=== PATIENT | female | born 2000 | race African-American/Black ===

== ENCOUNTER → 2020-05-31 | Outpatient (CLI) | payer BC, SELFPAY ==
[2020-05-31 14:05] VITALS: BMI 29.3
[2020-05-31 15:13] LABS: Estradiol 51.1 pg/mL; Follicle Stimulating Hormone 4.7 mIU/mL; Prolactin 13.4 ng/mL; T4 Free Direct 1.05 ng/dL (0.76-1.46); Thyroid Stim Hormone (TSH) 1.11 uIU/mL (0.358-3.74)
[2020-06-03 06:29] LABS: Testosterone Free 5.7 pg/mL (0.0-4.2)
[2020-06-08 09:14] LABS: 17-Hydroxyprogesterone 63 ng/dL (.)
== END | disposition home or self-care (01) ==
LOC: PAVLAB 14:33
PROVIDERS: PCP Pediatrics; Referring Provider Obstetrics & Gynecology; Visit Provider Obstetrics & Gynecology
DX: N91.5 Oligomenorrhea, unspecified (principal); Z13.29 Encounter for screening for other suspected endocrine disorder
CPT/HCPCS: 36415; 82627; 82670; 83001; 83498; 84146; 84402; 84439; 84443; 82626

== ENCOUNTER 2020-06-06 00:51 | Emergency (ER) | payer BC, SELFPAY ==
[2020-05-31 14:05] VITALS: BMI 29.3
[2020-06-06 00:52] VITALS: BP 132/78; PULSE 157; RESP 24; RESP 25; TEMP 36.1; O2SAT 100; BMI 28.7
--- NOTE | 2020-06-06 00:56 | EKG12_ITS ---
Test Reason : PALPITATIONS Blood Pressure : / mmHG Vent. Rate : 156 BPM Atrial Rate : 156 BPM P-R Int : 130 ms QRS Dur : 080 ms QT Int : 248 ms P-R-T Axes : 066 078 001 degrees QTc Int : 399 ms Sinus tachycardia Nonspecific ST abnormality Abnormal ECG Confirmed by ROBB IVY, RICHARD ([id number]), non linear editor LUH MOYER ([id number]) on 06/07/2020 11:33:18 AM Referred By: ESTELLE Confirmed By:RICHARD ZAMUDIO MD
--- NOTE | 2020-06-06 01:03 | ED.VIS.GEN ---
History of Present Illness Chief Complaint: Palpitations Informant: Patient Onset: Today Narrative: Patient states she woke up with palpitations. Happened 40 minutes ago. History of SVT in the past status post remote ablation. She has not had SVT since her ablation multiple years ago. Denies any chest pain or shortness of breath. Denies any other symptoms other than palpitations and heart racing. She was worried she might be in SVT again. Denies any other medical problems as for asthma. Current severity is moderate. Past Medical History - Allergies and Home Meds Allergies/Adverse Reactions: Allergies No Known Allergies Allergy (Verified 05/31/20 14:06) Primary Care Physician: Cally Hull MD [Primary Care Provider] - Prior records reviewed: Yes Past Medical History: - - SVT Surgical History: - - Cardiac ablation Smoking Status: Never smoker Alcohol: None Drugs: None Review of Systems General: Denies: Chills, Fever, Sweats Eyes: Denies: Visual changes - bilaterally, Diplopia ENT: Denies: Rhinorrhea, Sore throat Cardiovascular: Reports: Palpitations, Heart racing. Denies: Chest pain Respiratory: Denies: Dyspnea, Cough, Dyspnea on exertion Gastrointestinal: Denies: Abdominal pain, Nausea, Vomiting, Diarrhea, Melena, Hematochezia Genitourinary: Denies: Dysuria, Hematuria, Frequency Musculoskeletal: Denies: Back pain, Extremity Pain Skin: Denies: Rash, Wounds Neurological: Denies: Headache, Weakness, Numbness Physical Exam Vital Signs/Narrative: Vital Signs Temp Pulse Resp BP Pulse Ox 06/06/20 00:52 96.9 F L 157 H 25 H 132/78 H 100 General: Well nourished, Well developed, No Acute Distress Head: Normocephalic, Atraumatic Eyes: Perrl, EOMI ENT: Moist mucous membranes, No rhinorrhea Neck: Supple, Nontender Cardiovascular: Regular rhythm, No murmurs, Tachycardia Respiratory: No distress, CTA bilaterally, Chest nontender Abdomen: Soft, Nontender, Nondistended, Normal bowel sounds Back: Nontender, Normal Inspection Extremities: Nontender, No edema Skin: Normal color, No rash Neurological: Alert, Oriented x3, Cranial nerves II-XII grossly intact, Normal Strength, Normal Sensation Psychological: Normal affect, Normal Mood Diagnostic/Tx/Re-eval - Medical Decision Making Patient resting comfortably. Placed on the monitor. Regular rhythm noted although tachycardic. EKG shows tachycardia at 156. EKG shows sinus rhythm versus SVT. I believe it is SVT. Reading sinus rhythm but I suspect this SVT patient monitored. Lab work was obtained shows mild hypokalemia 2.9. Given potassium replacement for this. She has had this in the past. Otherwise lab work unremarkable. The patient Valsalva it and converted back to normal sinus rhythm. Heart rate in the 80s resting comfortably symptoms resolved will follow up with her public health advisor. ED Disposition - Plan for ED Patient: Diagnosis: Supraventricular tachycardia, Hypokalemia Instructions: ED Tachycardia PAT Referrals: Cally Hull MD [Primary Care Provider] - Additional Instructions: Follow with your public health advisor
[2020-06-06 01:15] LABS: Absolute Lymphocyte Count 3.12 X10^3/uL (0.83-4.51); Absolute Neutrophil Count 2.4 X10^3/uL (2.0-7.7); Basophil# 0.02 X10^3/uL; Basophil% 0.3 % (0-1); Eosinophil# 0.27 X10^3/uL; Eosinophils% 4.1 % (0-5); Hematocrit 39.8 % (37-47); Hemoglobin 12.8 g/dL (12.0-15.0); Lymphocyte # 3.12 X10^3/ul (4.0); Lymphocyte % 47.6 % (19-41); Mean Corp Hgb Conc 32.2 g/dL (32-36); Mean Corpuscular Hgb 25.9 pg (27.0-32.0); Mean Corpuscular Volume 80.6 fL (81-99); Monocyte# 0.76 X10^3/uL; Monocyte% 11.6 % (0-10); NRBC Flagged by Analyzer 0 % (0-5); Neutrophil # 2.38 X10^3/uL (2.7-7.7); Neutrophil % 36.2 % (47-70); Platelet Count 299 K/mm3 (150-450); RBC Distribution Width CV 13.4 % (11.6-14.6); RBC Distribution Width SD 38.9 fl (35.1-43.9); Red Blood Count 4.94 M/mm3 (4.2-5.4); White Blood Count 6.6 K/mm3 (4.4-11.0)
[2020-06-06 01:25] LABS: Anion Gap 7 (5-15); BUN 21 mg/dL (7-18); BUN/Creat Ratio 19.6 RATIO (10-20); Calcium,Total 9.1 mg/dL (8.5-10.1); Chloride 104 mmol/L (98-107); Creatinine, Serum 1.07 mg/dL (0.55-1.02); EST Glomerular Filtration Rate 69 mL/min (>60); Est Glom Filt Rate - Afr Amer 84 mL/min (>60); Estimated Creatinine Clearance 75.47 ml/min; Glucose 114 mg/dL (74-106); Potassium 2.9 mmol/L (3.5-5.1); Sodium Level 138 mmol/L (136-145)
[2020-06-06 02:03] VITALS: BP 111/97; PULSE 92; RESP 20; O2SAT 100
== END 2020-06-06 02:04 | disposition home or self-care (01) ==
PROVIDERS: Emergency Provider Emergency Medicine; PCP Pediatrics
DX: I47.1 Supraventricular tachycardia (principal); E87.6 Hypokalemia
CPT/HCPCS: 80048; 85025; 93005; 99284

== ENCOUNTER 2020-10-21 11:06 | Emergency (ER) | payer BC, SELFPAY ==
[2020-08-18 14:35] VITALS: BMI 28.3
[2020-10-21 11:06] VITALS: BP 116/75; PULSE 156; RESP 22; TEMP 36.1; O2SAT 97; BMI 29.2
[2020-10-21] MEDS: Adenosine 6 MG/2 ML Syringe IV (11:25)
[2020-10-21] MEDS: 0.9% Normal Saline 1,000 ML 999 ML IV (11:30)
[2020-10-21 11:39] VITALS: BP 116/75; PULSE 108; RESP 15; O2SAT 100
--- NOTE | 2020-10-21 11:39 | ED.RN ---
pt received 6 mg of adenosine with no change in HR (still 150-160s). after approx 10 min- pt got up to bathroom to void, attempts to bear down. back to bed, then in another 5-10 min- pt is now in a sinus tachycardia. MD at bedside to discuss POC with patient.
--- NOTE | 2020-10-21 11:42 | EKG12_ITS ---
Test Reason : REPEAT Blood Pressure : / mmHG Vent. Rate : 095 BPM Atrial Rate : 095 BPM P-R Int : 128 ms QRS Dur : 072 ms QT Int : 334 ms P-R-T Axes : 073 086 071 degrees QTc Int : 419 ms Normal sinus rhythm Normal ECG Confirmed by GEE IVY, DENIZ ([id number]), writer editor LUH MOYER ([id number]) on 10/24/2020 10:54:25 A M Referred By: Confirmed By:MO FLYNN MD
[2020-10-21 11:54] LABS: Absolute Lymphocyte Count 2.67 X10^3/uL (0.83-4.51); Absolute Neutrophil Count 4.7 X10^3/uL (2.0-7.7); Basophil# 0.02 X10^3/uL; Basophil% 0.2 % (0-1); Eosinophil# 0.32 X10^3/uL; Eosinophils% 3.8 % (0-5); Hematocrit 39.2 % (37-47); Hemoglobin 12.8 g/dL (12.0-15.0); Lymphocyte # 2.67 X10^3/ul (4.0); Lymphocyte % 31.5 % (19-41); Mean Corp Hgb Conc 32.7 g/dL (32-36); Mean Corpuscular Hgb 25.9 pg (27.0-32.0); Mean Corpuscular Volume 79.4 fL (81-99); Mean Platelet Vol. 10.3 fl (6.2-12.0); Monocyte# 0.79 X10^3/uL; Monocyte% 9.3 % (0-10); NRBC Flagged by Analyzer 0 % (0-5); Neutrophil # 4.65 X10^3/uL (2.7-7.7); Platelet Count 326 K/mm3 (150-450); RBC Distribution Width CV 14.1 % (11.6-14.6); RBC Distribution Width SD 40.5 fl (35.1-43.9); Red Blood Count 4.94 M/mm3 (4.2-5.4); White Blood Count 8.5 K/mm3 (4.4-11.0)
--- NOTE | 2020-10-21 12:00 | EKG12_ITS ---
Test Reason : IRREGULAR HEART RHTY Blood Pressure : / mmHG Vent. Rate : 157 BPM Atrial Rate : 314 BPM P-R Int : 000 ms QRS Dur : 068 ms QT Int : 236 ms P-R-T Axes : 251 080 000 degrees QTc Int : 381 ms Atrial flutter with 2:1 A-V conduction Nonspecific ST abnormality Abnormal ECG Confirmed by ROBB IVY, RICHARD ([id number]), index editor LUH MOYER ([id number]) on 10/25/2020 8:58:09 AM Referred By: AVEL Confirmed By:RICHARD ZAMUDIO MD
[2020-10-21 12:05] LABS: Anion Gap 6 (5-15); BUN 18 mg/dL (7-18); Calcium,Total 8.8 mg/dL (8.5-10.1); Chloride 107 mmol/L (98-107); Creatinine, Serum 1.06 mg/dL (0.55-1.02); EST Glomerular Filtration Rate 70 mL/min (>60); Est Glom Filt Rate - Afr Amer 84 mL/min (>60); Estimated Creatinine Clearance 73.11 ml/min; Glucose 127 mg/dL (74-106); Magnesium 1.9 mg/dL (1.6-2.6); Potassium 3.1 mmol/L (3.5-5.1); Sodium Level 142 mmol/L (136-145)
--- NOTE | 2020-10-21 12:07 | ED.VIS.GEN ---
History of Present Illness Chief Complaint: Palpitations Informant: Patient Narrative: 20-year-old female presents with palpitations. She states that she had a heart ablation at age 14 for SVT. Since that time she has had one episode of SVT possibly related to hypokalemia. She sees cardiology at [facility]. The patient states that she feels her heart fluttering. No syncope. - Past Medical History (1) Polycystic ovary syndrome Status: Acute Comment: counseling provided. sarah beth Past Medical History - Allergies and Home Meds Allergies/Adverse Reactions: Allergies No Known Allergies Allergy (Verified 10/21/20 11:09) Primary Care Physician: Cally Hull MD [Primary Care Provider] - Past Medical History: - - SVT Surgical History: - - Cardiac ablation Smoking Status: Never smoker Drugs: None Review of Systems General: Denies: Chills, Fever, Sweats Eyes: Denies: Visual changes - bilaterally, Diplopia ENT: Denies: Rhinorrhea, Sore throat Cardiovascular: Reports: Palpitations, Heart racing. Denies: Chest pain Respiratory: Denies: Dyspnea, Cough, Dyspnea on exertion Gastrointestinal: Denies: Abdominal pain, Nausea, Vomiting, Diarrhea, Melena, Hematochezia Genitourinary: Denies: Dysuria, Hematuria, Frequency Musculoskeletal: Denies: Back pain, Extremity Pain Skin: Denies: Rash, Wounds Neurological: Denies: Headache, Weakness, Numbness Physical Exam Vital Signs/Narrative: Vital Signs Temp Pulse Resp BP Pulse Ox 10/21/20 11:39 108 H 15 116/75 100 10/21/20 11:06 96.9 F L 156 H 22 H 116/75 97 Inital Vital Signs reviewed: Yes General: Well nourished, Well developed, No Acute Distress Head: Normocephalic, Atraumatic Eyes: Perrl, EOMI ENT: Moist mucous membranes, No rhinorrhea Neck: Supple, Nontender Cardiovascular: Regular rate, Regular rhythm, No murmurs, Tachycardia Respiratory: No distress, CTA bilaterally, Chest nontender Abdomen: Soft, Nontender, Nondistended, Normal bowel sounds Back: Nontender, Normal Inspection Extremities: Nontender, No edema Skin: Normal color, No rash Neurological: Alert, Oriented x3, Cranial nerves II-XII grossly intact, Normal Strength, Normal Sensation Psychological: Normal affect, Normal Mood Diagnostic/Tx/Re-eval Laboratory Last Values WBC 8.5 K/mm3 (4.4-11.0) 10/21/20 11:10 RBC 4.94 M/mm3 (4.2-5.4) 10/21/20 11:10 Hgb 12.8 g/dL (12.0-15.0) 10/21/20 11:10 Hct 39.2 % (37-47) 10/21/20 11:10 MCV 79.4 fL (81-99) L 10/21/20 11:10 MCH 25.9 pg (27.0-32.0) L 10/21/20 11:10 MCHC 32.7 g/dL (32-36) 10/21/20 11:10 RDW Std Deviation 40.5 fl (35.1-43.9) 10/21/20 11:10 RDW Coeff of Anabel 14.1 % (11.6-14.6) 10/21/20 11:10 Plt Count 326 K/mm3 (150-450) 10/21/20 11:10 MPV 10.3 fl (6.2-12.0) 10/21/20 11:10 Immature Gran % (Auto) 0.200 % (0.0-0.9) 10/21/20 11:10 Neut % (Auto) 55.0 % (47-70) 10/21/20 11:10 Lymph % (Auto) 31.5 % (19-41) 10/21/20 11:10 Aiken % (Auto) 9.3 % (0-10) 10/21/20 11:10 Eos % (Auto) 3.8 % (0-5) 10/21/20 11:10 Baso % (Auto) 0.2 % (0-1) 10/21/20 11:10 Absolute Neuts (auto) 4.7 X10^3/uL (2.0-7.7) 10/21/20 11:10 Absolute Lymphs (auto) 2.67 X10^3/uL (0.83-4.51) 10/21/20 11:10 Nucleated RBC % 0 % (0-5) 10/21/20 11:10 Sodium 142 mmol/L (136-145) 10/21/20 11:10 Potassium 3.1 mmol/L (3.5-5.1) L 10/21/20 11:10 Chloride 107 mmol/L (98-107) 10/21/20 11:10 Carbon Dioxide 29.0 mmol/L (21.0-32.0) 10/21/20 11:10 Anion Gap 6 (5-15) 10/21/20 11:10 BUN 18 mg/dL (7-18) 10/21/20 11:10 Creatinine 1.06 mg/dL (0.55-1.02) H 10/21/20 11:10 Estim Creat Clear Calc 73.11 ml/min 10/21/20 11:10 Est GFR (MDRD) Af Amer 84 mL/min (>60) 10/21/20 11:10 Est GFR (MDRD) Non-Af 70 mL/min (>60) 10/21/20 11:10 BUN/Creatinine Ratio 17.0 RATIO (10-20) 10/21/20 11:10 Glucose 127 mg/dL (74-106) H 10/21/20 11:10 Calcium 8.8 mg/dL (8.5-10.1) 10/21/20 11:10 Magnesium 1.9 mg/dL (1.6-2.6) 10/21/20 11:10 - EKG Initial EKG Interpretation: SVT - Initial EKG shows a supraventricular tachycardia at a rate of 157. - Medical Decision Making Patient's heart rate would increase at times up to 180. We tried several vagal maneuvers to no success. She received 6 mg of adenosine and there was a momentary pause but no resolution of her symptoms. The patient wanted to wait and not do the 12 mg dose. She went to use the bathroom and converted back to a sinus rhythm. Basic blood work showed a potassium of 3.1 which we will replace orally. She is to follow-up with her directional survey drafter. ED Disposition - Plan for ED Patient: Disposition: Home or Assisted Living Diagnosis: SVT (supraventricular tachycardia) Instructions: ED About Arrhythmias, Hypokalemia Prescriptions: Potassium Chloride Oral Tablet [K-Dur] 20 meq PO DAILY #7 tab Prescription Printed Referrals: Cally Hull MD [Primary Care Provider] - As Needed
[2020-10-21] MEDS: Potassium Chloride Oral Tablet 20 MEQ PO (12:24)
[2020-10-21 12:25] VITALS: BP 94/69; PULSE 98; RESP 20; O2SAT 99
== END 2020-10-21 12:43 | disposition home or self-care (01) ==
PROVIDERS: Emergency Provider Emergency Medicine; PCP Pediatrics
DX: I47.1 Supraventricular tachycardia (principal)
CPT/HCPCS: 80048; 83735; 85025; 93005; 96361; 96374; 99285; J7030; A4216; J0153

== ENCOUNTER 2020-10-30 23:43 | Emergency (ER) | payer BC, SELFPAY ==
[2020-10-30 23:44] VITALS: BP 114/87; PULSE 121; RESP 23; TEMP 36.6; O2SAT 98; BMI 29.0
--- NOTE | 2020-10-30 23:58 | EKG12_ITS ---
Test Reason : CP/PALPITATIONS Blood Pressure : / mmHG Vent. Rate : 112 BPM Atrial Rate : 112 BPM P-R Int : 152 ms QRS Dur : 068 ms QT Int : 304 ms P-R-T Axes : 058 064 043 degrees QTc Int : 414 ms Sinus tachycardia Otherwise normal ECG Confirmed by MED IVY, INGRID ([id number]), international editorial producer LUH MOYER ([id number]) on 11/03/2020 9:28:05 AM Referred By: SHANTA Confirmed By:INGRID JOVEL MD
--- NOTE | 2020-10-31 00:13 | ED.DCSUM_ITS ---
History of Present Illness Chief Complaint: Palpitations Informant: Patient Onset: Weeks - 1 Timing: Intermittent, Lasts - brief Quality: flutter. sometimes, feels like it beats hard. Location: chest Current Severity: Moderate - around 10+ times/day or so Maximum Severity: Moderate Worsened by: nothing Relieved by: nothing Associated Symptoms: heartburn for 3 years Narrative: Patient presents saying she had a cardioversion 1 week ago for a recurrent bout of SVT, and ever since she has been having anxiety attacks separate from palpitations. At times she has pressure in her head and then she has a brief palpitation which seems to make the pressure go away. She has had no dizziness or near syncope/syncope. She denies any chest pain with it but states she has been having heartburn for the last 3 years, she used to manage it with [id number] Nexium which she has not been taking reliably anymore, but it is burning in her chest and upper abdomen that occurs right after eating almost everything and sometimes even after drinking water. She has been managing it lately with recurrent doses of Mylanta which help it, however it has been helping less lately. She admits to feeling very anxious and panicky at times. She had an ablation at [facility] years ago for SVT, and she just recently had 2 bouts of it, second of which she was cardioverted for 1 week ago here. She has not yet called for an appointment. She has been compliant with her daily atenolol 25 mg. She denies any fevers or other illnesses lately. No shortness of breath, nausea, vomiting, melena, hematemesis. - Past Medical History (1) Polycystic ovary syndrome Status: Chronic Comment: counseling provided. everette Past Medical History - Allergies and Home Meds Allergies/Adverse Reactions: Allergies No Known Allergies Allergy (Verified 10/21/20 11:09) Primary Care Physician: Cally Hull MD [Primary Care Provider] - Surgical History: - - Cardiac ablation Smoking Status: Never smoker Drugs: None Review of Systems General: Denies: Chills, Fever, Sweats Eyes: Denies: Visual changes - bilaterally, Diplopia ENT: Denies: Bilateral ear pain, Rhinorrhea, Sore throat Cardiovascular: Reports: Chest pain, Palpitations Respiratory: Denies: Dyspnea, Cough, Dyspnea on exertion Gastrointestinal: Reports: Abdominal pain. Denies: Nausea, Vomiting, Diarrhea, Melena, Hematochezia Genitourinary: Denies: Dysuria, Hematuria, Frequency Musculoskeletal: Denies: Back pain, Swelling, Extremity Pain Skin: Denies: Rash, Wounds Neurological: Reports: Headache - Not currently present. Denies: Weakness, Numbness Psych: Reports: Anxiety. Denies: Suicidal thoughts Physical Exam Vital Signs/Narrative: Vital Signs Temp Pulse Resp BP Pulse Ox 10/30/20 23:44 98 F 121 H 23 H 114/87 H 98 Inital Vital Signs reviewed: Yes General: Well nourished, Well developed, No Acute Distress Head: Normocephalic, Atraumatic Eyes: Perrl, EOMI ENT: Moist mucous membranes, No rhinorrhea Neck: Supple, Nontender, No lymphadenopathy, No JVD Cardiovascular: Regular rate, Regular rhythm, No murmurs, Tachycardia - Mild, 100-110 Respiratory: No distress, CTA bilaterally, Chest nontender Abdomen: Soft, Nontender, Nondistended, Normal bowel sounds Back: Nontender, Normal Inspection Extremities: Nontender, No edema. Negative for: Calf Tenderness Skin: Normal color, No rash, No Trauma Neurological: Alert, Oriented x3, Cranial nerves II-XII grossly intact, Normal Strength, Normal Sensation Psychological: Normal Mood, - - Anxious. Diagnostic/Tx/Re-eval Laboratory Tests 10/31/20 10/31/20 Range/Units 00:30 00:30 WBC 6.3 (4.4-11.0) K/mm3 RBC 4.62 (4.2-5.4) M/mm3 Hgb 12.0 (12.0-15.0) g/dL Hct 36.9 L (37-47) % MCV 79.9 L (81-99) fL MCH 26.0 L (27.0-32.0) pg MCHC 32.5 (32-36) g/dL RDW Std Deviation 40.6 (35.1-43.9) fl RDW Coeff of Anabel 14.0 (11.6-14.6) % Plt Count 334 (150-450) K/mm3 MPV 10.1 (6.2-12.0) fl Immature Gran % (Auto) 0.200 (0.0-0.9) % Neut % (Auto) 63.3 (47-70) % Lymph % (Auto) 24.8 (19-41) % Sunflower % (Auto) 9.9 (0-10) % Eos % (Auto) 1.6 (0-5) % Baso % (Auto) 0.2 (0-1) % Absolute Neuts (auto) 4.0 (2.0-7.7) X10^3/uL Absolute Lymphs (auto) 1.55 (0.83-4.51) X10^3/uL Nucleated RBC % 0 (0-5) % Sodium 138 (136-145) mmol/L Potassium 3.6 (3.5-5.1) mmol/L Chloride 104 (98-107) mmol/L Carbon Dioxide 29.0 (21.0-32.0) mmol/L Anion Gap 5 (5-15) BUN 14 (7-18) mg/dL Creatinine 1.09 H (0.55-1.02) mg/dL Estim Creat Clear Calc 71.09 ml/min Est GFR (MDRD) Af Amer 82 (>60) mL/min Est GFR (MDRD) Non-Af 68 (>60) mL/min BUN/Creatinine Ratio 12.8 (10-20) RATIO Glucose 106 (74-106) mg/dL Calcium 8.9 (8.5-10.1) mg/dL Troponin I < 0.015 (<0.045) ng/mL TSH 1.65 (0.358-3.74) uIU/mL - Rhythm Strip Rhythm Strip: Sinus Tach Rate: 112 Ectopy: None - EKG Initial EKG Interpretation: No Acute Injury Pattern, Sinus Tachycardia - With upright P waves inferiorly - Medical Decision Making While interviewing the patient, she did have palpitations one time. There were no PVCs, however shortly thereafter without her having symptoms, she did seem to change the rate suddenly from 110 to around 95 and then back up a little later. It was difficult to tell if this was a sinus arrhythmia in a young healthy female or an ectopic atrial tachycardia. Arguing against the latter, she had no ongoing feeling of racing heartbeat with either 1 of these. Basic labs including a TSH were obtained, she had a negative/normal TSH in May of last year, it is all within normal limits as above today. She had no dysrhythmias or ectopy on the monitor that was definitive. I feel it is safe for her to follow- up as an outpatient, she was given a new prescription for PPI. ED Disposition - Plan for ED Patient: Disposition: Home or Assisted Living Diagnosis: Palpitations, Anxiety Instructions: ED Palpitations, ED Epigastric Pain (Uncertain Cause) Prescriptions: Esomeprazole Mag Trihydrate [Nexium] 40 mg PO DAILY #30 capsule Prescription Printed Referrals: Cally Hull MD [Primary Care Provider] - 5-7 Days (and call your veterinary anatomist for a follow up appt)
[2020-10-31 00:44] VITALS: BP 104/68; PULSE 78; RESP 18
[2020-10-31 00:44] LABS: Absolute Lymphocyte Count 1.55 X10^3/uL (0.83-4.51); Basophil# 0.01 X10^3/uL; Basophil% 0.2 % (0-1); Eosinophils% 1.6 % (0-5); Hematocrit 36.9 % (37-47); Lymphocyte # 1.55 X10^3/ul (4.0); Lymphocyte % 24.8 % (19-41); Mean Corp Hgb Conc 32.5 g/dL (32-36); Mean Corpuscular Volume 79.9 fL (81-99); Mean Platelet Vol. 10.1 fl (6.2-12.0); Monocyte# 0.62 X10^3/uL; Monocyte% 9.9 % (0-10); NRBC Flagged by Analyzer 0 % (0-5); Neutrophil # 3.96 X10^3/uL (2.7-7.7); Neutrophil % 63.3 % (47-70); Platelet Count 334 K/mm3 (150-450); RBC Distribution Width SD 40.6 fl (35.1-43.9); Red Blood Count 4.62 M/mm3 (4.2-5.4); White Blood Count 6.3 K/mm3 (4.4-11.0)
[2020-10-31 01:00] VITALS: BP 102/76; PULSE 72; O2SAT 97
[2020-10-31 01:03] LABS: Anion Gap 5 (5-15); BUN 14 mg/dL (7-18); BUN/Creat Ratio 12.8 RATIO (10-20); Calcium,Total 8.9 mg/dL (8.5-10.1); Chloride 104 mmol/L (98-107); Creatinine, Serum 1.09 mg/dL (0.55-1.02); EST Glomerular Filtration Rate 68 mL/min (>60); Est Glom Filt Rate - Afr Amer 82 mL/min (>60); Estimated Creatinine Clearance 71.09 ml/min; Glucose 106 mg/dL (74-106); Potassium 3.6 mmol/L (3.5-5.1); Sodium Level 138 mmol/L (136-145); Thyroid Stim Hormone (TSH) 1.65 uIU/mL (0.358-3.74)
[2020-10-31] MEDS: Pantoprazole Sodium 40 MG Tablet PO (01:52)
[2020-10-31 01:56] VITALS: BP 108/56; PULSE 72; RESP 18
== END 2020-10-31 01:57 | disposition home or self-care (01) ==
PROVIDERS: Emergency Provider Emergency Medicine; PCP Pediatrics
DX: F41.9 Anxiety disorder, unspecified (principal); R00.2 Palpitations
CPT/HCPCS: 80048; 84443; 84484; 85025; 93005; 99285; A4216

== ENCOUNTER 2020-12-18 18:51 | Emergency (ER) | payer BC, SELFPAY ==
[2020-12-18 18:52] VITALS: BP 107/73; PULSE 120; RESP 16; TEMP 36.1; O2SAT 97; BMI 27.4
--- NOTE | 2020-12-18 19:20 | EX.ED.DYSGE1 ---
HPI History of Present Illness Chief Complaint: Headache Detail of Chief Complaint: Heartburn and headache Informant: patient Onset/Context/Timing Onset: Today and Hours Context: Gradual Onset Timing: Continuous Location: Complaining of reflux type of indigestion that she thinks is triggering MCCORD. Current Severity: Mild Maximum Severity: Mild Narrative Narrative: 20-year-old female with recent history of SVT with a cardiac ablation done 10 days ago. States she had reflux type symptoms today at around 12:00.gradual onset of a left-sided headache. Denies any head trauma. No fever. No neck pain. No trouble moving her arms or legs. No family history of intracranial bleeds or aneurysms. She has gotten headaches before in the past this is not the worst headache she is ever had. Prior similar symptoms: No Recent Illness/Hospitalization: No [facility] Medical History (Updated 12/18/20 @ 20:[address] Marcos Lombardo MD) SVT (supraventricular tachycardia) Home Medications atenolol 12.5 mg PO DAILY 01/26/14 [History Last Taken Unknown] albuterol sulfate 90 mcg/actuation aerosol inhaler 1 inh INHALATION ONCE 05/31/20 [History Last Taken Unknown] levonorgestrel-ethinyl estradiol 0.1 mg-20 mcg tablet 1 tab PO QDAY #28 tab 08/18/20 [Rx Last Taken Unknown] potassium chloride 20 meq PO DAILY #7 tab 10/21/20 [Rx Last Taken Unknown] esomeprazole magnesium 40 mg PO DAILY #30 capsule 10/31/20 [Rx Last Taken Unknown] pantoprazole [Protonix] 40 mg PO DAILY #30 tab 12/18/20 [Rx Last Taken Unknown] Allergy/AdvReac Type Severity Reaction Status Date / Time No Known Allergies Allergy Verified 12/18/20 18:54 Family History Father , at 36 Enlarged heart Surgical History H/O cardiac radiofrequency ablation History of tonsillectomy Social History Smoking Status: Never smoker alcohol intake: never substance use type: does not use caffeine: No what type of physical activity do you participate in: none seatbelt use: always do you feel safe at home: Yes additional social history: [facility] ROS ROS ED ROS Narrative Headache with congestion symptoms. Review of Systems ROS Unobtainable: Denies due to encephalopathy Constitutional Constitutional ED: Denies chills or fever(s) Eyes Eyes: Denies change in vision ENT ENT ED: Denies ear pain or sore throat Cardiovascular Cardiovascular: Denies chest pain or palpitations Respiratory/Chest Respiratory/Chest: Denies cough or dyspnea Gastrointestinal Gastrointestinal: Denies abdominal pain Genitourinary Genitourinary ED: Denies dysuria or hematuria Musculoskeletal Musculoskeletal: Denies arthralgias, myalgias or neck pain Integumentary Denies rash Neurologic Neurologic: Reports headache(s) Psychiatric Psychiatric: Denies depression Endocrine Endocrinology: Denies polyuria Allergic/Immunologic Allergic/Immunologic ED: Denies urticaria EXAM Physical Exam Narrative Exam Narrative: Young female no acute distress. Vital signs stable afebrile. HEENT exam normal. Dry reactive light. Normal speech no droop. No head trauma. Neck nontender no lymphadenopathy. No meningismus. Lungs clear to auscultation bilaterally. Heart regular rhythm no murmur. Abdomen soft nontender normal bowel sounds no peritoneal signs. Patient moving all 4 extremities. Neurovascularly intact. 5/5 aerotriangulation specialist strength bilaterally. Dorsi plantar flexion intact. Neurologic exam normal NIH is 0. Fingertip to nose [id number] all within normal limits. Const Vital Signs: 12/18/20 18:52 Temperature 96.9 F L Temperature Source Temporal Pulse Rate 120 H Respiratory Rate 16 Blood Pressure 107/73 Blood Pressure Mean 84 Pulse Ox 97 Oxygen Delivery Method Room Air Positive well nourished and well developed General Appearance ED: well developed HEENT Negative for trauma or tenderness Eyes PERRL and EOMs intact bilaterally Neck no lymphadenopathy, supple and no JVD General: Negative for tenderness Chest Wall inspection of chest normal Resp normal respiratory effort and clear to auscultation bilaterally Cardio regular rate, regular rhythm and no murmurs GI normal to inspection, nondistended, normoactive bowel sounds, non-tender, non-distended and no masses Auscultation: normoactive bowel sounds Palpation: soft Back/Spine no CVA tenderness Extremity normal to inspection General Extremety ED: Negative for edema or tenderness General Extremity: Negative for edema Neuro oriented x3 and CN's II-XII intact bilaterally Sensorium / Orientation: alert, orientation impaired, lethargic and stuporous Motor Exam: strength 5/5 throughout Psych mental status grossly normal Skin no rashes or lesions noted and no wounds MDM MDM MDM Narrative Medical decision making narrative: Young female with a headache but her #1 complaints indigestion. She thinks is triggering her headache. I offered her medications for the headache she deferred at this time she just want some Protonix which she has had before for reflux and then will decide if she wants anything else. Repeat exam after the patient received p.o. Protonix said her headache all months instantaneously was substantially better. As was her reflux. On repeat exam at 825 her neurologic exam remains normal. She wants no further evaluation she does not want any imaging or any labs done. She will be discharged home with Protonix. She has appointment to follow-up with her primary care physician. Discharge Plan Triage Chief Complaint: Headache ED Provider: Marcos Lombardo Dx/Rx/DC Orders Clinical Impression: Acid reflux, Headache Instructions: ED GERD (Adult), ED Headache Unspecified Prescriptions: New pantoprazole [Protonix] 40 mg tablet,delayed release (DR/EC) 40 mg PO DAILY Qty: 30 RF: 0 No Action albuterol sulfate [ProAir HFA] 90 mcg/actuation HFA aerosol inhaler 1 inh INHALATION ONCE RF: 0 levonorgestrel-ethinyl estrad [Aviane] 0.1-20 mg-mcg tablet 1 tab PO QDAY Qty: 28 RF: 12 atenolol 25 MG tablet 12.5 mg PO DAILY RF: 0 potassium chloride 20 MEQ tablet 20 meq PO DAILY Qty: 7 RF: 0 esomeprazole magnesium 40 MG capsule 40 mg PO DAILY Qty: 30 RF: 0 Primary Care Provider: Cally Hull Referrals: Cally Hull MD [Primary Care Provider] - 1-2 Days if not improving Activity Restrictions/Additional Instructions: Protonix daily for your reflux. The prescription was sent to [facility] [place]. Tylenol for your headache. Follow-up with your primary care physician if not improving. Return to the emergency department if feeling worse. Disposition Disposition: Home, self care
[2020-12-18] MEDS: Pantoprazole Sodium 40 MG Tablet PO (20:03)
[2020-12-18 20:43] VITALS: BP 107/80; PULSE 108; RESP 16; O2SAT 98
== END 2020-12-18 20:45 | disposition home or self-care (01) ==
PROVIDERS: Emergency Provider Emergency Medicine; PCP Pediatrics
DX: K21.9 Gastro-esophageal reflux disease without esophagitis (principal); R51.9 Headache, unspecified; I47.1 Supraventricular tachycardia; Z79.899 Other long term (current) drug therapy
CPT/HCPCS: 99283

== ENCOUNTER 2020-12-28 05:16 | Emergency (ER) | payer BC, SELFPAY ==
[2020-12-28 05:17] VITALS: BP 126/66; PULSE 144; RESP 18; TEMP 35.9; O2SAT 99; BMI 28.6
--- NOTE | 2020-12-28 05:25 | ED.RN ---
CALLED FOR EKG PER RN REQUEST, PULLED OLD EKGS FOR
--- NOTE | 2020-12-28 05:43 | RAD_ITS ---
STUDY: X-RAY CHEST REASON FOR EXAM: Female, 20 years old. Shortness of breath. TECHNIQUE: AP portable chest. COMPARISON: January 26, 2014. FINDINGS: No focal infiltrates or effusions. No pneumothorax. Normal size heart. Normal mediastinum and ana laura. Normal visualized pulmonary arteries. Normal visualized aortic arch and descending thoracic aorta. Normal visualized thoracic spine. Normal visualized ribs, clavicles, and shoulders. There is no demonstrated abnormality of the visualized soft tissue structures of the upper abdomen. RAD/Chest 1 View (Portable) IMPRESSION: Normal x-ray examination of the chest. Electronically Signed: Mitch Devine MD at 6:13 EDT , Service support ,
--- NOTE | 2020-12-28 05:43 | EKG12_ITS ---
Test Reason : DYSRYTHMIA Blood Pressure : / mmHG Vent. Rate : 143 BPM Atrial Rate : 143 BPM P-R Int : 134 ms QRS Dur : 072 ms QT Int : 284 ms P-R-T Axes : 065 077 049 degrees QTc Int : 438 ms Sinus tachycardia with Premature atrial complexes Otherwise normal ECG Confirmed by ROBB IVY, RICHARD ([id number]), mapping editor LUH MOYER ([id number]) on 12/29/2020 11:15:54 AM Referred By: CATHERINE Confirmed By:RICHARD ZAMUDIO MD
[2020-12-28 05:51] LABS: Absolute Lymphocyte Count 3.08 X10^3/uL (0.83-4.51); Absolute Neutrophil Count 4.1 X10^3/uL (2.0-7.7); Basophil# 0.02 X10^3/uL; Basophil% 0.2 % (0-1); Eosinophil# 0.25 X10^3/uL; Eosinophils% 3.1 % (0-5); Hematocrit 40.9 % (37-47); Lymphocyte # 3.08 X10^3/ul (0.83-4.51); Lymphocyte % 37.7 % (19-41); Mean Corp Hgb Conc 31.8 g/dL (32-36); Mean Corpuscular Hgb 25.5 pg (27.0-32.0); Mean Corpuscular Volume 80.2 fL (81-99); Mean Platelet Vol. 10.4 fl (6.2-12.0); Monocyte# 0.73 X10^3/uL; Monocyte% 8.9 % (0-10); NRBC Flagged by Analyzer 0 % (0-5); Neutrophil # 4.07 X10^3/uL (2.7-7.7); Neutrophil % 49.7 % (47-70); Platelet Count 335 K/mm3 (150-450); RBC Distribution Width CV 13.6 % (11.6-14.6); RBC Distribution Width SD 39.6 fl (35.1-43.9); White Blood Count 8.2 K/mm3 (4.4-11.0)
[2020-12-28 05:54] LABS: Internal QC Validated? YES +Cl - CLEAR BKGD; Pregnancy, Serum, hCG Quali. NEGATIVE Negative
[2020-12-28 06:04] LABS: D-Dimer Quantitative (DVT/PE) 0.62 FEU/ug/m (0.27-0.49)
[2020-12-28] MEDS: 0.9% Normal Saline 1,000 ML 1000 ML IV (06:05)
[2020-12-28 06:06] LABS: Anion Gap 9 (5-15); BUN 22 mg/dL (7-18); BUN/Creat Ratio 20.6 RATIO (10-20); Calcium,Total 9.3 mg/dL (8.5-10.1); Chloride 103 mmol/L (98-107); Creatinine, Serum 1.07 mg/dL (0.55-1.02); EST Glomerular Filtration Rate 69 mL/min (>60); Est Glom Filt Rate - Afr Amer 83 mL/min (>60); Estimated Creatinine Clearance 72.42 ml/min; Glucose 116 mg/dL (74-106); Potassium 3.5 mmol/L (3.5-5.1); Sodium Level 138 mmol/L (136-145)
[2020-12-28] MEDS: Atenolol 25 MG Tablet 12.5 MG PO ×2 (06:06→07:03)
--- NOTE | 2020-12-28 06:16 | EX.ED.DYSGE1 ---
HPI History of Present Illness Chief Complaint: Palpitations Informant: patient Narrative Narrative: 20 year old female presenting with palpitations. Patient states that she felt she was having a panic attack. She noticed that her heart rate was fast and it felt like it was skipping beats. She denies chest pain. No shortness of breath. She does not take medication for anxiety. She has remote history of ablation for SVT and more recent ablation at [facility] last month. She did not take her morning dose of Atenolol. Prior similar symptoms: Yes [facility] Medical History Anxiety SVT (supraventricular tachycardia) Home Medications atenolol 12.5 mg PO DAILY 01/26/14 [History Last Taken Unknown] albuterol sulfate 90 mcg/actuation aerosol inhaler 1 inh INHALATION ONCE 05/31/20 [History Last Taken Unknown] levonorgestrel-ethinyl estradiol 0.1 mg-20 mcg tablet 1 tab PO QDAY #28 tab 08/18/20 [Rx Last Taken Unknown] pantoprazole [Protonix] 40 mg PO DAILY #30 tab 12/18/20 [Rx Last Taken Unknown] Allergy/AdvReac Type Severity Reaction Status Date / Time No Known Allergies Allergy Verified 12/28/20 05:21 Family History Father , at 36 Enlarged heart Surgical History H/O cardiac radiofrequency ablation History of cardiac radiofrequency ablation History of tonsillectomy Social History Smoking Status: Never smoker alcohol intake: never substance use type: does not use caffeine: No what type of physical activity do you participate in: none seatbelt use: always do you feel safe at home: Yes additional social history: [place] [facility] ROS ED Constitutional Constitutional ED: Denies fever(s) Eyes Eyes: Denies change in vision ENT ENT ED: Denies rhinorrhea or sore throat Cardiovascular Cardiovascular: Reports palpitations; Denies chest pain Respiratory/Chest Respiratory/Chest: Denies cough or dyspnea Gastrointestinal Gastrointestinal: Denies abdominal pain, diarrhea, nausea or vomiting Genitourinary Genitourinary ED: Denies dysuria Musculoskeletal Musculoskeletal: Denies myalgias Integumentary Denies rash Neurologic Neurologic: Denies headache(s) Psychiatric Psychiatric: Reports anxiety; Denies suicidal thoughts EXAM Physical Exam Const Vital Signs: 12/28/20 05:17 12/28/20 05:21 12/28/20 07:04 Temperature 96.7 F L Temperature Source Temporal Pulse Rate 144 H 118 H Respiratory Rate 18 16 Respiratory Effort Normal Respiratory Pattern Normal Blood Pressure 126/66 H 94/82 H Blood Pressure Mean 86 86 Pulse Ox 99 98 Oxygen Delivery Method Room Air Room Air Positive well nourished and well developed General Appearance ED: well developed HEENT Reports normocephalic and head/scalp atraumatic Eyes PERRL and EOMs intact bilaterally Neck supple General: Negative for tenderness Chest Wall inspection of chest normal Resp normal respiratory effort and clear to auscultation bilaterally Cardio regular rhythm Rate: tachycardic GI non-tender and non-distended Palpation: soft; Negative for guarding or rebound tenderness present no CVA tenderness Extremity normal to inspection Neuro oriented x3 Sensorium / Orientation: alert Psych Mood & Affect: anxious MDM MDM MDM Narrative Medical decision making narrative: Patient was given IV fluids and her morning dose of Atenolol. She was initially given 12.5 mg. She then stated that she used to be on 25 mg and was told that she can increase her dose back to 25 mg, so she was given additional 12.5 mg. CTA chest was obtained due to elevated D dimer and is unremarkable. HCG negative. 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 She was advised to watch for heart rates over 150. She states her heart rate usually ranges between 100-120 since the ablation. On re-evaluation her heart rate is 115 and she is feeling improved. Advised to follow up with cardiology and her primary care physician. Advised to return to the ED for worsening complaints. Lab Data Attestation: I reviewed the patient's lab results. Labs: Laboratory Results - last 24 hr 12/28/20 12/28/20 12/28/20 05:25 05:25 05:25 WBC 8.2 RBC 5.10 Hgb 13.0 Hct 40.9 MCV 80.2 L MCH 25.5 L MCHC 31.8 L RDW Std Deviation 39.6 RDW Coeff of Anabel 13.6 Plt Count 335 MPV 10.4 Immature Gran % (Auto) 0.400 Neut % (Auto) 49.7 Lymph % (Auto) 37.7 Eddy % (Auto) 8.9 Eos % (Auto) 3.1 Baso % (Auto) 0.2 Absolute Neuts (auto) 4.1 Absolute Lymphs (auto) 3.08 Nucleated RBC % 0 D-Dimer Quant (PE/DVT) 0.62 H* Sodium 138 Potassium 3.5 Chloride 103 Carbon Dioxide 26.0 Anion Gap 9 BUN 22 H Creatinine 1.07 H Estim Creat Clear Calc 72.42 Est GFR (MDRD) Af Amer 83 Est GFR (MDRD) Non-Af 69 BUN/Creatinine Ratio 20.6 H Glucose 116 H Calcium 9.3 Troponin I < 0.015 Serum , Qual 12/28/20 05:25 WBC RBC Hgb Hct MCV MCH MCHC RDW Std Deviation RDW Coeff of Anabel Plt Count MPV Immature Gran % (Auto) Neut % (Auto) Lymph % (Auto) Eddy % (Auto) Eos % (Auto) Baso % (Auto) Absolute Neuts (auto) Absolute Lymphs (auto) Nucleated RBC % D-Dimer Quant (PE/DVT) Sodium Potassium Chloride Carbon Dioxide Anion Gap BUN Creatinine Estim Creat Clear Calc Est GFR (MDRD) Af Amer Est GFR (MDRD) Non-Af BUN/Creatinine Ratio Glucose Calcium Troponin I Serum , Qual NEGATIVE Radiography Chest X-Ray - ED: 1 View, Read by ED Physician and Read by Radiologist Diagnostic Testing: Radiology Impression Chest X-Ray 12/28/20 05:43 IMPRESSION: Normal x-ray examination of the chest. Electronically Signed: Mitch Devine MD at 6:13 EDT , Service support , Chest CTA 12/28/20 06:28 IMPRESSION: No definitive visualized pulmonary embolism. No evidence of aortic dissection. No visualized focal infiltrate. Electronically Signed: Starr Patel MD at 7:18 EDT Tel , Service support , EKG Initial EKG: Attestation: I personally reviewed and interpreted this EKG as follows: Interpretation: Sinus Tachycardia Prior EKG tracings: available for review Prior: Unchanged Discharge Plan Triage Chief Complaint: Palpitations ED Provider: Mounika Bolton Dx/Rx/DC Orders Clinical Impression: Heart palpitations Instructions: ED Palpitations Prescriptions: No Action albuterol sulfate [ProAir HFA] 90 mcg/actuation HFA aerosol inhaler 1 inh INHALATION ONCE RF: 0 levonorgestrel-ethinyl estrad [Aviane] 0.1-20 mg-mcg tablet 1 tab PO QDAY Qty: 28 RF: 12 atenolol 25 MG tablet 12.5 mg PO DAILY RF: 0 pantoprazole [Protonix] 40 mg tablet,delayed release (DR/EC) 40 mg PO DAILY Qty: 30 RF: 0 Primary Care Provider: Cally Hull Referrals: Sonal Moura MD [STAFF PHYSICIAN] - Ilan Willoughby MD [STAFF PHYSICIAN] - Cally Hull MD [Primary Care Provider] - Rafat Apodaca MD [NON-STAFF] - Disposition Disposition: Home, self care Discharge Date/Time: 12/28/20 07:46
--- NOTE | 2020-12-28 06:28 | CT_ITS ---
STUDY: CTA CHEST REASON FOR EXAM: Female, 20 years old. Elevated d dimer RADIATION DOSAGE (If Supplied By Facility): CTDIvol = ( 9.34 ) mGy, DLP = ( 388.98 ) mGycm TECHNIQUE: The examination was performed with the intravenous administration of IV 100mL Isovue-370. Post-processing of the angiographic images was performed, with multiplanar reformation and 3D reconstruction. Individualized dose optimization techniques were used for this CT. COMPARISON: Chest x-ray December 28, 2020 FINDINGS: Normal enhancement of the main pulmonary artery and right and left pulmonary arteries. Normal enhancement of the bilateral peripheral pulmonary arteries. There is no demonstrated pulmonary embolism. Normal thoracic aorta and visualized great vessels. There is no demonstrated aortic dissection. Normal heart and pericardium. Normal mediastinum. Normal hilar regions. Normal visualized trachea and bronchi. The lungs are well expanded. Normal pulmonary parenchyma. Normal pleura. Normal chest wall structures. Normal osseous structures. Normal visualized upper abdomen. CT/CTA Chest W/WO Contrast IMPRESSION: No definitive visualized pulmonary embolism. No evidence of aortic dissection. No visualized focal infiltrate. Electronically Signed: Starr Patel MD at 7:18 EDT Tel , Service support ,
[2020-12-28 07:04] VITALS: BP 94/82; PULSE 118; RESP 16; O2SAT 98
[2020-12-28 07:40] VITALS: BP 120/89; PULSE 113; RESP 20; O2SAT 100
== END 2020-12-28 07:46 | disposition home or self-care (01) ==
PROVIDERS: Emergency Provider Emergency Medicine; PCP Pediatrics
DX: R00.2 Palpitations (principal)
CPT/HCPCS: 71045; 71275; 80048; 84484; 84703; 85025; 85379; 93005; 96360; 99285; J7030; Q9967; J2405

== ENCOUNTER 2021-01-13 18:25 | Emergency (ER) | payer BC, SELFPAY ==
[2021-01-13 18:26] VITALS: BP 131/73; PULSE 128; RESP 18; TEMP 36.3; O2SAT 99; BMI 27.4
--- NOTE | 2021-01-13 19:42 | EKG12_ITS ---
Test Reason : PALPS Blood Pressure : / mmHG Vent. Rate : 119 BPM Atrial Rate : 119 BPM P-R Int : 156 ms QRS Dur : 064 ms QT Int : 310 ms P-R-T Axes : 064 078 045 degrees QTc Int : 436 ms Sinus tachycardia with Premature supraventricular complexes Otherwise normal ECG Confirmed by ROBB IVY, RICHARD ([id number]), photographic editor LUH MOYER ([id number]) on 01/16/2021 1:36:25 PM Referred By: Confirmed By:RICHARD ZAMUDIO MD
--- NOTE | 2021-01-13 19:43 | EX.ED.DYSGE1 ---
HPI History of Present Illness Chief Complaint: Palpitations Informant: patient Narrative Narrative: 20-year-old female status post ablation for SVT at [facility] states that she was on her way to turn in her Holter monitor she began to feel her heart skipping beats. She states that she feels like her heart is racing at times. She is worried what this could be. She states that in triage her heart rate went from 100s to 90s to 60s. PFSH PFSH Medical History Anxiety Asthma Polycystic ovarian syndrome SVT (supraventricular tachycardia) Home Medications atenolol 25 mg PO DAILY 01/26/14 [History Last Taken Unknown] albuterol sulfate 90 mcg/actuation aerosol inhaler 1 inh INHALATION ONCE 05/31/20 [History Last Taken Unknown] pantoprazole [Protonix] 40 mg PO DAILY #30 tab 12/18/20 [Rx Last Taken Unknown] calcium phos,dibas-vitamin D3 [Vitamin D (with calcium)] 77 - 400 tab PO 01/13/21 [History Last Taken Unknown] Allergy/AdvReac Type Severity Reaction Status Date / Time No Known Allergies Allergy Verified 01/13/21 18:28 Family History Father , at 36 Enlarged heart Surgical History H/O cardiac radiofrequency ablation History of cardiac radiofrequency ablation History of tonsillectomy Social History Smoking Status: Never smoker alcohol intake: never substance use type: does not use caffeine: No what type of physical activity do you participate in: none seatbelt use: always do you feel safe at home: Yes additional social history: [place] [facility] living ROS ROS ED Constitutional Constitutional ED: Denies chills or weight loss Eyes Eyes: Denies change in vision or diplopia ENT ENT ED: Denies ear pain, rhinorrhea or sore throat Cardiovascular Cardiovascular: Reports palpitations and racing heartbeat; Denies chest pain or orthopnea Respiratory/Chest Respiratory/Chest: Denies cough, dyspnea or orthopnea Gastrointestinal Gastrointestinal: Denies abdominal pain, diarrhea, nausea or vomiting Genitourinary Genitourinary ED: Denies dysuria, hematuria or urinary frequency Musculoskeletal Musculoskeletal: Denies arthralgias or myalgias Integumentary Denies abscess or rash Neurologic Neurologic: Denies headache(s) or weakness Psychiatric Psychiatric: Denies anxiety, depression, suicidal ideation or suicidal thoughts Endocrine Endocrinology: Denies polydipsia, polyphagia or polyuria Allergic/Immunologic Allergic/Immunologic ED: Denies mouth swelling, tongue swelling or urticaria EXAM Physical Exam Const Vital Signs: 01/13/21 18:26 01/13/21 19:57 01/13/21 20:11 Temperature 97.4 F L 98.3 F Temperature Source Temporal Oral Pulse Rate 128 H 112 H 113 H Respiratory Rate 18 24 H 22 H Respiratory Effort Blood Pressure 131/73 H 101/49 L 101/49 L Blood Pressure Mean 92 66 66 Pulse Ox 99 98 98 Oxygen Delivery Method Room Air Room Air 01/13/21 20:17 Temperature Temperature Source Pulse Rate Respiratory Rate Respiratory Effort Normal Blood Pressure Blood Pressure Mean Pulse Ox Oxygen Delivery Method Positive well nourished and well developed General Appearance ED: well developed HEENT Reports normocephalic, head/scalp atraumatic and moist mucous membranes Eyes PERRL and EOMs intact bilaterally Neck no lymphadenopathy, supple and no JVD Resp normal respiratory effort and clear to auscultation bilaterally Cardio regular rate and no murmurs Rate: tachycardic GI normal to inspection, nondistended, normoactive bowel sounds and non-tender Palpation: soft Back/Spine no CVA tenderness and normal ROM Extremity normal to inspection General Extremety ED: Negative for edema General Extremity: Negative for edema Neuro oriented x3 and CN's II-XII intact bilaterally Sensorium / Orientation: alert Motor Exam: strength 5/5 throughout Psych mental status grossly normal Mood & Affect: anxious; Negative for depressed or tearful Skin no rashes or lesions noted and no wounds MDM MDM MDM Narrative Medical decision making narrative: Patient has no signs of anemia. No electrolyte disturbance. Her EKG is a sinus tachycardia. She received 12.5 mg dose of her atenolol. The patient has been in a sinus rhythm since arrival. I have not seen any significant ectopy. Think the patient can be discharged home to follow-up with her doctors. Lab Data Attestation: I reviewed the patient's lab results. Labs: Laboratory Results - last 24 hr 01/13/21 01/13/21 20:05 20:05 WBC 5.8 RBC 4.90 Hgb 12.6 Hct 39.7 MCV 81.0 MCH 25.7 L MCHC 31.7 L RDW Std Deviation 39.9 RDW Coeff of Anabel 13.7 Plt Count 288 MPV 9.4 Immature Gran % (Auto) 0.200 Neut % (Auto) 65.1 Lymph % (Auto) 21.1 Vil[place] % (Auto) 9.6 Eos % (Auto) 3.8 Baso % (Auto) 0.2 Absolute Neuts (auto) 3.8 Absolute Lymphs (auto) 1.23 Nucleated RBC % 0 Sodium 138 Potassium 4.0 Chloride 105 Carbon Dioxide 30.0 Anion Gap 3 L BUN 11 Creatinine 1.05 H Estim Creat Clear Calc 73.80 Est GFR (MDRD) Af Amer 85 Est GFR (MDRD) Non-Af 70 BUN/Creatinine Ratio 10.5 Glucose 114 H Calcium 9.5 Magnesium 2.2 EKG Initial EKG: Attestation: I personally reviewed and interpreted this EKG as follows: Comments: EKG demonstrates a sinus tachycardia at a rate of 119. Discharge Plan Triage Chief Complaint: Palpitations ED Provider: Lei Bell Dx/Rx/DC Orders Clinical Impression: Heart palpitations Instructions: ED Palpitations Prescriptions: No Action albuterol sulfate [ProAir HFA] 90 mcg/actuation HFA aerosol inhaler 1 inh INHALATION ONCE RF: 0 atenolol 25 MG tablet 25 mg PO DAILY RF: 0 pantoprazole [Protonix] 40 mg tablet,delayed release (DR/EC) 40 mg PO DAILY Qty: 30 RF: 0 Vitamin D (with calcium) 77-400 mg-unit Tablet 77 - 400 tab PO RF: 0 Primary Care Provider: Cally Hull Referrals: Cally Hull MD [Primary Care Provider] - As Needed Activity Restrictions/Additional Instructions: Follow-up with your field service technician poultry as scheduled Disposition Disposition: Home, self care
[2021-01-13 19:57] VITALS: BP 101/49; PULSE 112; RESP 24; TEMP 36.8; O2SAT 98
[2021-01-13 20:11] VITALS: BP 101/49; PULSE 113; RESP 22; O2SAT 98
[2021-01-13 20:18] LABS: Absolute Lymphocyte Count 1.23 X10^3/uL (0.83-4.51); Absolute Neutrophil Count 3.8 X10^3/uL (2.0-7.7); Basophil# 0.01 X10^3/uL; Basophil% 0.2 % (0-1); Eosinophil# 0.22 X10^3/uL; Eosinophils% 3.8 % (0-5); Hematocrit 39.7 % (37-47); Hemoglobin 12.6 g/dL (12.0-15.0); Lymphocyte # 1.23 X10^3/ul (0.83-4.51); Lymphocyte % 21.1 % (19-41); Mean Corp Hgb Conc 31.7 g/dL (32-36); Mean Corpuscular Hgb 25.7 pg (27.0-32.0); Mean Platelet Vol. 9.4 fl (6.2-12.0); Monocyte# 0.56 X10^3/uL; Monocyte% 9.6 % (0-10); NRBC Flagged by Analyzer 0 % (0-5); Neutrophil % 65.1 % (47-70); Platelet Count 288 K/mm3 (150-450); RBC Distribution Width CV 13.7 % (11.6-14.6); RBC Distribution Width SD 39.9 fl (35.1-43.9); White Blood Count 5.8 K/mm3 (4.4-11.0)
[2021-01-13 20:39] LABS: Anion Gap 3 (5-15); BUN 11 mg/dL (7-18); BUN/Creat Ratio 10.5 RATIO (10-20); Calcium,Total 9.5 mg/dL (8.5-10.1); Chloride 105 mmol/L (98-107); Creatinine, Serum 1.05 mg/dL (0.55-1.02); EST Glomerular Filtration Rate 70 mL/min (>60); Est Glom Filt Rate - Afr Amer 85 mL/min (>60); Glucose 114 mg/dL (74-106); Magnesium 2.2 mg/dL (1.6-2.6); Sodium Level 138 mmol/L (136-145)
[2021-01-13] MEDS: Atenolol 25 MG Tablet 12.5 MG PO (21:20)
[2021-01-13 21:21] VITALS: BP 101/70; PULSE 112; RESP 18; O2SAT 98
== END 2021-01-13 21:24 | disposition home or self-care (01) ==
PROVIDERS: Emergency Provider Emergency Medicine; PCP Pediatrics
DX: R00.2 Palpitations (principal); J45.909 Unspecified asthma, uncomplicated; Z79.51 Long term (current) use of inhaled steroids
CPT/HCPCS: 80048; 83735; 85025; 93005; 99285; J7030

== ENCOUNTER 2021-09-06 14:15 | Outpatient (CLI) | payer BC, SELFPAY ==
[2021-09-06 18:30] LABS: Anion Gap 5 (5-15); BUN 10 mg/dL (7-18); Calcium,Total 8.7 mg/dL (8.5-10.1); Chloride 104 mmol/L (98-107); Creatinine, Serum 0.91 mg/dL (0.55-1.02); EST Glomerular Filtration Rate 83 mL/min (>60); Est Glom Filt Rate - Afr Amer 100 mL/min (>60); Glucose 93 mg/dL (74-106); Sodium Level 138 mmol/L (136-145)
== END 2021-09-06 23:59 | disposition short-term general hospital (02) ==
LOC: MFPLAB 14:17
PROVIDERS: PCP Pediatrics; Referring Provider Pediatrics; Visit Provider Pediatrics
DX: E87.6 Hypokalemia (principal)
CPT/HCPCS: 36415; 80048

== ENCOUNTER 2022-04-23 10:35 | Emergency (ER) | payer BC, SELFPAY ==
[2022-04-23 10:35] VITALS: BP 116/82; PULSE 84; RESP 16; TEMP 36.4; O2SAT 98; BMI 24.0
--- NOTE | 2022-04-23 11:07 | US_ITS ---
STUDY: ULTRASOUND OF THE FEMALE PELVIS - COMPLETE REASON FOR EXAM: Female, 22 years old. PCOS LMP: 03/21/2022 TECHNIQUE: Transabdominal and Transvaginal TECHNICAL QUALITY: Adequate. COMPARISON: None. FINDINGS: The uterus is anteverted and is in a midline position. The uterus measures 6.7 x 3.8 x 3.2 cm. Normal uterine cervix. The endometrium measures 10 mm in thickness, and is hypoechoic. There is no demonstrated endometrial mass. There is no demonstrated myometrial mass. I.U.D. - The patient does not have an I.U.D. The right ovary is visualized. The right ovary measures 3.1 x 3.0 x 3.0 cm. There is no right ovarian cyst or ovarian mass. There is no visualized right adnexal mass or complex lesion. There is normal arterial and normal venous vascularity. The left ovary is visualized. The left ovary measures 3.0 x 2.5 x 1.5 cm. There is no left ovarian cyst or ovarian mass. There is no visualized left adnexal mass or complex lesion. There is normal arterial and normal venous vascularity. There is no fluid in the cul-de-sac. The pre void volume of the bladder was ml. The post void volume of the bladder was ml. Polycystic ovary disease: No. US/Transvaginal Non- IMPRESSION: Normal female pelvis. Electronically Signed: Lebron Wilkerson MD at 12:59 EDT ,
--- NOTE | 2022-04-23 11:09 | EX.ED.DYSGE1 ---
HPI History of Present Illness Chief Complaint: Abd Pain Informant: patient Narrative Narrative: 22-year-old female presenting to the emergency room with abdominal pain. She states that several months ago she was put on omeprazole for 14 days. She notes a burning-like epigastric central chest pain that is particularly worse at night and after meals. She states that she did not have any follow-up to get a continued prescription. She notes nightly bloating. She states that she has a history of PCOS but has never had an ultrasound. She states that the diagnosis of PCOS was made off of irregular menstrual cycles. She has not followed up on that. Her last gynecologic exam was 1 year ago. She is not a smoker. She states that she was looking online and said that PCOS and her ovaries can cause some of her symptoms. She notes normal bowel movements. No urinary symptoms. No fevers. PFSH PFSH Medical History Anxiety Asthma GERD (gastroesophageal reflux disease) Polycystic ovarian syndrome SVT (supraventricular tachycardia) Home Medications atenolol 25 mg tablet 25 mg PO DAILY 01/26/14 [History Last Taken Unknown] pantoprazole 40 mg tablet,delayed release (Protonix) 40 mg PO DAILY #30 tabs 04/23/22 [Rx Last Taken Unknown] sucralfate 1 gram tablet (Carafate) 1 g PO .QID #56 tabs 04/23/22 [Rx Last Taken Unknown] Allergy/AdvReac Type Severity Reaction Status Date / Time No Known Allergies Allergy Verified 04/23/22 10:39 Family History Father , at 36 Enlarged heart Surgical History H/O cardiac radiofrequency ablation History of cardiac radiofrequency ablation History of tonsillectomy Social History Smoking Status: Never smoker alcohol intake: never substance use type: does not use caffeine: No what type of physical activity do you participate in: none seatbelt use: always do you feel safe at home: Yes additional social history: [place] [facility] living ROS ROS ED Constitutional Constitutional ED: Denies chills, fever(s) or weight loss Eyes Eyes: Denies change in vision or diplopia ENT ENT ED: Denies ear pain, rhinorrhea or sore throat Cardiovascular Cardiovascular: Denies chest pain, orthopnea, palpitations or racing heartbeat Respiratory/Chest Respiratory/Chest: Denies cough, dyspnea or orthopnea Gastrointestinal Gastrointestinal: Reports abdominal pain; Denies constipation, diarrhea, nausea or vomiting Genitourinary Genitourinary ED: Reports other Details: Irregular menstrual cycles ; Denies dysuria, hematuria or urinary frequency Musculoskeletal Musculoskeletal: Denies arthralgias or myalgias Integumentary Denies abscess or rash Neurologic Neurologic: Denies headache(s) or weakness Psychiatric Psychiatric: Denies anxiety, depression, suicidal ideation or suicidal thoughts Endocrine Endocrinology: Denies polydipsia, polyphagia or polyuria Allergic/Immunologic Allergic/Immunologic ED: Denies mouth swelling, tongue swelling or urticaria EXAM Physical Exam Const Vital Signs: 04/23/22 10:35 Temperature 97.5 F L Temperature Source Temporal Pulse Rate 84 Respiratory Rate 16 Blood Pressure 116/82 H Blood Pressure Mean 93 Pulse Ox 98 Oxygen Delivery Method Room Air Positive well nourished and well developed General Appearance ED: well developed HEENT Reports normocephalic, head/scalp atraumatic and moist mucous membranes Eyes PERRL and EOMs intact bilaterally Neck no lymphadenopathy, supple and no JVD Resp normal respiratory effort and clear to auscultation bilaterally Cardio regular rate, regular rhythm and no murmurs GI normal to inspection, nondistended, normoactive bowel sounds and non-tender Palpation: soft Back/Spine no CVA tenderness and normal ROM Extremity normal to inspection General Extremety ED: Negative for edema General Extremity: Negative for edema Neuro oriented x3 and CN's II-XII intact bilaterally Sensorium / Orientation: alert Motor Exam: strength 5/5 throughout Psych mental status grossly normal Mood & Affect: Negative for depressed or tearful Skin no rashes or lesions noted and no wounds MDM MDM MDM Narrative Medical decision making narrative: Basic blood work was obtained and is normal. Lipase 74 normal liver enzymes. Hemoglobin of 13. Pelvic ultrasound was obtained and is negative. Patient is currently started on Protonix as well as Carafate. 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 Patient is understanding this plan is comfortable with it. She has no further questions or concerns at this time Lab Data Attestation: I reviewed the patient's lab results. Labs: Laboratory Results - last 24 hr 04/23/22 04/23/22 11:20 11:20 WBC 4.4 RBC 4.82 Hgb 13.0 Hct 40.1 MCV 83.2 MCH 27.0 MCHC 32.4 RDW Std Deviation 41.8 RDW Coeff of Anabel 13.8 Plt Count 278 MPV 9.8 Immature Gran % (Auto) 0.200 Neut % (Auto) 52.6 Lymph % (Auto) 32.9 Baxter % (Auto) 10.0 Eos % (Auto) 4.1 Baso % (Auto) 0.2 Absolute Neuts (auto) 2.3 Absolute Lymphs (auto) 1.45 Nucleated RBC % 0 Sodium 139 Potassium 4.1 Chloride 106 Carbon Dioxide 28.0 Anion Gap 5 BUN 14 Creatinine 0.98 Estim Creat Clear Calc 77.76 Est GFR (MDRD) Af Amer 91 Est GFR (MDRD) Non-Af 75 BUN/Creatinine Ratio 14.3 Glucose 96 Calcium 9.5 Total Bilirubin 0.60 Direct Bilirubin 0.18 AST 18 ALT 26 Alkaline Phosphatase 89 Total Protein 8.2 Albumin 3.7 Globulin 4.5 H Lipase 74 Radiography Diagnostic Testing: Clinical Impression(s) from Imaging Studies Transvaginal US 04/23/22 11:07 IMPRESSION: Normal female pelvis. Electronically Signed: Lebron Wilkerson MD at 12:59 EDT , Discharge Plan Triage Chief Complaint: Abd Pain ED Provider: Lei Bell Dx/Rx/DC Orders Clinical Impression: Chronic GERD, Abdominal pain Instructions: ED GERD (Adult) Prescriptions: New sucralfate [Carafate] 1 gram tablet 1 g PO .QID Qty: 56 0RF pantoprazole [Protonix] 40 mg tablet,delayed release (DR/EC) 40 mg PO DAILY Qty: 30 1RF No Action atenolol 25 MG tablet 25 mg PO DAILY Primary Care Provider: Cally Hull Referrals: Cally Hull MD [Primary Care Provider] - Jr Ravi DO [Med Staff - Active Staff] - As soon as possible Lizeth Qureshi MD [Med Staff - Active Staff] - As soon as possible Disposition Disposition: Home, Self Care
[2022-04-23 11:36] LABS: Absolute Lymphocyte Count 1.45 X10^3/uL (0.83-4.51); Absolute Neutrophil Count 2.3 X10^3/uL (2.0-7.7); Basophil# 0.01 X10^3/uL; Basophil% 0.2 % (0-1); Eosinophil# 0.18 X10^3/uL; Eosinophils% 4.1 % (0-5); Hematocrit 40.1 % (37-47); Lymphocyte # 1.45 X10^3/ul (0.83-4.51); Lymphocyte % 32.9 % (19-41); Mean Corp Hgb Conc 32.4 g/dL (32-36); Mean Corpuscular Volume 83.2 fL (81-99); Mean Platelet Vol. 9.8 fl (6.2-12.0); Monocyte# 0.44 X10^3/uL; NRBC Flagged by Analyzer 0 % (0-5); Neutrophil # 2.32 X10^3/uL (2.7-7.7); Neutrophil % 52.6 % (47-70); Platelet Count 278 K/mm3 (150-450); RBC Distribution Width CV 13.8 % (11.6-14.6); RBC Distribution Width SD 41.8 fl (35.1-43.9); Red Blood Count 4.82 M/mm3 (4.2-5.4); White Blood Count 4.4 K/mm3 (4.4-11.0)
[2022-04-23 11:50] LABS: AST(SGOT) 18 U/L (15-37); Alanine Aminotransfer ALT/SGPT 26 U/L (13-56); Albumin, Serum 3.7 g/dL (3.2-5.0); Alkaline Phosphatase 89 U/L (45-117); Anion Gap 5 (5-15); BUN 14 mg/dL (7-18); BUN/Creat Ratio 14.3 RATIO (10-20); Bilirubin, Direct 0.18 mg/dL (0.00-0.30); Calcium,Total 9.5 mg/dL (8.5-10.1); Chloride 106 mmol/L (98-107); Creatinine, Serum 0.98 mg/dL (0.55-1.02); EST Glomerular Filtration Rate 75 mL/min (>60); Est Glom Filt Rate - Afr Amer 91 mL/min (>60); Estimated Creatinine Clearance 77.76 ml/min; Globulin 4.5 g/dL (2.2-4.2); Glucose 96 mg/dL (74-106); Lipase 74 U/L (73-393); Potassium 4.1 mmol/L (3.5-5.1); Protein, Total 8.2 g/dL (6.4-8.2); Sodium Level 139 mmol/L (136-145)
[2022-04-23 12:35] VITALS: BP 124/78; PULSE 66; RESP 14; O2SAT 98
== END 2022-04-23 13:16 | disposition home or self-care (01) ==
PROVIDERS: Emergency Provider Emergency Medicine; PCP Pediatrics; Visit Provider Emergency Medicine
DX: K21.9 Gastro-esophageal reflux disease without esophagitis (principal); N92.6 Irregular menstruation, unspecified; Z79.899 Other long term (current) drug therapy
CPT/HCPCS: 76830; 80048; 80076; 83690; 85025; 99283

== ENCOUNTER 2022-05-08 22:06 | Emergency (ER) | payer BC, SELFPAY ==
[2022-05-08 22:07] VITALS: BP 117/84; PULSE 132; RESP 15; TEMP 36.2; O2SAT 96; BMI 24.0
--- NOTE | 2022-05-08 22:35 | EKG12_ITS ---
Test Reason : DYSRHYTHMIA Blood Pressure : / mmHG Vent. Rate : 123 BPM Atrial Rate : 123 BPM P-R Int : 154 ms QRS Dur : 062 ms QT Int : 302 ms P-R-T Axes : 076 067 033 degrees QTc Int : 432 ms Sinus tachycardia with Premature atrial complexes Otherwise normal ECG Confirmed by ROBB IVY, RICHARD ([id number]), deputy editor in chief LUH MOYER ([id number]) on 05/10/2022 8:04:48 AM Referred By: BB Confirmed By:RICHARD ZAMUDIO MD
--- NOTE | 2022-05-08 22:42 | EDS_ITS ---
HPI HPI - GI History of Present Illness Chief Complaint: Abd Pain Informant: patient Abdominal Pain/Flank Pain Onset: Month(s) Context: Gradual Onset Timing: Intermittent Quality: - (bloating; no real pain) Location: Diffuse Current Severity: Moderate Maximum Severity: Moderate Worsened by: Food (2 hrs after most meals) Relieved by: Nothing Nausea/Vomiting/Emesis GI Symptom: Negative for Nausea or Vomiting Diarrhea/Melena/Hematochezia GI Symptom: Negative for Diarrhea, Melena or Hematochezia Associated Symptoms Associated Symptoms: Negative for Dysuria, Frequency or Hematuria Narrative Narrative: Patient states for the last several months, she has been having abdominal bloating diffusely couple hours after most meals. She states she remembers eating oatmeal this morning and it did not give her issues, but she has this problem every day, usually several times per day. It causes a lot of belching and flatus, and when she does 1 of those, she usually gets temporary relief of her symptoms. She was seen here about 3 weeks ago and received prescriptions for Protonix and sucralfate, was referred to GI Dr. Friend, she has an appointment next month which is over 1 month away. She states those medications helped with her acid reflux symptoms but not the bloating so she stopped them. Now for the past several weeks, she has been getting occasional palpitations and states it feels like there is a skipped, it has always occurred when she is very bloated and when the bloating goes away, the palpitations resolve as well. She denies any near-syncope or syncope, chest discomfort, dyspnea, leg pain or swelling or history of DVT or PE. Denies any recent long travel or immobilization. [facility] Medical History Anxiety Asthma GERD (gastroesophageal reflux disease) Polycystic ovarian syndrome SVT (supraventricular tachycardia) Home Medications atenolol 25 mg tablet 25 mg PO DAILY 01/26/14 [History Last Taken Unknown] sucralfate 1 gram tablet (Carafate) 1 g PO .QID #56 tabs 04/23/22 [Rx Last Taken Unknown] albuterol 90 mcg/actuation aerosol inhaler 90 mcg inhalation PRN PRN Shortness Of Breath 05/08/22 [History Last Taken Unknown] apixaban 5 mg (74 tabs) tablets in a dose pack (Eliquis DVT-PE Treat 30D Start) 5 mg PO BID #74 tabs 05/09/22 [Rx Last Taken Unknown] dicyclomine 10 mg capsule 20 mg PO Q6H PRN PRN abdominal discomfort #30 CAPSULES 05/09/22 [Rx Last Taken Unknown] Allergy/AdvReac Type Severity Reaction Status Date / Time No Known Allergies Allergy Verified 05/08/22 22:14 Family History Father , at 36 Enlarged heart Surgical History H/O cardiac radiofrequency ablation History of cardiac radiofrequency ablation History of tonsillectomy Social History Smoking Status: Never smoker alcohol intake: never substance use type: does not use caffeine: No what type of physical activity do you participate in: none seatbelt use: always do you feel safe at home: Yes additional social history: [place] [facility] ROS ED Constitutional Constitutional ED: Denies chills or fever(s) Eyes Eyes: Denies change in vision or diplopia ENT ENT ED: Denies rhinorrhea or sore throat Cardiovascular Cardiovascular: Reports palpitations; Denies chest pain Respiratory/Chest Respiratory/Chest: Denies cough or dyspnea Gastrointestinal Gastrointestinal: Reports belching, bloating and excessive flatus; Denies abdominal pain, diarrhea, hematochezia, melena, nausea or vomiting Genitourinary Genitourinary ED: Denies dysuria or hematuria Musculoskeletal Musculoskeletal: Denies back pain or neck pain Integumentary Denies abscess or rash Neurologic Neurologic: Denies headache(s), paresthesias or weakness Psychiatric Psychiatric: Denies anxiety or suicidal thoughts EXAM Physical Exam Const Vital Signs: 05/08/22 22:07 05/08/22 23:09 05/09/22 01:36 Temperature 97.2 F L Temperature Source Temporal Pulse Rate 132 H 131 H 167 H Respiratory Rate 15 15 27 H Blood Pressure 117/84 H 111/80 115/78 Blood Pressure Mean 95 90 90 Pulse Ox 96 98 94 Oxygen Delivery Method Room Air Room Air Room Air Positive well nourished and well developed General Appearance ED: well developed and NAD HEENT Reports moist mucous membranes normocephalic and atraumatic Eyes PERRL and EOMs intact bilaterally Neck full ROM, no lymphadenopathy and supple Resp normal respiratory effort and clear to auscultation bilaterally Cardio regular rate, regular rhythm and no murmurs Rate: tachycardic GI non-tender and non-distended Auscultation: normoactive bowel sounds Palpation: soft Back/Spine no CVA tenderness General Back: other FROM Extremity normal to inspection General Extremety ED: Negative for edema, pulses abnormal or tenderness General Extremity: Negative for edema or pulses abnormal Neuro oriented x3, CN's II-XII intact bilaterally and no sensory deficits noted Sensorium / Orientation: awake and alert Motor Exam: strength 5/5 throughout Skin no rashes or lesions noted and no wounds MDM MDM MDM Narrative Medical decision making narrative: This patient has been having and relatively chronic abdominal symptoms without any abdominal tenderness, but she does have some distention. This sounds very GI-related since it is fairly consistently 1 or 2 hours after many meals, several times a day and she had normal blood work 2 or 3 weeks ago for the same thing. I obtained an EKG, given the palpitations. She does have some atrial ectopy, and a significant resting tachycardia. She was no less than 120 here in the emergency department and at times was resting in the 160s. She was asymptomatic with regards to her breathing and any chest discomfort but did feel her heart racing. She repeatedly stated that she was very anxious and has a longstanding history of anxiety. She also has had ablations for SVT, she has had a resting tachycardia in the low 100s for some time according to her, and had an ablation again this past December at [facility] where she follows with cardiology Dr. Mojica. She states she has been having palpitations off and on actually since then which is 4-5 months ago. Because of her resting tachycardia and the ablation and for no other reason, especially since she has 0 risk factors for DVT/PE nor a history of them, I obtained a D-dimer. It was elevated, this led to a CT angiography, which shows bilateral PEs see the imaging below. I added on a troponin to her blood work, it is normal. There are no signs of right heart strain on the CT, certainly this is not extremely sensitive, but I did walk her throughout the department briskly, and her oxygen levels did not go below 98% on room air, she felt no chest discomfort, near syncope, nor dyspnea. I ran a PSI score on her, it is 42 which is class I, very low mortality and stable/reasonable for outpatient treatment and close outpatient follow-up. I talked at length with mom and the patient regarding all of this, and they are comfortable with that plan. Since it is around 3 AM after all of this, for anticoagulation I am starting her on Eliquis and I am going to have our pharmacy fill a prescription for it and she will take the first dose now as the first dose for this day. She wants to exercise I advise no cardio or specific exercise that would increase her heart rate, but if she wants to do some light exercise I think that is reasonable at the most. I answered all other questions at the bedside and will have her follow-up with cardiology, she wants to switch to someone local and they named Dr. Willoughby by name so given their information in addition to referring her to an adult PCP since the last primary doctor she had seen was her doctor of podiatric medicine. Dr. Dobbs is the next doctor on the unassigned list. With regards to her GI symptoms which I suspect could be separate problem, she was given hyoscyamine and simethicone here that did relatively little. I will prescribe her dicyclomine to use as needed. When we performed a sole dyer film for her CT angiography, she had a very large distended stomach so I added on the abdomen/pelvis with IV contrast. It shows an ileus pattern, but clinically she does not have an ileus; she has been passing flatus, no nausea or vomiting, and has good bowel sounds. I still advise GI follow-up which she has scheduled. Lab Data Attestation: I reviewed the patient's lab results. Labs: Laboratory Results - last 24 hr 05/08/22 05/08/22 05/09/22 23:01 23:36 01:30 D-Dimer Quant (PE/DVT) 1.20 H* Troponin I High Sens 5 Serum , Qual NEGATIVE Radiography Diagnostic Testing: Clinical Impression(s) from Imaging Studies Chest CTA 05/08/22 23:23 IMPRESSION: 1. Bilateral pulmonary thromboembolism: First and second order branches to the right lower lobe, second order branch to the medial aspect of the right upper lobe, second order branch to the medial aspect of the left lower lobe, and second-order branches to the left lower lobe. 2. No thoracic aortic dissection or aneurysm. 3. No cardiomegaly and a normal cardiomediastinum. 4. No other active cardiopulmonary disease. 5. Normal osseous structures. Electronically Signed: Alfred Shook MD at 0:53 EDT , Abdomen/Pelvis CT 05/08/22 23:59 IMPRESSION: 1. Moderately distended air filled stomach, small and large intestine to the level of the rectum--most compatible with an ileus. 2. No appendicitis, diverticulitis, colitis, intestinal obstruction. 3. No cholelithiasis, cholecystitis, pancreatitis. 4. Normal kidneys without obstructive uropathy or pyelonephritis. Normal bladder. 5. No free air or fluid in the abdomen. 6. No abdominal organomegaly. 7. Anteverted uterus deviated towards the left. No evidence of ovarian cystic or solid mass lesions. Electronically Signed: Alfred Shook MD at 1:06 EDT , Rhythm Strip Rhythm Strip: Sinus Tach Rate: 120 Ectopy: PAC(s) EKG Initial EKG: Attestation: I personally reviewed and interpreted this EKG as follows: Interpretation: No Acute Injury Pattern and Sinus Tachycardia (Single PAC, otherwise normal) Discharge Plan Triage Chief Complaint: Abd Pain ED Provider: Marvin Galeas Dx/Rx/DC Orders Clinical Impression: Bilateral pulmonary embolism, Postprandial abdominal bloating, Abdominal distension, gaseous, Atrial ectopy, Tachycardia Instructions: Embolism Pulmonary Dc Prescriptions: New Eliquis DVT-PE Treat 30D Start 5 mg (74 tabs) tablets,dose pack 5 mg PO BID Qty: 74 0RF dicyclomine 10 MG capsule 20 mg PO Q6H PRN PRN (Reason: abdominal discomfort) Qty: 30 0RF No Action atenolol 25 MG tablet 25 mg PO DAILY sucralfate [Carafate] 1 gram tablet 1 g PO .QID Qty: 56 0RF albuterol 90 mcg/actuation Aerosol 90 mcg inhalation PRN PRN (Reason: Shortness Of Breath) Primary Care Provider: Cally Hull Referrals: Ilan Willoughby MD [Med Staff - Active Staff] - (call for follow up, or 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
[2022-05-08 23:09] VITALS: BP 111/80; PULSE 131; RESP 15; O2SAT 98
[2022-05-08] MEDS: Hyoscyamine Sulfate 0.125 MG Tablet 0.25 MG PO (23:13)
--- NOTE | 2022-05-08 23:23 | CT_ITS ---
STUDY: PULMONARY AND CHEST CT ANGIOGRAPHY OF 0006 HOURS ON 05/09/2022 REASON FOR EXAM: 22-year-old female with palpitations, tachycardia, and elevated d-dimer. RADIATION DOSAGE (If Supplied By Facility): CTDIvol = ( 7.73 ) mGy, DLP = ( 202.21 ) mGycm. TECHNIQUE: The examination was performed with the intravenous administration of 100 mL of Isovue 370. Post-processing of the angiographic images was performed, with multiplanar reformation and 3D reconstruction. Individualized dose optimization techniques were used for this CT. COMPARISON: None. FINDINGS: Normal ribs, clavicles, scapula, and sternum. Mild thoracic kyphosis without fractures, subluxations, or intervertebral space narrowing. No cardiomegaly. No mediastinal hemorrhage or hematomas. No pulmonary infiltrates, atelectasis, or pulmonary mass lesions. No hilar or mediastinal lymphadenopathy. There is pulmonary embolism in a first order branch artery, as well as a second order to the right lower lobe. There is a pulmonary embolus in the second order branch to the medial aspect of the right upper lobe. Pulmonary embolus in a second-order branch to the medial aspect of the left upper lobe. There is a pulmonary thromboembolus in the second order branch artery of the left lower lobe. There is no evidence of a thoracic aortic dissection or aneurysm. CT/CTA Chest W/WO Contrast IMPRESSION: 1. Bilateral pulmonary thromboembolism: First and second order branches to the right lower lobe, second order branch to the medial aspect of the right upper lobe, second order branch to the medial aspect of the left lower lobe, and second-order branches to the left lower lobe. 2. No thoracic aortic dissection or aneurysm. 3. No cardiomegaly and a normal cardiomediastinum. 4. No other active cardiopulmonary disease. 5. Normal osseous structures. Electronically Signed: Alfred Shook MD at 0:53 EDT ,
[2022-05-08 23:53] LABS: Internal QC Validated? YES +Cl - CLEAR BKGD; Pregnancy, Serum, hCG Quali. NEGATIVE Negative
--- NOTE | 2022-05-08 23:59 | CT_ITS ---
STUDY: CT ABDOMEN AND PELVIS WITH CONTRAST ENHANCEMENT 0006 HOURS ON 05/09/2022 REASON FOR EXAM: 22 year-old female with abdominal distention. RADIATION DOSAGE (If Supplied By Facility): CTDIvol = ( 9.96 ) mGy, DLP = ( 957.09 ) mGycm. TECHNIQUE: Transaxial images were obtained from the dome of the diaphragm to the symphysis pubis without oral contrast. 100 mL of Isovue 370 were administered intravenously for this study.. Sagittal and coronal images were reconstructed. Individualized dose optimization techniques were used for this CT. COMPARISON: None. FINDINGS: The visualized lung bases are unremarkable. The visualized portions of the heart are within normal limits. Normal liver. Normal gallbladder and extrahepatic biliary system. No cholelithiasis or cholecystitis. Normal spleen. Normal pancreas. No pancreatitis or pancreatic mass lesions. Normal bilateral adrenal glands. Normal kidneys without obstructive uropathy or pyelonephritis. Air-filled distended stomach and presence of a moderate small and large intestinal ileus to the level of the rectum. Normal small intestine. No diverticulitis, colitis, or intestinal obstruction. The appendix is visualized and appears normal. No appendicitis. Normal abdominal aorta. Normal inferior vena cava. Normal retroperitoneum. There is no free air or fluid in the abdomen. Normal urinary bladder. Anteverted uterus, deviated towards the left. No ovarian cystic or solid mass lesions are noted. Normal abdominal wall. Normal osseous structures. CT/Abdomen/Pelvis W IV Cont ONLY IMPRESSION: 1. Moderately distended air filled stomach, small and large intestine to the level of the rectum--most compatible with an ileus. 2. No appendicitis, diverticulitis, colitis, intestinal obstruction. 3. No cholelithiasis, cholecystitis, pancreatitis. 4. Normal kidneys without obstructive uropathy or pyelonephritis. Normal bladder. 5. No free air or fluid in the abdomen. 6. No abdominal organomegaly. 7. Anteverted uterus deviated towards the left. No evidence of ovarian cystic or solid mass lesions. Electronically Signed: Alfred Main, MD at 1:06 EDT ,
[2022-05-09] MEDS: 0.9% Normal Saline 1,000 ML 999 ML IV (00:17)
[2022-05-09 01:36] VITALS: BP 115/78; PULSE 167; RESP 27; O2SAT 94
[2022-05-09 02:07] LABS: Troponin-I HS 5 pg/mL (3.0-54.0)
[2022-05-09] MEDS: LORazepam 2 MG/ML Syringe 0.5 MG IV (03:31)
[2022-05-09 03:36] VITALS: BP 120/85; PULSE 133; RESP 16; O2SAT 98
== END 2022-05-09 04:00 | disposition home or self-care (01) ==
PROVIDERS: Emergency Provider Emergency Medicine; PCP Pediatrics; Visit Provider Emergency Medicine
DX: I26.99 Other pulmonary embolism without acute cor pulmonale (principal); I47.1 Supraventricular tachycardia; R14.2 Eructation; R10.9 Unspecified abdominal pain; R14.0 Abdominal distension (gaseous); R14.3 Flatulence
CPT/HCPCS: 71275; 74177; 84484; 84703; 85379; 93005; 96361; 96374; 99285; J7030; Q9967; A4216

== ENCOUNTER 2022-05-12 22:44 | Emergency (ER) | payer BC, SELFPAY ==
[2022-05-12 22:45] VITALS: BP 137/96; PULSE 119; RESP 16; TEMP 36.4; O2SAT 100; BMI 22.3
--- NOTE | 2022-05-12 23:06 | EKG12_ITS ---
Test Reason : DYSRHYTHMIA Blood Pressure : / mmHG Vent. Rate : 119 BPM Atrial Rate : 119 BPM P-R Int : 162 ms QRS Dur : 066 ms QT Int : 302 ms P-R-T Axes : 058 057 041 degrees QTc Int : 424 ms Sinus tachycardia Otherwise normal ECG Confirmed by ROBB IVY, RICHARD ([id number]), assignment desk editor LUH MOYER ([id number]) on 05/14/2022 9:33:23 AM Referred By: PL Confirmed By:RICHARD ZAMUDIO MD
--- NOTE | 2022-05-12 23:07 | EX.ED.DYSGE1 ---
HPI History of Present Illness Chief Complaint: General Illness Informant: patient Narrative Narrative: Patient presents with concern for low potassium or may be low magnesium. She states she just feels off. She cannot define this more. She has a history of having low potassium at times. It sounds like she may have a mother who has had low potassium issues also. Patient was also recently diagnosed with pulmonary embolus. She started Eliquis. She did have her menstrual cycle and said it was a little heavier than normal but not markedly so. No excessive bleeding. She does have a quick heart rate but she has a history of that. She takes atenolol. She has had SVT also. She also had high heart rates up even into the 160s with the PE recently. She does not feel this is uncomfortable though. She has been eating and drinking normally. [facility] Medical History Anxiety Asthma GERD (gastroesophageal reflux disease) Polycystic ovarian syndrome SVT (supraventricular tachycardia) Home Medications atenolol 25 mg tablet 25 mg PO DAILY 01/26/14 [History Last Taken Unknown] sucralfate 1 gram tablet (Carafate) 1 g PO .QID #56 tabs 04/23/22 [Rx Last Taken Unknown] albuterol 90 mcg/actuation aerosol inhaler 90 mcg inhalation PRN PRN Shortness Of Breath 05/08/22 [History Last Taken Unknown] apixaban 5 mg (74 tabs) tablets in a dose pack (Eliquis DVT-PE Treat 30D Start) 5 mg PO BID #74 tabs 05/09/22 [Rx Last Taken Unknown] dicyclomine 10 mg capsule 20 mg PO Q6H PRN PRN abdominal discomfort #30 CAPSULES 05/09/22 [Rx Last Taken Unknown] Allergy/AdvReac Type Severity Reaction Status Date / Time No Known Allergies Allergy Verified 05/12/22 22:47 Family History Father , at 36 Enlarged heart Surgical History H/O cardiac radiofrequency ablation History of cardiac radiofrequency ablation History of tonsillectomy Social History Smoking Status: Never smoker alcohol intake: never substance use type: does not use caffeine: No what type of physical activity do you participate in: none seatbelt use: always do you feel safe at home: Yes additional social history: [place] [facility] ROS ROS ED Constitutional Constitutional ED: Denies chills or fever(s) Eyes Eyes: Denies blurry vision or change in vision ENT ENT ED: Denies rhinorrhea or sore throat Cardiovascular Cardiovascular: Denies chest pain or palpitations Respiratory/Chest Respiratory/Chest: Denies cough or dyspnea Gastrointestinal Gastrointestinal: Denies abdominal pain, nausea or vomiting Genitourinary Genitourinary ED: Denies dysuria or hematuria Musculoskeletal Musculoskeletal: Reports other Details: Occasionally she feels small muscle twitches which is one of the symptoms that she thinks may prompt her to feel she has low potassium. She is not having them now. Integumentary Denies rash Neurologic Neurologic: Denies headache(s), paresthesias or weakness Psychiatric Psychiatric: Reports anxiety Endocrine Endocrinology: Denies polydipsia or polyuria Hematologic/Lymphatic Hematologic/Lymphatic: Reports easy bleeding and easy bruising Allergic/Immunologic Allergic/Immunologic ED: Denies urticaria EXAM Physical Exam Const Vital Signs: 05/12/22 22:45 05/12/22 22:53 Temperature 97.5 F L Temperature Source Temporal Pulse Rate 119 H Respiratory Rate 16 Respiratory Effort Normal Non-Labored Respiratory Pattern Normal Blood Pressure 137/96 H Blood Pressure Mean 109 Pulse Ox 100 Oxygen Delivery Method Room Air Positive well nourished and well developed General Appearance ED: well developed and NAD; Negative for cyanotic, diaphoretic or pallor HEENT Reports moist mucous membranes Eyes General Eye ED: Negative for pale conjunctiva Neck supple Resp normal respiratory effort and clear to auscultation bilaterally Cardio regular rhythm and no murmurs Rate: tachycardic GI normal to inspection, nondistended, normoactive bowel sounds and non-tender Back/Spine no CVA tenderness Extremity normal to inspection General Extremety ED: Negative for edema or tenderness General Extremity: Negative for edema Neuro oriented x3 Sensorium / Orientation: alert Psych mental status grossly normal Skin no rashes or lesions noted and no wounds General Skin Exam: Negative for jaundice or pallor MDM MDM MDM Narrative Medical decision making narrative: CBC shows no anemia. White count is normal. Electrolytes including potassium and magnesium are normal. Patient is comfortable going home. She states sometimes she just feels a little funny around the time of her period. She was not sure if it was due to her period, anxiety over the blood clot, or potassium magnesium issues. She is comfortable going home and following up Lab Data Attestation: I reviewed the patient's lab results. Labs: Laboratory Results - last 24 hr 05/12/22 05/12/22 23:16 23:16 WBC 4.8 RBC 4.42 Hgb 12.1 Hct 36.5 L MCV 82.6 MCH 27.4 MCHC 33.2 RDW Std Deviation 39.7 RDW Coeff of Anabel 13.2 Plt Count 267 MPV 10.0 Immature Gran % (Auto) 0.200 Neut % (Auto) 49.1 Lymph % (Auto) 36.9 [place] % (Auto) 10.5 H Eos % (Auto) 3.1 Baso % (Auto) 0.2 Absolute Neuts (auto) 2.3 Absolute Lymphs (auto) 1.76 Nucleated RBC % 0 Sodium 141 Potassium 3.7 Chloride 105 Carbon Dioxide 29.0 Anion Gap 7 BUN 8 Creatinine 1.00 Estim Creat Clear Calc 76.20 Est GFR (MDRD) Af Amer 89 Est GFR (MDRD) Non-Af 74 BUN/Creatinine Ratio 8.0 L Glucose 98 Calcium 9.7 Magnesium 2.0 EKG Initial EKG: Comments: EKG done for tachycardia read by me does show a sinus rhythm with tachycardic rate at 119. Patient has a history of always being tachycardic. She also admits to being anxious and nervous that is worsening it. When I look over her vitals she is almost always tachycardic. There is no ST change. There is no ventricular ectopy. LA interval, QRS duration and QTc are normal. There are occasional PAC but no PVCs Discharge Plan Triage Chief Complaint: General Illness ED Provider: Elmo Jenkins Dx/Rx/DC Orders Clinical Impression: Tachycardia, Feeling abnormal Instructions: ED Hypokalemia, ED Potassium-Rich Foods Prescriptions: No Action atenolol 25 MG tablet 25 mg PO DAILY sucralfate [Carafate] 1 gram tablet 1 g PO .QID Qty: 56 0RF albuterol 90 mcg/actuation Aerosol 90 mcg inhalation PRN PRN (Reason: Shortness Of Breath) Eliquis DVT-PE Treat 30D Start 5 mg (74 tabs) tablets,dose pack 5 mg PO BID Qty: 74 0RF dicyclomine 10 MG capsule 20 mg PO Q6H PRN PRN (Reason: abdominal discomfort) Qty: 30 0RF Primary Care Provider: Cally Hull Referrals: Cally Hull MD [Primary Care Provider] - 3-5 Days Disposition Disposition: Home, Self Care
[2022-05-12 23:30] LABS: Absolute Lymphocyte Count 1.76 X10^3/uL (0.83-4.51); Absolute Neutrophil Count 2.3 X10^3/uL (2.0-7.7); Basophil# 0.01 X10^3/uL; Basophil% 0.2 % (0-1); Eosinophil# 0.15 X10^3/uL; Eosinophils% 3.1 % (0-5); Hematocrit 36.5 % (37-47); Hemoglobin 12.1 g/dL (12.0-15.0); Lymphocyte # 1.76 X10^3/ul (0.83-4.51); Lymphocyte % 36.9 % (19-41); Mean Corp Hgb Conc 33.2 g/dL (32-36); Mean Corpuscular Hgb 27.4 pg (27.0-32.0); Mean Corpuscular Volume 82.6 fL (81-99); Monocyte% 10.5 % (0-10); NRBC Flagged by Analyzer 0 % (0-5); Neutrophil # 2.34 X10^3/uL (2.7-7.7); Neutrophil % 49.1 % (47-70); Platelet Count 267 K/mm3 (150-450); RBC Distribution Width CV 13.2 % (11.6-14.6); RBC Distribution Width SD 39.7 fl (35.1-43.9); Red Blood Count 4.42 M/mm3 (4.2-5.4); White Blood Count 4.8 K/mm3 (4.4-11.0)
[2022-05-12 23:45] LABS: Anion Gap 7 (5-15); BUN 8 mg/dL (7-18); Calcium,Total 9.7 mg/dL (8.5-10.1); Chloride 105 mmol/L (98-107); EST Glomerular Filtration Rate 74 mL/min (>60); Est Glom Filt Rate - Afr Amer 89 mL/min (>60); Glucose 98 mg/dL (74-106); Potassium 3.7 mmol/L (3.5-5.1); Sodium Level 141 mmol/L (136-145)
[2022-05-13 00:26] VITALS: BP 137/96; PULSE 111; RESP 16; O2SAT 100
== END 2022-05-13 00:44 | disposition home or self-care (01) ==
PROVIDERS: Emergency Provider Emergency Medicine; PCP Pediatrics; Visit Provider Emergency Medicine
DX: I47.1 Supraventricular tachycardia (principal); F41.9 Anxiety disorder, unspecified
CPT/HCPCS: 80048; 83735; 85025; 93005; 99283; A4216

== ENCOUNTER → 2022-05-31 | Outpatient (CLI) | payer BC, SELFPAY ==
--- NOTE | 2022-05-31 09:05 | ECHOD_ITS ---
Reason For Study: TACHYCARDIA Procedure This was a 2D Doppler, Color Flow transthoracic echocardiogram. Exam performed in department. Left Ventricle Normal LV size. Left ventricular systolic function is normal. The estimated ejection fraction is 60 %. Normal diastology for age. No regional wall motion abnormalities noted. Right Ventricle Normal RV size. Normal systolic function. Atria Normal left atrium. Normal right atrium. Mitral Valve Normal mitral valve. Tricuspid Valve Normal tricuspid valve. Aortic Valve Normal aortic valve. Trisinus/trileaflet aortic valve. Pulmonic Valve Normal pulmonic valve. Great Vessels Normal aortic root. The pulmonary artery is normal size. Normal inferior vena cava. Pericardium/Pleural No pericardial effusion. MMode/2D Measurements & Calculations LVIDd: 3.3 cm IVSd: 0.77 cm Ao root diam: 2.2 cm LVIDs: 2.4 cm LVPWd: 0.93 cm RVDd: 2.5 cm FS: 25.4 % LAV(MOD-bp): 22.4 ml LVAd ap4: 21.8 cm2 LVAd ap2: 22.7 cm2 LAV(MOD-bp) Indexed: 13.7 ml/m2 LVLd ap4: 7.6 cm LVLd ap2: 8.7 cm LAV(MOD-sp2): 28.0 ml EDV(MOD-sp4): 52.2 ml EDV(MOD-sp2): 51.0 ml LAV(MOD-sp4): 14.7 ml EDV(sp4-el): 53.5 ml EDV(sp2-el): 50.1 ml LVAs ap4: 12.1 cm2 LVAs ap2: 13.8 cm2 LVLs ap4: 6.6 cm LVLs ap2: 7.6 cm ESV(MOD-sp4): 20.0 ml ESV(MOD-sp2): 22.7 ml ESV(sp4-el): 19.1 ml ESV(sp2-el): 21.4 ml EF(MOD-sp4): 61.6 % EF(MOD-sp2): 55.5 % EF(sp4-el): 64.4 % SV(MOD-sp4): 32.2 ml SV(MOD-sp2): 28.3 ml SV(sp4-el): 34.4 ml LA dimension(2D): 2.4 cm LA A4 area: 9.3 cm2 RA A4 area: 10.1 cm2 Doppler Measurements & Calculations MV E max nakul: 66.3 cm/sec MV V2 max: 88.6 cm/sec MV P1/2t max nakul: 68.1 cm/sec MV A max nakul: 56.2 cm/sec MV max P.1 mmHg MV P1/2t: 43.1 msec MV E/A: 1.2 MV V2 mean: 60.3 cm/sec MV dec slope: 462.9 cm/sec2 MV mean P.6 mmHg MV V2 VTI: 22.0 cm MVA(P1/2t): 5.1 cm2 Ao V2 max: 110.7 cm/sec LV V1 max: 98.6 cm/sec PA V2 max: 80.9 cm/sec Ao max P.9 mmHg LV V1 max P.9 mmHg PA V2 mean: 59.8 cm/sec Ao V2 mean: 78.3 cm/sec LV V1 mean P.2 mmHg Ao mean P.8 mmHg LV V1 mean: 68.8 cm/sec Ao V2 VTI: 21.0 cm LV V1 VTI: 19.2 cm ECHO/Echo Complete Interpretation Summary Normal LV size. Left ventricular systolic function is normal. The estimated ejection fraction is 60 %. Normal diastology for age. Structurally normal valves. Ordering Physician: Ilan Willoughby Referring Physician: Ilan Willoughby Performed By: Cecy Wynn RCS
== END | disposition home or self-care (01) ==
LOC: PSN 09:04
PROVIDERS: PCP Internal Medicine; Referring Provider Internal Medicine Cardiovascular Disease; Visit Provider Internal Medicine Cardiovascular Disease
DX: I26.99 Other pulmonary embolism without acute cor pulmonale (principal); I47.1 Supraventricular tachycardia; R06.02 Shortness of breath
CPT/HCPCS: 93225; 93226; 93306

== ENCOUNTER → 2022-06-06 | Outpatient (CLI) | payer BC, SELFPAY ==
[2022-06-06 13:20] LABS: Rheumatoid Factor < 10.0 IU/mL (<15); T4 Free Direct 1.42 ng/dL (0.76-1.46); Thyroid Stim Hormone (TSH) 0.71 uIU/mL (0.358-3.74)
[2022-06-06 13:26] LABS: Erythrocyte Sedimentation Rate 36 mm/hr (0-30)
[2022-06-07 16:15] LABS: ANTINUCLEAR ANTIBODIES DIRECT Negative (Negative)
[2022-06-07 16:18] LABS: Anti-Cardiolipin Ab, IgG, Qn < 9 GPL U/mL (0-14); Anti-Cardiolipin Ab, IgM, Qn < 9 MPL U/mL (0-12)
== END | disposition home or self-care (01) ==
LOC: BIMLAB 10:55
PROVIDERS: PCP Internal Medicine; Referring Provider Internal Medicine; Visit Provider Internal Medicine
DX: I26.99 Other pulmonary embolism without acute cor pulmonale (principal); I47.1 Supraventricular tachycardia
CPT/HCPCS: 36415; 84439; 84443; 85652; 86038; 86147; 86225; 86235; 86431

== ENCOUNTER → 2022-06-25 | Outpatient (CLI) | payer BC, SELFPAY ==
[2022-06-25 16:10] LABS: Vitamin B12 774 pg/mL (211-911)
[2022-06-25 16:16] LABS: ALB/GLOB Ratio 0.9 RATIO (0.9-2.4); AST(SGOT) 15 U/L (15-37); Alanine Aminotransfer ALT/SGPT 18 U/L (13-56); Albumin, Serum 3.7 g/dL (3.2-5.0); Alkaline Phosphatase 89 U/L (45-117); Anion Gap 4 (5-15); BUN 24 mg/dL (7-18); BUN/Creat Ratio 22.4 RATIO (10-20); CRP 5.11 mg/L (0.0-3.0); Calcium,Total 9.2 mg/dL (8.5-10.1); Chloride 104 mmol/L (98-107); Creatinine, Serum 1.07 mg/dL (0.55-1.02); EST Glomerular Filtration Rate 68 mL/min (>60); Est Glom Filt Rate - Afr Amer 82 mL/min (>60); Ferritin 38 ng/mL (8-252); Free T3 2.4 pg/mL (2.18-3.98); Globulin 4.3 g/dL (2.2-4.2); Glucose 99 mg/dL (74-106); LDH 152 U/L (84-246); Potassium 4.4 mmol/L (3.5-5.1); Sodium Level 137 mmol/L (136-145); T4 Free Direct 1.19 ng/dL (0.76-1.46); Thyroid Stim Hormone (TSH) 0.73 uIU/mL (0.358-3.74)
[2022-06-25 16:19] LABS: Erythrocyte Sedimentation Rate 30 mm/hr (0-30)
[2022-06-27 12:08] LABS: Anti-Centromere B Ab <0.2 AI (0.0-0.9); Anti-Chromatin <0.2 AI (0.0-0.9); Anti-Jo <0.2 AI (0.0-0.9); Anti-Scleroderma-70 AB <0.2 AI (0.0-0.9); RNP Ab <0.2 AI (0.0-0.9); SJOGREN'S Anti-SS-A test < 0.2 AI (0.0-0.9); SJOGREN'S Anti-SS-B test < 0.2 AI (0.0-0.9); Smith Ab <0.2 AI (0.0-0.9)
[2022-06-27 14:09] LABS: Endomysial Antibody IgA Negative (Negative)
[2022-06-27 14:34] LABS: Immunoglobulin A 357 mg/dL (87-352); t-Transglutaminase IgA <2 U/mL (0-3)
[2022-06-27 14:47] LABS: Anti-dsDNA Ab 1 IU/mL (0-9)
[2022-07-01 00:06] LABS: Albumin 4.2 g/dL (2.9-4.4); Alpha-1-Globulins 0.2 g/dL (0.0-0.4); Alpha-2-Globulins 0.6 g/dL (0.4-1.0); Angiotensin Convert Enzyme 47 U/L (14-82); Cytoplasmic Ab (C-ANCA) 1:20 titer (Neg:<1:20); Dilute Prothrombin Time (dPT) 48.5 sec (0.0-47.6); Dilute Russell Viper Venom 48.8 sec (0.0-47.0); Gamma Globulin 1.6 g/dL (0.4-1.8); Immunoglobulin A 349 mg/dL (87-352); Immunoglobulin E 1597 IU/mL (6-495); Immunoglobulin G 1844 mg/dL (586-1602); Immunoglobulin M 67 mg/dL (26-217); PROEL- TOTAL PROTEIN 7.6 g/dL (6.0-8.5); PTT-LA 40.6 sec (0.0-51.9); Protein S, Free 101 % (61-136); Thrombin Time 21.2 sec (0.0-23.0); dPT Confirm Ratio 1.02 Ratio (0.00-1.34)
[2022-07-01 09:58] LABS: Activated Protein C Resistance 2.8 ratio (2.2-3.5); Protein S, Total 120 % (60-150)
[2022-07-01 09:59] LABS: Antithrombin 3 Function 122 % (75-135); Interpretation Comment: (.); Perinuclear Ab (P-ANCA) <1:20 titer (Neg:<1:20); Protein C Antigen 81 % (60-150)
[2022-07-03 14:52] LABS: Pancreatic Elastase, Fecal 363 (>200)
[2022-07-04 13:07] LABS: Calprotectin, Stool 66 ug/g (0-120)
== END | disposition home or self-care (01) ==
LOC: LAB 14:58
PROVIDERS: PCP Internal Medicine; Referring Provider Internal Medicine Gastroenterology; Visit Provider Internal Medicine Gastroenterology
DX: K21.9 Gastro-esophageal reflux disease without esophagitis (principal); R10.9 Unspecified abdominal pain; K58.9 Irritable bowel syndrome, unspecified
CPT/HCPCS: 80053; 82164; 82274; 82607; 82653; 82705; 82728; 82784; 82785; 83516; 83615; 83993; 84165; 84439; 84443; 84481; 85300; 85302; 85305; 85306; 85307; 85652; 86140; 86225; 86235; 86255; 86256; 86334; 87506

== ENCOUNTER 2022-07-07 00:33 | Observation (INO) | payer BC, SELFPAY ==
[2022-07-07] VITALS (7 sets, daily range): BP systolic 95–118; BP diastolic 58–72; PULSE 80–128; RESP 16–22; TEMP 35.8–37; O2SAT 98–100; BMI 23.3; BMI 22.9
--- NOTE | 2022-07-07 01:02 | ED.RN ---
pt informed this nurse the pain is better after burping
--- NOTE | 2022-07-07 01:17 | EDS_ITS ---
HPI History of Present Illness Chief Complaint: Back Informant: patient and parent Narrative Narrative: Patient is of 22-year-old female with history of acid reflux, anxiety, AVNRT, polycystic ovarian syndrome, PE (on Eliquis) and postprandial abdominal bloating presenting with abdominal discomfort, diarrhea and now nausea/vomiting. States she has also been having chills. She has been having symptoms for the past few days. Reports continued decreased appetite. Patient was diagnosed with a pulmonary emboli 2 months ago ago she was having palpitations in addition to this recurrent GI symptoms. She was started on Eliquis. States has been compliant with this. She currently denies any chest pain or shortness of breath. Is having epigastric abdominal discomfort with pain rating to her back. She denies any black or blood in her stool. Patient is with her mother. Her mother is concerned because it is going to be 2 more months until she can have an EGD and she is concerned about the delay in how long this work-up is taking. Patient states her pain in her abdomen is epigastric in nature and burning. She has discomfort in her back. She notes that her back discomfort seems to improve when she has a bowel movement. She states that she has a bowel movement every 3 hours or so and it is between soft and watery. Patient denies any alcohol, marijuana, drug use or tobacco use. Patient is currently being evaluated by Dr. Ravi. She had a stool study couple weeks ago which was negative. She had a battery of autoimmune test ordered as well per Dr. Ravi. There is concern for possible bacterial overgrowth syndrome. [facility] Medical History (Updated 07/07/22 @ 07:[address] Sarai Sinclair, DO) Abdominal discomfort Acid reflux Anxiety Asthma AVNRT (AV ty re-entry tachycardia) GERD (gastroesophageal reflux disease) Paroxysmal supraventricular tachycardia Polycystic ovarian syndrome Postprandial abdominal bloating Home Medications atenolol 25 mg tablet 25 mg PO DAILY 01/26/14 [History Last Taken Unknown] albuterol 90 mcg/actuation aerosol inhaler 90 mcg inhalation PRN PRN Shortness Of Breath 05/08/22 [History Last Taken Unknown] apixaban 5 mg tablet (Eliquis) 5 mg PO BID #60 tabs 05/22/22 [Rx Last Taken Unknown] famotidine 40 mg tablet 40 mg PO DAILY #60 tabs 06/06/22 [Rx Last Taken Unknown] Allergy/AdvReac Type Severity Reaction Status Date / Time No Known Allergies Allergy Verified 06/06/22 10:13 Family History Father , at 36 Enlarged heart Mother Asthma Brother Asthma Sister Asthma Surgical History History of cardiac radiofrequency ablation (12/08/20) History of tonsillectomy Social History household members: family housing: house current occupational status: employed current occupation: [employer] sexually active: No Smoking Status: Never smoker alcohol intake: never substance use type: does not use caffeine: No what type of physical activity do you participate in: walking frequency: 1-2 times per week seatbelt use: always do you feel safe at home: Yes ROS ROS ED Constitutional Constitutional ED: Reports chills; Denies fever(s) Eyes Eyes: Denies change in vision ENT ENT ED: Denies rhinorrhea or sore throat Cardiovascular Cardiovascular: Reports racing heartbeat; Denies chest pain or palpitations Respiratory/Chest Respiratory/Chest: Denies cough or dyspnea Gastrointestinal Gastrointestinal: Reports abdominal pain, diarrhea, nausea and vomiting; Denies melena Genitourinary Genitourinary ED: Denies dysuria, hematuria or urinary frequency Musculoskeletal Musculoskeletal: Reports back pain; Denies arthralgias or myalgias Integumentary Denies rash Neurologic Neurologic: Denies headache(s) or weakness Psychiatric Psychiatric: Reports anxiety Hematologic/Lymphatic Hematologic/Lymphatic: Denies easy bleeding or easy bruising EXAM Physical Exam Const Vital Signs: 07/07/22 00:34 07/07/22 00:34 07/07/22 06:04 Temperature 96.5 F L 96.5 F L 98.3 F Temperature Source Temporal Temporal Oral Pulse Rate 128 H 128 H 120 H Respiratory Rate 22 H 22 H 18 Blood Pressure 95/72 95/72 95/70 Blood Pressure Mean 79 79 78 Pulse Ox 98 98 100 Oxygen Delivery Method Room Air Room Air Room Air Positive well nourished and well developed General Appearance ED: well developed and NAD HEENT Reports moist mucous membranes Eyes PERRL and EOMs intact bilaterally Neck supple Chest Wall inspection of chest normal and palpation of chest normal Resp normal respiratory effort and clear to auscultation bilaterally Cardio regular rhythm and no murmurs Rate: tachycardic GI Inspection: Negative for abdominal distention Palpation: soft and tender epigastric; Negative for guarding or mass Back/Spine no CVA tenderness Extremity normal to inspection Neuro oriented x3 Sensorium / Orientation: alert Motor Exam: Negative for general weakness Psych mental status grossly normal Skin no rashes or lesions noted and no wounds General Skin Exam: Negative for jaundice MDM MDM MDM Narrative Medical decision making narrative: Patient is evaluated for recurrent burning epigastric abdominal pain with associated back pain and diarrhea. Patient has had ongoing abdominal pain for couple of months. patient is given IV fluids and Zofran. At 1 point she states she belches and she is starting to feel better. She notes her back pain is improving. Lab work does show a mild bump in her creatinine at 1.16 and a mild elevation of her AST and ALT compared to her baseline. Because of these changes a CT is ordered to further evaluate her abdomen. CT of the abdomen pelvis shows mild periportal edema likely secondary to hepatitis and/or overhydration. Clinically patient does not appear over hydrated. Will page out GI for further recommendations. Patient is given a GI cocktail but does not have any improvement of her symptoms with this. With Dr. Ravi who has low suspicion for an acute ischemic process given that she is anticoagulated. He is amenable to admission and start the patient on IV Protonix to evaluate for endoscopy. Patient is agreeable this plan of care. Case discussed with Dr. Dai, hospitalist Lab Data Attestation: I reviewed the patient's lab results. Labs: Laboratory Results - last 24 hr 07/07/22 07/07/22 07/07/22 01:35 01:35 01:35 WBC 8.2 RBC 4.23 Hgb 11.1 L Hct 34.6 L MCV 81.8 MCH 26.2 L MCHC 32.1 RDW Std Deviation 40.2 RDW Coeff of Anabel 13.6 Plt Count 227 MPV 9.7 Immature Gran % (Auto) 0.200 Neut % (Auto) 77.7 H Lymph % (Auto) 14.3 L [place] % (Auto) 6.0 Eos % (Auto) 1.7 Baso % (Auto) 0.1 Absolute Neuts (auto) 6.4 Absolute Lymphs (auto) 1.17 Nucleated RBC % 0 Sodium 139 Potassium 3.4 L Chloride 105 Carbon Dioxide 29.0 Anion Gap 5 BUN 15 Creatinine 1.16 H Estim Creat Clear Calc 65.69 Est GFR (MDRD) Af Amer 75 Est GFR (MDRD) Non-Af 62 BUN/Creatinine Ratio 12.9 Glucose 106 Lactic Acid 1.6 Calcium 9.0 Total Bilirubin 0.80 Direct Bilirubin 0.27 AST 68 H ALT 42 Alkaline Phosphatase 77 Total Protein 7.5 Albumin 3.5 Globulin 4.0 Lipase 67 L Urine Color Urine Clarity Urine pH Ur Specific [place] Urine Protein Urine Glucose (UA) Urine Ketones Urine Occult Blood Urine Nitrite Urine Bilirubin Urine Urobilinogen Ur Leukocyte Esterase Urine RBC Urine WBC Ur Squamous Epith Cells Urine Bacteria Urine Mucus Urine Test 07/07/22 03:00 WBC RBC Hgb Hct MCV MCH MCHC RDW Std Deviation RDW Coeff of Anabel Plt Count MPV Immature Gran % (Auto) Neut % (Auto) Lymph % (Auto) [place] % (Auto) Eos % (Auto) Baso % (Auto) Absolute Neuts (auto) Absolute Lymphs (auto) Nucleated RBC % Sodium Potassium Chloride Carbon Dioxide Anion Gap BUN Creatinine Estim Creat Clear Calc Est GFR (MDRD) Af Amer Est GFR (MDRD) Non-Af BUN/Creatinine Ratio Glucose Lactic Acid Calcium Total Bilirubin Direct Bilirubin AST ALT Alkaline Phosphatase Total Protein Albumin Globulin Lipase Urine Color Yellow Urine Clarity Clear Urine pH 8.0 Ur Specific [place] 1.015 Urine Protein Negative Urine Glucose (UA) Normal Urine Ketones Negative Urine Occult Blood Negative Urine Nitrite Negative Urine Bilirubin Negative Urine Urobilinogen Normal Ur Leukocyte Esterase 100 H Urine RBC 0 SEEN Urine WBC 0-5 SEEN Ur Squamous Epith Cells 0-5 SEEN Urine Bacteria 1+ Urine Mucus 0 SEEN Urine Test Negative Radiography Diagnostic Testing: Clinical Impression(s) from Imaging Studies Abdomen/Pelvis CT 07/07/22 03:21 IMPRESSION: 1. Mild periportal edema likely secondary to hepatitis and/or overhydration. 2. Technically limited study due to respiratory motion. Electronically Signed: Jo Hull MD at 5:28 EST Reading Location ID and State: [facility] / [place] , Service support , Discharge Plan Triage Chief Complaint: Back ED Provider: Godman,Sarai Dx/Rx/DC Orders Clinical Impression: GERD (gastroesophageal reflux disease), Hepatitis, Epigastric abdominal pain Prescriptions: No Action famotidine 40 mg tablet 40 mg PO DAILY Qty: 60 1RF atenolol 25 MG tablet 25 mg PO DAILY albuterol 90 mcg/actuation Aerosol 90 mcg inhalation PRN PRN (Reason: Shortness Of Breath) Eliquis 5 mg tablet 5 mg PO BID Qty: 60 6RF Primary Care Provider: Tai Mccarty Referrals: Tai Mccarty MD [Primary Care Provider] - Disposition Disposition: Acute Care Hospital [facility]
--- NOTE | 2022-07-07 01:19 | EKG12_ITS ---
Test Reason : DYSRHYTHMIA Blood Pressure : / mmHG Vent. Rate : 126 BPM Atrial Rate : 126 BPM P-R Int : 160 ms QRS Dur : 066 ms QT Int : 296 ms P-R-T Axes : 068 072 055 degrees QTc Int : 428 ms Sinus tachycardia with Premature supraventricular complexes Otherwise normal ECG Confirmed by ROBB IVY, RICHARD ([id number]), electronic news gathering editor LUH MOYER ([id number]) on 07/10/2022 12:16:07 PM Referred By: LANE Confirmed By:RICHARD ZAMUDIO MD
[2022-07-07] MEDS: 0.9% Normal Saline 1,000 ML 1000 ML IV (01:38)
[2022-07-07 01:44] LABS: Absolute Lymphocyte Count 1.17 X10^3/uL (0.83-4.51); Absolute Neutrophil Count 6.4 X10^3/uL (2.0-7.7); Basophil# 0.01 X10^3/uL; Basophil% 0.1 % (0-1); Eosinophil# 0.14 X10^3/uL; Eosinophils% 1.7 % (0-5); Hematocrit 34.6 % (37-47); Hemoglobin 11.1 g/dL (12.0-15.0); Lymphocyte # 1.17 X10^3/ul (0.83-4.51); Lymphocyte % 14.3 % (19-41); Mean Corp Hgb Conc 32.1 g/dL (32-36); Mean Corpuscular Hgb 26.2 pg (27.0-32.0); Mean Corpuscular Volume 81.8 fL (81-99); Mean Platelet Vol. 9.7 fl (6.2-12.0); Monocyte# 0.49 X10^3/uL; NRBC Flagged by Analyzer 0 % (0-5); Neutrophil # 6.36 X10^3/uL (2.7-7.7); Neutrophil % 77.7 % (47-70); Platelet Count 227 K/mm3 (150-450); RBC Distribution Width CV 13.6 % (11.6-14.6); RBC Distribution Width SD 40.2 fl (35.1-43.9); Red Blood Count 4.23 M/mm3 (4.2-5.4); White Blood Count 8.2 K/mm3 (4.4-11.0)
[2022-07-07 02:09] LABS: AST(SGOT) 68 U/L (15-37); Alanine Aminotransfer ALT/SGPT 42 U/L (13-56); Albumin, Serum 3.5 g/dL (3.2-5.0); Alkaline Phosphatase 77 U/L (45-117); Anion Gap 5 (5-15); BUN 15 mg/dL (7-18); BUN/Creat Ratio 12.9 RATIO (10-20); Bilirubin, Direct 0.27 mg/dL (0.00-0.30); Chloride 105 mmol/L (98-107); Creatinine, Serum 1.16 mg/dL (0.55-1.02); EST Glomerular Filtration Rate 62 mL/min (>60); Est Glom Filt Rate - Afr Amer 75 mL/min (>60); Estimated Creatinine Clearance 65.69 ml/min; Glucose 106 mg/dL (74-106); Lipase 67 U/L (73-393); Potassium 3.4 mmol/L (3.5-5.1); Protein, Total 7.5 g/dL (6.4-8.2); Sodium Level 139 mmol/L (136-145)
[2022-07-07 02:16] LABS: Lactic Acid 1.6 mmol/L (0.4-1.9)
[2022-07-07 03:15] LABS: Mucous, Urine 0 SEEN /hpf (<or=2+); Red Blood Cells-Urine 0 SEEN /hpf (0-5)
[2022-07-07 03:16] LABS: Color, Urine Yellow (Yellow); Glucose, Dipstick Normal (Normal); Ketone-Dipstick Negative (Negative); Leukocyte Esterase-Dipstick 100 /ul (Negative); Nitrite-Dipstick Negative (Negative); Occult Blood-Urine Negative /ul (Negative); Protein-Dipstick Negative (Negative); Specific Gravity, Urine 1.015 (1.002-1.030); Urine Bilirubin Dipstick Negative (Negative); Urine Clarity Clear (Clear); Urine Urobilinogen Normal (Normal)
[2022-07-07 03:20] LABS: Internal QC Validated? YES +Cl - CLEAR BKGD; Pregnancy, Urine Negative Negative
--- NOTE | 2022-07-07 03:21 | CT_ITS ---
STUDY: CT ABDOMEN AND PELVIS WITH CONTRAST REASON FOR EXAM: Female, 22 years old patient with upper abdominal pain and mild transaminitis. RADIATION DOSAGE (If Supplied By Facility): CTDIvol = ( 11.28 ) mGy, DLP = ( 480.30 ) mGycm TECHNIQUE: Transaxial images were obtained from the dome of the diaphragm to the symphysis pubis without oral contrast. 100 mL of IV Isovue-370 was administered. Sagittal and coronal images were reconstructed. Individualized dose optimization techniques were used for this CT. COMPARISON: None. FINDINGS: The visualized lung bases are unremarkable. The visualized portions of the heart are within normal limits. There appears to be mild periportal edema. There is no obvious liver mass. Normal gallbladder and extrahepatic biliary system. Normal spleen. Normal pancreas. Normal bilateral adrenal glands. Normal right kidney. Normal left kidney. Normal visualized stomach. There is no obvious dilated bowel, ascites or pneumoperitoneum. Small bowel has a grossly normal appearance. There is stool visible throughout the colon. There is non-visualization of the appendix. Normal abdominal aorta. There is venous distention of the inferior vena cava (IVC). Normal retroperitoneum. Normal urinary bladder. Normal visualized uterus. There is a left ovarian cyst measuring approximately 3.8 x 3.2 x 3.8 cm. Normal abdominal wall. Normal osseous structures. CT/Abdomen/Pelvis W IV Cont ONLY IMPRESSION: 1. Mild periportal edema likely secondary to hepatitis and/or overhydration. 2. Technically limited study due to respiratory motion. Electronically Signed: Jo Hull MD at 5:28 EST ,
[2022-07-07 03:37] LABS: Bacteria 1+ /hpf (None Seen); Squamous Epithelial Cells - UA 0-5 SEEN /hpf (5-10); White Blood Cells 0-5 SEEN /hpf (0-5)
[2022-07-07] MEDS: Mag Hydrox/Al Hydrox/Simeth 30 ML UDC PO (03:54)
--- NOTE | 2022-07-07 07:22 | HP.PCM.HOS_ITS ---
HPI - General General Date of Admission: 07/07/22 Date of Service: 07/07/22 Chief Complaint: abdominal pain HPI Narrative MADELYN WOOD, is a 22 F with a PMH as outlined who was admitted via the ED on 07/07/2022 with a complaint of abdominal pain, with associated diarrhea and back pain. Pain had mainly been in her epigastric region and had been going on for a few days. She had associated chills and decreased appetite. She denied any dark stools or any hematemesis. SHe is seeing GI for this recurrent abdominal pain and apparently recently had a stool study a few weeks ago which was negative. She says there has been a battery of tests ordered for autoimmune workup. She also had a PE a few months ago; she says it was thought to be due to her being on OCPs. She had been referred to hematology for workup for hypercoagulable condition. Vitals were BP of 95/70, RR of 18, temp of 98.3F and oxygen sats of 100% on room air. CBC was unremarkable and chemistry was significant for potassium of 3.4. Lipase is 67. CT of the abdomen and pelvis showed mild perioportal edema likely secondary to hepatitis and/or overhydration. She is being admitted to be managed for recurrent abdominal pain. [facility] Medical History (Updated 07/07/22 @ 07:[address] Sarai Sinclair, ) Abdominal discomfort Acid reflux Anxiety Asthma AVNRT (AV ty re-entry tachycardia) GERD (gastroesophageal reflux disease) Paroxysmal supraventricular tachycardia Polycystic ovarian syndrome Postprandial abdominal bloating Home Medications atenolol 25 mg tablet 25 mg PO DAILY 01/26/14 [History Last Taken 07/07/22] albuterol 90 mcg/actuation aerosol inhaler 90 mcg inhalation PRN PRN Shortness Of Breath 05/08/22 [History Last Taken Unknown] apixaban 5 mg tablet (Eliquis) 5 mg PO BID #60 tabs 05/22/22 [Rx Last Taken 07/07/22] famotidine 40 mg tablet 40 mg PO DAILY #60 tabs 06/06/22 [Rx Last Taken 07/06/22] pantoprazole 40 mg tablet,delayed release 40 mg PO DAILY #60 tabs 07/07/22 [Rx Last Taken Unknown] Allergy/AdvReac Type Severity Reaction Status Date / Time No Known Allergies Allergy Verified 06/06/22 10:13 Family History Father , at 36 Enlarged heart Mother Asthma Brother Asthma Sister Asthma Surgical History History of cardiac radiofrequency ablation (12/08/20) History of tonsillectomy Social History household members: family housing: house current occupational status: employed current occupation: [employer] sexually active: No Smoking Status: Never smoker alcohol intake: never substance use type: does not use caffeine: No what type of physical activity do you participate in: walking frequency: 1-2 times per week seatbelt use: always do you feel safe at home: Yes ROS Review of Systems ROS Unobtainable: Denies due to encephalopathy Constitutional Constitutional: Reports anorexia, fatigue and malaise; Denies change in weight, chills, fever(s) or weakness Eyes Eyes: Denies change in vision ENT HEENT: Denies dysphagia, headache(s) or hearing loss Cardiovascular Cardiovascular: Denies chest pain, dyspnea on exertion, edema, lightheadedness, orthopnea, palpitations, rapid heart rate or syncope Respiratory/Chest Respiratory/Chest: Denies cough, dyspnea, shortness of breath at rest or shortness of breath with exertion Gastrointestinal Gastrointestinal: Reports abdominal pain, diarrhea, nausea and vomiting; Denies constipation Genitourinary Genitourinary: Denies burning urination or dysuria Musculoskeletal Musculoskeletal: Denies joint pain or joint stiffness Neurologic Neurologic: Denies abnormal speech, confusion, dizziness, focal weakness, headache(s), seizures or syncope Psychiatric Psychiatric: Denies anxiety Hematologic/Lymphatic Hematologic/Lymphatic: Denies anemia Vital Signs Vital Signs Vital Signs: 07/07/22 00:34 07/07/22 00:34 07/07/22 06:04 Temperature 96.5 F L 96.5 F L 98.3 F Temperature Source Temporal Temporal Oral Pulse Rate 128 H 128 H 120 H Respiratory Rate 22 H 22 H 18 Blood Pressure 95/72 95/72 95/70 Blood Pressure Mean 79 79 78 Pulse Ox 98 98 100 Oxygen Delivery Method Room Air Room Air Room Air Weight Weight: 135 lb 12.876 oz Body Mass Index (BMI) 23.3 Physical Exam Const alert, oriented x3 and no apparent distress General Appearance: cooperative HEENT normocephalic, head/scalp atraumatic, hearing grossly normal bilaterally and moist oral mucous membranes Mouth: oral and palatal mucosa normal Eyes PERRL, EOMs intact bilaterally and conjunctivae normal Neck no lymphadenopathy and supple Resp normal respiratory effort, no retractions, no use of accessory muscles and clear to auscultation bilaterally Cardio regular rate, regular rhythm, S1 normal heart sound, S2 normal heart sound and no murmurs GI normal to inspection, nondistended, normoactive bowel sounds, soft to palpation, non-tender and non-distended Extremity normal to inspection, full ROM and no clubbing, cyanosis or edema Neuro oriented x3, CN's II-XII intact bilaterally and moves all extremities Sensorium / Orientation: awake and alert Motor Exam: strength 5/5 throughout Psych affect normal Results Lab / Micro Data Result Diagrams: 07/07/22 01:35 07/07/22 01:35 Labs: Laboratory Results - last 24 hr 07/07/22 01:35: WBC 8.2, RBC 4.23, Hgb 11.1 L, Hct 34.6 L, MCV 81.8, MCH 26.2 L, MCHC 32.1, RDW Std Deviation 40.2, RDW Coeff of Anabel 13.6, Plt Count 227, MPV 9.7, Immature Gran % (Auto) 0.200, Neut % (Auto) 77.7 H, Lymph % (Auto) 14.3 L, [place] % (Auto) 6.0, Eos % (Auto) 1.7, Baso % (Auto) 0.1, Absolute Neuts (auto) 6.4, Absolute Lymphs (auto) 1.17, Nucleated RBC % 0 07/07/22 01:35: Sodium 139, Potassium 3.4 L, Chloride 105, Carbon Dioxide 29.0, Anion Gap 5, BUN 15, Creatinine 1.16 H, Estim Creat Clear Calc 65.69, Est GFR (MDRD) Af Amer 75, Est GFR (MDRD) Non-Af 62, BUN/Creatinine Ratio 12.9, Glucose 106, Calcium 9.0, Total Bilirubin 0.80, Direct Bilirubin 0.27, AST 68 H, ALT 42, Alkaline Phosphatase 77, Total Protein 7.5, Albumin 3.5, Globulin 4.0, Lipase 67 L 07/07/22 01:35: Lactic Acid 1.6 07/07/22 03:00: Urine Color Yellow, Urine Clarity Clear, Urine pH 8.0, Ur Specific [place] 1.015, Urine Protein Negative, Urine Glucose (UA) Normal, Urine Ketones Negative, Urine Occult Blood Negative, Urine Nitrite Negative, Urine Bilirubin Negative, Urine Urobilinogen Normal, Ur Leukocyte Esterase 100 H, Urine RBC 0 SEEN, Urine WBC 0-5 SEEN, Ur Squamous Epith Cells 0-5 SEEN, Urine Bacteria 1+, Urine Mucus 0 SEEN, Urine Test Negative Radiology Impression Abdomen/Pelvis CT 07/07/22 03:21 IMPRESSION: 1. Mild periportal edema likely secondary to hepatitis and/or overhydration. 2. Technically limited study due to respiratory motion. Electronically Signed: Jo Hull MD at 5:28 EST Reading Location ID and State: [address] [place] [address] , Service support , Assessment & Plan Assessment/Plan (1) Epigastric abdominal pain: (2) Hepatitis: PLAN: Plan # Intractable abdominal pain * has had a history of abdominal pain and had been seeing gastroenterology * says she has had abdominal pain, with associated diarrhea, which is now better * admit to med surg * keep NPO for now * hydrate with IVF NS * IV pantoprazole 40mg bid * consult GI * ESR and CRP was elevated, and so autoimmune panel was ordered to rule out a vasculitic condition * IgG and IgA was marginally elevated. IgE was also elevated and c-ANCA was 1:20 * #History of PE * diagnosed with PE 2 months ago * oral contraceptive pills discontinued * referred to hematology to evaluate for hypercoagulable state. * Hypercoagulable panel showed mildly elevated dilated Mirza viper venom * to follow up with oncology on outpatient basis. * on eliquis * #Paroxysmal supraventricular tachycardia * s/p ablation * on atenolol * DVT prophylaxis: not indicated as she is on eliquis for PE Charges/Coding Visit Charges OBSV E&M: 48369 Initial observation care L3
--- NOTE | 2022-07-07 07:35 | NURSING ---
MED SURG KORAM EPIGASTRIC PAIN, HEPATITIS
[2022-07-07 10:06] LABS: CRP 5.99 mg/L (0.0-3.0)
[2022-07-07] MEDS: 0.9% Normal Saline 1,000 ML 125 ML IV (10:08)
[2022-07-07 10:38] LABS: Lactic Acid 0.7 mmol/L (0.4-1.9)
[2022-07-07 11:16] LABS: Erythrocyte Sedimentation Rate 23 mm/hr (0-30)
--- NOTE | 2022-07-07 15:10 | PCM.CONS.GEN ---
Assessment & Plan Assessment/Plan (1) Hepatitis: PLAN: Differential diagnosis for the periportal edema would be ischemic hepatitis secondary to nausea vomiting causing a low flow state. This is typically recoverable. I suggested her that she takes low-dose dicyclomine as needed if she feels the cramping to subsequently stop from having a mild intestinal angina episode. Also recommended a recheck, LFTs in approximately 3 days after discharge. (2) Epigastric abdominal pain: PLAN: Epigastric pain possibly secondary to peptic ulcer disease in the setting of Eliquis therapy. Also she should be checked for H. pylori. She is scheduled to have an upper endoscopy in the near future. (3) GERD (gastroesophageal reflux disease): PLAN: Recommend to stop famotidine and to transition her to pantoprazole 40 mg p.o. twice daily. Medicine was already sent to the pharmacy. HPI Consult Data Date of Consult: 07/07/22 HPI Narrative Reason for Consultation: Abdominal pain HPI Narrative: MADELYN WOOD, is a 22 F who presented to the clinic for initial evaluation of abdominal discomfort on 06.25.22. She has been having issues with abdominal discomfort, bloating, belching, reflux and increased flatulence with intermittent nausea and tightness in her stomach with a rapid HR for several months. She has been taking famotidine 40mg has been helpful with heartburn; Dexilant and protonix historically ineffective. Weight loss of approximately 10lbs r/t decreased appetite. She had saw a route jumper as an outpatient and he recommended PPI therapy and she was diagnosed with gastritis. Recently she was diagnosed with PE and was placed on Eliquis therapy. As an outpatient she did have blood work that had shown a prolonged PTT prior to her being on anticoagulation along with a positive Mirza venom viper test possibly secondary to underlying antiphospholipid syndrome. Biochemical work-up also had shown elevated IgG levels with a positive P ANCA possibly consistent with an autoimmune vasculitis. I put consultations into hematology and rheumatology and those are pending. She says that she developed worsening abdominal pain after eating. She denied any sick contacts. She did have episode of nausea and vomiting. In the ED she got a CT scan abdomen pelvis that showed some mild periportal edema. She did have mild elevation in her ALT at 68 and previously was 20. Her lipase was 67, bilirubin is 0.8, alkaline phosphatase of 90, AST of 30. Hemoglobin was mildly anemic at 11.1 w with normal indices. White blood cell count was normal at 7.8 and platelet count was normal at 250. PMH paroxysmal supraventricular tachycardia s/p radiofrequency ablation ; polycystic ovary syndrome; history PE. [facility] Medical History (Updated 07/07/22 @ 07:[address] Sarai Sinclair, DO) Abdominal discomfort Acid reflux Anxiety Asthma AVNRT (AV ty re-entry tachycardia) GERD (gastroesophageal reflux disease) Paroxysmal supraventricular tachycardia Polycystic ovarian syndrome Postprandial abdominal bloating Home Medications atenolol 25 mg tablet 25 mg PO DAILY 01/26/14 [History Last Taken 07/07/22] albuterol 90 mcg/actuation aerosol inhaler 90 mcg inhalation PRN PRN Shortness Of Breath 05/08/22 [History Last Taken Unknown] apixaban 5 mg tablet (Eliquis) 5 mg PO BID #60 tabs 05/22/22 [Rx Last Taken 07/07/22] famotidine 40 mg tablet 40 mg PO DAILY #60 tabs 06/06/22 [Rx Last Taken 07/06/22] pantoprazole 40 mg tablet,delayed release 40 mg PO DAILY #60 tabs 07/07/22 [Rx Last Taken Unknown] Allergy/AdvReac Type Severity Reaction Status Date / Time No Known Allergies Allergy Verified 06/06/22 10:13 Family History Father , at 36 Enlarged heart Mother Asthma Brother Asthma Sister Asthma Surgical History History of cardiac radiofrequency ablation (12/08/20) History of tonsillectomy Social History household members: family housing: house current occupational status: employed current occupation: [employer] sexually active: No Smoking Status: Never smoker alcohol intake: never substance use type: does not use caffeine: No what type of physical activity do you participate in: walking frequency: 1-2 times per week seatbelt use: always do you feel safe at home: Yes ROS Review of Systems ROS Unobtainable: Denies due to encephalopathy Constitutional Constitutional: Reports anorexia, fatigue and malaise; Denies change in weight, chills, fever(s) or weakness Eyes Eyes: Denies change in vision ENT HEENT: Denies dysphagia, headache(s) or hearing loss Cardiovascular Cardiovascular: Denies chest pain, dyspnea on exertion, edema, lightheadedness, orthopnea, palpitations, rapid heart rate or syncope Respiratory/Chest Respiratory/Chest: Denies cough, dyspnea, shortness of breath at rest or shortness of breath with exertion Gastrointestinal Gastrointestinal: Reports abdominal pain, diarrhea, nausea and vomiting; Denies constipation Genitourinary Genitourinary: Denies burning urination or dysuria Musculoskeletal Musculoskeletal: Denies joint pain or joint stiffness Neurologic Neurologic: Denies abnormal speech, confusion, dizziness, focal weakness, headache(s), seizures or syncope Psychiatric Psychiatric: Denies anxiety Hematologic/Lymphatic Hematologic/Lymphatic: Denies anemia Physical Exam Const alert, oriented x3 and no apparent distress General Appearance: cooperative HEENT normocephalic, head/scalp atraumatic, hearing grossly normal bilaterally and moist oral mucous membranes Mouth: oral and palatal mucosa normal Eyes PERRL, EOMs intact bilaterally and conjunctivae normal Neck no lymphadenopathy and supple Resp normal respiratory effort, no retractions, no use of accessory muscles and clear to auscultation bilaterally Cardio regular rate, regular rhythm, S1 normal heart sound, S2 normal heart sound and no murmurs GI normal to inspection, nondistended, normoactive bowel sounds, soft to palpation, non-tender and non-distended Extremity normal to inspection, full ROM and no clubbing, cyanosis or edema Neuro oriented x3, CN's II-XII intact bilaterally and moves all extremities Sensorium / Orientation: awake and alert Motor Exam: strength 5/5 throughout Psych affect normal Lab / Micro Data Result Diagrams: 07/07/22 01:35 07/07/22 01:35 Labs: Laboratory Results - last 24 hr 07/07/22 01:35: WBC 8.2, RBC 4.23, Hgb 11.1 L, Hct 34.6 L, MCV 81.8, MCH 26.2 L, MCHC 32.1, RDW Std Deviation 40.2, RDW Coeff of Anabel 13.6, Plt Count 227, MPV 9.7, Immature Gran % (Auto) 0.200, Neut % (Auto) 77.7 H, Lymph % (Auto) 14.3 L, [place] % (Auto) 6.0, Eos % (Auto) 1.7, Baso % (Auto) 0.1, Absolute Neuts (auto) 6.4, Absolute Lymphs (auto) 1.17, Nucleated RBC % 0 07/07/22 01:35: Sodium 139, Potassium 3.4 L, Chloride 105, Carbon Dioxide 29.0, Anion Gap 5, BUN 15, Creatinine 1.16 H, Estim Creat Clear Calc 65.69, Est GFR (MDRD) Af Amer 75, Est GFR (MDRD) Non-Af 62, BUN/Creatinine Ratio 12.9, Glucose 106, Calcium 9.0, Total Bilirubin 0.80, Direct Bilirubin 0.27, AST 68 H, ALT 42, Alkaline Phosphatase 77, Total Protein 7.5, Albumin 3.5, Globulin 4.0, Lipase 67 L 07/07/22 01:35: Lactic Acid 1.6 07/07/22 01:35: ESR 23 07/07/22 01:35: C-React Prot Ext Range 5.99 H 07/07/22 03:00: Urine Color Yellow, Urine Clarity Clear, Urine pH 8.0, Ur Specific [place] 1.015, Urine Protein Negative, Urine Glucose (UA) Normal, Urine Ketones Negative, Urine Occult Blood Negative, Urine Nitrite Negative, Urine Bilirubin Negative, Urine Urobilinogen Normal, Ur Leukocyte Esterase 100 H, Urine RBC 0 SEEN, Urine WBC 0-5 SEEN, Ur Squamous Epith Cells 0-5 SEEN, Urine Bacteria 1+, Urine Mucus 0 SEEN, Urine Test Negative 07/07/22 10:02: Lactic Acid 0.7 Radiology Impression Abdomen/Pelvis CT 07/07/22 03:21 IMPRESSION: 1. Mild periportal edema likely secondary to hepatitis and/or overhydration. 2. Technically limited study due to respiratory motion. Electronically Signed: Jo Hull MD at 5:28 EST Reading Location ID and State: [facility] / [place] , Service support , Charges/Coding Visit Charges OBSV E&M: 45542 Initial observation care L3
[2022-07-07] MEDS: APIXABAN 5 MG TABLET PO (16:32)
--- NOTE | 2022-07-07 17:37 | NURSING ---
Pt. request to leave AMA, States that she has future appointments set up with gastro at this time.
--- NOTE | 2022-07-08 07:20 | DS.PCM_ITS ---
Providers Date of Admission: 07/07/22 Date of Discharge: 07/07/22 Primary Care Physician: Dr. Tai Mccarty MD Consultations 07/07/22 08:43 Consult: Gastroenterology Routine Consulting Provider: [facility] Reason for Consult: recurrent epigastric pain EMERGENT Consult: No MD Notified: Yes Date Notified: 07/07/22 Time Notified: 07:31 Method of Notification: Text Reason For Visit: RECURRENT ABDOMINAL PAIN Diagnosis Discharge Diagnosis (1) Hepatitis: Status: Acute Code(s): K75.9 - Inflammatory liver disease, unspecified (2) Epigastric abdominal pain: Status: Acute Code(s): R10.13 - Epigastric pain (3) GERD (gastroesophageal reflux disease): Status: Chronic Code(s): K21.9 - Gastro-esophageal reflux disease without esophagitis Plan # Intractable abdominal pain * has had a history of abdominal pain and had been seeing gastroenterology * says she has had abdominal pain, with associated diarrhea, which is now better * admit to med surg * keep NPO for now * hydrate with IVF NS * IV pantoprazole 40mg bid * consult GI * ESR and CRP was elevated, and so autoimmune panel was ordered to rule out a vasculitic condition * IgG and IgA was marginally elevated. IgE was also elevated and c-ANCA was 1:20 * #History of PE * diagnosed with PE 2 months ago * oral contraceptive pills discontinued * referred to hematology to evaluate for hypercoagulable state. * Hypercoagulable panel showed mildly elevated dilated Mirza viper venom * to follow up with oncology on outpatient basis. * on eliquis * #Paroxysmal supraventricular tachycardia * s/p ablation * on atenolol * DVT prophylaxis: not indicated as she is on eliquis for PE Medications at Discharge Home Medications atenolol 25 mg tablet 25 mg PO DAILY 01/26/14 albuterol 90 mcg/actuation aerosol inhaler 90 mcg inhalation PRN PRN Shortness Of Breath 05/08/22 apixaban 5 mg tablet (Eliquis) 5 mg PO BID #60 tabs 05/22/22 famotidine 40 mg tablet 40 mg PO DAILY #60 tabs 06/06/22 pantoprazole 40 mg tablet,delayed release 40 mg PO DAILY #60 tabs 07/07/22 Hospital Course Operations None Procedures None Summary of Care Provided Minutes Spent on Discharge: 42 Hospital Course: MADELYN DICKENS, is a 22 F with a PMH as outlined who was admitted via the ED on 07/07/2022 with a complaint of abdominal pain, with associated diarrhea and back pain. Pain had mainly been in her epigastric region and had been going on for a few days. She had associated chills and decreased appetite. She denied any dark stools or any hematemesis. SHe is seeing GI for this recurrent abdominal pain and apparently recently had a stool study a few weeks ago which was negative. She says there has been a battery of tests ordered for autoimmune workup. She also had a PE a few months ago; she says it was thought to be due to her being on OCPs. She had been referred to hematology for workup for hypercoagulable condition. Vitals were BP of 95/70, RR of 18, temp of 98.3F and oxygen sats of 100% on room air. CBC was unremarkable and chemistry was significant for potassium of 3.4. Lipase is 67. CT of the abdomen and pelvis showed mild perioportal edema likely secondary to hepatitis and/or overhydration. She was admitted to be managed for recurrent abdominal pain. She was kept n.p.o. and gastroenterology was co nsulted. GI reviewed her and thought her abdominal pain and hepatitis was likely due to periportal edema which could be ischemic hepatitis secondary to nausea and vomiting causing a low flow state and this was typically recoverable. GI placed on low-dose dicyclomine as needed. He also recommend to stop famotidine and transition to pantoprazole 40mg twice daily. She was placed on a diet. Patient insisted on being discharged on 07/08/2022 and said she had been told by GI that she could go. 1 pointed out that nothing of that sort was documented in the GI notes and was in her best interest to stay at least overnight to make sure that her abdominal pain didnt recur, patient insisted on signing out AGAINST MEDICAL ADVICE. She signed out AGAINST MEDICAL ADVICE on the evening of 07/07/2022. Physical Exam Const alert, oriented x3 and no apparent distress General Appearance: cooperative Exam Limitations: no limitations HEENT normocephalic, head/scalp atraumatic, hearing grossly normal bilaterally and moist oral mucous membranes Mouth: oral and palatal mucosa normal Eyes PERRL, EOMs intact bilaterally and conjunctivae normal Neck no lymphadenopathy and supple Resp normal respiratory effort, no retractions, no use of accessory muscles and clear to auscultation bilaterally Cardio regular rate, regular rhythm, S1 normal heart sound, S2 normal heart sound and no murmurs GI normal to inspection, nondistended, normoactive bowel sounds, soft to palpation, non-tender and non-distended Extremity normal to inspection, full ROM and no clubbing, cyanosis or edema Skin no rashes or lesions noted Neuro oriented x3, CN's II-XII intact bilaterally and moves all extremities Sensorium / Orientation: awake and alert Motor Exam: strength 5/5 throughout Psych affect normal Weight / BMI Weight Weight: 133 lb 13.129 oz Body Mass Index (BMI) 22.9 ABG / Lab / Microbiology Data Result Diagrams: 07/07/22 01:35 07/07/22 01:35 Laboratory: Laboratory Results - last 24 hr 07/07/22 01:35: ESR 23 07/07/22 01:35: C-React Prot Ext Range 5.99 H 07/07/22 10:02: Lactic Acid 0.7 Meaningful Use Info Meaningful Use Diagnoses (Choose all that apply): None applicable Discharge Plan Admission Admit Date/Time: 07/07/22 07:27 Attending Provider: Bina Dai Primary Care Provider: Tai Mccarty Discharge Orders/Prescriptions Prescriptions: No Action famotidine 40 mg tablet 40 mg PO DAILY Qty: 60 1RF atenolol 25 MG tablet 25 mg PO DAILY albuterol 90 mcg/actuation Aerosol 90 mcg inhalation PRN PRN (Reason: Shortness Of Breath) Eliquis 5 mg tablet 5 mg PO BID Qty: 60 6RF pantoprazole 40 mg tablet,delayed release (DR/EC) 40 mg PO DAILY Qty: 60 2RF Referrals / Follow Up: Tai Mccarty MD [Primary Care Provider] - Disposition Disposition (needs filled in before D/C Order can be placed): Against Medical Advice Charges/Coding Visit Charges OBSV E&M: 47589 Observ/hosp same date L3
== END 2022-07-07 17:45 | disposition left against medical advice (07) ==
LOC: ED 07:35 → MS3 07:47
PROVIDERS: Internal Medicine Gastroenterology; Admitting Provider Student in an Organized Health Care Education/Training Program; Emergency Provider Emergency Medicine; PCP Internal Medicine; Visit Provider Student in an Organized Health Care Education/Training Program
DX: B17.9 Acute viral hepatitis, unspecified (principal); I47.1 Supraventricular tachycardia; K21.9 Gastro-esophageal reflux disease without esophagitis; Z79.01 Long term (current) use of anticoagulants; D64.9 Anemia, unspecified; Z79.899 Other long term (current) drug therapy; Z86.711 Personal history of pulmonary embolism; J45.909 Unspecified asthma, uncomplicated; E28.2 Polycystic ovarian syndrome
CPT/HCPCS: 74177; 80048; 80076; 81001; 81025; 83605; 83690; 85025; 85652; 86140; 93005; 96361; 96365; 99218; 99284; J7030; Q9967; A4216; G0378; J2405

== ENCOUNTER → 2022-07-13 | Outpatient (CLI) | payer BC, SELFPAY ==
--- NOTE | 2022-07-13 12:05 | NM_ITS ---
CLINICAL: 22-year-old female with history of abdominal pain. SEMI-SOLID PHASE 99m Tc SULFUR COLLOID GASTRIC EMPTYING STUDY COMPARISON: CT of the abdomen-pelvis report 07/07/2022 FINDINGS: The patient was administered 1.0 mCi of 99m Tc sulfur colloid mixed with oatmeal and consumed per os. Image acquisitions in the anterior-posterior projections were obtained for 60 minutes. There is prompt visualization of the stomach. There is no gastroesophageal reflux identified. The T ? emptying was not calculated secondary to no discernible emptying was identified. (Normal: 12-56 minutes). NM/Gastric Emptying Study IMPRESSION: 1. ABNORMAL 99m Tc sulfur colloid semi-solid phase (oatmeal) gastric emptying imaging examination. A. There is markedly delayed semi-solid phase gastric emptying compared to normal controls. (Denise et al, J Nucl Med Tech 38: 186, 2010). Electronically Signed: Lebron Benavides, at 11:20 EST ,
== END | disposition home or self-care (01) ==
LOC: NM 12:04
PROVIDERS: PCP Internal Medicine; Visit Provider Internal Medicine Gastroenterology
DX: K21.9 Gastro-esophageal reflux disease without esophagitis (principal); R10.9 Unspecified abdominal pain
CPT/HCPCS: 78264; A9541

== ENCOUNTER 2022-08-23 07:56 | Day surgery (SDC) | payer BC, SELFPAY ==
[2022-08-23] VITALS (8 sets, daily range): BP systolic 95–111; BP diastolic 59–74; PULSE 90–104; RESP 14–16; TEMP 36.4–36.8; O2SAT 97–100; BMI 22.4
--- NOTE | 2022-08-23 08:10 | PCM.HP.BLA ---
History and Physical Date of Admission: 08/23/22 Assessment/Plan (1) Hepatitis: PLAN: Differential diagnosis for the periportal edema would be ischemic hepatitis secondary to nausea vomiting causing a low flow state.? This is typically recoverable.? I suggested her that she takes low-dose dicyclomine as needed if she feels the cramping to subsequently stop from having a mild intestinal angina episode.? Also recommended a recheck, LFTs in approximately 3 days after discharge. (2) Epigastric abdominal pain: PLAN: Epigastric pain possibly secondary to peptic ulcer disease in the setting of Eliquis therapy.? Also she should be checked for H. pylori.? She is scheduled to have an upper endoscopy in the near future. (3) GERD (gastroesophageal reflux disease): PLAN: Recommend to stop famotidine and to transition her to pantoprazole 40 mg p.o. twice daily.? Medicine was already sent to the pharmacy. HPI Consult Data Date of Consult: 07/07/22 HPI Narrative Reason for Consultation: Abdominal pain HPI Narrative: MADELYN WOOD, is a 22 F who presented to the clinic for initial evaluation of abdominal discomfort on 06.25.22. She has been having issues with abdominal discomfort, bloating, belching, reflux and increased flatulence with intermittent nausea and tightness in her stomach with a rapid HR for several months.? She has been taking famotidine 40mg has been helpful with heartburn; Dexilant and protonix historically ineffective. Weight loss of approximately 10lbs r/t decreased appetite.? She had saw a professor of social work as an outpatient and he recommended PPI therapy and she was diagnosed with gastritis.? Recently she was diagnosed with PE and was placed on Eliquis therapy.? As an outpatient she did have blood work that had shown a prolonged PTT prior to her being on anticoagulation along with a positive Mirza venom viper test possibly secondary to underlying antiphospholipid syndrome.? 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 I put consultations into hematology and rheumatology and those are pending.? She says that she developed worsening abdominal pain after eating.? She denied any sick contacts.? She did have episode of nausea and vomiting.? In the ED she got a CT scan abdomen pelvis that showed some mild periportal edema.? She did have mild elevation in her ALT at 68 and previously was 20.? Her lipase was 67, bilirubin is 0.8, alkaline phosphatase of 90, AST of 30.? Hemoglobin was mildly anemic at 11.1 w with normal indices.? White blood cell count was normal at 7.8 and platelet count was normal at 250. PMH paroxysmal supraventricular tachycardia s/p radiofrequency ablation ; polycystic ovary syndrome; history PE. [facility] Medical History?(Updated 07/07/22 @ 07:[address] Sarai Sinclair, DO) Abdominal discomfort Acid reflux Anxiety Asthma AVNRT (AV ty re-entry tachycardia) GERD (gastroesophageal reflux disease) Paroxysmal supraventricular tachycardia Polycystic ovarian syndrome Postprandial abdominal bloating Home Medications atenolol 25 mg tablet 25 mg PO DAILY 01/26/14 [History Last Taken 07/07/22] albuterol 90 mcg/actuation aerosol inhaler 90 mcg inhalation PRN PRN Shortness Of Breath 05/08/22 [History Last Taken Unknown] apixaban 5 mg tablet (Eliquis) 5 mg PO BID #60 tabs 05/22/22 [Rx Last Taken 07/07/22] famotidine 40 mg tablet 40 mg PO DAILY #60 tabs 06/06/22 [Rx Last Taken 07/06/22] pantoprazole 40 mg tablet,delayed release 40 mg PO DAILY #60 tabs 07/07/22 [Rx Last Taken Unknown] Allergy/AdvReac Type Severity Reaction Status Date / Time No Known Allergies Allergy ? ? Verified 06/06/22 10:13 Family History? Father?? ,? at 36 Enlarged heartMother AsthmaBrother AsthmaSister Asthma Surgical History? History of cardiac radiofrequency ablation (12/08/20) History of tonsillectomy Social History? household members:? family housing:? house current occupational status:? employed current occupation:? [employer] sexually active:? No Smoking Status:? Never smoker alcohol intake:? never substance use type:? does not use caffeine:? No what type of physical activity do you participate in:? walking frequency:? 1-2 times per week seatbelt use:? always do you feel safe at home:? Yes ROS Review of Systems ROS Unobtainable: Denies due to encephalopathy Constitutional Constitutional: Reports anorexia, fatigue and malaise; Denies change in weight, chills, fever(s) or weakness Eyes Eyes: Denies change in vision ENT HEENT: Denies dysphagia, headache(s) or hearing loss Cardiovascular Cardiovascular: Denies chest pain, dyspnea on exertion, edema, lightheadedness, orthopnea, palpitations, rapid heart rate or syncope Respiratory/Chest Respiratory/Chest: Denies cough, dyspnea, shortness of breath at rest or shortness of breath with exertion Gastrointestinal Gastrointestinal: Reports abdominal pain, diarrhea, nausea and vomiting; Denies constipation Genitourinary Genitourinary: Denies burning urination or dysuria Musculoskeletal Musculoskeletal: Denies joint pain or joint stiffness Neurologic Neurologic: Denies abnormal speech, confusion, dizziness, focal weakness, headache(s), seizures or syncope Psychiatric Psychiatric: Denies anxiety Hematologic/Lymphatic Hematologic/Lymphatic: Denies anemia Physical Exam Const alert, oriented x3 and no apparent distress General Appearance: cooperative HEENT normocephalic, head/scalp atraumatic, hearing grossly normal bilaterally and moist oral mucous membranes Mouth: oral and palatal mucosa normal Eyes PERRL, EOMs intact bilaterally and conjunctivae normal Neck no lymphadenopathy and supple Resp normal respiratory effort, no retractions, no use of accessory muscles and clear to auscultation bilaterally Cardio regular rate, regular rhythm, S1 normal heart sound, S2 normal heart sound and no murmurs GI normal to inspection, nondistended, normoactive bowel sounds, soft to palpation, non-tender and non-distended Extremity normal to inspection, full ROM and no clubbing, cyanosis or edema Neuro oriented x3, CN's II-XII intact bilaterally and moves all extremities Sensorium / Orientation: awake and alert Motor Exam: strength 5/5 throughout Psych affect normal Lab / Micro Data Result Diagrams: 07/07/22 01:35? 07/07/22 01:35? Labs: Laboratory Results - last 24 hr 07/07/22 01:35:?WBC 8.2, RBC 4.23,?Hgb 11.1 L,?Hct 34.6 L, MCV 81.8,?MCH 26.2 L, MCHC 32.1, RDW Std Deviation 40.2, RDW Coeff of Anabel 13.6, Plt Count 227, MPV 9.7, Immature Gran % (Auto) 0.200,?Neut % (Auto) 77.7 H,?Lymph % (Auto) 14.3 L, [place] % (Auto) 6.0, Eos % (Auto) 1.7, Baso % (Auto) 0.1, Absolute Neuts (auto) 6.4, Absolute Lymphs (auto) 1.17, Nucleated RBC % 0 07/07/22 01:35:?Sodium 139,?Potassium 3.4 L, Chloride 105, Carbon Dioxide 29.0, Anion Gap 5, BUN 15,?Creatinine 1.16 H, Estim Creat Clear Calc 65.69, Est GFR (MDRD) Af Amer 75, Est GFR (MDRD) Non-Af 62, BUN/Creatinine Ratio 12.9, Glucose 106, Calcium 9.0, Total Bilirubin 0.80, Direct Bilirubin 0.27,?AST 68 H, ALT 42, Alkaline Phosphatase 77, Total Protein 7.5, Albumin 3.5, Globulin 4.0,?Lipase 67 L 07/07/22 01:35:?Lactic Acid 1.6 07/07/22 01:35:?ESR 23 07/07/22 01:35: C-React Prot Ext Range 5.99 H 07/07/22 03:00:?Urine Color Yellow, Urine Clarity Clear, Urine pH 8.0, Ur Specific [place] 1.015, Urine Protein Negative, Urine Glucose (UA) Normal, Urine Ketones Negative, Urine Occult Blood Negative, Urine Nitrite Negative, Urine Bilirubin Negative, Urine Urobilinogen Normal,?Ur Leukocyte Esterase 100 H, Urine RBC 0 SEEN, Urine WBC 0-5 SEEN, Ur Squamous Epith Cells 0-5 SEEN, Urine Bacteria 1+, Urine Mucus 0 SEEN, Urine Test Negative 07/07/22 10:02:?Lactic Acid 0.7 Radiology Impression Abdomen/Pelvis CT? 07/07/22 03:21 IMPRESSION: 1.? Mild periportal edema likely secondary to hepatitis and/or overhydration. 2.? Technically limited study due to respiratory motion. ? Electronically Signed: Jo Hull MD at 5:28 EST Reading Location ID and State: [facility] / [place] , Service support? , ? I have examined the patient and the H&P has been reviewed. There are no clinical changes since date of exam.
[2022-08-23 08:23] LABS: Internal QC Validated? YES +Cl - CLEAR BKGD; Pregnancy, Urine Negative Negative
[2022-08-23] MEDS: Lactated Ringers 1,000 ML 15 ML IV (08:35)
--- NOTE | 2022-08-23 09:00 | EGD_PTH ---
PATIENT: MAEDLYN WOOD LOC: EN U#:[id number] AGE/SX: 22/F ROOM: RE08/23/[address]: Dr. Jr Ravi DO : 2000 BED: DIS: 08/23/2022 SPEC #: [id number] RECD: 08/23/22 09:39 STATUS: CIRILO REDudley #: [id number] JESSICA: 08/23/22 09:[address]: Jr Ravi DEPT: SURGICAL PATHOLOGY RECD BY: Melody Alonzo ENTERED: 08/23/22 12:00 SP TYPE: EGD BIOPSY PALLAVI DR: Dr. Tai Mccarty MD Tissues: A - Duodenum, NOS B - Esophagus, NOS Procedures: Surgery Specimen Level IV HEADER OPERATION: [place] [place] with biopsies PRE-OP DIAGNOSIS: Hepatitis, epigastric abdominal pain, GERD TISSUE SUBMITTED: A ? Duodenum biopsy, B ? Distal esophagus biopsy MICROSCOPIC DIAGNOSIS A. Duodenum, biopsy: A fragment of duodenal mucosa, no pathologic diagnosis. B. Distal esophagus, biopsy: A fragment of squamous epithelium with changes consistent with eosinophilic esophagitis. See comment. ADRIENNE:kenia 08/24/2022 COMMENT B. Increased number of eosinophils (more than 20 per high power field) are noted, consistent with eosinophilic esophagitis. Correlation with clinical, endoscopic findings and appropriate follow up are necessary. MICROSCOPIC DESCRIPTION Slides are reviewed. GROSS DESCRIPTION A - Received in fixative is one container labeled with the patient's name and designated duodenum biopsy. The specimen consists of one irregular fragment of light perez soft tissue that measures 0.4 x 0.4 x 0.1 cm. The specimen is totally submitted in one cassette. B - Received in fixative is one container labeled with the patient's name and designated distal esophagus biopsy. The specimen consists of one irregular fragment of light perez soft tissue that measures 0.6 x 0.4 x 0.1 cm. The specimen is totally submitted in one cassette. / ADRIENNE:kenia 08/23/2022 TC:5 CPT: 95516 x2
--- NOTE | 2022-08-23 09:11 | OP.EGD_ITS ---
Patient Name: Brooke Campbell Procedure Date: 08/23/2022 8:47 AM Date of : 2000 Age: 22 Procedure: Upper GI endoscopy Indications: Epigastric abdominal pain, Dyspepsia Providers: Jr Ravi DO Medicines: Monitored Anesthesia Care Patient Profile: This is a 22 year old female. Refer to note in patient chart for documentation of history and physical. Patient has symptoms of chronic epigastric abdominal pain. Complications: No immediate complications. Procedure: Pre-Anesthesia Assessment: - Prior to the procedure, a History and Physical was performed, and patient medications and allergies were reviewed. The risks and benefits of the procedure and the sedation options and risks were discussed with the patient. All questions were answered and informed consent was obtained. Patient identification and proposed procedure were verified by the physician in the pre-procedure area. Mental Status Examination: alert and oriented. Prophylactic Antibiotics: The patient does not require prophylactic antibiotics. Prior Anticoagulants: The patient has taken no previous anticoagulant or antiplatelet agents. ASA Grade Assessment: II - A patient with mild systemic disease. After reviewing the risks and benefits, the patient was deemed in satisfactory condition to undergo the procedure. The anesthesia plan was to use monitored anesthesia care (MAC). Immediately prior to administration of medications, the patient was re-assessed for adequacy to receive sedatives. The heart rate, respiratory rate, oxygen saturations, blood pressure, adequacy of pulmonary ventilation, and response to care were monitored throughout the procedure. The physical status of the patient was re-assessed after the procedure. After obtaining informed consent, the endoscope was passed under direct vision. Throughout the procedure, the patient's blood pressure, pulse, and oxygen saturations were monitored continuously. The gastroscope was introduced through the mouth, and advanced to the second part of duodenum. The upper GI endoscopy was accomplished without difficulty. The patient tolerated the procedure well. Scope In: 8:59:54 AM Scope Out: 9:02:27 AM Total Procedure Duration Time 0 hours 2 minutes 33 seconds Findings: LA Grade A (one or more mucosal breaks less than 5 mm, not extending between tops of 2 mucosal folds) esophagitis with no bleeding was found 35 to 36 cm from the incisors. Biopsies were taken with a cold forceps for histology. Verification of patient identification for the specimen was done. Estimated blood loss was minimal. A large amount of food (residue) was found in the entire examined stomach. No gross lesions were noted in the second portion of the duodenum. Biopsies were taken with a cold forceps for histology. Verification of patient identification for the specimen was done. Estimated blood loss was minimal. Impression: - LA Grade A reflux esophagitis. Biopsied. - A large amount of food (residue) in the stomach. - No gross lesions in the second portion of the duodenum. Biopsied. Recommendation: - Discharge patient to home. - Resume previous diet. - Continue present medications. - Await pathology results. Procedure Code(s): --- Professional --- 03691, Esophagogastroduodenoscopy, flexible, transoral; with biopsy, single or multiple CPT copyright 2017 [employer]. All rights reserved. The codes documented in this report are preliminary and upon grubber review may be revised to meet current compliance requirements. Jr Ravi DO 08/23/2022 9:11:01 AM This report has been signed electronically. Number of Addenda: 0 Note Initiated On: 08/23/2022 8:47 AM
--- NOTE | 2022-08-23 09:12 | OP.CCLET_ITS ---
08/23/2022 Tai Mccarty MD [address] [address] [place] [address] Re : Upper GI endoscopy procedure for Brooke Campbell Dear Dr. Mccarty This procedure was performed on August. My impressions and recommendations are as follows: Impressions : - LA Grade A reflux esophagitis. Biopsied. - A large amount of food (residue) in the stomach. - No gross lesions in the second portion of the duodenum. Biopsied. Recommendations : - Discharge patient to home. - Resume previous diet. - Continue present medications. - Await pathology results. My findings are described in the full procedure note, which is enclosed. If I can be of further assistance, please feel free to contact me at . Sincerely, Jr Ravi, 08/23/2022 9:11:01 AM This report has been signed electronically.
== END 2022-08-23 10:23 | disposition home or self-care (01) ==
LOC: EN 08:00 → AC 08:00
PROVIDERS: Anesthesiology; PCP Internal Medicine; Referring Provider Internal Medicine; Visit Provider Internal Medicine Gastroenterology
PROC: 0DJ08ZZ Inspection of Upper Intestinal Tract, Via Natural or Artificial Opening Endoscopic (ICD-10-PCS; CPT 43235; principal; 2022-08-23 08:55)
DX: K21.00 Gastro-esophageal reflux disease with esophagitis, without bleeding (principal); D64.9 Anemia, unspecified; K75.9 Inflammatory liver disease, unspecified; R79.1 Abnormal coagulation profile; K29.70 Gastritis, unspecified, without bleeding; R14.0 Abdominal distension (gaseous); J45.909 Unspecified asthma, uncomplicated; F41.9 Anxiety disorder, unspecified; Z79.01 Long term (current) use of anticoagulants; Z79.899 Other long term (current) drug therapy
CPT/HCPCS: 43239; 81025; 88305; J7120; J2405

== ENCOUNTER → 2022-08-31 | Outpatient (CLI) | payer BC, SELFPAY ==
[2022-08-31 11:24] LABS: EXAGEN MAILED SPECIMEN
[2022-08-31 12:22] LABS: Absolute Neutrophil Count 2.3 X10^3/uL (2.0-7.7); Basophil# 0.03 X10^3/uL; Basophil% 0.8 % (0-1); Eosinophil# 0.16 X10^3/uL; Eosinophils% 4.1 % (0-5); Hematocrit 38.9 % (37-47); Hemoglobin 12.3 g/dL (12.0-15.0); Lymphocyte % 27.9 % (19-41); Mean Corp Hgb Conc 31.6 g/dL (32-36); Mean Corpuscular Hgb 26.3 pg (27.0-32.0); Mean Corpuscular Volume 83.1 fL (81-99); Mean Platelet Vol. 10.7 fl (6.2-12.0); Monocyte# 0.34 X10^3/uL; Monocyte% 8.6 % (0-10); NRBC Flagged by Analyzer 0 % (0-5); Neutrophil # 2.31 X10^3/uL (2.7-7.7); Neutrophil % 58.6 % (47-70); Platelet Count 300 K/mm3 (150-450); RBC Distribution Width CV 13.4 % (11.6-14.6); RBC Distribution Width SD 40.8 fl (35.1-43.9); Red Blood Count 4.68 M/mm3 (4.2-5.4); White Blood Count 3.9 K/mm3 (4.4-11.0)
[2022-08-31 12:26] LABS: International Normalized Ratio 1.3; Prothrombin Time (Protime)PT. 15.5 SECONDS (11.7-14.9)
[2022-08-31 12:27] LABS: Partial Thromboplast Time 34.5 Seconds (24.1-36.2)
[2022-08-31 12:36] LABS: ALB/GLOB Ratio 0.9 RATIO (0.9-2.4); AST(SGOT) 19 U/L (15-37); Alanine Aminotransfer ALT/SGPT 19 U/L (13-56); Albumin, Serum 3.9 g/dL (3.2-5.0); Alkaline Phosphatase 63 U/L (45-117); Anion Gap 7 (5-15); BUN 16 mg/dL (7-18); BUN/Creat Ratio 15.2 RATIO (10-20); Calcium,Total 9.5 mg/dL (8.5-10.1); Chloride 101 mmol/L (98-107); Creatinine, Serum 1.05 mg/dL (0.55-1.02); EST Glomerular Filtration Rate 69 mL/min (>60); Est Glom Filt Rate - Afr Amer 84 mL/min (>60); Globulin 4.3 g/dL (2.2-4.2); Glucose 81 mg/dL (74-106); Protein, Total 8.2 g/dL (6.4-8.2); Sodium Level 136 mmol/L (136-145)
[2022-08-31 12:58] LABS: Color, Urine Yellow (Yellow); Glucose, Dipstick Normal (Normal); Ketone-Dipstick Negative (Negative); Leukocyte Esterase-Dipstick 25 /ul (Negative); Nitrite-Dipstick Negative (Negative); Occult Blood-Urine Negative /ul (Negative); Protein-Dipstick 15 mg/dl (Negative); Specific Gravity, Urine 1.015 (1.002-1.030); Urine Bilirubin Dipstick Negative (Negative); Urine Clarity Clear (Clear); Urine Urobilinogen 1 mg/dl (Normal); Urine pH 6.5 (5.0 - 8.0)
[2022-08-31 13:12] LABS: Protein, Urine (Random) 16.3 mg/dL (<11.9); Protein:Creat Ratio 60 mg/g CRE (0-200)
[2022-09-01 16:08] LABS: Dilute Prothrombin Time (dPT) 39.8 sec (0.0-47.6); Dilute Russell Viper Venom 43.7 sec (0.0-47.0); Hexagonal Phase Phospholipid 4 sec (0-11); Thrombin Time 16.8 sec (0.0-23.0)
[2022-09-02 22:28] LABS: Interpretation Comment: (.); PTT-LA 39.1 sec (0.0-51.9)
== END | disposition home or self-care (01) ==
LOC: MTLAB 10:21
PROVIDERS: PCP Internal Medicine; Referring Provider Internal Medicine Rheumatology; Visit Provider Internal Medicine Rheumatology
DX: I26.99 Other pulmonary embolism without acute cor pulmonale (principal); I47.1 Supraventricular tachycardia; K21.9 Gastro-esophageal reflux disease without esophagitis; J45.909 Unspecified asthma, uncomplicated; F41.9 Anxiety disorder, unspecified; E28.2 Polycystic ovarian syndrome; R76.8 Other specified abnormal immunological findings in serum
CPT/HCPCS: 36415; 80053; 81002; 82570; 84156; 85025; 85598; 85610; 85670; 85730

== ENCOUNTER → 2023-01-02 | Outpatient (CLI) | payer BC, SELFPAY ==
[2023-01-02 12:51] LABS: Internal QC Validated? YES +Cl - CLEAR BKGD; Pregnancy, Urine Negative Negative
[2023-01-02 13:52] LABS: HIV - WCH Non-Reactive (Nonreactive); Syphilis Antibodies Non-reactive
[2023-01-02 16:00] LABS: Chlamydia Trachomatis by PCR Negative (Negative); Neisserai gonorrhoeae by PCR Negative (Negative); Probe Check PASS; Sample Adequacy Control PASS; Specimen Processing Control PASS
== END | disposition home or self-care (01) ==
LOC: BIMLAB 11:21
PROVIDERS: PCP Internal Medicine; Visit Provider Internal Medicine
DX: N91.2 Amenorrhea, unspecified (principal); Z11.3 Encounter for screening for infections with a predominantly sexual mode of transmission
CPT/HCPCS: 36415; 81025; 86703; 86780; 87491; 87591

== ENCOUNTER 2023-07-15 09:24 | Day surgery (SDC) | payer OTHER, SELFPAY ==
[2023-07-15] VITALS (9 sets, daily range): BP systolic 88–109; BP diastolic 43–77; PULSE 93–100; RESP 16–18; TEMP 36.3–36.4; O2SAT 100; BMI 20.2
--- NOTE | 2023-07-15 09:39 | HP.PCM_ITS ---
History and Physical Date of Admission: 07/15/23 23 F who presents to the office today for PMH paroxysmal supraventricular tachycardia s/p radiofrequency ablation ; polycystic ovary syndrome; history PE. *BGI established 06.25.22. She has been having issues with abdominal discomfort, bloating, belching, reflux and increased flatulence with intermittent nausea and tightness in her stomach with a rapid HR for several months. Famotidine 40mg has been helpful with heartburn; Dexilant and protonix historically ineffective. Weight loss of approximately 10lbs r/t decreased appetite. Biochemical workup CMP, OLAYINKA comp, ESR, ferritin, ANIL, celiac, IgME, Vit B12, T3, T4, TSH, LDH, Protein S, activated protein C resistance, antithrombin 3, KISHA, protein C antigen without pertinent abnormality. CRP H5.11, IgA H357, IgG H1844, c-ANCA H1:20.? Dilute lupus + but lupus -. Stool testing calprotectin, EP, occult, elastase WNL. Referred to F hematology who feels she would be better served with rheumatology. Gastric emptying study 07.14.22 with no calculation as there was no discernable emptying noted. EGD 08.23.22 LA Grade A reflux esophagitis; EOE, eosin >20; large amount of food residue. Dr. Harrington established 08.31.22 with no clinical features of Lupus. ? Biochemical workup Avise APS, Avise SLE, Avise CTD, Avise vasculitis, APTT, Hex phas phos, PTT, thrombin, UA, CMP (T.Bili H2.10, LFT WNL), CBC (WBC L3.9) ? PT H15.5, Urine protein, urobilinogen, leukocyte esterase H OV 09.13.22 Feels she is doing approximately the same as last time and notes food trigger of fast foods and highly acid foods; otherwise symptoms are minimally present with PO intake and feels that high fiber foods are not being digested. She has not received results from Dr. Harrington?s bloodwork. Hematology OV 3.10.25 and 3.9.23 for 22 year old with elevated DDimer and bilateral PE history on Eliquis. Recommend continuing Eliquis until end of November then stopping. See allergy/immunology for elevated IgE. ? Biochemical 3.. CBC (WBC 3.5, hgb 11.2) CMP, LFT without per tinent abnormality. ? PT H15.6, DDimer L<0.27 Biochemical 5. CBC (WBC 3.6, hgb 11.9), coag, fibrinogen, CMP, LFT, iron, TIBC, iron sat, OLAYINKA comp without pertinent abnormality. ? DDimer H0.68, IgG total H1684, IgG11 H1105, IgE H941, KISHA M-Sam +, pANCA H1:20 Hematology OV 6.08.27 noting no familiar disease to explain clotting; perform bloodwork with thrombotic risk profile. Proceed with allergy/immunology referral (Dr. Parr) OV 6.. BM occur approximately Q3D with increased frequency, on days of no BM she has bloating. When she has reflux she then experiences nausea; reflux triggered by diet to include greasy/acidic foods and is working on changing her diet to avoid these. [facility] Allergy/Immunology 05.22.23 recommending use of nasal spray; EOE recommend elimination diet over swallowed corticosteroids. Ongoing workup regarding immunoglobulins levels. OV 12.4.23 continues to have postprandial bloating, belching and flatulence that is not severe; she has been eating less foods and feels she has lost some weight but is unsure of how much. ROS Const Constitutional: No body ache, chills, excessive sweating, fatigue, fever(s), frequent falls, headache(s), snoring, weakness, sleep problems or change in appetite Eyes Eyes: No blurry vision, change in vision, discharge, vision loss, floaters, eye pain or Light sensitivity ENT ENT: No abnormal hearing, ear or mastoid pain, tinnitus, nasal congestion, headache(s), neck pain or sore throat Resp Respiratory: No cough, excessive phlegm production, pain on inspiration, shortness of breath, snoring or wheezing Cardio Cardiology: No chest pain at rest, chest pain with exertion, excessive sweating, shortness of breath, dyspnea on exertion, lightheadedness, orthopnea or palpitations Gastro GI: Positive for nausea/dyspepsia; No abdominal pain, change in bowel habits, constipation, cramping, diarrhea, Vomiting blood/hematemesis or vomiting Genitourinary-Female: No burning urination, painful urination, urinary incontinence, blood in urine, suprapubic fullness or side pain Musc Musculoskeletal: No abnormal gait, joint pain, back pain, limited range of motio n, neck pain, numbness or tingling Skin Skin: No dry skin, redness, excessive hair growth, yellowing of the eye, lesions, itchy eyes, rash or wounds Breast Breast: No change in breast shape, breast lump, breast pain, breast skin changes, breast swelling or nipple discharge Neuro Neurology: No abnormal gait, abnormal hearing, weakness, frequent falls, headache(s), numbness or tingling Psych Psychiatric: No anxiety, No change in appetite, No depression and No Thoughts of harming yourself/Others Endo Endocrine: No excessive sweating, fatigue, flushing, heat intolerance, increased thirst/drinking or increased hunger Aller/Imm Allergy/Immunologic: No itchy eyes, seasonal allergy symptoms, hives or wheezing Shilo/Lymp Hematologic/Lymphatic: No easy bleeding, easy bruising or enlarged lymph nodes Exam Const General: cooperative, comfortable and well groomed Orientation: alert, awake and oriented x3 [facility] Head: normal to inspection, normocephalic and atraumatic Ears: hearing grossly normal bilaterally Eyes General: appearance normal, both eyes and all related structures Neck Neck: normal visual inspection, full ROM, no lymphadenopathy and supple Neck mass: No Thyroid: thyroid normal Resp Effort & Inspection: normal respiratory effort and able to speak in complete sentences Auscultation: Bilateral: Clear to Auscultation Cardio Rate: regular rate Rhythm: regular rhythm Heart Sounds: S1 normal and S2 normal GI Palpation: soft (No palpable organomegaly) Neuro General: patient alert, patient awake, patient oriented x3, moves all extremities and CN's II-XI intact bilaterally Extrem General: no clubbing, cyanosis or edema Psych Appearance: grossly normal Mental Status: mental status grossly normal Mood: congruent mood Affect: normal affect Quality Reporting Tobacco Screening ([facility] 138) Smoking Status: Never smoker Assessment and Plan Assessment and Plan (1) Gastroparesis: Status: Chronic Plan: She will need an official 4-hour gastric emptying study for severe idiopathic gastroparesis from unknown cause at this time. I would like her to be seen by hematology and rheumatology prior to me offering her medical therapy, endoscopic therapy or surgical therapy. She is not lost any weight. She is able to eat certain foods. I did food allergy testing, OLAYINKA comprehensive, IgG subclasses and she had a consultation with Immunology. I feel like the risk outweighed the benefits for her and regarding medical therapy for gastroparesis at this time. (2) Eosinophilic esophagitis: Status: Chronic Plan: She has a very high IgE level with findings consistent with eosinophilic esophagitis on upper endoscopy. This in the setting of a patient that has a history of atopic conditions such as possible eosinophilic asthma, possible eosinophilic eczema and a strong family history of eosinophilic diseases in her mother and brother. We will perform a repeat egd with dilation because she is getting esophageal dysphagia at this time. (3) High total IgG: Status: Acute Plan: She needs to see rheumatology regarding her high IgG. Possibly secondary to underlying rheumatologic disorder. (4) Elevated IgE level: Status: Chronic Comment: Has history of Asthma Plan: With her history of asthma, atopy and elevated IgE levels. She could have eosinophilic gastroenteritis. She will see an cyber security instructor and weapons engineer and follow-up after that initial consult. Orders: Orders EGD 07/15/23 K20.0 - Eosinophilic esophagitis Gastric Emptying Study Today K31.84 - Gastroparesis I have examined the patient and the H&P has been reviewed. There are no clinical changes since date of exam.
[2023-07-15] MEDS: Lactated Ringers 1,000 ML 15 ML IV (09:56)
[2023-07-15 09:58] LABS: Internal QC Validated? YES +Cl - CLEAR BKGD; Pregnancy, Urine Negative Negative
--- NOTE | 2023-07-15 10:19 | OP.CCLET_ITS ---
07/15/2023 Tai Mccarty MD [address] [place] [address] [place] [address] Re : Upper GI endoscopy procedure for Brooke Campbell Dear Dr. Mccarty This procedure was performed on Saturday, July 15, 2023. My impressions and recommendations are as follows: Impressions : - Z-line irregular, 38 cm from the incisors. Biopsied. - Retained gastric fluid. Fluid aspiration performed. - Normal stomach. - Erythematous duodenopathy. Biopsied. Recommendations : - Discharge patient to home. - Resume previous diet. - Continue present medications. - Await pathology results. My findings are described in the full procedure note, which is enclosed. If I can be of further assistance, please feel free to contact me at . Sincerely, Jr Ravi, 07/15/2023 10:18:37 AM This report has been signed electronically.
--- NOTE | 2023-07-15 10:19 | OP.EGD_ITS ---
Patient Name: Brooke Campbell Procedure Date: 07/15/2023 9:55 AM Date of : 2000 Age: 23 Procedure: Upper GI endoscopy Indications: Epigastric abdominal pain, Functional Dyspepsia, Dysphagia, Esophageal reflux Providers: Jr Ravi DO Medicines: Monitored Anesthesia Care Patient Profile: This is a 23 year old female. Refer to note in patient chart for documentation of history and physical. Patient has symptoms of chronic abdominal distention, chronic epigastric abdominal pain and chronic dyspepsia. Complications: No immediate complications. Procedure: Pre-Anesthesia Assessment: - Prior to the procedure, a History and Physical was performed, and patient medications and allergies were reviewed. The patient is competent. The risks and benefits of the procedure and the sedation options and risks were discussed with the patient. All questions were answered and informed consent was obtained. Patient identification and proposed procedure were verified by the physician in the pre-procedure area. Mental Status Examination: alert and oriented. Airway Examination: normal oropharyngeal airway and neck mobility. Respiratory Examination: clear to auscultation. CV Examination: normal. Prophylactic Antibiotics: The patient does not require prophylactic antibiotics. Prior Anticoagulants: The patient has taken no anticoagulant or antiplatelet agents. ASA Grade Assessment: II - A patient with mild systemic disease. After reviewing the risks and benefits, the patient was deemed in satisfactory condition to undergo the procedure. The anesthesia plan was to use monitored anesthesia care (MAC). Immediately prior to administration of medications, the patient was re-assessed for adequacy to receive sedatives. The heart rate, respiratory rate, oxygen saturations, blood pressure, adequacy of pulmonary ventilation, and response to care were monitored throughout the procedure. The physical status of the patient was re-assessed after the procedure. After obtaining informed consent, the endoscope was passed under direct vision. Throughout the procedure, the patient's blood pressure, pulse, and oxygen saturations were monitored continuously. The Endoscope was introduced through the mouth, and advanced to the second part of duodenum. The upper GI endoscopy was accomplished without difficulty. The patient tolerated the procedure well. Scope In: 10:08:14 AM Scope Out: 10:11:55 AM Total Procedure Duration Time 0 hours 3 minutes 41 seconds Findings: The Z-line was irregular and was found 38 cm from the incisors. Biopsies were taken with a cold forceps for histology. Verification of patient identification for the specimen was done. Estimated blood loss was minimal. Retained fluid was found in the stomach. Fluid aspiration was performed. The entire examined stomach was normal. Mildly erythematous mucosa without active bleeding and with no stigmata of bleeding was found in the first portion of the duodenum. Biopsies were taken with a cold forceps for histology. Verification of patient identification for the specimen was done. Estimated blood loss was minimal. Impression: - Z-line irregular, 38 cm from the incisors. Biopsied. - Retained gastric fluid. Fluid aspiration performed. - Normal stomach. - Erythematous duodenopathy. Biopsied. Recommendation: - Discharge patient to home. - Resume previous diet. - Continue present medications. - Await pathology results. Procedure Code(s): --- Professional --- 60759, Esophagogastroduodenoscopy, flexible, transoral; with biopsy, single or multiple CPT copyright 2021 [employer]. All rights reserved. The codes documented in this report are preliminary and upon chemical laboratory scientist review may be revised to meet current compliance requirements. Jr Ravi DO 07/15/2023 10:18:37 AM This report has been signed electronically. Number of Addenda: 0 Note Initiated On: 07/15/2023 9:55 AM
--- NOTE | 2023-07-15 10:30 | EGD_PTH ---
PATIENT: MADELYN WOOD LOC: EN U#:[id number] AGE/SX: 23/ ROOM: RE07/15/[address]: Dr. Jr Ravi DO : 2000 BED: DIS: 07/15/2023 SPEC #: [id number] RECD: 07/15/23 13:27 STATUS: CIRILO REQ #: [id number] JESSICA: 07/15/23 10:[address]: Jr Ravi DEPT: SURGICAL PATHOLOGY RECD BY: Melody Alonzo ENTERED: 07/15/23 13:42 SP TYPE: EGD BIOPSY OT DR: Dr. Tai Mccarty MD Tissues: A - Duodenum, NOS B - Esophagus, NOS Procedures: Special Stain Group II Surgery Specimen Level IV Alcian Blue/PAS (control) HEADER OPERATION: EGD with biopsies PRE-OP DIAGNOSIS: Gastroparesis, Eosinophilic esophagitis TISSUE SUBMITTED: A - Duodenum biopsy, B - Distal esophagus biopsy MICROSCOPIC DIAGNOSIS A. Duodenum, biopsy: Fragments of duodenal mucosa, no pathologic diagnosis. B. Distal esophagus, biopsy: Fragments of gastroesophageal mucosa with chronic inflammation. Intestinal metaplasia (goblet cell metaplasia) not identified. See comment. ADRIENNE:kenia 07/16/2023 COMMENT B. Alcian blue/PAS stain with matched control is used in the evaluation of the specimen. MICROSCOPIC DESCRIPTION Slides are reviewed. GROSS DESCRIPTION A - Received in fixative is one container labeled with the patient's name and designated duodenum biopsy. The specimen consists of two irregular fragments of light perez soft tissue that in aggregate measure 0.8 x 0.4 x 0.1 cm. The specimen is totally submitted in one cassette. B - Received in fixative is one container labeled with the patient's name and designated distal esophagus biopsy. The specimen consists of two irregular fragments of light perez soft tissue that in aggregate measure 0.6 x 0.8 x 0.1 cm. The specimen is totally submitted in one cassette. / ADRIENNE:kenia 07/15/2023 TC:3 CPT: 17020 x2, 71586
== END 2023-07-15 10:57 | disposition home or self-care (01) ==
LOC: EN 09:26 → AC 09:27
PROVIDERS: Anesthesiology; PCP Internal Medicine; Referring Provider Internal Medicine; Visit Provider Internal Medicine Gastroenterology
PROC: 0DJ08ZZ Inspection of Upper Intestinal Tract, Via Natural or Artificial Opening Endoscopic (ICD-10-PCS; CPT 43235; principal; 2023-07-15 10:25)
DX: K20.0 Eosinophilic esophagitis (principal); K31.84 Gastroparesis; Z79.01 Long term (current) use of anticoagulants; Z79.899 Other long term (current) drug therapy; J45.909 Unspecified asthma, uncomplicated
CPT/HCPCS: 43239; 81025; 88305; 88313; J7120; J2405

== ENCOUNTER → 2025-01-29 | Outpatient (CLI) | payer BC, SELFPAY ==
[2025-01-29 12:42] LABS: Erythrocyte Sedimentation Rate 18 mm/hr (0-30)
[2025-01-29 12:44] LABS: ALB/GLOB Ratio 1.2 RATIO (0.9-2.4); AST(SGOT) 21 U/L (<=31); Alanine Aminotransfer ALT/SGPT 11 U/L (<=34); Albumin, Serum 4.1 g/dL (3.5-5.0); Alkaline Phosphatase 74 U/L (35-104); Anion Gap 10 (5-15); BUN 10 mg/dL (4-19); BUN/Creat Ratio 10.6 RATIO (10-20); Calcium,Total 9.3 mg/dL (7.6-11.0); Carbon Dioxide 24.6 mmol/L (21.0-32.0); Chloride 101 mmol/L (98-108); Creatinine, Serum 0.91 mg/dL (0.70-1.20); EST Glomerular Filtration Rate 90 (>60); Ferritin 98 ng/mL (22-378); Globulin 3.3 g/dL (2.2-4.2); Glucose 115 mg/dL (70-99); Iron 131 ug/dL (50-170); Iron Binding Capacity,Total 260 ug/dL (250-450); Iron Binding Capacity,Unsat 129 ug/dL (228-428); LDH 162 U/L (84-246); Protein, Total 7.4 g/dL (5.9-8.4); Sodium Level 135 mmol/L (133-145); Total Bilirubin 0.62 mg/dL (0.00-1.30)
[2025-01-29 12:47] LABS: Absolute Lymphocyte Count 1.18 X10^3/uL (0.83-4.51); Basophil# 0.02 X10^3/uL; Basophil% 0.5 % (0-1); Eosinophil# 0.23 X10^3/uL; Hematocrit 36.1 % (37-47); Hemoglobin 11.9 g/dL (12.0-15.0); Lymphocyte # 1.18 X10^3/ul (0.83-4.51); Mean Corpuscular Volume 81.9 fL (81-99); Mean Platelet Vol. 10.1 fl (6.2-12.0); Monocyte# 0.38 X10^3/uL; NRBC Flagged by Analyzer 0 % (0-5); Neutrophil # 1.99 X10^3/uL (2.7-7.7); Neutrophil % 52.2 % (47-70); Platelet Count 259 K/mm3 (150-450); RBC Distribution Width SD 38.9 fl (35.1-43.9); RET-HE 29.7 pg (30-35); Red Blood Count 4.41 M/mm3 (4.2-5.4); Reticulocyte Count 1.04 % (0.5-1.5); White Blood Count 3.8 K/mm3 (4.4-11.0)
[2025-01-29 13:12] LABS: hCG Titer Quant., Serum 619 mIU/mL (<9 non-preg)
--- OUTSIDE RECORDS SUMMARY | 2025-01-29 18:32 | XMS RPT_ITS | CCD ---
Author Organization [facility] Care Team Providers Care Dual Rate Dealer Name Role Phone Dr. Cally Ayoub Primary Care Provider Dr. Cally Ayoub Referring Provider Dr. Ilan Willoughby Attending Provider Dr. Tai Mccarty Primary Care Provider [phone] Dr. Tai Mccarty Attending Provider [phone] Dr. Cally Ayoub Primary Care Provider Dr. Cally Ayoub Referring Provider Dr. Ilan Willoughby Attending Provider Dr. Tai Mccarty Primary Care Provider [phone] Dr. Ilan Willoughby Referring Provider Dr. Tai Mccarty Attending Provider FriendDr. Norris Attending Provider [phone] Sarai Sinclair Emergency Provider Suhas, Dr. Bina Meraz Admit Provider Suhas, Dr. Bina Meraz Other Provider Suhas, Dr. Bina Meraz Attending Provider Cally Ayoub [facility] Primary Care Provider Dr. Bina Dai Referring Provider Dr. Tai Mccarty Referring Provider [phone] Friend, Dr. Norris Other Provider Dr. Ilan Willoughby Attending Provider Dr. Cally Ayoub Referring Provider CALLY YAOUB Primary Care Unavailable KEN DU Referring Unavailable KEN DU Attending Unavailable CALLY AYOUB Primary Care Unavailable Dr. Tai Mccarty Primary Care Provider Dr. Tai Mccarty Referring Provider Dr. Kris Knowles Attending Provider Roof RATTAN WORKER, RATTAN WORKER-Davian Gomez Attending Provider Dr. Jr Ravi Attending Provider [phone] Dr. Jr Ravi Other Provider [phone] Oleghe, Efewongbe Primary Care Unavailable Oleghe, Efewongbe Referring Unavailable Kris Knowles Attending Unavailable Jr Ravi Attending Unavailable Oleghe, Efewongbe Primary Care Unavailable Oleghe, Efewongbe Referring Unavailable Oleghe, Efewongbe Primary Care Unavailable Kris Knowles Referring Unavailable Kris Knowles Attending Unavailable Oleghe, Efewongbe Referring Unavailable FriendJr Attending Unavailable Oleghe, Efewongbe Primary Care Unavailable FriendJr Attending Unavailable Oleghe, Efewongbe Primary Care Unavailable Oleghe, Efewongbe Referring Unavailable FriendJr Attending Unavailable Oleghe, Efewongbe Primary Care Unavailable Oleghe, Efewongbe Referring Unavailable Oleghe, Efewongbe Primary Care Unavailable Oleghe, Efewongbe Referring Unavailable Kris Knowles Attending Unavailable Allergies Allergy Classification Reported Allergen(s) Allergy Type Date of Onset Reaction(s) Facility (1 source) Seasonal allergy Allergy to substance 3 Other: See Comments [facility] Medications Current Medications Medication Drug Class(es) Dates Sig (Normalized) Sig (Original) atenolol 25 mg oral tablet (15 sources) beta-Adrenergic Juan A Start: 01-26-2014 End: 06-24-2023 take 25 mg by mouth once daily Atenolol Active 25 MG PO DAILY June 24, 2023 3:28pm Comment on above: Take 25 mg by mouth once daily. cholecalciferol 0.25 mg oral capsule (1 source) Vitamin D Start: 04-23-2023 take 250 ug by mouth once daily Cholecalciferol (Vitamin D3) Active 250 MCG PO DAILY April 22, 2023 11:00pm famotidine 40 mg oral tablet (5 sources) Histamine-2 Receptor Antagonist Start: 06-06-2022 take 40 mg by mouth once daily Famotidine Active 40 MG PO DAILY 60 June 05, 2022 11:00pm magnesium citrate 100 mg oral tablet (1 source) Start: 04-23-2023 take 100 mg by mouth once daily Magnesium Citrate Active 100 MG PO DAILY April 22, 2023 11:00pm pantoprazole 40 mg delayed release oral tablet (8 sources) Proton Pump Inhibitor Start: 07-07-2022 End: 05-21-2023 take 40 mg by mouth once daily Pantoprazole Active 40 MG PO DAILY 90 90 May 21, 2023 1:32pm Start: 04-23-2022 take 1 tablet by jailyn th once daily Pantoprazole (Protonix) 40 mg tablet,delayed release (DR/EC) Active 40 MG PO DAILY April 23, 2022 12:00am Comment on above: Take 1 tablet by jailyn th once daily. potassium gluconate 2.5 meq oral tablet (1 source) Start: 04-23-2023 take 595 mg by mouth once daily Potassium Gluconate Active 595 MG PO DAILY April 22, 2023 11:00pm Completed/Discontinued Medications Medication Drug Class(es) Dates Sig (Normalized) Sig (Original) [id number] 200 actuat albuterol 0.09 mg/actuat metered dose inhaler (11 sources) beta2-Adrenergic Agonist Start: 05-22-2023 take 2 puff(s) by inhalation every four hours as needed for cough albuterol HFA (PROVENTIL HFA, VENTOLIN HFA) 90 mcg/actuation inhaler Inhale 2 Puffs as instructed every 4 hours as needed (for cough, wheezing, chest tightness or shortness of breath. Use with a spacer.). 1 Each 1 05/22/2023 Active Start: 05-08-2022 Albuterol Acti ve 90 MCG INHALATION NEEDED May 07, 2022 11:00pm Start: 05-08-2022 Albuterol Acti ve 90 MCG INHALATION NEEDED May 08, 2022 12:00am Start: 06-24-2017 albuterol HFA (VENTOLIN HFA) 90 mcg/actuation inhaler Inhale 2 Puffs as instructed. 0 06/24/2017 Active Comment on above: Inhale 2 Puffs as in structed. Inhale 2 Puffs as in structed every 4 hours as needed (for cough, wheezing, chest tightness or shortness of breath. Use with a spacer.). apixaban 5 mg oral tablet (19 sources) Factor Xa Inhibitor Start: 05-15-2023 take 1 tablet by mouth every twelve hours ELIQUIS 5 mg tab(s) Take 1 tablet by mouth every 12 hours. 0 05/15/2023 Active Start: 05-09-2022 End: 01-14-2023 take 1 tablet by mouth twice daily Apixaban (Eliquis) 5 mg tablet Active 5 MG PO TWICE A DAY 60 January 14, 2023 11:10am Comment on above: Take 1 tablet by jailyn every 12 hours. dicyclomine hydrochloride 10 mg oral capsule (9 sources) Anticholinergic Start: 05-09-20 End: 06-06-20 take 20 mg by mouth every six hours as needed Dicyclomine Discontinued 20 MG PO EVERY 6 HOURS NEEDED May 09, 2022 2:01am June 06, 2022 9:14am sucralfate 1000 mg oral tablet (10 sources) Aluminum Complex Start: 04-23-20 End: 06-06-20 take 1 tablet by mouth four times daily Sucralfate (Carafate) 1 gram tablet Discontinued 1 GM PO .QID 56 April 22, 2022 11:00pm June 06, 2022 9:14am Problems Active Problems Problem Classification Problem Date Documented Da te Episodic/Chronic Abdominal pain (20 sources) Abdominal pain; Translations: [Unspecified abdominal pain] Episodic Anxiety disorders (10 sources) Anxiety; Translations: [Anxiety disorder, unspecified] 11-01-2020 Chronic Asthma (1 source) Mild intermittent asthma, uncomplicated; Translations: [Mild intermittent asthma without complication] Onset: Chronic Cardiac dysrhythmias (20 sources) Supraventricular tachycardia; Translations: [Supraventricular tachycardia] Chronic Cardiac dysrhythmias (20 sources) Palpitations; Translations: [Palpitations] 11-01-2020 Episodic Deficiency and other anemia (2 sources) Iron deficiency anemia, unspecified; Translations: [Iron deficiency anemia, unspecified] Onset: 4 Episodic Esophageal disorders (20 sources) Gastroesophageal reflux disease; Translations: [Gastro-esophageal reflux disease without esophagitis] Onset: 4 Chronic Fluid and electrolyte disorders (10 sources) Hypokalemia; Translations: [Hypokalemia] 06-07-2020 Episodic Genitourinary symptoms and ill-defined conditions (1 source) Proteinuria; Translations: [Proteinuria, unspecified] 09-17-2022 Episodic Headache; including migraine (10 sources) Headache; Translations: [Headache] 05-14-2022 Episodic Immunizations and screening for infectious disease (10 sources) Other specified abnormal immunological findings in serum; Translations: [Increased immunoglobulin] Onset: 3 10-11-2022 Episodic Menstrual disorders (11 sources) Oligomenorrhea; Translations: [Oligomenorrhea, unspecified] 08-18-2020 Chronic Other disorders of stomach and duodenum (1 source) Gastroparesis syndrome; Translations: [Gastroparesis] 09-13-2022 Episodic Other endocrine disorders (10 sources) Polycystic ovary syndrome; Translations: [Polycystic ovarian syndrome] 10-31-2020 Chronic Other gastrointestinal disorders (9 sources) Abdominal bloating; Translations: [Abdominal distension (gaseous)] 05-17-2022 Episodic Other gastrointestinal disorders (9 sources) Abdominal distension, gaseous; Translations: [Abdominal distension (gaseous)] 05-17-2022 Episodic Other liver diseases (6 sources) Inflammatory disease of liver; Translations: [Inflammatory liver disease, unspecified] 07-15-2022 Chronic Other liver diseases (2 sources) Inflammatory liver disease, unspecified; Translations: [Hepatitis, unspecified] Chronic Other screening for suspected conditions (not mental disorders or infectious disease) (6 sources) Blood chemistry abnormal; Translations: [Abnormal finding of blood chemistry, unspecified] 07-04-2022 Episodic Pulmonary heart disease (2 sources) Chronic pulmonary embolism; Translations: [Chronic pulmonary embolism] Onset: 4 Chronic Pulmonary heart disease (20 sources) Pulmonary embolism; Translations: [Other pulmonary embolism without acute cor pulmonale] Onset: 2 Episodic Residual codes; unclassified (8 sources) Feeling abnormal; Translations: [Unspecified symptoms and signs involving general sensations and perceptions] 05-21-2022 Episodic Past or Other Problems Problem Classification Problem Date Documented Da te Episodic/Chronic Other disorders of stomach and duodenum (2 sources) Gastroparesis; Translations: [Gastroparesis] Onset: 06-29-2024 07-08-2023 Episodic Results Test Name Value Interpretation Reference Range Facility Gastroenterology Visit Repor ton 05-27-2024 Gastroenterology Visit Report [facility] [address] [place] [address] OFFICE VISIT Date of Service: 05/27/24 MR#: [id number] Acct: [id number] Name: BROOKE WOOD Rep #: [id number] : 2000 Provider: Jr Ravi DO Age/Sex: 24/F Location: [facility] [place] Status: Signed Intake Vital Signs 07/22/23 11:01 04/15/24 11:11 Height 5 ft 4 in 5 ft 4 in Intake Visit Reasons: 6 M FU Allergies No Known Allergies Allergy (Verified 04/15/24 11:11) Medications ???Medication ???Instructions ???Recorded ???Confirmed ???Type albuterol 90 mcg/actuation aerosol 90 mcg inhalation PRN PRN 05/08/22 05/27/24 History inhaler Shortness Of Breath cholecalciferol (vitamin D3) 250 250 mcg PO DAILY 04/23/23 05/27/24 History mcg (10,000 unit) capsule magnesium citrate 100 mg tablet 100 mg PO DAILY 04/23/23 05/27/24 History potassium gluconate 595 mg (99 mg) 595 mg PO DAILY 04/23/23 05/27/24 History tablet apixaban 2.5 mg tablet (Eliquis) 2.5 mg PO BID #60 tabs 01/22/24 05/27/24 Rx pantoprazole 40 mg tablet,delayed 40 mg PO BID 90 days #180 tabs 02/24/24 05/27/24 Rx release atenolol 25 mg tablet 25 mg PO DAILY #90 tabs 04/14/24 05/27/24 Rx PFSH Medical History Difficulty swallowing Screening for STD (sexually transmitted disease) Amenorrhea Wears contact lenses Pulmonary embolism Gastric reflux Non-smoker History of Holter monitoring History of echocardiogram Cardiology follow-up encounter Epigastric abdominal pain Hepatitis Abdominal discomfort AVNRT (AV ty re-entry tachycardia) Paroxysmal supraventricular tachycardia Postprandial abdominal bloating GERD (gastroesophageal reflux disease) Polycystic ovarian syndrome Asthma Acid reflux Surgical History History of cardiac radiofrequency ablation (12/08/20) History of tonsillectomy Family History Father , at 36 Enlarged heart Mother Asthma Brother Asthma Sister Asthma Social History household members: family housing: house current occupational status: employed current occupation: [employer] sexually active: No Smoking Status: Never smoker alcohol intake: never substance use type: does not use caffeine: No what type of physical activity do you participate in: walking frequency: 1-2 times per week seatbelt use: always do you feel safe at home: Yes HPI HPI Details: BROOKE WOOD, is a 24 F who presents to the office today for follow up. MH paroxysmal supraventricular tachycardia s/p radiofrequency ablation ; polycystic ovary syndrome; history PE. *BGI established 06.25.22. She has been having issues with abdominal discomfort, bloating, belching, reflux and increased flatulence with intermittent nausea and tightness in her stomach with a rapid HR for several months. Famotidine 40mg has been helpful with heartburn; Dexilant and protonix historically ineffective. Weight loss of approximately 10lbs r/t decreased appetite. Biochemical workup CMP, OLAYINKA comp, ESR, ferritin, ANIL, celiac, IgME, Vit B12, T3, T4, TSH, LDH, Protein S, activated protein C resistance, antithrombin 3, KISHA, protein C antigen without pertinent abnormality. CRP H5.11, IgA H357, IgG H1844, c-ANCA H1:20.??? Dilute lupus + but lupus -. Stool testing calprotectin, EP, occult, elastase WNL. Referred to F hematology who feels she would be better served with rheumatology. Gastric emptying study 12..22 with no calculation as there was no discernable emptying noted. EGD 08.23.22 LA Grade A reflux esophagitis; EOE, eosin >20; large amount of food residue. Dr. Harrington established 08.31.22 with no clinical features of Lupus. ? Biochemical workup Avise APS, Avise SLE, Avise CTD, Avise vasculitis, APTT, Hex phas phos, PTT, thrombin, UA, CMP (T.Bili H2.10, LFT WNL), CBC (WBC L3.9) ? PT H15.5, Urine protein, urobilinogen, leukocyte esterase H OV 2.04.27 Feels she is doing approximately the same as last time and notes food trigger of fast foods and highly acid foods; otherwise symptoms are minimally present with PO intake and feels that high fiber foods are not being digested. She has not received results from Dr. Harrington???s bloodwork. Hematology OV 3.3. and 3.. for 22 year old with elevated DDimer and bilateral PE history on Eliquis. Recommend continuing Eliquis until end of November then stopping. See allergy/immunology for elevated IgE. ? Biochemical 3..23 (more content not included)... Normal [facility] Miscellaneous Lab Procedureo n 04-20-2024 [facility] [place] LAB TEST Normal [facility] Comment on above: Order Comment: TOMMY Angel ADD TO BLOOD IN LAB. THANK YOU!!#[id number] IGG SUBCLASSES SERUM RFLC#[id number] IGG SUBCLASSES SERUM RF Result Comment: TEST RESULTS LIMITS IgG, Subclasses(1-4) Immunoglobulin G, Qn, Serum 1463 mg/dL 586-1602 IgG, Subclass 1 897 High mg/dL 248-810 IgG, Subclass 2 433 mg/dL 130-555 IgG, Subclass 3 96 mg/dL 15-102 IgG, Subclass 4 12 mg/dL 2-96 [facility] ORIGINAL REPORT ON FILE IN LAB CONTAINS ADDITIONAL TEST SITE INFORMATION. Performed By: #### L 801.1541 ####[facility] [address] [place], [place], [address] Immunoglobulin Pepito 4 IMMUNOGLOB E QN 1042 IU/mL High 6-495 [facility] Comment on above: Result Comment: Perf ormed at: [address] [id number] Spool Maker: Rosey Pierce MD, Phone: [phone] Performed By: #### L 4082.1600 ####[facility] [address] [place], [place], [address] Immunoglobulins G/A/Mon 04-05 IMMUNOGLOB A QN 264 mg/dL Normal 87-352 [facility] Comment on above: Order Comment: N Performed By: #### L 504.2610, L100.0100, L501.5200, L501.2300, L3200.1200, L503.6550, L503.6030, L500.4050, L300.8000 ####[facility] [address] [place], [address] IMMUNOGLOB G QN 1568 mg/dL Normal 586-1602 [facility] Comment on above: Order Comment: N Performed By: #### L 504.2610, L100.0100, L501.5200, L501.2300, L3200.1200, L503.6550, L503.6030, L500.4050, L300.8000 ####[facility] [address] [place], [place], [id number] IMMUNOGLOB M QN 48 mg/dL Normal 26-217 [facility] Comment on above: Order Comment: N Result Comment: Perf ormed at: [facility] [address] [id number] Spool Maker: Rafat Molina PhD, Phone: [phone] Performed By: #### L 504.2610, L100.0100, L501.5200, L501.2300, L3200.1200, L503.6550, L503.6030, L500.4050, L300.8000 ####[facility] [address] [place], [place], [address] CBC W/Diff, Automatedon 04-05 Absolute Lymph 1.31 X10 3/uL Normal 0.83-4.51 [facility] Comment on above: Performed By: #### L 504.2610, L100.0100, L501.5200, L501.2300, L3200.1200, L503.6550, L503.6030, L500.4050, L300.8000 #### [facility] [address] [place], [place], [id number] Absolute Neut 1.5 X10 3/uL Low 2.0-7.7 [facility] Comment on above: Performed By: #### L 504.2610, L100.0100, L501.5200, L501.2300, L3200.1200, L503.6550, L503.6030, L500.4050, L300.8000 #### [facility] [address] [place], [address] Basophils/100 WBC (Bld) 0.6 % Normal 0-1 [facility] Comment on above: Performed By: #### L 504.2610, L100.0100, L501.5200, L501.2300, L3200.1200, L503.6550, L503.6030, L500.4050, L300.8000 #### [facility] [address] [place], [address] Eosinophils/100 WBC (Bld) 8.8 % High 0-5 [facility] Comment on above: Performed By: #### L 504.2610, L100.0100, L501.5200, L501.2300, L3200.1200, L503.6550, L503.6030, L500.4050, L300.8000 #### [facility] [address] [facility] [place], [address] Erythrocyte distribution width (RBC) [Ratio] 13.2 % Normal 11.6-14.6 [facility] Comment on above: Performed By: #### L 504.2610, L100.0100, L501.5200, L501.2300, L3200.1200, L503.6550, L503.6030, L500.4050, L300.8000 #### [facility] [address] [facility] [place], [address] Hematocrit (Bld) [Volume fraction] 35.0 % Low 37-47 [facility] Comment on above: Performed By: #### L 504.2610, L100.0100, L501.5200, L501.2300, L3200.1200, L503.6550, L503.6030, L500.4050, L300.8000 #### [facility] [address] [place], [address] Hemoglobin (Bld) [Mass/Vol] 11.1 g/dL Low 12.0-15.0 [facility] Comment on above: Performed By: #### L 504.2610, L100.0100, L501.5200, L501.2300, L3200.1200, L503.6550, L503.6030, L500.4050, L300.8000 #### [facility] [address] [place], [address] IG% 0.000 Normal 0.0-0.9 [facility] Comment on above: Result Comment: IG% - Immature Granulocytes (promyelocytes, myelocytes and metamyelocytes) > 1% indicates that a LEFT SHIFT is Present. Performed By: #### L 504.2610, L100.0100, L501.5200, L501.2300, L3200.1200, L503.6550, L503.6030, L500.4050, L300.8000 #### [facility] [address] [place], [address] Lymphocytes/100 WBC (Bld) 37.3 % Normal 19-41 [facility] Comment on above: Performed By: #### L 504.2610, L100.0100, L501.5200, L501.2300, L3200.1200, L503.6550, L503.6030, L500.4050, L300.8000 #### [facility] [address] [place], [address] MCH (RBC) [Entitic mass] 26.4 pg Low 27.0-32.0 [facility] Comment on above: Performed By: #### L 504.2610, L100.0100, L501.5200, L501.2300, L3200.1200, L503.6550, L503.6030, L500.4050, L300.8000 #### [facility] [address] [place], [address] MCHC (RBC) [Mass/Vol] 31.7 g/dL Low 32-36 [facility] Comment on above: Performed By: #### L 504.2610, L100.0100, L501.5200, L501.2300, L3200.1200, L503.6550, L503.6030, L500.4050, L300.8000 #### [facility] [address] [place], [address] MCV (RBC) [Entitic vol] 83.3 fL Normal 81-99 [facility] Comment on above: Performed By: #### L 504.2610, L100.0100, L501.5200, L501.2300, L3200.1200, L503.6550, L503.6030, L500.4050, L300.8000 #### [facility] [address] [facility] [place], [address] Monocytes/100 WBC (Bld) 11.1 % High 0-10 [facility] Comment on above: Performed By: #### L 504.2610, L100.0100, L501.5200, L501.2300, L3200.1200, L503.6550, L503.6030, L500.4050, L300.8000 #### [facility] [address] [facility] [place], [address] Neutrophils/100 WBC (Bld) 42.2 % Low 47-70 [facility] Comment on above: Performed By: #### L 504.2610, L100.0100, L501.5200, L501.2300, L3200.1200, L503.6550, L503.6030, L500.4050, L300.8000 #### [facility] [address] [place], [address] Nucleated RBC (Bld) [#/Vol] 0 10*3/uL Normal 0-5 [facility] Comment on above: Performed By: #### L 504.2610, L100.0100, L501.5200, L501.2300, L3200.1200, L503.6550, L503.6030, L500.4050, L300.8000 #### [facility] [address] [place], [address] Platelet mean volume (Bld) [Entitic vol] 10.3 fL Normal 6.2-12.0 [facility] Comment on above: Performed By: #### L 504.2610, L100.0100, L501.5200, L501.2300, L3200.1200, L503.6550, L503.6030, L500.4050, L300.8000 #### [facility] [address] [place], [address] Platelets (Bld) [#/Vol] 221 10*3/uL Normal 150-450 [facility] Comment on above: Performed By: #### L 504.2610, L100.0100, L501.5200, L501.2300, L3200.1200, L503.6550, L503.6030, L500.4050, L300.8000 #### [facility] [address] [place], [address] RBC (Bld) [#/Vol] 4.20 10*6/uL Normal 4.2-5.4 [facility] Comment on above: Performed By: #### L 504.2610, L100.0100, L501.5200, L501.2300, L3200.1200, L503.6550, L503.6030, L500.4050, L300.8000 #### [facility] [address] [place], [address] RDW SD 39.8 fl Normal 35.1-43.9 [facility] Comment on above: Performed By: #### L 504.2610, L100.0100, L501.5200, L501.2300, L3200.1200, L503.6550, L503.6030, L500.4050, L300.8000 #### [facility] [address] [place], [address] WBC (Bld) [#/Vol] 3.5 10*3/uL Low 4.4-11.0 [facility] Comment on above: Performed By: #### L 504.2610, L100.0100, L501.5200, L501.2300, L3200.1200, L503.6550, L503.6030, L500.4050, L300.8000 #### [facility] [address] [place], [address] Comprehensive Metabolic Prof ilon 04-15-2024 Albumin [Mass/Vol] 3.2 g/dL Normal 3.2-5.0 [facility] Comment on above: Order Comment: 1 Performed By: #### L 504.2610, L100.0100, L501.5200, L501.2300, L3200.1200, L503.6550, L503.6030, L500.4050, L300.8000 #### [facility] [address] [place], [address] Albumin/Globulin [Mass ratio] 0.8 {ratio} Low 0.9-2.4 [facility] Comment on above: Order Comment: 1 Performed By: #### L 504.2610, L100.0100, L501.5200, L501.2300, L3200.1200, L503.6550, L503.6030, L500.4050, L300.8000 #### [facility] [address] [place], [address] ALK P 120 U/L High 45-117 [facility] Comment on above: Order Comment: 1 Performed By: #### L 504.2610, L100.0100, L501.5200, L501.2300, L3200.1200, L503.6550, L503.6030, L500.4050, L300.8000 #### [facility] [address] [place], [address] ALT [Catalytic activity/Vol] 18 U/L Normal 13-56 [facility] Comment on above: Order Comment: 1 Performed By: #### L 504.2610, L100.0100, L501.5200, L501.2300, L3200.1200, L503.6550, L503.6030, L500.4050, L300.8000 #### [facility] [address] [place], [address] AST [Catalytic activity/Vol] 18 U/L Normal 15-37 [facility] Comment on above: Order Comment: 1 Performed By: #### L 504.2610, L100.0100, L501.5200, L501.2300, L3200.1200, L503.6550, L503.6030, L500.4050, L300.8000 #### [facility] [address] [place], [address] Bilirubin [Mass/Vol] 0.50 mg/dL Normal 0.20-1.00 [facility] Comment on above: Order Comment: 1 Result Comment: For patients on eltrombopag therapy, use of Dimension [place] TBIL is not recommended. Performed By: #### L 504.2610, L100.0100, L501.5200, L501.2300, L3200.1200, L503.6550, L503.6030, L500.4050, L300.8000 #### [facility] Laboratory [address] [place], [address] BUN/CRE 13.7 RATIO Normal 10-20 [facility] Comment on above: Order Comment: 1 Performed By: #### L 504.2610, L100.0100, L501.5200, L501.2300, L3200.1200, L503.6550, L503.6030, L500.4050, L300.8000 #### [facility] [address] [place], [address] CA,Total 8.8 mg/dL Normal 8.5-10.1 [facility] Comment on above: Order Comment: 1 Performed By: #### L 504.2610, L100.0100, L501.5200, L501.2300, L3200.1200, L503.6550, L503.6030, L500.4050, L300.8000 #### [facility] [address] [place], [address] [place] [Moles/Vol] 107 mmol/L Normal 98-107 [facility] Comment on above: Order Comment: 1 Performed By: #### L 504.2610, L100.0100, L501.5200, L501.2300, L3200.1200, L503.6550, L503.6030, L500.4050, L300.8000 #### [facility] [address] [place], [place], [phone] (792) CO2 [Moles/Vol] 30.0 mmol/L Normal 21.0-32.0 [facility] Comment on above: Order Comment: 1 Performed By: #### L 504.2610, L100.0100, L501.5200, L501.2300, L3200.1200, L503.6550, L503.6030, L500.4050, L300.8000 #### [facility] [address] [place], [address] Creatinine [Mass/Vol] 0.87 mg/dL Normal 0.55-1.02 [facility] Comment on above: Order Comment: 1 Result Comment: The validity of the calculated GFR GFRAA in patients over 70 years has not been determined. Clinical correlation is essential. Performed By: #### L 504.2610, L100.0100, L501.5200, L501.2300, L3200.1200, L503.6550, L503.6030, L500.4050, L300.8000 #### [facility] [address] [place], [address] ECRCL 84.52 ml/min Normal [facility] Comment on above: Order Comment: 1 Performed By: #### L 504.2610, L100.0100, L501.5200, L501.2300, L3200.1200, L503.6550, L503.6030, L500.4050, L300.8000 #### [facility] [address] [place], [address] EST GFR - AA 102 mL/min Normal >60 [facility] Comment on above: Order Comment: 1 Result Comment: Afri can Norwegian GFR Calc Performed By: #### L 504.2610, L100.0100, L501.5200, L501.2300, L3200.1200, L503.6550, L503.6030, L500.4050, L300.8000 #### [facility] [address] [place], [place], [phone] (260) GAP 2 Low 5-15 [facility] Comment on above: Order Comment: 1 Performed By: #### L 504.2610, L100.0100, L501.5200, L501.2300, L3200.1200, L503.6550, L503.6030, L500.4050, L300.8000 #### [facility] [address] [place], [place], [id number] GFR/1.73 sq M.predicted among non-blacks MDRD (S/P/Bld) [Vol rate/Area] 84 mL/min/{1.73_m2} Normal >60 [facility] Comment on above: Order Comment: 1 Result Comment: Non- GFR Calc Performed By: #### L 504.2610, L100.0100, L501.5200, L501.2300, L3200.1200, L503.6550, L503.6030, L500.4050, L300.8000 #### [facility] [address] [place], [address] Globulin (S) [Mass/Vol] 3.9 g/dL Normal 2.2-4.2 [facility] Comment on above: Order Comment: 1 Performed By: #### L 504.2610, L100.0100, L501.5200, L501.2300, L3200.1200, L503.6550, L503.6030, L500.4050, L300.8000 #### [facility] [address] [place], [address] Glucose [Mass/Vol] 93 mg/dL Normal 74-106 [facility] Comment on above: Order Comment: 1 Performed By: #### L 504.2610, L100.0100, L501.5200, L501.2300, L3200.1200, L503.6550, L503.6030, L500.4050, L300.8000 #### [facility] [address] [place], [address] Potassium [Moles/Vol] 3.9 mmol/L Normal 3.5-5.1 [facility] Comment on above: Order Comment: 1 Performed By: #### L 504.2610, L100.0100, L501.5200, L501.2300, L3200.1200, L503.6550, L503.6030, L500.4050, L300.8000 #### [facility] [address] [place], [address] Sodium [Moles/Vol] 139 mmol/L Normal 136-145 [facility] Comment on above: Order Comment: 1 Performed By: #### L 504.2610, L100.0100, L501.5200, L501.2300, L3200.1200, L503.6550, L503.6030, L500.4050, L300.8000 #### [facility] [address] [place], [address] T PROT 7.1 g/dL Normal 6.4-8.2 [facility] Comment on above: Order Comment: 1 Performed By: #### L 504.2610, L100.0100, L501.5200, L501.2300, L3200.1200, L503.6550, L503.6030, L500.4050, L300.8000 #### [facility] [address] [place], [address] Urea nitrogen [Mass/Vol] 12 mg/dL Normal 7-18 [facility] Comment on above: Order Comment: 1 Performed By: #### L 504.2610, L100.0100, L501.5200, L501.2300, L3200.1200, L503.6550, L503.6030, L500.4050, L300.8000 #### [facility] [address] [place], [address] D-Dimer Quantitative (DVT/PE )on 04-15-2024 D-DIMER QUANT 0.40 FEU/ug/m Normal 0.27-0.49 [facility] Comment on above: Result Comment: NORM AL D-Dimer level (<0.50) indicates no DVT or PE. Performed By: #### L 504.2610, L100.0100, L501.5200, L501.2300, L3200.1200, L503.6550, L503.6030, L500.4050, L300.8000 #### [facility] [address] [place], [place], [id number] Ferritinon 04-15-2024 Ferritin [Mass/Vol] 25 ng/mL Normal 8-252 [facility] Comment on above: Order Comment: 1 Performed By: #### L 504.2610, L100.0100, L501.5200, L501.2300, L3200.1200, L503.6550, L503.6030, L500.4050, L300.8000 #### [facility] [address] [place], [address] Iron+Iron Binding Capacityon 04-15-2024 Iron [Mass/Vol] 40 ug/dL Low 50-170 [facility] Comment on above: Order Comment: 1 Performed By: #### L 504.2610, L100.0100, L501.5200, L501.2300, L3200.1200, L503.6550, L503.6030, L500.4050, L300.8000 #### [facility] [address] [place], [address] IRON SATURATION 14.1 Low 15.0-55.0 [facility] Comment on above: Order Comment: 1 Performed By: #### L 504.2610, L100.0100, L501.5200, L501.2300, L3200.1200, L503.6550, L503.6030, L500.4050, L300.8000 #### [facility] [address] [place], [address] TIBC 284 ug/dL Normal 250-450 [facility] Comment on above: Order Comment: 1 Performed By: #### L 504.2610, L100.0100, L501.5200, L501.2300, L3200.1200, L503.6550, L503.6030, L500.4050, L300.8000 #### [facility] [address] [place], [address] LDHon 04-15-2024 LDH 162 U/L Normal 84-246 [facility] Comment on above: Order Comment: 1 Performed By: #### L 504.2610, L100.0100, L501.5200, L501.2300, L3200.1200, L503.6550, L503.6030, L500.4050, L300.8000 ####[facility] [address] [place], [address] Magnesiumon 04-15-2024 Magnesium [Mass/Vol] 1.8 mg/dL Normal 1.6-2.6 [facility] Comment on above: Order Comment: 1 Performed By: #### L 504.2610, L100.0100, L501.5200, L501.2300, L3200.1200, L503.6550, L503.6030, L500.4050, L300.8000 #### [facility] [address] [place], [address] Oncology Visit Reporton 04-05 Oncology Visit Report [facility] [address] [place] [address] OFFICE VISIT Date of Service: 04/15/24 1107 MR#: [id number] Acct: [id number] Name: BROOKE WOOD Rep #: [id number] : 2000 From: Kris Knowles MD Age/Sex: 24/F Location[place] [facility] [place] Status: Signed HPI Subjective Date of Service 04/15/24 Chief Complaint F/u for Thromboembolism/KAHLIL History of Present Illness 24-year-old woman presented to the ER with palpitations abdominal pain, was found to have elevated D-dimer. Had CTA on 05/18/2022, found to have bilateral pulmonary embolism and started on Eliquis. Lupus anticoagulant was negative on 08/31/2022. APC was normal on 06/25/2022. She was referred for further evaluation. She is not comfortable stopping Eliquis so remains on it. She changed her diet to Gluten free and feeling much better. Remains on Eliquis. comes for follow up. [facility] Medical History Difficulty swallowing Screening for STD (sexually transmitted disease) Amenorrhea Wears contact lenses Pulmonary embolism Gastric reflux Non-smoker History of Holter monitoring History of echocardiogram Cardiology follow-up encounter Epigastric abdominal pain Hepatitis Abdominal discomfort AVNRT (AV ty re-entry tachycardia) Paroxysmal supraventricular tachycardia Postprandial abdominal bloating GERD (gastroesophageal reflux disease) Polycystic ovarian syndrome Asthma Acid reflux Surgical History History of cardiac radiofrequency ablation (12/08/20) History of tonsillectomy Family History Father , at 36 Enlarged heart Mother Asthma Brother Asthma Sister Asthma Social History household members: family housing: house current occupational status: employed current occupation: [employer] sexually active: No Smoking Status: Never smoker alcohol intake: never substance use type: does not use caffeine: No what type of physical activity do you participate in: walking frequency: 1-2 times per week seatbelt use: always do you feel safe at home: Yes Intake Vital Signs 01/22/24 14:05 04/15/24 11:08 04/15/24 11:11 Height 5 ft 4 in 5 ft 4 in 5 ft 4 in Weight: 61.49 kg BMI 23.2 BP 105/69 Blood Pressure Location Rt brachial Position Sitting Respiration 18 Pulse 97 Pulse Source Monitor Temp 98.7 F Temperature Source Temporal Artery Pulse Oximetry (%) 100 Oxygen Delivery Method room air Intake Is patient in pain?: No Allergies No Known Allergies Allergy (Verified 04/15/24 11:11) Medications ???Medication ???Instructions ???Recorded ???Confirmed ???Type albuterol 90 mcg/actuation aerosol 90 mcg inhalation PRN PRN 05/08/22 04/15/24 History inhaler Shortness Of Breath cholecalciferol (vitamin D3) 250 250 mcg PO DAILY 04/23/23 04/15/24 History mcg (10,000 unit) capsule magnesium citrate 100 mg tablet 100 mg PO DAILY 04/23/23 04/15/24 History potassium gluconate 595 mg (99 mg) 595 mg PO DAILY 04/23/23 04/15/24 History tablet apixaban 5 mg tablet (Eliquis) 2.5 mg (1/2 x 5 mg) PO BID #60 tabs 12/06/23 04/15/24 Rx apixaban 2.5 mg tablet (Eliquis) 2.5 mg PO BID #60 tabs 01/22/24 04/15/24 Rx pantoprazole 40 mg tablet,delayed 40 mg PO BID 90 days #180 tabs 02/24/24 04/15/24 Rx release atenolol 25 mg tablet 25 mg PO DAILY #90 tabs 04/14/24 04/15/24 Rx Central Venous Access Central Venous Access: No Exam Physical Exam Const alert, oriented x3 and no apparent distress Coding Level of Care Code Off vis,est,level 3 Exam Problem Focused Diagnoses Chronic pulmonary embolism, unspecified pulmonary embolism type, unspecified whether acute cor pulmonale present I27.82 Acute cor pulmonale presence: unspecified Chronicity: chronic Pulmonary embolism type: unspecified 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 Has not been taking it regularly. D-dimers 0.4 today. Plan: To continue Eliquis 2.5mg bid. Monitor D-dimers. (2) High total IgG: Status: Chronic Plan: To continue observation. If persistent, will obtain US liver and elastography (3) Elevated IgE level: Status: Chronic Comment: Has h (more content not included)... Normal [facility] Phosphoruson 04-15-2024 Phosphate [Mass/Vol] 3.0 mg/dL Normal 2.5-4.9 [facility] Comment on above: Order Comment: 1 Performed By: #### L 504.2610, L100.0100, L501.5200, L501.2300, L3200.1200, L503.6550, L503.6030, L500.4050, L300.8000 #### [facility] [address] [place], [address] Oncology Visit Reporton 01-03 Oncology Visit Report [facility] [address] [place] [address] OFFICE VISIT Date of Service: 01/22/24 1401 MR#: [id number] Acct: [id number] Name: BROOKE WOOD Rep #: [id number] : 2000 From: Kris Knowles MD Age/Sex: 24/F Location[place] [facility] [place] [facility] [place] Status: Signed with Addenda ADDENDUM by Dr. Kris Knowles MD on 01/22/24 at 1446 Subjective Date of Service 01/22/24 Chief Complaint F/u for Thromboembolism History of Present Illness 24-year-old woman presented to the ER with palpitations abdominal pain, was found to have elevated D-dimer. Had CTA on 05/18/2022, found to have bilateral pulmonary embolism and started on Eliquis. Lupus anticoagulant was negative on 08/31/2022. APC was normal on 06/25/2022. She was referred for further evaluation. She is on Eliquis prophylactic dose. Had blood work done and comes for follow up. Has not been taking Eliquis regularly. Assessment and Plan Assessment and Plan (1) Pulmonary embolism: Status: Chronic Qualifiers: Pulmonary embolism type: unspecified Chronicity: chronic Acute cor pulmonale presence: unspecified Qualified Code(s): I27.82 - Chronic pulmonary embolism Comment: On Eliquis Prophylactic dose 2.5mg bid. Has not been taking it regularly. (2) High total IgG: Status: Chronic (3) Elevated IgE level: Status: Chronic Comment: Has history of Asthma. Has seen Cashier Courtesy Booth. (4) Iron deficiency anemia: Status: Acute Qualifiers: Iron deficiency anemia type: unspecified iron deficiency Qualified Code(s): D50.9 - Iron deficiency anemia, unspecified Orders: Orders CBC W/Diff, Automated 04/15/24 D50.9 - Iron deficiency anemia, unspecified, I27.82 - Chronic pulmonary embolism, R76.8 - Other specified abnormal immunological findings in serum Comprehensive Metabolic Profil 04/15/24 D50.9 - Iron deficiency anemia, unspecified, I27.82 - Chronic pulmonary embolism, R76.8 - Other specified abnormal immunological findings in serum LDH 04/15/24 D50.9 - Iron deficiency anemia, unspecified, I27.82 - Chronic pulmonary embolism, R76.8 - Other specified abnormal immunological findings in serum Iron+Iron Binding Capacity 04/15/24 D50.9 - Iron deficiency anemia, unspecified, I27.82 - Chronic pulmonary embolism, R76.8 - Other specified abnormal immunological findings in serum Ferritin 04/15/24 D50.9 - Iron deficiency anemia, unspecified, I27.82 - Chronic pulmonary embolism, R76.8 - Other specified abnormal immunological findings in serum Magnesium 04/15/24 D50.9 - Iron deficiency anemia, unspecified, I27.82 - Chronic pulmonary embolism, R76.8 - Other specified abnormal immunological findings in serum Phosphorus 04/15/24 D50.9 - Iron deficiency anemia, unspecified, I27.82 - Chronic pulmonary embolism, R76.8 - Other specified abnormal immunological findings in serum Immunoglobulins G/A/M 04/15/24 D50.9 - Iron deficiency anemia, unspecified, I27.82 - Chronic pulmonary embolism, R76.8 - Other specified abnormal immunological findings in serum Immunoglobulin E 04/15/24 D50.9 - Iron deficiency anemia, unspecified, I27.82 - Chronic pulmonary embolism, R76.8 - Other specified abnormal immunological findings in serum D-Dimer Quantitative (DVT/PE) 04/15/24 D50.9 - Iron deficiency anemia, unspecified, I27.82 - Chronic pulmonary embolism, R76.8 - Other specified abnormal immunological findings in serum Medications: Refilled apixaban (Eliquis) 2.5 mg PO BID 60 tabs 3RF I27.82 - Chronic pulmonary embolism Plan Details Follow Up: 3 Months 01/22/24 1446 Date Kris Knowles MD cc: Dr. Tai Mccarty MD * Signed HPI Subjective Date of Service 01/22/24 Chief Complaint F/u for Thromboembolism PFSH Medical History Difficulty swallowing Screening for STD (sexually transmitted disease) Amenorrhea Wears contact lenses Pulmonary embolism Gastric reflux Non-smoker History of Holter monitoring History of echocardiogram Cardiology follow-up encounter Epigastric abdominal pain Hepatitis Abdominal discomfort AVNRT (AV ty re-entry tachycardia) Paroxysmal supraventricular tachycardia Postprandial abdominal bloating GERD (gastroesophageal reflux disease) Polycystic ovarian syndrome Asthma Acid reflux Surgical History History of cardiac radiofrequency ablation (05/06/21) History of tonsillectomy Family History Father , at 36 Enlarged heart Mother Asthma Brother Asthma Sister Asthma Social History household members: family housing: house current occupational status: employed current occupation: (more content not included)... Normal [facility] IgG Subclasseson 01-20-2024 IgG, SUBCLASS 1 928 mg/dL High 248-810 [facility] Comment on above: Performed By: #### L 100.0100, L503.6030, L3200.0500, L3200.1600, L500.4050, L501.6710, L101.9900 ####[facility] [address] [place], [address] IgG, SUBCLASS 2 462 mg/dL Normal 130-555 [facility] Comment on above: Performed By: #### L 100.0100, L503.6030, L3200.0500, L3200.1600, L500.4050, L501.6710, L101.9900 ####[facility] [address] [place], [address] IgG, SUBCLASS 3 96 mg/dL Normal 15-102 [facility] Comment on above: Performed By: #### L 100.0100, L503.6030, L3200.0500, L3200.1600, L500.4050, L501.6710, L101.9900 ####[facility] [address] [place], [address] IgG, SUBCLASS 4 13 mg/dL Normal 2-96 [facility] Comment on above: Performed By: #### L 100.0100, L503.6030, L3200.0500, L3200.1600, L500.4050, L501.6710, L101.9900 ####[facility] [address] [place], [address] IGG,QUANT 1720 mg/dL High 586-1602 [facility] Comment on above: Performed By: #### L 100.0100, L503.6030, L3200.0500, L3200.1600, L500.4050, L501.6710, L101.9900 ####[facility] [address] [place], [address] Immunoglobulin Pepito 4 IMMUNOGLOB E QN 1146 IU/mL High 6-495 [facility] Comment on above: Result Comment: Perf ormed at: [facility] [address] [id number] Spool Maker: Rafat Molina PhD, Phone: [phone] Performed at: [facility] [address] [id number] Spool Maker: Rosey Pierce MD, Phone: [phone] Performed By: #### L 100.0100, L503.6030, L3200.0500, L3200.1600, L500.4050, L501.6710, L101.9900 ####[facility] [address] [place], [place], [id number] CBC W/Diff, Automatedon 01-03 Absolute Lymph 1.11 X10 3/uL Normal 0.83-4.51 [facility] Comment on above: Performed By: #### L 100.0100, L503.6030, L3200.0500, L3200.1600, L500.4050, L501.6710, L101.9900 ####[facility] [address] [place], [place], [address] Absolute Neut 1.6 X10 3/uL Low 2.0-7.7 [facility] Comment on above: Performed By: #### L 100.0100, L503.6030, L3200.0500, L3200.1600, L500.4050, L501.6710, L101.9900 ####[facility] [address] [place], [address] Basophils/100 WBC (Bld) 0.6 % Normal 0-1 [facility] Comment on above: Performed By: #### L 100.0100, L503.6030, L3200.0500, L3200.1600, L500.4050, L501.6710, L101.9900 ####[facility] [address] [place], [address] Eosinophils/100 WBC (Bld) 8.3 % High 0-5 [facility] Comment on above: Performed By: #### L 100.0100, L503.6030, L3200.0500, L3200.1600, L500.4050, L501.6710, L101.9900 ####[facility] [address] [place], [address] Erythrocyte distribution width (RBC) [Ratio] 13.4 % Normal 11.6-14.6 [facility] Comment on above: Performed By: #### L 100.0100, L503.6030, L3200.0500, L3200.1600, L500.4050, L501.6710, L101.9900 ####[facility] [address] [place], [address] Hematocrit (Bld) [Volume fraction] 34.0 % Low 37-47 [facility] Comment on above: Performed By: #### L 100.0100, L503.6030, L3200.0500, L3200.1600, L500.4050, L501.6710, L101.9900 ####[facility] [address] [place], [address] Hemoglobin (Bld) [Mass/Vol] 10.9 g/dL Low 12.0-15.0 [facility] Comment on above: Performed By: #### L 100.0100, L503.6030, L3200.0500, L3200.1600, L500.4050, L501.6710, L101.9900 ####[facility] [address] [place], [address] IG% 0.300 Normal 0.0-0.9 [facility] Comment on above: Result Comment: IG% - Immature Granulocytes (promyelocytes, myelocytes and metamyelocytes) > 1% indicates that a LEFT SHIFT is Present. Performed By: #### L 100.0100, L503.6030, L3200.0500, L3200.1600, L500.4050, L501.6710, L101.9900 ####[facility] [address] [place], [address] Lymphocytes/100 WBC (Bld) 34.0 % Normal 19-41 [facility] Comment on above: Performed By: #### L 100.0100, L503.6030, L3200.0500, L3200.1600, L500.4050, L501.6710, L101.9900 ####[facility] [address] [place], [address] MCH (RBC) [Entitic mass] 26.5 pg Low 27.0-32.0 [facility] Comment on above: Performed By: #### L 100.0100, L503.6030, L3200.0500, L3200.1600, L500.4050, L501.6710, L101.9900 ####[facility] [address] [place], [address] MCHC (RBC) [Mass/Vol] 32.1 g/dL Normal 32-36 [facility] Comment on above: Performed By: #### L 100.0100, L503.6030, L3200.0500, L3200.1600, L500.4050, L501.6710, L101.9900 ####[facility] [address] [place], [address] MCV (RBC) [Entitic vol] 82.5 fL Normal 81-99 [facility] Comment on above: Performed By: #### L 100.0100, L503.6030, L3200.0500, L3200.1600, L500.4050, L501.6710, L101.9900 ####[facility] [address] [place], [address] Monocytes/100 WBC (Bld) 7.7 % Normal 0-10 [facility] Comment on above: Performed By: #### L 100.0100, L503.6030, L3200.0500, L3200.1600, L500.4050, L501.6710, L101.9900 ####[facility] [address] [place], [address] Neutrophils/100 WBC (Bld) 49.1 % Normal 47-70 [facility] Comment on above: Performed By: #### L 100.0100, L503.6030, L3200.0500, L3200.1600, L500.4050, L501.6710, L101.9900 ####[facility] [address] [place], [address] Nucleated RBC (Bld) [#/Vol] 0 10*3/uL Normal 0-5 [facility] Comment on above: Performed By: #### L 100.0100, L503.6030, L3200.0500, L3200.1600, L500.4050, L501.6710, L101.9900 ####[facility] [address] [place], [address] Platelet mean volume (Bld) [Entitic vol] 9.9 fL Normal 6.2-12.0 [facility] Comment on above: Performed By: #### L 100.0100, L503.6030, L3200.0500, L3200.1600, L500.4050, L501.6710, L101.9900 ####[facility] [address] [place], [address] Platelets (Bld) [#/Vol] 263 10*3/uL Normal 150-450 [facility] Comment on above: Performed By: #### L 100.0100, L503.6030, L3200.0500, L3200.1600, L500.4050, L501.6710, L101.9900 ####[facility] [address] [place], [address] RBC (Bld) [#/Vol] 4.12 10*6/uL Low 4.2-5.4 [facility] Comment on above: Performed By: #### L 100.0100, L503.6030, L3200.0500, L3200.1600, L500.4050, L501.6710, L101.9900 ####[facility] [address] [place], [address] RDW SD 40.4 fl Normal 35.1-43.9 [facility] Comment on above: Performed By: #### L 100.0100, L503.6030, L3200.0500, L3200.1600, L500.4050, L501.6710, L101.9900 ####[facility] [address] [place], [address] WBC (Bld) [#/Vol] 3.3 10*3/uL Low 4.4-11.0 [facility] Comment on above: Performed By: #### L 100.0100, L503.6030, L3200.0500, L3200.1600, L500.4050, L501.6710, L101.9900 ####[facility] [address] [place], [address] CRPon 01-15-2024 C-REACTIVE PROT < 2.90 Normal 0.0-3.0 [facility] Comment on above: Order Comment: UNKNO WN Result Comment: C-Re active Protein (CRP) provides useful information for the diagnosis, therapy and monitoring of inflammatory processes and associated diseases. For the evaluation of Relative Risk for Cardiovascular Disease, a High Sensitivity CRP (HSCRP) should be ordered. Performed By: #### L 100.0100, L503.6030, L3200.0500, L3200.1600, L500.4050, L501.6710, L101.9900 ####[facility] [address] [place], [address] Comprehensive Metabolic Prof ilon 01-15-2024 Albumin [Mass/Vol] 3.6 g/dL Normal 3.2-5.0 [facility] Comment on above: Order Comment: UNKNO WN Performed By: #### L 100.0100, L503.6030, L3200.0500, L3200.1600, L500.4050, L501.6710, L101.9900 ####[facility] [address] [place], [address] Albumin/Globulin [Mass ratio] 0.9 {ratio} Normal 0.9-2.4 [facility] Comment on above: Order Comment: UNKNO WN Performed By: #### L 100.0100, L503.6030, L3200.0500, L3200.1600, L500.4050, L501.6710, L101.9900 ####[facility] [address] [place], [address] ALK P 99 U/L Normal 45-117 [facility] Comment on above: Order Comment: UNKNO WN Performed By: #### L 100.0100, L503.6030, L3200.0500, L3200.1600, L500.4050, L501.6710, L101.9900 ####[facility] [address] [place], [address] ALT [Catalytic activity/Vol] 16 U/L Normal 13-56 [facility] Comment on above: Order Comment: UNKNO WN Performed By: #### L 100.0100, L503.6030, L3200.0500, L3200.1600, L500.4050, L501.6710, L101.9900 ####[facility] [address] [place], [address] AST [Catalytic activity/Vol] 16 U/L Normal 15-37 [facility] Comment on above: Order Comment: UNKNO WN Performed By: #### L 100.0100, L503.6030, L3200.0500, L3200.1600, L500.4050, L501.6710, L101.9900 ####[facility] [address] [place], [address] Bilirubin [Mass/Vol] 0.40 mg/dL Normal 0.20-1.00 [facility] Comment on above: Order Comment: UNKNO WN Result Comment: For patients on eltrombopag therapy, use of Dimension [place] TBIL is not recommended. Performed By: #### L 100.0100, L503.6030, L3200.0500, L3200.1600, L500.4050, L501.6710, L101.9900 ####[facility] [address] [place], [address] BUN/CRE 14.8 RATIO Normal 10-20 [facility] Comment on above: Order Comment: UNKNO WN Performed By: #### L 100.0100, L503.6030, L3200.0500, L3200.1600, L500.4050, L501.6710, L101.9900 ####[facility] [address] [place], [address] CA,Total 9.2 mg/dL Normal 8.5-10.1 [facility] Comment on above: Order Comment: UNKNO WN Performed By: #### L 100.0100, L503.6030, L3200.0500, L3200.1600, L500.4050, L501.6710, L101.9900 ####[facility] [address] [place], [address] [place] [Moles/Vol] 107 mmol/L Normal 98-107 [facility] Comment on above: Order Comment: UNKNO WN Performed By: #### L 100.0100, L503.6030, L3200.0500, L3200.1600, L500.4050, L501.6710, L101.9900 ####[facility] [address] [place], [address] CO2 [Moles/Vol] 27.0 mmol/L Normal 21.0-32.0 [facility] Comment on above: Order Comment: UNKNO WN Performed By: #### L 100.0100, L503.6030, L3200.0500, L3200.1600, L500.4050, L501.6710, L101.9900 ####[facility] [address] [place], [address] Creatinine [Mass/Vol] 0.88 mg/dL Normal 0.55-1.02 [facility] Comment on above: Order Comment: UNKNO WN Result Comment: The validity of the calculated GFR GFRAA in patients over 70 years has not been determined. Clinical correlation is essential. Performed By: #### L 100.0100, L503.6030, L3200.0500, L3200.1600, L500.4050, L501.6710, L101.9900 ####[facility] [address] [place], [address] ECRCL 85.86 ml/min Normal [facility] Comment on above: Order Comment: UNKNO WN Performed By: #### L 100.0100, L503.6030, L3200.0500, L3200.1600, L500.4050, L501.6710, L101.9900 ####[facility] [address] [place], [address] EST GFR - AA 101 mL/min Normal >60 [facility] Comment on above: Order Comment: UNKNO WN Result Comment: Afri can Norwegian GFR Calc Performed By: #### L 100.0100, L503.6030, L3200.0500, L3200.1600, L500.4050, L501.6710, L101.9900 ####[facility] [address] [place], [address] GAP 3 Low 5-15 [facility] Comment on above: Order Comment: UNKNO WN Performed By: #### L 100.0100, L503.6030, L3200.0500, L3200.1600, L500.4050, L501.6710, L101.9900 ####[facility] [address] [place], [address] GFR/1.73 sq M.predicted among non-blacks MDRD (S/P/Bld) [Vol rate/Area] 84 mL/min/{1.73_m2} Normal >60 [facility] Comment on above: Order Comment: UNKNO WN Result Comment: Non- GFR Calc Performed By: #### L 100.0100, L503.6030, L3200.0500, L3200.1600, L500.4050, L501.6710, L101.9900 ####[facility] [address] [place], [address] Globulin (S) [Mass/Vol] 4.0 g/dL Normal 2.2-4.2 [facility] Comment on above: Order Comment: UNKNO WN Performed By: #### L 100.0100, L503.6030, L3200.0500, L3200.1600, L500.4050, L501.6710, L101.9900 ####[facility] [address] [place], [address] Glucose [Mass/Vol] 87 mg/dL Normal 74-106 [facility] Comment on above: Order Comment: UNKNO WN Performed By: #### L 100.0100, L503.6030, L3200.0500, L3200.1600, L500.4050, L501.6710, L101.9900 ####[facility] [address] [place], [address] Potassium [Moles/Vol] 4.2 mmol/L Normal 3.5-5.1 [facility] Comment on above: Order Comment: UNKNO WN Performed By: #### L 100.0100, L503.6030, L3200.0500, L3200.1600, L500.4050, L501.6710, L101.9900 ####[facility] [address] [place], [address] Sodium [Moles/Vol] 137 mmol/L Normal 136-145 [facility] Comment on above: Order Comment: UNKNO WN Performed By: #### L 100.0100, L503.6030, L3200.0500, L3200.1600, L500.4050, L501.6710, L101.9900 ####[facility] [address] [place], [address] T PROT 7.6 g/dL Normal 6.4-8.2 [facility] Comment on above: Order Comment: UNKNO WN Performed By: #### L 100.0100, L503.6030, L3200.0500, L3200.1600, L500.4050, L501.6710, L101.9900 ####[facility] [address] [place], [address] Urea nitrogen [Mass/Vol] 13 mg/dL Normal 7-18 [facility] Comment on above: Order Comment: UNKNO WN Performed By: #### L 100.0100, L503.6030, L3200.0500, L3200.1600, L500.4050, L501.6710, L101.9900 ####[facility] [address] [place], [address] D-Dimer Quantitative (DVT/PE )on 01-15-2024 D-DIMER QUANT 0.94 FEU/ug/m Invalid Interpretation Code 0.27-0.49 [facility] Comment on above: Result Comment: D-Di mima ELEVATED (>0.49): Additional studies and clinical assessments are indicated to conclude diagnosis of: Deep Vein Thrombosis (DVT) or Pulmonary Embolism (PE) CRITICAL VALUE VERIFIED. CALLED TO LILLIANA BEARDEN RN (ONC) 01/15/24 Rachael5 Lebron Eric. RESULTS READ BACK BY SAME. Performed By: #### L 504.2610, L503.6550, L503.0105, L300.8000, L506.0250 ####[facility] [address] [place], [address] Erythrocyte Sed Rateon 01-14 SED RATE 18 mm/hr Normal 0-30 [facility] Comment on above: Performed By: #### L 100.0100, L503.6030, L3200.0500, L3200.1600, L500.4050, L501.6710, L101.9900 ####[facility] [address] [place], [address] Ferritinon 01-15-2024 Ferritin [Mass/Vol] 17 ng/mL Normal 8-252 [facility] Comment on above: Order Comment: UNKNO WN1N Performed By: #### L 504.2610, L503.6550, L503.0105, L300.8000, L506.0250 ####[facility] [address] [place], [address] Folates, (Folic Acid)on 01-03 FOLATES 9.20 ng/mL Normal 3.1-55.4 [facility] Comment on above: Order Comment: UNKNO WN1N Performed By: #### L 504.2610, L503.6550, L503.0105, L300.8000, L506.0250 ####[facility] [address] [place], [address] Iron+Iron Binding Capacityon 01-15-2024 Iron [Mass/Vol] 33 ug/dL Low 50-170 [facility] Comment on above: Order Comment: UNKNO WN Performed By: #### L 100.0100, L503.6030, L3200.0500, L3200.1600, L500.4050, L501.6710, L101.9900 ####[facility] [address] [place], [address] IRON SATURATION 9.3 Low 15.0-55.0 [facility] Comment on above: Order Comment: UNKNO WN Performed By: #### L 100.0100, L503.6030, L3200.0500, L3200.1600, L500.4050, L501.6710, L101.9900 ####[facility] [address] [place], [address] TIBC 355 ug/dL Normal 250-450 [facility] Comment on above: Order Comment: UNKNO WN Performed By: #### L 100.0100, L503.6030, L3200.0500, L3200.1600, L500.4050, L501.6710, L101.9900 ####[facility] [address] [place], [address] LDHon 01-15-2024 LDH 170 U/L Normal 84-246 [facility] Comment on above: Order Comment: UNKNO WN1N Performed By: #### L 504.2610, L503.6550, L503.0105, L300.8000, L506.0250 ####[facility] [address] [place], [address] Vitamin B12on 01-15-2024 Cobalamin (Vitamin B12) [Mass/Vol] 311 pg/mL Normal 211-911 [facility] Comment on above: Performed By: #### L 504.2610, L503.6550, L503.0105, L300.8000, L506.0250 ####[facility] [address] [place], [address] Gastroenterology Visit Repor ton 12-02-2023 Gastroenterology Visit Report [facility] [address] [place] [address] OFFICE VISIT Date of Service: 12/02/23 MR#: [id number] Acct: [id number] Name: BROOKE WOOD Rep #: [id number] : 2000 Provider: Jr Ravi DO Age/Sex: 23/F Location: [facility] Status: Signed Intake Vital Signs 07/22/23 11:01 12/02/23 09:00 Height 5 ft 4 in Weight: 121 lb 5 oz 119 lb 8 oz BMI 20.8 BP 104/73 Blood Pressure Location Lt brachial Position Sitting Respiration 16 Pulse 94 Pulse Source Monitor Temp 98.4 F Pulse Oximetry (%) 100 Oxygen Delivery Method room air Intake Visit Reasons: 6 M FU Chief Complaint: F/u for Thromboembolism Allergies No Known Allergies Allergy (Verified 07/22/23 11:02) PFSH Medical History Abdominal discomfort Acid reflux Amenorrhea Asthma AVNRT (AV ty re-entry tachycardia) Cardiology follow-up encounter Difficulty swallowing Epigastric abdominal pain Gastric reflux GERD (gastroesophageal reflux disease) Hepatitis History of echocardiogram History of Holter monitoring Non-smoker Paroxysmal supraventricular tachycardia Polycystic ovarian syndrome Postprandial abdominal bloating Pulmonary embolism Screening for STD (sexually transmitted disease) Wears contact lenses Surgical History History of cardiac radiofrequency ablation (12/08/20) History of tonsillectomy Family History Father , at 36 Enlarged heart Mother Asthma Brother Asthma Sister Asthma Social History household members: family housing: house current occupational status: employed current occupation: [employer] sexually active: No Smoking Status: Never smoker alcohol intake: never substance use type: does not use caffeine: No what type of physical activity do you participate in: walking frequency: 1-2 times per week seatbelt use: always do you feel safe at home: Yes HPI HPI Chief Complaint: F/u for Thromboembolism Details: BROOKE WOOD, is a 23 F who presents to the office today for follow up PMH paroxysmal supraventricular tachycardia s/p radiofrequency ablation ; polycystic ovary syndrome; history PE. *BGI established 06.25.22. She has been having issues with abdominal discomfort, bloating, belching, reflux and increased flatulence with intermittent nausea and tightness in her stomach with a rapid HR for several months. Famotidine 40mg has been helpful with heartburn; Dexilant and protonix historically ineffective. Weight loss of approximately 10lbs r/t decreased appetite. Biochemical workup CMP, OLAYINKA comp, ESR, ferritin, ANIL, celiac, IgME, Vit B12, T3, T4, TSH, LDH, Protein S, activated protein C resistance, antithrombin 3, KISHA, protein C antigen without pertinent abnormality. CRP H5.11, IgA H357, IgG H1844, c-ANCA H1:20.??? Dilute lupus + but lupus -. Stool testing calprotectin, EP, occult, elastase WNL. Referred to [facility] hematology who feels she would be better served with rheumatology. Gastric emptying study 07.14.22 with no calculation as there was no discernable emptying noted. EGD 08.23.22 LA Grade A reflux esophagitis; EOE, eosin >20; large amount of food residue. Dr. Harrington established 08.31.22 with no clinical features of Lupus. ? Biochemical workup Avise APS, Avise SLE, Avise CTD, Avise vasculitis, APTT, Hex phas phos, PTT, thrombin, UA, CMP (T.Bili H2.10, LFT WNL), CBC (WBC L3.9) ? PT H15.5, Urine protein, urobilinogen, leukocyte esterase H OV 2.04.27 Feels she is doing approximately the same as last time and notes food trigger of fast foods and highly acid foods; otherwise symptoms are minimally present with PO intake and feels that high fiber foods are not being digested. She has not received results from Dr. Harrington???s bloodwork. Hematology OV 3.10.25 and 3 for 22 year old with elevated DDimer and bilateral PE history on Eliquis. Recommend continuing Eliquis until end of November then stopping. See allergy/immunology for elevated IgE. ? Biochemical 3.08.27 CBC (WBC 3.5, hgb 11.2) CMP, LFT without pertinent abnormality. ? PT H15.6, DDimer L<0.27 Biochemical 12.27.22 CBC (WBC 3.6, hgb 11.9), coag, fibrinogen, CMP, LFT, iron, TIBC, iron sat, OLAYINKA comp without pertinent abnormality. ? DDimer H0.68, IgG total H1684, IgG11 H1105, IgE H941, KISHA M-Sam +, pANCA H1:20 Hematology OV 6.1 (more content not included)... Normal [facility] Laboratory - Chemistry and C hemistry - challengeOrdered By: Yasir Galvan on 07-15-2023 HCG ( test) Ql (U) Negative [facility] Comment on above: Very dilute urine sp ecimens, as indicated by a low specificgravity, may not contain delivery representative levels of hCG. If is still suspected, a first morning urinespecimen should be collected 48 hours later and tested. CNPNon 06-05-2023 ALBA Telephone (ALLMED) ----- ADRIANBROOKE Zeina ([id number]) 1 F Date Time Provider Department 06/05/23 KEN DU PetrabytesEMILIANA During your visit today, we recorded the following information about you: Ken Du MD 06/05/2023 8:50 AM Signed Please request all reports for imaging of the chest (CT chest and CXR) completed [facility]. (She was hospitalized in 05/26 for a PE) MD Wojciech Gutierrez Candice RN 06/05/2023 9:02 AM Signed Release form faxed to [facility] Nicolasa Montalvo RN 06/05/2023 1:55 PM Signed Received records. Allergies As of Date: 06/05/2023 Noted Allergy Reaction SEASONAL ALLERGIES 05/23/2023 14 - Other: See Comments Comments: Cats, dust mites, molds, trees, grasses, weeds, ragweed Date Reviewed: 05/22/2023 Reviewed by: Ken Du MD - Fully Assessed Prescriptions as of 06/20/2023 - ELIQUIS 5 mg tab(s) Take 1 tablet by mouth every 12 hours. - pantoprazole DR (PROTONIX) 40 mg tablet Take 1 tablet by mouth once daily. - albuterol HFA (PROVENTIL HFA, VENTOLIN HFA) 90 mcg/actuation inhaler Inhale 2 Puffs as instructed every 4 hours as needed (for cough, wheezing, chest tightness or shortness of breath. Use with a spacer.). - atenolol (TENORMIN) 25 mg tablet Take 25 mg by mouth once daily. Problem List As Of Date 06/05/2023 Noted Resolved Pulmonary embolism (HCC) [I26.99] 05/08/2022 Encounter Status:Closed by NICOLASA MONTALVO RN on 06/05/[address] [facility] CNCOon 05-28-[address]CO [address] [facility] CNPNon 05-23-2023 CNPN Telephone (ALLMED) ----- BROOKE WOOD ([id number]) 1 F Date Time Provider Department 05/23/23 KEN DU ALLMED During your visit today, we recorded the following information about you: Ken Du MD 05/23/2023 1:06 PM Signed ABPA panel results are still pending. Will ask nursing staff contact the patient when all results are available for review Urinalysis was negative for hematuria and proteinuria. Hemoglobin is below normal at 11.3 g/dl. On April 05, 2023, hemoglobin was 10.9 g/dL. Recommend that she follow-up with hematology/oncology regarding the anemia. Ken Du MD 06/06/2023 5:44 PM Signed Left message to call back. I will talk to patient when call is returned. Will forward to [place] allergy nurses as a FYI See message below regarding results of urinalysis and CBC. Does patient have a history of pulmonary infiltrates especially in the mid to upper lobes on prior chest x-ray or other imaging of the chest? Does patient have a known history of absolute eosinophil count over 500? Regarding criteria area for ABPA, patient has asthma but it is mild intermittent. She has documented allergy to Aspergillus fumigatus. IgE is slightly greater than 1000 at 1053 and Aspergillus fumigatus IgG level is elevated at 69.7. To meet the diagnostic criteria for ABPA, she would also need to have a history of radiographic abnormalities suggestive of ABPA OR an absolute eosinophil count greater than 500. No atelectasis or infiltrates were noted on CTA of the hest with and without contrast onMay 08, 2022. No mention of bronchiectasis. In the chart review including records from Dr. Shawn vaughn and results from [facility], absolute eosinophil count has been mildly elevated from 148-250. Reviewed prior absolute eosinophil counts counts varied from 148-250. I do not see any documentation of an absolute eosinophil count greater than 500. MD Sandra Gutierrez Alisia RN 06/20/2023 10:20 AM Signed Patient returning call. Please call patient at [phone]. Ken Du MD 06/20/2023 12:55 PM Signed Discussed results with patient. Recommend that she follow-up with her primary care physician or her product marketing specialist regarding the mild anemia. She does not have a history of pulmonary infiltrates or a history absolute eosinophil count greater than 500. Also her asthma is mild and intermittent. She does not meet criteria for a diagnosis of ABPA. Follow-up as scheduled in August 2023. Ken Du MD Allergies As of Date: 05/23/2023 Noted Allergy Reaction SEASONAL ALLERGIES 05/23/2023 14 - Other: See Comments Comments: Cats, dust mites, molds, trees, grasses, weeds, ragweed Date Reviewed: 05/22/2023 Reviewed by: Ken Du MD - Fully Assessed Prescriptions as of 06/20/2023 - ELIQUIS 5 mg tab(s) Take 1 tablet by mouth every 12 hours. - pantoprazole DR (PROTONIX) 40 mg tablet Take 1 tablet by mouth once daily. - albuterol HFA (PROVENTIL HFA, VENTOLIN HFA) 90 mcg/actuation inhaler Inhale 2 Puffs as instructed every 4 hours as needed (for cough, wheezing, chest tightness or shortness of breath. Use with a spacer.). - atenolol (TENORMIN) 25 mg tablet Take 25 mg by mouth once daily. Problem List As Of Date 05/23/2023 Noted Resolved Pulmonary embolism (HCC) [I26.99] 05/08/2022 Encounter Status:Closed by JENIFER GUSTAFSON RN on 06/20/[address] [facility] BRONCHOPUL ASPERGILLon 05-22 A. FUMIGATUS IGE CLASS 3 Normal [facility] Comment on above: Order Comment: Speci men Type: BLOOD SPECIMEN Ordering Facility: [facility] Address: [address] [place] [address] Result Comment: The test method is the [employer] ImmunoCAP allergen-specific IgE system. CLASS INTERPRETATION <0.10 kU/L= 0, Negative; 0.10 - 0.34 kU/L= 0/1, Equivocal/Borderline; 0.35 - 0.69 kU/L=1, Low Positive; 0.70 - 3.49 kU/L=2, Moderate Positive; 3.50 - 17.49 kU/L=3, High Positive; 17.50 - 49.99 kU/L= 4, Very High Positive; 50.00 - 99.99 kU/L= 5, Very High Positive; >99.99 kU/L=6, Very High Positive Performed By: #### A BPA #### [facility] [employer] CLIA [id number] [address] [address] A. FUMIGATUS IGE CONC 8.74 kU/L High <0.35 [facility] Comment on above: Order Comment: Aracelis page Type: BLOOD SPECIMEN Ordering Facility: [facility] Address: [address] [address] Performed By: #### A BPA #### [facility] [employer] CLIA [id number] [address] [place] [address] A. FUMIGATUS MIX GEL DIFF Negative Normal Negative [facility] Comment on above: Order Comment: Aracelis page Type: BLOOD SPECIMEN Ordering Facility: [facility] Address: [address] [address] Result Comment: The gel diffusion method was used to test this patient's serum for the presence of precipitating antibodies(IgG) to the antigens indicated. These antibodies are serological markers for exposure and immunological sensitization. The clinical significance varies, depending on the history and symptoms. Patients with allergic bronchopulmonary aspergillosis (ABPA) are expected to have the following features: 1) A high total IgE of >500 IU/mL, unless patient is receiving corticosteroids. 2) An elevated Aspergillus-specific IgE of class 4 or higher. 3) Positive for Aspergillus-specific IgG. *This test was developed and its performance characteristics determined by [employer]. It has not been cleared or approved by the U.S. Food and Drug Administration. Testing Performed At: [employer] [address], [facility] [address] [place] [address] Spool Maker: Evaristo Canada, PhD GISELE (ABB) CLIA # [id number] FLAG Interpretation: A = Abnormal, H = High, L = Low Performed By: #### A BPA #### [facility] [employer] CLIA [id number] [address] [address] A. FUMIGATUS, IGG 69.7 mcg/mL High <46.0 [facility] Comment on above: Order Comment: Aracelis page Type: BLOOD SPECIMEN Ordering Facility: [facility] Address: [address] [address] Result Comment: Anti body levels greater than the reference range indicate that the patient has been immunologically sensitized to the antigen. The significance of elevated IgG depends on the nature of the antigen and the patient's clinical history. The test method was the [employer] ImmunoCAP. Performed By: #### A BPA #### [employer] CLIA [id number] [address] [address] TOTAL IGE 1053 IU/mL High 4-59 [facility] Comment on above: Order Comment: Aracelis page Type: BLOOD SPECIMEN Ordering Facility: [facility] Address: [address] [place] [address] Performed By: #### A BPA #### [facility] [employer] CLIA [id number] [address] [address] CBC W Auto Differential pane l (Bld)on 05-22-2023 Basophils (Bld) [#/Vol] 10*3/uL Normal <0.11 [facility] Comment on above: Order Comment: Aracelis page Type: BLOOD SPECIMEN Ordering Facility: [facility] Address: [address] [place] [address] Performed By: #### 5 7021-8 #### [facility] CLIA [id number] [address] [place] [address] [place] Basophils/100 WBC (Bld) 0.5 % Normal [facility] Comment on above: Order Comment: Speci men Type: BLOOD SPECIMEN Ordering Facility: [facility] Address: [address] [place] [address] Performed By: #### 5 7021-8 #### [facility] CLIA [id number] [address] [place] Differential cell count method Nom (Bld) Auto Normal [facility] Comment on above: Order Comment: Speci men Type: BLOOD SPECIMEN Ordering Facility: [facility] Address: [address] [place] [address] Performed By: #### 5 7021-8 #### [facility] CLIA [id number] [address] [place] Eosinophils (Bld) [#/Vol] 0.25 10*3/uL Normal <0.46 [facility] Comment on above: Order Comment: Speci men Type: BLOOD SPECIMEN Ordering Facility: [facility] Address: [address] [place] [address] Performed By: #### 5 7021-8 #### [facility] CLIA [id number] [address] [place] Eosinophils/100 WBC (Bld) 6.7 % [facility] Comment on above: Order Comment: Speci men Type: BLOOD SPECIMEN Ordering Facility: [facility] Address: [address] [place] [address] Performed By: #### 5 7021-8 #### [facility] CLIA [id number] [address] [place] Erythrocyte distribution width (RBC) [Ratio] 13.2 % Normal 11.5-15.0 [facility] Comment on above: Order Comment: Speci men Type: BLOOD SPECIMEN Ordering Facility: [facility] Address: [address] [place] [address] Performed By: #### 5 7021-8 #### [facility] CLIA [id number] [address] [place] Hematocrit (Bld) [Volume fraction] 35.0 % Low 36.0-46.0 [facility] Comment on above: Order Comment: Speci men Type: BLOOD SPECIMEN Ordering Facility: [facility] Address: [address] [place] [address] Performed By: #### 5 7021-8 #### [facility] CLIA [id number] [address] [place] [address] [place] Hemoglobin (Bld) [Mass/Vol] 11.3 g/dL Low 11.5-15.5 [facility] Comment on above: Order Comment: Speci men Type: BLOOD SPECIMEN Ordering Facility: [facility] Address: [address] [place] [address] Performed By: #### 5 7021-8 #### [facility] CLIA [id number] [address] [place] [address] [place] Immature granulocytes (Bld) [#/Vol] 10*3/uL Normal <0.10 [facility] Comment on above: Order Comment: Speci men Type: BLOOD SPECIMEN Ordering Facility: [facility] Address: [address] [place] [address] Performed By: #### 5 7021-8 #### [facility] CLIA [id number] [address] [place] Immature granulocytes/100 WBC (Bld) 0.3 % Normal [facility] Comment on above: Order Comment: Speci men Type: BLOOD SPECIMEN Ordering Facility: [facility] Address: [address] [place] [address] Performed By: #### 5 7021-8 #### [facility] CLIA [id number] [address] [place] [address] [place] Lymphocytes (Bld) [#/Vol] 1.41 10*3/uL Normal 1.00-4.0 0 [facility] Comment on above: Order Comment: Speci men Type: BLOOD SPECIMEN Ordering Facility: [facility] Address: [address] [place] [address] Performed By: #### 5 7021-8 #### [facility] CLIA [id number] [address] [place] Lymphocytes/100 WBC (Bld) 37.9 % Normal [facility] Comment on above: Order Comment: Speci men Type: BLOOD SPECIMEN Ordering Facility: [facility] Address: [address] [place] [address] Performed By: #### 5 7021-8 #### [facility] CLIA [id number] [address] [place] [address] [place] MCH (RBC) [Entitic mass] 26.4 pg Normal 26.0-34.0 [facility] Comment on above: Order Comment: Speci men Type: BLOOD SPECIMEN Ordering Facility: [facility] Address: [address] [place] [address] Performed By: #### 5 7021-8 #### [facility] CLIA [id number] [address] MCHC (RBC) [Mass/Vol] 32.3 g/dL Normal 30.5-36.0 [facility] Comment on above: Order Comment: Speci men Type: BLOOD SPECIMEN Ordering Facility: [facility] Address: [address] [place] [address] Performed By: #### 5 7021-8 #### [facility] CLIA [id number] [address] MCV (RBC) [Entitic vol] 81.8 fL Normal 80.0-100.0 [facility] Comment on above: Order Comment: Speci men Type: BLOOD SPECIMEN Ordering Facility: [facility] Address: [address] [place] [address] Performed By: #### 5 7021-8 #### [facility] CLIA [id number] [address] [place] Monocytes (Bld) [#/Vol] 0.38 10*3/uL Normal <0.87 [facility] Comment on above: Order Comment: Speci men Type: BLOOD SPECIMEN Ordering Facility: [facility] Address: [address] [place] [address] Performed By: #### 5 7021-8 #### [facility] CLIA [id number] [address] [place] Monocytes/100 WBC (Bld) 10.2 % Normal [facility] Comment on above: Order Comment: Speci men Type: BLOOD SPECIMEN Ordering Facility: [facility] Address: [address] [place] [address] Performed By: #### 5 7021-8 #### [facility] CLIA [id number] [address] [place] [address] [place] Neutrophils (Bld) [#/Vol] 1.65 10*3/uL Normal 1.45-7.5 0 [facility] Comment on above: Order Comment: Speci men Type: BLOOD SPECIMEN Ordering Facility: [facility] Address: [address] [place] [address] Performed By: #### 5 7021-8 #### [facility] CLIA [id number] [address] [place] Neutrophils/100 WBC (Bld) 44.4 % Normal [facility] Comment on above: Order Comment: Speci men Type: BLOOD SPECIMEN Ordering Facility: [facility] Address: [address] [place] [address] Performed By: #### 5 7021-8 #### [facility] CLIA [id number] [address] [place] [address] [place] Nucleated RBC (Bld) [#/Vol] 10*3/uL Normal <0.01 [facility] Comment on above: Order Comment: Speci men Type: BLOOD SPECIMEN Ordering Facility: [facility] Address: [address] [place] [address] Performed By: #### 5 7021-8 #### [facility] CLIA [id number] [address] [place] [address] [place] Nucleated RBC/100 WBC (Bld) [Ratio] 0.0 /100 WBC Normal [facility] Comment on above: Order Comment: Speci men Type: BLOOD SPECIMEN Ordering Facility: [facility] Address: [address] [place] [address] Performed By: #### 5 7021-8 #### [facility] CLIA [id number] [address] [place] [address] [place] Platelet mean volume (Bld) [Entitic vol] 10.5 fL Normal 9.0-12.7 [facility] Comment on above: Order Comment: Speci men Type: BLOOD SPECIMEN Ordering Facility: [facility] Address: [address] [place] [address] Performed By: #### 5 7021-8 #### [facility] CLIA [id number] [address] Platelets (Bld) [#/Vol] 241 10*3/uL Normal 150-400 [facility] Comment on above: Order Comment: Speci men Type: BLOOD SPECIMEN Ordering Facility: [facility] Address: [address] [place] [address] Performed By: #### 5 7021-8 #### [facility] CLIA [id number] [address] RBC (Bld) [#/Vol] 4.28 10*6/uL Normal 3.90-5.20 [facility] Comment on above: Order Comment: Speci men Type: BLOOD SPECIMEN Ordering Facility: [facility] Address: [address] [place] [address] Performed By: #### 5 7021-8 #### [facility] CLIA [id number] [address] WBC (Bld) [#/Vol] 3.72 10*3/uL Normal 3.70-11.00 [facility] Comment on above: Order Comment: Speci men Type: BLOOD SPECIMEN Ordering Facility: [facility] Address: [address] [place] [address] Performed By: #### 5 7021-8 #### [facility] CLIA [id number] [address] CNOVon 05-22-2023 CNOV Office Visit (ALLMED ) ----- BROOKE WOOD ([id number]) 1 F Date Time Provider Department 05/22/23 1:15 PM KEN DUMED During your visit today, we recorded the following information about you: Pulse Blood pressure Weight 98/minute 106/72 55.8 kg Ken Du MD 05/24/2023 3:46 PM Signed This is a consultation requested by Kris Knowles MD and Mario Ravi DO, MS for an allergy and immunology evaluation. My final recommendations will be communicated back to the requesting healthcare provider(s) by way of shared medical record or via [place] mail. Brooke Wood is a 23 year old female with a history of rhinitis, pulmonary embolus, intermittent asthma and eosinophilic esophagitis who presents for further evaluation of elevated IgE level. IgE was 1,597 IU/ml June 25, 2022 and, then, 941 IU/ml on December 27, 2022 on evaluation completed at [facility]. P-ANCA was mildly positive at 1-20. IgG has also been mildly elevated. Per patient, hematology/oncology and rheumatology evaluations were unremarkable. She complains of nasal congestion, sneezing, rhinorrhea and itchy and watery eyes. Symptoms are perennial with exacerbation in the spring and summer. Exposure to cats, dogs, dust and pollens are triggers of her symptoms. She has previously taken Denise with relief. No prior allergy testing or allergy immunotherapy. She has a history of intermittent asthma. Symptoms include wheezing and chest tightness. Occasional shortness of breath. Uses albuterol a few times per year for acute symptoms. Denies recent nocturnal awakenings due to respiratory symptoms. Denies treatment with systemic steroids for respiratory symptoms. Last emergency room visit for asthma was in childhood. Asthma triggers include upper respiratory infection, and smoke exposure. Per patient, she has been diagnosed with eosinophilic esophagitis and is under the care of Dr. Ravi in gastroenterology. She complains of difficulty swallowing and a burning sensation in the epigastric region. Also complains of frequent belching, gagging and loose stools. Denies melena and hematochezia. Denies a history of foreign travel. She has lost 17 pounds. Symptoms have persisted despite taking Protonix 40 mg once daily. Denies prior treatment with swallowed corticosteroids or elimination diets. She complains of itching mouth and throat associated with ingestion of cantaloupe/melons. Complains of abdominal pain associated with ingestion of fresh banana. This resolves in 1 hour. She has never experienced a severe immediate reaction to food such as urticaria, angioedema, respiratory distress, lightheadedness or loss of consciousness. Denies a history of recurrent or chronic infections. Denies a history of recurrent or chronic rhinosinusitis. Denies a history of pneumonia. No history of significant eczema. Denies a history of endocrinopathy such as diabetes mellitus and hypothyroidism. No known history of eosinophilia. Denies a history of proteinuria and hematuria. Per patient, prior HIV test was negative. REVIEW OF SYSTEMS: SINUSITIS: The patient does not suffer from frequent sinopulmonary infections. ASTHMA: See [place] ECZEMA: The patient has no history of eczema. URTICARIA:The patient does not have a history of urticaria and/or angioedema. GERD: See [place] INSECT STING: The patient does not have a history of systemic reaction to insect sting. FOOD ALLERGY:See [place]. LATEX: The patient does not have a history of adverse reaction to latex. All other review of systems negative except for those listed above. No past medical history on file. MEDICATIONS: ELIQUIS 5 mg tab(s) Take 1 tablet by mouth every [address] (PROTONIX) 40 mg tablet Take 1 tablet by mouth once daily. atenolol (TENORMIN) 25 mg tablet Take 25 mg by mouth once daily. albuterol HFA (VENTOLIN HFA) 90 mcg/actuation inhaler Inhale 2 Puffs as instructed. ALLERGIES: Allergies As of Date: 05/22/2023 (No Known Allergies) Fully Assessed 05/22/2023 No past surgical history on file. FAMILY HISTORY: Allergic rhinitis:yes: mom and brother. Asthma: yes: mom, dad, and brother. Eczema: yes: mom, dad, and brother. Cystic fibrosis: no. Immunodeficiency: no. 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 Normal [facility] Urinalysis complete panel (U )on 05-22-2023 Bacteria LM.HPF (Urine sed) [#/Area] Moderate Abnormal None Seen [facility] Comment on above: Order Comment: Speci men Type: URINE SPECIMEN [facility] Facility: [facility] Address: [address] [place] [address] Performed By: #### 2 4356-8 #### [facility] CLIA [id number] [address] Bilirubin Ql (U) 1+ Abnormal Negative [facility] Comment on above: Order Comment: Speci men Type: URINE SPECIMEN Ordering Facility: [facility] Address: [address] [place] [address] Result Comment: Sugg est correlation with clinical findings and serum bilirubin if clinically indicated. Performed By: #### 2 4356-8 #### [facility] CLIA [id number] [address] Clarity (Unsp spec) Slightly Cloudy Abnormal Clear [facility] Comment on above: Order Comment: Speci men Type: URINE SPECIMEN Ordering Facility: [facility] Address: [address] [place] [address] Performed By: #### 2 4356-8 #### [facility] CLIA [id number] [address] Color (U) Yellow Normal Yellow [facility] Comment on above: Order Comment: Speci men Type: URINE SPECIMEN Ordering Facility: [facility] Address: [address] [place] [address] Performed By: #### 2 4356-8 #### [facility] CLIA [id number] [address] Epithelial cells LM.HPF (Urine sed) [#/Area] Few Normal [facility] Comment on above: Order Comment: Speci men Type: URINE SPECIMEN Ordering Facility: [facility] Address: [address] [place] [address] Performed By: #### 2 4356-8 #### [facility] CLIA [id number] [address] [place] Glucose Test strip (U) [Mass/Vol] Negative Normal Negative [facility] Comment on above: Order Comment: Speci men Type: URINE SPECIMEN Ordering Facility: [facility] Address: [address] [place] [address] Performed By: #### 2 4356-8 #### [facility] CLIA [id number] [address] [place] [address] [place] Hemoglobin Ql (U) Negative Normal Negative [facility] Comment on above: Order Comment: Speci men Type: URINE SPECIMEN Ordering Facility: [facility] Address: [address] [place] [address] Performed By: #### 2 4356-8 #### [facility] CLIA [id number] [address] Ketones Ql (U) 1+ Abnormal Negative [facility] Comment on above: Order Comment: Speci men Type: URINE SPECIMEN Ordering Facility: [facility] Address: [address] [place] [address] Performed By: #### 2 4356-8 #### [facility] CLIA [id number] [address] Leukocyte esterase Test strip Ql (U) Negative Normal Negative [facility] Comment on above: Order Comment: Speci men Type: URINE SPECIMEN Ordering Facility: [facility] Address: [address] [place] [address] Performed By: #### 2 4356-8 #### [facility] CLIA [id number] [address] [place] Nitrite Ql (U) Negative Normal Negative [facility] Comment on above: Order Comment: Speci men Type: URINE SPECIMEN Ordering Facility: [facility] Address: [address] [place] [address] Performed By: #### 2 4356-8 #### [facility] CLIA [id number] [address] [place] pH (U) 7.0 [pH] Normal 5.0-8.0 [facility] Comment on above: Order Comment: Speci men Type: URINE SPECIMEN Ordering Facility: [facility] Address: [address] [place] [address] Performed By: #### 2 4356-8 #### [facility] CLIA [id number] [address] Protein (U) [Mass/Vol] Negative Normal Negative [facility] Comment on above: Order Comment: Speci men Type: URINE SPECIMEN Ordering Facility: [facility] Address: [address] [place] [address] Performed By: #### 2 4356-8 #### [facility] CLIA [id number] [address] RBC LM.HPF (Urine sed) [#/Area] 0-3 /HPF Normal 0-3 /HPF [facility] Comment on above: Order Comment: Speci men Type: URINE SPECIMEN Ordering Facility: [facility] Address: [address] [place] [address] Performed By: #### 2 4356-8 #### [facility] CLIA [id number] [address] Specific gravity (U) [Rel density] 1.020 Normal 1.005-1.03 0 [facility] Comment on above: Order Comment: Speci men Type: URINE SPECIMEN Ordering Facility: [facility] Address: [address] [place] [address] Performed By: #### 2 4356-8 #### [facility] CLIA [id number] [address] Urobilinogen Ql (U) 0.2 EU/dL Normal 0.2-1.0 EU/dL [facility] Comment on above: Order Comment: Speci men Type: URINE SPECIMEN Ordering Facility: [facility] Address: [address] [place] [address] Performed By: #### 2 4356-8 #### [facility] CLIA [id number] [address] WBC LM.HPF (Urine sed) [#/Area] 0-5 /HPF Normal 0-5 /HPF [facility] Comment on above: Order Comment: Speci men Type: URINE SPECIMEN Ordering Facility: [facility] Address: [place] [id number] Performed By: #### 2 4356-8 #### [facility] CLIA [id number] [address] [place] [address] [place] No Panel InformationOrdered By: Kris Knowles on 04-23-2023 D-Dimer Quantitative (PE/DVT) < 0.27 FEU/ug/m 0.27-0.49 [facility] Comment on above: NORMAL D-Dimer level (<0.50) indicates no DVT or PE. Absolute lymphocyte countOrd ered By: Kris Knowles on 04-05-2023 Lymphocytes Auto (Unsp spec) [#/Vol] 1.18 10*3/uL 0.83-4.51 [facility] Basophil percentageOrdered B y: Kris Knowles on 04-05-2023 Basophils/100 WBC (Bld) 0.7 % 0-1 [facility] Bilirubin [Mass/Vol] 1.10 mg/dL 0.20-1.00 [facility] Comment on above: For patients on eltr ombopag therapy, use of Dimension [place] TBIL is not recommended. Chloride [Moles/Vol] 103 mmol/L 98-107 [facility] Eosinophils/100 WBC (Bld) 5.9 % 0-5 [facility] Glucose [Mass/Vol] 89 mg/dL 74-106 [facility] LDH [Catalytic activity/Vol] 178 U/L 84-246 [facility] Neutrophils (Bld) [#/Vol] 1.2 10*3/uL 2.0-7.7 [facility] Neutrophils/100 WBC (Bld) 40.5 % 47-70 [facility] Potassium [Moles/Vol] 3.8 mmol/L 3.5-5.1 [facility] Protein [Mass/Vol] 7.3 g/dL 6.4-8.2 [facility] Sodium [Moles/Vol] 137 mmol/L 136-145 [facility] WBC (Bld) [#/Vol] 2.9 10*3/uL 4.4-11.0 [facility] Blood erythrocytes count (nu mber/volume)Ordered By: Kris Knowles on 04-05-2023 RBC (Bld) [#/Vol] 4.06 10*6/uL 4.2-5.4 [facility] Blood hemoglobin measurement (mass/volume)Ordered By: Kris Knowles on 04-05-2023 Hemoglobin (Bld) [Mass/Vol] 10.9 g/dL 12.0-15.0 [facility] Blood lymphocytes/100 leukoc ytesOrdered By: Kris Knowles on 04-05-2023 Lymphocytes/100 WBC (Bld) 40.8 % 19-41 [facility] Blood monocytes/100 leukocyt esOrdered By: Kris Knowles on 04-05-2023 Monocytes/100 WBC (Bld) 12.1 % 0-10 [facility] Blood platelet mean volumeOr dered By: Kris Knowles on 04-05-2023 Platelet mean volume (Bld) [Entitic vol] 10.1 fL 6.2-12.0 [facility] Determination of erythrocyte mean corpuscular volume (MCV)Ordered By: Kris Knowles on 04-05-2023 MCV (RBC) [Entitic vol] 82.8 fL 81-99 [facility] Hematocrit Auto (Bld) [Volum e fraction]Ordered By: Kris Knowles on 04-05-2023 Hematocrit (Bld) [Volume fraction] 33.6 % 37-47 [facility] INR in Blood by Coagulation assayOrdered By: Kris Knowles on 04-05-2023 INR Coag (Bld) [Relative time] 1.5 {INR} [facility] Laboratory - Chemistry and C hemistry - challengeOrdered By: Kris Knowles on 04-05-2023 ALP [Catalytic activity/Vol] 61 U/L 45-117 [facility] ALT [Catalytic activity/Vol] 18 U/L 13-56 [facility] CO2 [Moles/Vol] 28.0 mmol/L 21.0-32.0 [facility] Globulin (S) [Mass/Vol] 3.8 g/dL 2.2-4.2 [facility] Urea nitrogen/Creatinine [Mass ratio] 13.9 mg/mg 10-20 [facility] - CoagulationOrde red By: Kris Knowles on 04-05-2023 aPTT Coag (Bld) [Time] 37.0 s 24.1-36.2 [facility] PT Coag (PPP) [Time] 18.1 s 11.7-14.9 [facility] - Hematology and Cell countsOrdered By: Kris Knowles on 04-05-2023 Erythrocyte distribution width (RBC) [Entitic vol] 40.6 fL 35.1-43.9 [facility] Erythrocyte distribution width (RBC) [Ratio] 13.3 % 11.6-14.6 [facility] Immature granulocytes/100 WBC (Bld) 0.000 % 0.0-0.9 [facility] Comment on above: IG% - Immature Granu locytes (promyelocytes, myelocytes and metamyelocytes) > 1% indicates that a LEFT SHIFT is Present. MCH (RBC) [Entitic mass] 26.8 pg 27.0-32.0 [facility] Nucleated RBC/100 WBC (Bld) [Ratio] 0 % 0-5 [facility] MCHC Auto (RBC) [Mass/Vol]Or dered By: Kris Knowles on 04-05-2023 MCHC (RBC) [Mass/Vol] 32.4 g/dL 32-36 [facility] No Panel InformationOrdered By: Kris Knowles on 04-05-2023 Estimated GFR (MDRD) Amer 87 mL/min >60 [facility] Comment on above: GFR Calc Estimated GFR (MDRD) Non-Af Amer 72 mL/min >60 [facility] Comment on above: Non- GFR Calc Fibrinogen 317 mg/dl 203-444 [facility] Miscellaneous Test See comment [facility] Comment on above: TEST RESULTS LIMITST hrombotic Risk Profile IIHomocyst(e)ine 13.5 umol/L 0.0-14.5Plasminogen 89 % 70-150Antithrombin Activity 144 High % 75-135An elevated antithrombin activity is of no known clinicalsignificance. Direct Xa inhibitor anticoagulants such as rivaroxaban, apixaban and edoxaban will lead to spuriously elevated antithrombin activity levels possibly masking a deficiency.Protein C-Functional 85 % 73-180Protein S, Free 98 % 61-136Act.Prt.C Resist. 2.9 ratio 2.2-3.5The APCR result may be falsely increased (masking an abnormal, low APCR result) in patients on direct Xa inhibitor (e.g., rivaroxaban, apixaban, edoxaban) or a direct thrombin inhibitor (e.g., dabigatran) anticoagulant therapy due to assay interference by these drugs.Lupus Anticoagulant Reflex PTT-LA 44.2 High sec 0.0-43.5PTT-LA Mix 41.8 High sec 0.0-40.5Hexagonal Phase Phospholipid 5 sec 0-11dRVVT 58.0 High sec 0.0-47.0dRVVT Mix 46.6 High sec 0.0-40.4dRVVT Confirm 0.8 ratio 0.8-1.2Lupus Reflex Interpretation Comment:No lupus anticoagulant was detected. Mixing studies suggest the presence of an inhibitor. It should be noted that mixing studies performed on samples with minimally extended aPTT results can be equivocal. Normal plasma canovercome weak inhibitors, also resulting in a correction of the mixing study. The pattern observed could be caused by a specific factor inhibitor, dabigatran (a direct thrombin inhibitor anticoagulant), or a direct Xa inhibitor anticoagulant therapy such as rivaroxaban, apixaban oredoxaban. The dPT was extended but the dPT confirmatory ratio was normal. This is consistent with a deficiency or specific inhibition of one or more extrinsic pathway factors (VII, X, V, II or fibrinogen). As antibodytiters may fluctuate with time, repeat testing may be indicated and ideally should be performed in the absence of anticoagulant therapy.Dilute ProthrombinTime(dPT) 48.5 High sec 0.0-47.6dPT Confirm Ratio 1.00 Ratio 0.00-1.34Anticardiolipin Ab,IgG,Qn <9 GPL U/mL 0-14 Negative: <15 Indeterminate: 15 - 20 Low-Med Positive: >20 - 80 Anticardiolipin Ab,IgM,Qn <9 MPL U/mL 0-12 Negative: <13 Indeterminate: 13 - 20 Low-Med Positive: >20 - 80 High Positive: >80Anticardiolipin Ab,IgA,Qn <9 APL U/mL 0-11 Negative: <12 Indeterminate: 12 - 20 Low-Med Positive: >20 - 80 High Positive: >80Beta-2 Glycoprotein I Ab, IgG <9 GPI IgG units 0-20Please Note: The reference interval reflects a 3SD or 99th percentile interval, which is thought to represent a potentially clinically significant result in accordance with the International Consensus Statement on the classification criteria for definitive antiphospholipid syndrome(APS). J Thromb Haem 2006;4:295-306.Beta-2 Glycoprotein I Ab, IgA <9 GPI IgA units 0-25Please Note: The reference interval reflects a 3SD or 99th percentile interval, which is thought to represent a potentially clinically significant result in accordance with the International Consensus Statement on the classification criteria for definitive antiphospholipid syndrome(APS). J Thromb Haem 2006;4:295-306.Beta-2 Glycoprotein I Ab, IgM <9 GPI IgM units 0-32Please Note: The reference interval reflects a 3SD or 99th percentile interval, which is thought to represent a potentially clinically significant result in accordance with the International Consensus Statement on the classification criteria for definitive antiphospholipid syndrome(APS). J Thromb Haem 2006;4:295-306.Antiphosphatidylserine IgM 20 Units 0-30Antiphosphatidylserine IgA <1 APS Units 0-19Antiphosphatidylserine IgG 16 Units 0-30 _ TESTING PERFORMED AT [facility]. ORIGINAL REPORT ON FILE IN LAB CONTAINS ADDITIONAL TEST SITE INFORMATION. Platelets bldOrdered By: Chuy Knowles on 04-05-2023 Platelets (Bld) [#/Vol] 247 10*3/uL 150-450 [facility] Serum or plasma albumin elgin urement (mass/volume)Ordered By: Kris Knowles on 04-05-2023 Albumin [Mass/Vol] 3.5 g/dL 3.2-5.0 [facility] Serum or plasma albumin/glob ulin mass ratioOrdered By: Kris Knowles on 04-05-2023 Albumin/Globulin [Mass ratio] 0.9 {ratio} 0.9-2.4 [facility] Serum or plasma calcium elgin urement (mass/volume)Ordered By: Kris Knowles on 04-05-2023 Calcium [Mass/Vol] 8.9 mg/dL 8.5-10.1 [facility] Serum or plasma creatinine m easurement (mass/volume)Ordered By: Kris Knowles on 04-05-2023 Creatinine [Mass/Vol] 1.01 mg/dL 0.55-1.02 [facility] Comment on above: The validity of the calculated GFR & GFRAA in patients over 70 years has not been determined. Clinical correlation is essential. Serum or plasma urea nitroge n measurement (mass/volume)Ordered By: Kris Knowles on 04-05-2023 Urea nitrogen [Mass/Vol] 14 mg/dL 7-18 [facility] Thin prep Papanicolaou smear with manual screeningOrdered By: Kris Knowles on 04-05-2023 Thin prep Papanicolaou smear with manual screening 19 U/L 15-37 [facility] Thin prep Papanicolaou smear with manual screening 6 5-15 [facility] Albumin Elph [Mass/Vol]Order ed By: Kris Knowles on 12-27-2022 Albumin [Mass/Vol] 3.8 g/dL 2.9-4.4 [facility] Atypical perinuclear antineu trophil cytoplasmic antibodies measurementOrdered By: Kris Knowles on 12-27-2022 Neutrophil cytoplasmic Ab.perinuclear.atypical IF (S) [Titer] <1:20 titer Neg:<1:20 [facility] Comment on above: The atypical pANCA p attern has been observed in asignificant percentage of patients with ulcerative colitis,primary sclerosing cholangitis and autoimmune hepatitis. Basophil percentageOrdered B y: Jr Friend on 12-27-2022 Basophil percentage < 0.2 AI 0.0-0.9 [facility] Interpretation of serum or p lasma protein pattern by immunofixation (narrative resultOrdered By: Kris Knowles on 12-27-2022 Protein Fractions Immunofixation Erick [Interp] See comment [facility] Comment on above: RESULT:OBSERVED Iron measurement (mass/mass) Ordered By: Kris Knowles on 12-27-2022 Iron (Unsp spec) [Mass/Mass] 109 ug/dL 50-170 [facility] No Panel InformationOrdered By: Kris Knowles on 12-27-2022 Addendum Document Comment . [facility] Comment on above: Protein electrophore sis scan will follow via computer,mail, or patient advocate delivery.Performed at: [place] [email or web address] [address] [id number] Director: Rafat Molina PhD, Phone: [phone] Immunoglobulin E 941 IU/mL 6-495 [facility] Comment on above: Performed at: [facility] [address] [id number] Director: Rafat Molina PhD, Phone: [phone] at: [email or web address] [id number] Director: Rosey Pierce MD, Phone: [phone] Total Iron Binding Capacity 331 ug/dL 250-450 [facility] No Panel InformationOrdered By: Jr Ravi on 12-27-2022 Centromere B Antibody <0.2 AI 0.0-0.9 [facility] Immunoglobulin G4 14 mg/dL 2-96 [facility] Comment on above: Performed at: [facility] [address] [id number] Director: Rafat Molina PhD, Phone: [phone] POLYSOM TECH Antibody <0.2 AI 0.0-0.9 [facility] Serum DNA double strand anti body assay (units/volume)Ordered By: Jr Ravi on 12-27-2022 DNA double strand Ab Qn (S) [IU]/mL 0-9 [facility] Comment on above: Negative <5 Equivoca l 5 - 9 Positive >9 Serum IgG subclass 1 measure ment (mass/volume)Ordered By: Jr Ravi on 12-27-2022 IgG subclass 1 (S) [Mass/Vol] 1105 mg/dL 248-810 [facility] Serum IgG subclass 2 measure ment (mass/volume)Ordered By: Jr Ravi on 12-27-2022 IgG subclass 2 (S) [Mass/Vol] 484 mg/dL 130-555 [facility] Serum IgG subclass 3 measure ment (mass/volume)Ordered By: Jr Ravi on 12-27-2022 IgG subclass 3 (S) [Mass/Vol] 100 mg/dL 15-102 [facility] Serum Sara-1 antibody assay (u nits/volume)Ordered By: Jr Ravi on 12-27-2022 Sara-1 extractable nuclear Ab Qn (S) <0.2 AI 0.0-0.9 [facility] Serum Scl-70 extractable nuc lear antibody assay (units/volume)Ordered By: Jr Ravi on 12-27-2022 SCL-70 extractable nuclear Ab Qn (S) <0.2 AI 0.0-0.9 [facility] Serum Snell extractable nucl ear antibody detectionOrdered By: Jr Ravi on 12-27-2022 Snell extractable nuclear Ab Ql (S) <0.2 AI 0.0-0.9 [facility] Serum [id number] measu rement by electrophoresisOrdered By: Kris Knowles on 12-27-2022 Alpha 1 globulin Elph [Mass/Vol] 0.2 g/dL 0.0-0.4 [facility] Alpha 1 globulin Elph [Mass/Vol] 0.6 g/dL 0.4-1.0 [facility] Serum classic neutrophil cyt oplasmic antibody assay (units/volume)Ordered By: Kris Knowles on 12-27-2022 Neutrophil cytoplasmic Ab.classic Qn (S) <1:20 titer Neg:<1:20 [facility] Serum or plasma IgA measurem ent (mass/volume)Ordered By: Kris Knowles on 12-27-2022 IgA [Mass/Vol] 288 mg/dL 87-352 [facility] Serum or plasma IgG measurem ent (mass/volume)Ordered By: Jr Ravi on 12-27-2022 IgG [Mass/Vol] 1684 mg/dL 586-1602 [facility] Serum or plasma IgG measurem ent (mass/volume)Ordered By: Kris Knowles on 12-27-2022 IgG [Mass/Vol] 1530 mg/dL 586-1602 [facility] Serum or plasma IgM measurem ent (mass/volume)Ordered By: Kris Chau on 12-27-2022 IgM [Mass/Vol] 59 mg/dL 26-217 [facility] Serum or plasma beta globuli n measurement by electrophoresis (mass/volume)Ordered By: [facility] on 12-27-2022 Beta globulin Elph [Mass/Vol] 0.9 g/dL 0.7-1.3 [facility] Serum or plasma gamma globul in measurement by electrophoresis (mass/volume)Ordered By: Kris Chau on 12-27-2022 Gamma globulin Elph [Mass/Vol] 1.4 g/dL 0.4-1.8 [facility] Serum or plasma immunoelectr ophoresis interpretation (nominal result)Ordered By: Kris Chau on 12-27-2022 Interpretation IEP [Interp] Comment . [facility] Comment on above: No monoclonality det ected. Serum or plasma iron saturat ion measurement (mass fraction)Ordered By: rKis Knowles on 12-27-2022 Iron saturation [Mass fraction] 32.9 % 15.0-55.0 [facility] Serum perinuclear neutrophil cytoplasmic antibody titer by immunofluorescenceOrdered By: Kris [facility] on 12-27-2022 Neutrophil cytoplasmic Ab.perinuclear IF (S) [Titer] 1:20 titer Neg:<1:20 [facility] Comment on above: The presence of posi tive fluorescence exhibiting P-ANCA orC-ANCA patterns alone is not specific for the diagnosis ofWegener's Granulomatosis (WG) or microscopic polyangiitis.Decisions about treatment should not be based solely onANCA IFA results. The International ANCA Group Consensusrecommends follow up testing of positive sera with both SD-3 and MPO-ANCA enzyme immunoassays. As many as 5% serumsamples are positive only by EIA. Ref. AM J Clin Tqbbge7918;111:507-513. Thin prep Papanicolaou smear with manual screeningOrdered By: Kris Knowles on 12-27-2022 Thin prep Papanicolaou smear with manual screening 1.3 0.7-1.7 [facility] Total protein bloodOrdered B y: Kris Knowles on 12-27-2022 Protein [Mass/Vol] 6.9 g/dL 6.0-8.5 [facility] Absolute lymphocyte countOrd ered By: Dr. Harrington on 08-31-2022 Lymphocytes Auto (Unsp spec) [#/Vol] 1.10 10*3/uL 0.83-4.51 [facility] Basophil percentageOrdered B y: Dr. Harrington on 08-31-2022 Basophils/100 WBC (Bld) 0.8 % 0-1 [facility] Bilirubin [Mass/Vol] 2.10 mg/dL 0.20-1.00 [facility] Comment on above: For patients on eltr ombopag therapy, use of Dimension [place] TBIL is not recommended. Chloride [Moles/Vol] 101 mmol/L 98-107 [facility] Eosinophils/100 WBC (Bld) 4.1 % 0-5 [facility] Glucose [Mass/Vol] 81 mg/dL 74-106 [facility] Neutrophils (Bld) [#/Vol] 2.3 10*3/uL 2.0-7.7 [facility] Neutrophils/100 WBC (Bld) 58.6 % 47-70 [facility] Potassium [Moles/Vol] 4.0 mmol/L 3.5-5.1 [facility] Protein [Mass/Vol] 8.2 g/dL 6.4-8.2 [facility] Sodium [Moles/Vol] 136 mmol/L 136-145 [facility] WBC (Bld) [#/Vol] 3.9 10*3/uL 4.4-11.0 [facility] Bilirubin Test strip Ql (U)O rdered By: Dr. Harrington on 08-31-2022 Bilirubin Ql (U) Negative Negative [facility] Blood erythrocytes count (nu mber/volume)Ordered By: Dr. Harrington on 08-31-2022 RBC (Bld) [#/Vol] 4.68 10*6/uL 4.2-5.4 [facility] Blood hemoglobin measurement (mass/volume)Ordered By: Dr. Harrington on 08-31-2022 Hemoglobin (Bld) [Mass/Vol] 12.3 g/dL 12.0-15.0 [facility] Blood lymphocytes/100 leukoc ytesOrdered By: Dr. Harrington on 08-31-2022 Lymphocytes/100 WBC (Bld) 27.9 % 19-41 [facility] Blood monocytes/100 leukocyt esOrdered By: Dr. Harrington on 08-31-2022 Monocytes/100 WBC (Bld) 8.6 % 0-10 [facility] Blood platelet mean volumeOr dered By: Dr. Harrington on 08-31-2022 Platelet mean volume (Bld) [Entitic vol] 10.7 fL 6.2-12.0 [facility] Determination of erythrocyte mean corpuscular volume (MCV)Ordered By: Dr. Harrington on 08-31-2022 MCV (RBC) [Entitic vol] 83.1 fL 81-99 [facility] Dilute Mirza's viper venom timeOrdered By: Dr. Harrington on 08-31-2022 dRVVT Coag (PPP) [Time] 43.7 s 0.0-47.0 [facility] Hematocrit Auto (Bld) [Volum e fraction]Ordered By: Dr. Harrington on 08-31-2022 Hematocrit (Bld) [Volume fraction] 38.9 % 37-47 [facility] INR in Blood by Coagulation assayOrdered By: Dr. Harrington on 08-31-2022 INR Coag (Bld) [Relative time] 1.3 {INR} [facility] Ketones Test strip Ql (U)Ord ered By: Dr. Harrington on 08-31-2022 Ketones Ql (U) Negative Negative [facility] Laboratory - Chemistry and C hemistry - challengeOrdered By: Dr. Harrington on 08-31-2022 ALP [Catalytic activity/Vol] 63 U/L 45-117 [facility] ALT [Catalytic activity/Vol] 19 U/L 13-56 [facility] CO2 [Moles/Vol] 28.0 mmol/L 21.0-32.0 [facility] Globulin (S) [Mass/Vol] 4.3 g/dL 2.2-4.2 [facility] Urea nitrogen/Creatinine [Mass ratio] 15.2 mg/mg 10-20 [facility] Laboratory - CoagulationOrde red By: Dr. Harrington on 08-31-2022 aPTT Coag (Bld) [Time] 34.5 s 24.1-36.2 [facility] PT Coag (PPP) [Time] 15.5 s 11.7-14.9 [facility] - Hematology and Cell countsOrdered By: Dr. Harrington on 08-31-2022 Erythrocyte distribution width (RBC) [Entitic vol] 40.8 fL 35.1-43.9 [facility] Erythrocyte distribution width (RBC) [Ratio] 13.4 % 11.6-14.6 [facility] Immature granulocytes/100 WBC (Bld) 0.000 % 0.0-0.9 [facility] Comment on above: IG% - Immature Granu locytes (promyelocytes, myelocytes and metamyelocytes) > 1% indicates that a LEFT SHIFT is Present. MCH (RBC) [Entitic mass] 26.3 pg 27.0-32.0 [facility] Nucleated RBC/100 WBC (Bld) [Ratio] 0 % 0-5 [facility] Laboratory - Miscellaneous t estsOrdered By: Dr. Harrington on 08-31-2022 Service comment (Unsp spec) [Interp] Comment . [facility] Comment on above: Results do not indic ate the presence of a LupusAnticoagulant: abnormal high screening results (PTT-LA,dRVVT, mixing studies), may be due to medication (heparin,warfarin, aspirin), Factor inhibitors, anticardiolipinantibodies, or poor specimen integrity.Performed at: [address] [id number] Director: Rosey Pierce MD, Phone: [phone] MCHC Auto (RBC) [Mass/Vol]Or dered By: Dr. Harrington on 08-31-2022 MCHC (RBC) [Mass/Vol] 31.6 g/dL 32-36 [facility] Nitrite Test strip Ql (U)Ord ered By: Dr. Harrington on 08-31-2022 Nitrite Ql (U) Negative Negative [facility] No Panel InformationOrdered By: Dr. Harrington on 08-31-2022 Estimated GFR (MDRD) Amer 84 mL/min >60 [facility] Comment on above: GFR Calc Estimated GFR (MDRD) Non-Af Amer 69 mL/min >60 [facility] Comment on above: Non- GFR Calc Miscellaneous Test Comment MAILED SPECIMEN [facility] Platelets bldOrdered By: Dr. Harrington on 08-31-2022 Platelets (Bld) [#/Vol] 300 10*3/uL 150-450 [facility] Protein Test strip Ql (U)Ord ered By: Dr. Harrington on 08-31-2022 Protein Ql (U) 15 mg/dl Negative [facility] Serum or plasma albumin elgin urement (mass/volume)Ordered By: Dr. Harrington on 08-31-2022 Albumin [Mass/Vol] 3.9 g/dL 3.2-5.0 [facility] Serum or plasma albumin/glob ulin mass ratioOrdered By: Dr. Harrington on 08-31-2022 Albumin/Globulin [Mass ratio] 0.9 {ratio} 0.9-2.4 [facility] Serum or plasma calcium elgin urement (mass/volume)Ordered By: Dr. Harrington on 08-31-2022 Calcium [Mass/Vol] 9.5 mg/dL 8.5-10.1 [facility] Serum or plasma creatinine m easurement (mass/volume)Ordered By: Dr. Harrington on 08-31-2022 Creatinine [Mass/Vol] 1.05 mg/dL 0.55-1.02 [facility] Comment on above: The validity of the calculated GFR & GFRAA in patients over 70 years has not been determined. Clinical correlation is essential. Serum or plasma urea nitroge n measurement (mass/volume)Ordered By: Dr. Harrington on 08-31-2022 Urea nitrogen [Mass/Vol] 16 mg/dL 7-18 [facility] Thin prep Papanicolaou smear with manual screeningOrdered By: Dr. Harrington on 08-31-2022 Thin prep Papanicolaou smear with manual screening 19 U/L 15-37 [facility] Thin prep Papanicolaou smear with manual screening 7 5-15 [facility] Thin prep Papanicolaou smear with manual screening 39.8 sec 0.0-47.6 [facility] Thin prep Papanicolaou smear with manual screening 0.90 Ratio 0.00-1.34 [facility] Thin prep Papanicolaou smear with manual screening 39.1 sec 0.0-51.9 [facility] Comment on above: Effective September 10, 2022 PTT-LA reference interval will be changing to: 0.0 - 43.5 sec Thin prep Papanicolaou smear with manual screening Comment: . [facility] Comment on above: No lupus anticoagula nt was detected. Thrombin time in platelet po or plasmaOrdered By: Dr. Harrington on 08-31-2022 Thrombin time Coag (PPP) [Time] 16.8 sec 0.0-23.0 [facility] Urine blood detectionOrdered By: Dr. Harrington on 08-31-2022 RBC Ql (U) Negative Negative [facility] Urine clarityOrdered By: Dr. Harrington on 08-31-2022 Clarity (U) Clear Clear [facility] Urine color determinationOrd ered By: Dr. Harrington on 08-31-2022 Color (U) Yellow Yellow [facility] Urine creatinine measurement (mass/volume)Ordered By: Dr. Harrington on 08-31-2022 Creatinine (U) [Mass/Vol] 272.00 mg/dL NO RANGE EST. [facility] Urine glucose detectionOrder ed By: Dr. Harrington on 08-31-2022 Glucose Ql (U) Normal mg/dl Normal [facility] Urine leukocyte esterase det ection by dipstickOrdered By: Dr. Harrington on 08-31-2022 Leukocyte esterase Test strip Ql (U) 25 /ul Negative [facility] Urine pHOrdered By: Dr. Jay driver on 08-31-2022 pH (U) 6.5 [pH] 5.0 - 8.0 [facility] Urine protein measurement (m ass/volume)Ordered By: Dr. Harrington on 08-31-2022 Protein (U) [Mass/Vol] 16.3 mg/dL 0.0-11.8 [facility] Urine protein/creatinine mas s ratioOrdered By: Dr. Harrington on 08-31-2022 Protein/Creatinine (U) [Mass ratio] 60 mg/g CRE 0-200 [facility] Urine specific gravity measu rementOrdered By: Dr. Harrington on 08-31-2022 Specific gravity (U) [Rel density] 1.015 1.002-1.03 0 [facility] Urobilinogen Auto test strip Ql (U)Ordered By: Dr. Harrington on 08-31-2022 Urobilinogen Ql (U) 1 mg/dl Normal [facility] Laboratory - Chemistry and C hemistry - challengeOrdered By: Dr. Galvan on 08-23-2022 HCG ( test) Ql (U) Negative [facility] Comment on above: Very dilute urine sp ecimens, as indicated by a low specificgravity, may not contain delivery representative levels of hCG. If is still suspected, a first morning urinespecimen should be collected 48 hours later and tested. Absolute lymphocyte countOrd ered By: Dr. Sinclair on 07-07-2022 Lymphocytes Auto (Unsp spec) [#/Vol] 1.17 10*3/uL 0.83-4.51 [facility] Basophil percentageOrdered B y: Jr Ravi on 07-07-2022 Lactate [Moles/Vol] 0.7 mmol/L 0.4-2.0 [facility] Basophil percentageOrdered B y: Dr. Sinclair on 07-07-2022 Basophil percentage 0-5 SEEN /hpf 0-5 [facility] Basophils/100 WBC (Bld) 0.1 % 0-1 [facility] Bilirubin [Mass/Vol] 0.80 mg/dL 0.20-1.00 [facility] Comment on above: For patients on eltr ombopag therapy, use of Dimension [place] TBIL is not recommended. Chloride [Moles/Vol] 105 mmol/L 98-107 [facility] Eosinophils/100 WBC (Bld) 1.7 % 0-5 [facility] Glucose [Mass/Vol] 106 mg/dL 74-106 [facility] Comment on above: Fasting Glucose resu lt from 100 to 125 mg/dL suggests IMPAIRED HOMEOSTASIS per A.D.A. criteria. Neutrophils (Bld) [#/Vol] 6.4 10*3/uL 2.0-7.7 [facility] Neutrophils/100 WBC (Bld) 77.7 % 47-70 [facility] Potassium [Moles/Vol] 3.4 mmol/L 3.5-5.1 [facility] Protein [Mass/Vol] 7.5 g/dL 6.4-8.2 [facility] Sodium [Moles/Vol] 139 mmol/L 136-145 [facility] WBC (Bld) [#/Vol] 8.2 10*3/uL 4.4-11.0 [facility] Basophil percentageon 2021 Lactate [Moles/Vol] 1.6 mmol/L 0.4-2.0 [facility] Work Phone: Bilirubin Test strip Ql (U)O rdered By: Dr. Sinclair on 07-07-2022 Bilirubin Ql (U) Negative Negative [facility] Blood erythrocytes count (nu mber/volume)Ordered By: Dr. Sinclair on 07-07-2022 RBC (Bld) [#/Vol] 4.23 10*6/uL 4.2-5.4 [facility] Blood hemoglobin measurement (mass/volume)Ordered By: Dr. Sinclair on 07-07-2022 Hemoglobin (Bld) [Mass/Vol] 11.1 g/dL 12.0-15.0 [facility] Blood lymphocytes/100 leukoc ytesOrdered By: Dr. Sinclair on 07-07-2022 Lymphocytes/100 WBC (Bld) 14.3 % 19-41 [facility] Blood monocytes/100 leukocyt esOrdered By: Dr. Sinclair on 07-07-2022 Monocytes/100 WBC (Bld) 6.0 % 0-10 [facility] Blood platelet mean volumeOr dered By: Dr. Sinclair on 07-07-2022 Platelet mean volume (Bld) [Entitic vol] 9.7 fL 6.2-12.0 [facility] Determination of erythrocyte mean corpuscular volume (MCV)Ordered By: Dr. Sinclair on 07-07-2022 MCV (RBC) [Entitic vol] 81.8 fL 81-99 [facility] Direct bilirubinOrdered By: Dr. Sinclair on 07-07-2022 Bilirubin.direct [Mass/Vol] 0.27 mg/dL 0.00-0.30 [facility] Erythrocyte sedimentation ra teOrdered By: Jr Ravi on 07-07-2022 ESR (Bld) [Velocity] 23 mm/h 0-30 [facility] Hematocrit Auto (Bld) [Volum e fraction]Ordered By: Dr. Sinclair on 07-07-2022 Hematocrit (Bld) [Volume fraction] 34.6 % 37-47 [facility] Ketones Test strip Ql (U)Ord ered By: Dr. Sinclair on 07-07-2022 Ketones Ql (U) Negative Negative [facility] Laboratory - Chemistry and C hemistry - challengeOrdered By: Dr. Sinclair on 07-07-2022 HCG ( test) Ql (U) Negative [facility] Comment on above: Very dilute urine sp ecimens, as indicated by a low specificgravity, may not contain delivery representative levels of hCG. If is still suspected, a first morning urinespecimen should be collected 48 hours later and tested. ALP [Catalytic activity/Vol] 77 U/L 45-117 [facility] ALT [Catalytic activity/Vol] 42 U/L 13-56 [facility] CO2 [Moles/Vol] 29.0 mmol/L 21.0-32.0 [facility] [facility] (S) [Mass/Vol] 4.0 g/dL 2.2-4.2 [facility] Lipase [Catalytic activity/Vol] 67 U/L 73-393 [facility] Urea nitrogen/Creatinine [Mass ratio] 12.9 mg/mg 10-20 [facility] Laboratory - Hematology and Cell countsOrdered By: Dr. Sinclair on 07-07-2022 Erythrocyte distribution width (RBC) [Entitic vol] 40.2 fL 35.1-43.9 [facility] Erythrocyte distribution width (RBC) [Ratio] 13.6 % 11.6-14.6 [facility] Immature granulocytes/100 WBC (Bld) 0.200 % 0.0-0.9 [facility] Comment on above: IG% - Immature Granu locytes (promyelocytes, myelocytes and metamyelocytes) > 1% indicates that a LEFT SHIFT is Present. MCH (RBC) [Entitic mass] 26.2 pg 27.0-32.0 [facility] Nucleated RBC/100 WBC (Bld) [Ratio] 0 % 0-5 [facility] MCHC Auto (RBC) [Mass/Vol]Or dered By: Dr. Sinclair on 07-07-2022 MCHC (RBC) [Mass/Vol] 32.1 g/dL 32-36 [facility] Mucus LM Ql (Urine sed)Order ed By: Dr. Sinclair on 07-07-2022 Mucus Ql (Urine sed) 0 SEEN /hpf [facility] Nitrite Test strip Ql (U)Ord ered By: Dr. Sinclair on 07-07-2022 Nitrite Ql (U) Negative Negative [facility] No Panel InformationOrdered By: Dr. Sinclair on 07-07-2022 Estimated Creatinine Clearance Calc 65.69 ml/min [facility] Estimated GFR (MDRD) Amer 75 mL/min >60 [facility] Comment on above: GFR Calc Estimated GFR (MDRD) Non-Af Amer 62 mL/min >60 [facility] Comment on above: Non- GFR Calc Platelets bldOrdered By: Dr. Sinclair on 07-07-2022 Platelets (Bld) [#/Vol] 227 10*3/uL 150-450 [facility] Protein Test strip Ql (U)Ord ered By: Dr. Sinclair on 07-07-2022 Protein Ql (U) Negative Negative [facility] Serum or plasma C reactive p rotein measurement (mass/volume)Ordered By: Jr Ravi on 07-07-2022 CRP [Mass/Vol] 5.99 mg/L 0.0-3.0 [facility] Comment on above: C-Reactive Protein ( CRP) provides useful information for thediagnosis, therapy and monitoring of inflammatory processesand associated diseases. For the evaluation of Relative Riskfor Cardiovascular Disease, a High Sensitivity CRP (HSCRP)should be ordered. Serum or plasma albumin elgin urement (mass/volume)Ordered By: Dr. Sinclair on 07-07-2022 Albumin [Mass/Vol] 3.5 g/dL 3.2-5.0 [facility] Serum or plasma calcium elgin urement (mass/volume)Ordered By: Dr. Sinclair on 07-07-2022 Calcium [Mass/Vol] 9.0 mg/dL 8.5-10.1 [facility] Serum or plasma creatinine m easurement (mass/volume)Ordered By: Dr. Sinclair on 07-07-2022 Creatinine [Mass/Vol] 1.16 mg/dL 0.55-1.02 [facility] Comment on above: The validity of the calculated GFR & GFRAA in patients over 70 years has not been determined. Clinical correlation is essential. Serum or plasma urea nitroge n measurement (mass/volume)Ordered By: Dr. Sinclair on 07-07-2022 Urea nitrogen [Mass/Vol] 15 mg/dL 7-18 [facility] Squamous epithelial cells de tection in urine sediment by light microscopyOrdered By: Dr. Sinclair on 07-07-2022 Epithelial cells.squamous LM Ql (Urine sed) 0-5 SEEN /hpf 5-10 [facility] Thin prep Papanicolaou smear with manual screeningOrdered By: Dr. Sinclair on 07-07-2022 Thin prep Papanicolaou smear with manual screening 68 U/L 15-37 [facility] Thin prep Papanicolaou smear with manual screening 5 5-15 [facility] Urine blood detectionOrdered By: Dr. Sinclair on 07-07-2022 RBC Ql (U) Negative Negative [facility] RBC Ql (U) 0 SEEN /hpf 0-5 [facility] Urine clarityOrdered By: Dr. Sinclair on 07-07-2022 Clarity (U) Clear Clear [facility] Urine color determinationOrd ered By: Dr. Sinclair on 07-07-2022 Color (U) Yellow Yellow [facility] Urine glucose detectionOrder ed By: Dr. Sinclair on 07-07-2022 Glucose Ql (U) Normal mg/dl Normal [facility] Urine leukocyte esterase det ection by dipstickOrdered By: Dr. Sinclair on 07-07-2022 Leukocyte esterase Test strip Ql (U) 100 /ul Negative [facility] Urine pHOrdered By: Dr. Jose Manuel shabazz on 07-07-2022 pH (U) 8.0 [pH] 5.0 - 8.0 [facility] Urine sediment bacteria coun t by microscopy (number/high power field)Ordered By: Dr. Sinclair on 07-07-2022 Bacteria LM.HPF (Urine sed) [#/Area] 1 /[HPF] None Seen [facility] Urine specific gravity measu rementOrdered By: Dr. Sinclair on 07-07-2022 Specific gravity (U) [Rel density] 1.015 1.002-1.03 0 [facility] Urobilinogen Auto test strip Ql (U)Ordered By: Dr. Sinclair on 07-07-2022 Urobilinogen Ql (U) Normal mg/dl Normal [facility] CNPNon 07-05-2022 CNPN Telephone (HEMAWS) ----- BROOKE WOOD ([id number]) 1 F Date Time Provider Department 07/05/22 TIM BARAKAT During your visit today, we recorded the following information about you: Martha Taye 07/05/2022 9:14 AM Signed Patient is being referred to Dr. Barakat by Dr. Ravi for pulmonary embolism. Please contact patient to schedule if accepted into the practice. Joan Goldsmith 07/05/2022 11:01 AM Signed 1st attempt: No answer and unable to leave VM. When pt returns call please inform her to contact her referring Physicians office and have them fax the referral to our office: [phone] Joan Goldsmith 07/09/2022 11:01 AM Signed 2ND ATTEMPT: When pt returns call please assist as detailed below. Thank you! Radha Weller 07/10/2022 9:21 AM Signed Pt returned call. Given message below. She will contact Dr. Ravi's office. Radha Weller 07/10/2022 9:51 AM Signed Pt is having trouble reaching Dr. Ravi's office. She states that no on ever picks up and she tried to reach them. She wondered if our office could try contacting them. Bella Melgoza Pss 07/10/2022 9:55 AM Signed Are we able to get records on this patient? Please advise. Megan Shane TOBACCO SPRAYER 07/10/2022 10:15 AM Signed Spoke with Dr. Ravi office, silas informed they had referred pt. To [facility]. She will contact pt. To see whom pt. Wants to see. If she would like to see us they will send a proper referral with records. Megan Shane, [place] Bella Benchoff Pss 07/10/2022 10:43 AM Signed Received information. Given to nursing for Dr. Barakat to review. DX: Abnormal IGG Allergies As of Date: 07/05/2022 (No Known Allergies) Date Reviewed: 02/05/2019 Reviewed by: Patricia Sanches ([facility]) Michaela - Fully Assessed Reason for Visit: New Patient [172] Cmt: Hematology Referral-Dr. Ravi Prescriptions as of 07/27/2022 - atenolol (TENORMIN) 25 mg tablet - albuterol HFA (VENTOLIN HFA) 90 mcg/actuation inhaler Inhale 2 Puffs as instructed. Problem List As Of Date: 07/05/2022 (None) Encounter Status:Closed by MARTHA KOTHARI on 07/27/[address] [facility] EP PanelOrdered By: Jr Ravi on 06-27-2022 Gastrointestinal pathogens panel DEZ+probe (Stl) [facility] No Panel InformationOrdered By: Jr Ravi on 06-26-2022 Stool Calprotectin 66 ug/g 0-120 [facility] Comment on above: Concentration Interp retation Follow-Up<16 - 50 ug/g Normal None>50 -120 ug/g Borderline Re-evaluate in 4-6 weeks >120 ug/g Abnormal Repeat as clinically indicatedPerformed at: [facility] [address] [id number] Director: Rosey Pierce MD, Phone: [phone] Stool Pancreatic Elastase 363 >200 [facility] Comment on above: Result Units: ug Yari st./g Severe Pancreatic Insufficiency: <100 Moderate Pancreatic Insufficiency: 100 - 200 Normal: >200Performed at: [place] [facility] [address] [id number] Director: Rosey Pierce MD, Phone: [phone] Stool gastrointestinal hemog lobin detection by immunologic methodOrdered By: Jr Ravi on 06-26-2022 Lower GI hemoglobin IA Ql (Stl) [facility] Albumin Elph [Mass/Vol]Order ed By: Jr Ravi on 06-25-2022 Albumin [Mass/Vol] 4.2 g/dL 2.9-4.4 [facility] Atypical perinuclear antineu trophil cytoplasmic antibodies measurementOrdered By: Jr Ravi on 06-25-2022 Neutrophil cytoplasmic Ab.perinuclear.atypical IF (S) [Titer] <1:20 titer Neg:<1:20 [facility] Comment on above: The atypical pANCA p attern has been observed in asignificant percentage of patients with ulcerative colitis,primary sclerosing cholangitis and autoimmune hepatitis. Basophil percentageOrdered B y: Jr Ravi on 06-25-2022 Basophil percentage < 0.2 AI 0.0-0.9 [facility] Bilirubin [Mass/Vol] 0.40 mg/dL 0.20-1.00 [facility] Comment on above: For patients on eltr ombopag therapy, use of Dimension [place] TBIL is not recommended. Chloride [Moles/Vol] 104 mmol/L 98-107 [facility] Glucose [Mass/Vol] 99 mg/dL 74-106 [facility] Potassium [Moles/Vol] 4.4 mmol/L 3.5-5.1 [facility] Protein [Mass/Vol] 8.0 g/dL 6.4-8.2 [facility] Sodium [Moles/Vol] 137 mmol/L 136-145 [facility] Dilute Mirza's viper venom timeOrdered By: Jr Ravi on 06-25-2022 dRVVT Coag (PPP) [Time] 48.8 s 0.0-47.0 [facility] Erythrocyte sedimentation ra teOrdered By: Jr Ravi on 06-25-2022 ESR (Bld) [Velocity] 30 mm/h 0-30 [facility] Interpretation of serum or p lasma protein pattern by immunofixation (narrative resultOrdered By: Jr Ravi on 06-25-2022 Protein Fractions Immunofixation Erick [Interp] See comment [facility] Comment on above: Result: Not Observed Laboratory - Chemistry and C hemistry - challengeOrdered By: Jr Ravi on 06-25-2022 ALP [Catalytic activity/Vol] 89 U/L 45-117 [facility] ALT [Catalytic activity/Vol] 18 U/L 13-56 [facility] CO2 [Moles/Vol] 29.0 mmol/L 21.0-32.0 [facility] Cobalamin (Vitamin B12) [Mass/Vol] 774 pg/mL 211-911 [facility] Free T4 [Mass/Vol] 1.19 ng/dL 0.76-1.46 [facility] Urea nitrogen/Creatinine [Mass ratio] 22.4 mg/mg 10-20 [facility] No Panel InformationOrdered By: Jr Ravi on 06-25-2022 Activated Protein C Resistance 2.8 ratio 2.2-3.5 [facility] Comment on above: The APCR result may be falsely increased (masking anabnormal, low APCR result) in patients on direct Xainhibitor (e.g., rivaroxaban, apixaban, edoxaban) or adirect thrombin inhibitor (e.g., dabigatran) anticoagulanttherapy due to assay interference by these drugs. Addendum Document Comment . [facility] Comment on above: Protein electrophore sis scan will follow via computer,mail, or patient advocate delivery. Centromere B Antibody <0.2 AI 0.0-0.9 [facility] Endomysial IgA Antibody Negative Negative [facility] Estimated GFR (MDRD) Amer 82 mL/min >60 [facility] Comment on above: GFR Calc Estimated GFR (MDRD) Non-Af Amer 68 mL/min >60 [facility] Comment on above: Non- GFR Calc Free Triiodothyronine (T3) pg/dL 2.4 pg/mL 2.18-3.98 [facility] Immunoglobulin E 1597 IU/mL 6-495 [facility] POLYSOM TECH Antibody <0.2 AI 0.0-0.9 [facility] Thyroid Stimulating Hormone (TSH) 0.73 uIU/mL 0.358-3.74 [facility] Platelet poor plasma antithr ombin actual/normal ratio by chromogenic method (relativeOrdered By: Jr Ravi on 06-25-2022 Antithrombin actual/normal Chromogenic method (PPP) [Rel catalytic activity/Vol] 122 % 75-135 [facility] Comment on above: Direct Xa inhibitor anticoagulants such as rivaroxaban,apixaban and edoxaban will lead to spuriously elevatedantithrombin activity levels possibly masking a deficiency. Protein C antigen assayOrder ed By: Jr Ravi on 06-25-2022 Protein C Ag actual/normal IA (PPP) [Relative mass conc] 81 % 60-150 [facility] Comment on above: Performed at: [address] [id number] Director: Rosey Pierce MD, Phone: [phone] at: [facility] [id number] Director: Rafat Molina PhD, Phone: [phone] Protein S measurement in francois telet poor plasma by coagulation assay (units/volume)Ordered By: Jr Ravi on 06-25-2022 Protein S Coag Qn (PPP) 120 % 60-150 [facility] Comment on above: This test was develo ped and its performance characteristicsdetermined by [employer] It has not been cleared orapproved by the Food and Drug Administration. Protein S, freeOrdered By: [place] Ravi on 06-25-2022 Protein S Free Ag IA Qn (PPP) 101 % 61-136 [facility] Serum DNA double strand anti body assay (units/volume)Ordered By: Jr Ravi on 06-25-2022 DNA double strand Ab Qn (S) 1 [IU]/mL 0-9 [facility] Comment on above: Negative <5 Equivoca l 5 - 9 Positive >9 Serum Sara-1 antibody assay (u nits/volume)Ordered By: Jr Ravi on 06-25-2022 Sara-1 extractable nuclear Ab Qn (S) <0.2 AI 0.0-0.9 [facility] Serum Scl-70 extractable nuc lear antibody assay (units/volume)Ordered By: Jr Ravi on 06-25-2022 SCL-70 extractable nuclear Ab Qn (S) <0.2 AI 0.0-0.9 [facility] Serum Snell extractable nucl ear antibody detectionOrdered By: Jrluciano Ravi on 06-25-2022 Snell extractable nuclear Ab Ql (S) <0.2 AI 0.0-0.9 [facility] Serum [id number] measu rement by electrophoresisOrdered By: Jr Ravi on 06-25-2022 Alpha 1 globulin Elph [Mass/Vol] 0.2 g/dL 0.0-0.4 [facility] Alpha 1 globulin Elph [Mass/Vol] 0.6 g/dL 0.4-1.0 [facility] Serum classic neutrophil cyt oplasmic antibody assay (units/volume)Ordered By: Jr Ravi on 06-25-2022 Neutrophil cytoplasmic Ab.classic Qn (S) 1:20 titer Neg:<1:20 [facility] Serum globulin measurement ( mass/volume)Ordered By: Jr Ravi on 06-25-2022 Globulin (S) [Mass/Vol] 3.4 g/dL 2.2-3.9 [facility] Serum or plasma C reactive p rotein measurement (mass/volume)Ordered By: Jr Ravi on 06-25-2022 CRP [Mass/Vol] 5.11 mg/L 0.0-3.0 [facility] Comment on above: C-Reactive Protein ( CRP) provides useful information for thediagnosis, therapy and monitoring of inflammatory processesand associated diseases. For the evaluation of Relative Riskfor Cardiovascular Disease, a High Sensitivity CRP (HSCRP)should be ordered. Serum or plasma IgA measurem ent (mass/volume)Ordered By: Jr Ravi on 06-25-2022 IgA [Mass/Vol] 349 mg/dL 87-352 [facility] Serum or plasma IgG measurem ent (mass/volume)Ordered By: Jr Ravi on 06-25-2022 IgG [Mass/Vol] 1844 mg/dL 586-1602 [facility] Serum or plasma IgM measurem ent (mass/volume)Ordered By: Jr Ravi on 06-25-2022 IgM [Mass/Vol] 67 mg/dL 26-217 [facility] Serum or plasma albumin elgin urement (mass/volume)Ordered By: Jr Ravi on 06-25-2022 Albumin [Mass/Vol] 3.7 g/dL 3.2-5.0 [facility] Serum or plasma albumin/glob ulin mass ratioOrdered By: Jr Ravi on 06-25-2022 Albumin/Globulin [Mass ratio] 0.9 {ratio} 0.9-2.4 [facility] Serum or plasma angiotensin converting enzyme measurement (enzymatic activity/volume)Ordered By: Jr Ravi on 06-25-2022 Angiotensin converting enzyme [Catalytic activity/Vol] 47 U/L [facility] Serum or plasma beta globuli n measurement by electrophoresis (mass/volume)Ordered By: Jr Ravi on 06-25-2022 Beta globulin Elph [Mass/Vol] 1.0 g/dL 0.7-1.3 [facility] Serum or plasma calcium elgin urement (mass/volume)Ordered By: Jr Ravi on 06-25-2022 Calcium [Mass/Vol] 9.2 mg/dL 8.5-10.1 [facility] Serum or plasma creatinine m easurement (mass/volume)Ordered By: Jr Ravi on 06-25-2022 Creatinine [Mass/Vol] 1.07 mg/dL 0.55-1.02 [facility] Comment on above: The validity of the calculated GFR & GFRAA in patients over 70 years has not been determined. Clinical correlation is essential. Serum or plasma ferritin sanjeev surement (mass/volume)Ordered By: Jr Ravi on 06-25-2022 Ferritin [Mass/Vol] 38 ng/mL [facility] Serum or plasma gamma globul in measurement by electrophoresis (mass/volume)Ordered By: Jr Ravi on 06-25-2022 Gamma globulin Elph [Mass/Vol] 1.6 g/dL 0.4-1.8 [facility] Serum or plasma immunoelectr ophoresis interpretation (nominal result)Ordered By: Jr Ravi on 06-25-2022 Interpretation IEP [Interp] Comment . [facility] Comment on above: No monoclonality det ected. Serum or plasma urea nitroge n measurement (mass/volume)Ordered By: Jr Ravi on 06-25-2022 Urea nitrogen [Mass/Vol] 24 mg/dL 7-18 [facility] Serum perinuclear neutrophil cytoplasmic antibody titer by immunofluorescenceOrdered By: Jr Ravi on 06-25-2022 Neutrophil cytoplasmic Ab.perinuclear IF (S) [Titer] <1:20 titer Neg:<1:20 [facility] Comment on above: The presence of posi tive fluorescence exhibiting P-ANCA orC-ANCA patterns alone is not specific for the diagnosis ofWegener's Granulomatosis (WG) or microscopic polyangiitis.Decisions about treatment should not be based solely onANCA IFA results. The [employer] ANCA [employer] Consensusrecommends follow up testing of positive sera with both SD-3 and MPO-ANCA enzyme immunoassays. As many as 5% serumsamples are positive only by EIA. Ref. AM J Clin Bqubcf2319;111:507-513. Serum tissue transglutaminas e IgA antibody assay (units/volume)Ordered By: Jr Ravi on 06-25-2022 tTG IgA Qn (S) <2 U/mL 0-3 [facility] Comment on above: Negative 0 - 3 Weak Positive 4 - 10 Positive >10 Tissue Transglutaminase (tTG) has been identified as the endomysial antigen. Studies have demonstr- ated that endomysial IgA antibodies have over 99% specificity for gluten sensitive enteropathy. Thin prep Papanicolaou smear with manual screeningOrdered By: Jr Ravi on 06-25-2022 Thin prep Papanicolaou smear with manual screening 15 U/L 15-37 [facility] Thin prep Papanicolaou smear with manual screening 4 5-15 [facility] Thin prep Papanicolaou smear with manual screening 152 U/L 84-246 [facility] Thin prep Papanicolaou smear with manual screening 1.3 0.7-1.7 [facility] Thin prep Papanicolaou smear with manual screening 48.5 sec 0.0-47.6 [facility] Thin prep Papanicolaou smear with manual screening 1.02 Ratio 0.00-1.34 [facility] Thin prep Papanicolaou smear with manual screening 40.6 sec 0.0-51.9 [facility] Thin prep Papanicolaou smear with manual screening Comment: . [facility] Comment on above: No lupus anticoagula nt was detected. PTT-LA and dRVVT results areconsistent with specific inhibitors to one or more common pathway factors(X, V, II or fibrinogen). The dPT was extended but the dPT confirmatoryratio was normal. As antibody titers may fluctuate with time, repeattesting may be indicated and ideally should be performed in the absence ofanticoagulant therapy. Thrombin time in platelet po or plasmaOrdered By: Jr Ravi on 06-25-2022 Thrombin time Coag (PPP) [Time] 21.2 sec 0.0-23.0 [facility] Total protein bloodOrdered B y: Jr Ravi on 06-25-2022 Protein [Mass/Vol] 7.6 g/dL 6.0-8.5 [facility] Basophil percentageOrdered B y: Dr. Mccarty on 06-06-2022 Basophil percentage Not Reportable [facility] Erythrocyte sedimentation ra teOrdered By: Dr. Mccarty on 06-06-2022 ESR (Bld) [Velocity] 36 mm/h 0-30 [facility] - Chemistry and C hemistry - challengeOrdered By: Dr. Mccarty on 06-06-2022 Free T4 [Mass/Vol] 1.42 ng/dL 0.76-1.46 [facility] No Panel InformationOrdered By: Dr. Mccarty on 06-06-2022 Anti-Cardiolipin IgM Antibody < 9 MPL U/mL 0-12 [facility] Comment on above: Negative: <13 Indete rminate: 13 - 20 Low-Med Positive: >20 - 80 High Positive: >80Performed at: [facility] [address] [id number] Director: Rafat Molina PhD, Phone: [phone] Anti-Nuclear Antibody Screen Negative Negative [facility] Comment on above: Performed at: [facility] [address] [id number] Director: Rafat Molina PhD, Phone: [phone] Centromere B Antibody Not Reportable [facility] POLYSOM TECH Antibody Not Reportable [facility] Thyroid Stimulating Hormone (TSH) 0.71 uIU/mL 0.358-3.74 [facility] Serum DNA double strand anti body assay (units/volume)Ordered By: Dr. Mccarty on 06-06-2022 DNA double strand Ab Qn (S) Not Reportable [facility] Serum Sara-1 antibody assay (u nits/volume)Ordered By: Dr. Mccarty on 06-06-2022 Sara-1 extractable nuclear Ab Qn (S) Not Reportable [facility] Serum Scl-70 extractable nuc lear antibody assay (units/volume)Ordered By: Dr. Mccarty on 06-06-2022 SCL-70 extractable nuclear Ab Qn (S) Not Reportable [facility] Serum Snell extractable nucl ear antibody detectionOrdered By: Dr. Mccarty on 06-06-2022 Snell extractable nuclear Ab Ql (S) Not Reportable [facility] Serum cardiolipin IgG antibo dy assay by immunoassay (units/volume)Ordered By: Dr. Mccarty on 06-06-2022 Cardiolipin IgG IA Qn (S) < 9 GPL U/mL 0-14 [facility] Comment on above: Negative: <15 Indete rminate: 15 - 20 Low-Med Positive: >20 - 80 High Positive: >80 Serum rheumatoid factor dete ctionOrdered By: Dr. Mccarty on 06-06-2022 Rheumatoid factor Ql (S) < 10.0 IU/mL <15 [facility] Absolute lymphocyte countOrd ered By: Dr. Jenkins on 05-12-2022 Lymphocytes Auto (Unsp spec) [#/Vol] 1.76 10*3/uL 0.83-4.51 [facility] Basophil percentageOrdered B y: Dr. Jenkins on 05-12-2022 Basophils/100 WBC (Bld) 0.2 % 0-1 [facility] Chloride [Moles/Vol] 105 mmol/L 98-107 [facility] Eosin[facility]/100 WBC (Bld) 3.1 % 0-5 [facility] Glucose [Mass/Vol] 98 mg/dL 74-106 [facility] Neutrophils (Bld) [#/Vol] 2.3 10*3/uL 2.0-7.7 [facility] Neutrophils/100 WBC (Bld) 49.1 % 47-70 [facility] Potassium [Moles/Vol] 3.7 mmol/L 3.5-5.1 [facility] Sodium [Moles/Vol] 141 mmol/L 136-145 [facility] WBC (Bld) [#/Vol] 4.8 10*3/uL 4.4-11.0 [facility] Blood erythrocytes count (nu mber/volume)Ordered By: Dr. Jenkins on 05-12-2022 RBC (Bld) [#/Vol] 4.42 10*6/uL 4.2-5.4 [facility] Blood hemoglobin measurement (mass/volume)Ordered By: Dr. Jenkins on 05-12-2022 Hemoglobin (Bld) [Mass/Vol] 12.1 g/dL 12.0-15.0 [facility] Blood lymphocytes/100 leukoc ytesOrdered By: Dr. Jenkins on 05-12-2022 Lymphocytes/100 WBC (Bld) 36.9 % 19-41 [facility] Blood monocytes/100 leukocyt esOrdered By: Dr. Jenkins on 05-12-2022 Monocytes/100 WBC (Bld) 10.5 % 0-10 [facility] Blood platelet mean volumeOr dered By: Dr. Jenkins on 05-12-2022 Platelet mean volume (Bld) [Entitic vol] 10.0 fL 6.2-12.0 [facility] Determination of erythrocyte mean corpuscular volume (MCV)Ordered By: Dr. Jenkins on 05-12-2022 MCV (RBC) [Entitic vol] 82.6 fL 81-99 [facility] Hematocrit Auto (Bld) [Volum e fraction]Ordered By: Dr. Jenkins on 05-12-2022 Hematocrit (Bld) [Volume fraction] 36.5 % 37-47 [facility] Laboratory - Chemistry and C hemistry - challengeOrdered By: Dr. Jenkins on 05-12-2022 CO2 [Moles/Vol] 29.0 mmol/L 21.0-32.0 [facility] Magnesium [Mass/Vol] 2.0 mg/dL 1.6-2.6 [facility] Urea nitrogen/Creatinine [Mass ratio] 8.0 mg/mg 10-20 [facility] Laboratory - Hematology and Cell countsOrdered By: Dr. Jenkins on 05-12-2022 Erythrocyte distribution width (RBC) [Entitic vol] 39.7 fL 35.1-43.9 [facility] Erythrocyte distribution width (RBC) [Ratio] 13.2 % 11.6-14.6 [facility] Immature granulocytes/100 WBC (Bld) 0.200 % 0.0-0.9 [facility] Comment on above: IG% - Immature Granu locytes (promyelocytes, myelocytes and metamyelocytes) > 1% indicates that a LEFT SHIFT is Present. MCH (RBC) [Entitic mass] 27.4 pg 27.0-32.0 [facility] Nucleated RBC/100 WBC (Bld) [Ratio] 0 % 0-5 [facility] MCHC Auto (RBC) [Mass/Vol]Or dered By: Dr. Jenkins on 05-12-2022 MCHC (RBC) [Mass/Vol] 33.2 g/dL 32-36 [facility] No Panel InformationOrdered By: Dr. Jenkins on 05-12-2022 Estimated Creatinine Clearance Calc 76.20 ml/min [facility] Estimated GFR (MDRD) Amer 89 mL/min >60 [facility] Comment on above: GFR Calc Estimated GFR (MDRD) Non-Af Amer 74 mL/min >60 [facility] Comment on above: Non- GFR Calc Platelets bldOrdered By: Dr. Jenkins on 05-12-2022 Platelets (Bld) [#/Vol] 267 10*3/uL 150-450 [facility] Serum or plasma calcium elgin urement (mass/volume)Ordered By: Dr. Jenkins on 05-12-2022 Calcium [Mass/Vol] 9.7 mg/dL 8.5-10.1 [facility] Serum or plasma creatinine m easurement (mass/volume)Ordered By: Dr. Jenkins on 05-12-2022 Creatinine [Mass/Vol] 1.00 mg/dL 0.55-1.02 [facility] Comment on above: The validity of the calculated GFR & GFRAA in patients over 70 years has not been determined. Clinical correlation is essential. Serum or plasma urea nitroge n measurement (mass/volume)Ordered By: Dr. Jenkins on 05-12-2022 Urea nitrogen [Mass/Vol] 8 mg/dL 7-18 [facility] Thin prep Papanicolaou smear with manual screeningOrdered By: Dr. Jenkins on 05-12-2022 Thin prep Papanicolaou smear with manual screening 7 5-15 [facility] No Panel InformationOrdered By: Dr. Galeas on 05-09-2022 Troponin I High Sensitivity 5 pg/mL 3.0-54.0 [facility] Comment on above: Please Note: New Nimo t Units and Gender Specific Reference Ranges. For more information see Policy Stat Procedure [place] High Sensitivity Troponin (TNIH) and attachments. Beta hCG serum qualOrdered B y: Dr. Galeas on 05-08-2022 Beta HCG ( test) Ql Negative [facility] No Panel InformationOrdered By: Dr. Galeas on 05-08-2022 D-Dimer Quantitative (PE/DVT) 1.20 FEU/ug/m 0.27-0.49 [facility] Comment on above: CRITICAL VALUE VERIF IED. CALLED TO JEANNE DUNCAN RN ED05/08/22 [id number] Tripp Jorge.RESULTS READ BACK BY SAME . D-Dimer ELEVATED (>0.49): Additional studies and clinicalassessments are indicated to conclude diagnosis of:Deep Vein Thrombosis (DVT) or Pulmonary Embolism (PE) Absolute lymphocyte counton 04-23-2022 Lymphocytes Auto (Unsp spec) [#/Vol] 1.45 10*3/uL 0.83-4.51 [facility] Work Phone: Basophil percentageon 2021 Basophils/100 WBC (Bld) 0.2 % 0-1 [facility] Work Phone: Bilirubin [Mass/Vol] 0.60 mg/dL 0.20-1.00 [facility] Work Phone: Comment on above: For patients on eltr ombopag therapy, use of Dimension [place] TBIL is not recommended. Chloride [Moles/Vol] 106 mmol/L 98-107 [facility] Work Phone: Eosinophils/100 WBC (Bld) 4.1 % 0-5 [facility] Work Phone: Glucose [Mass/Vol] 96 mg/dL 74-106 [facility] Work Phone: Neutrophils (Bld) [#/Vol] 2.3 10*3/uL 2.0-7.7 [facility] Work Phone: Neutrophils/100 WBC (Bld) 52.6 % 47-70 [facility] Work Phone: Potassium [Moles/Vol] 4.1 mmol/L 3.5-5.1 [facility] Work Phone: Protein [Mass/Vol] 8.2 g/dL 6.4-8.2 [facility] Work Phone: Sodium [Moles/Vol] 139 mmol/L 136-145 [facility] Work Phone: WBC (Bld) [#/Vol] 4.4 10*3/uL 4.4-11.0 [facility] Work Phone: Blood erythrocytes count (nu mber/volume)on 04-23-2022 RBC (Bld) [#/Vol] 4.82 10*6/uL 4.2-5.4 [facility] Work Phone: Blood hemoglobin measurement (mass/volume)on 04-23-2022 Hemoglobin (Bld) [Mass/Vol] 13.0 g/dL 12.0-15.0 [facility] Work Phone: Blood lymphocytes/100 leukoc yteson 04-23-2022 Lymphocytes/100 WBC (Bld) 32.9 % 19-41 [facility] Work Phone: Blood monocytes/100 leukocyt eson 04-23-2022 Monocytes/100 WBC (Bld) 10.0 % 0-10 [facility] Work Phone: Blood platelet mean volumeon 04-23-2022 Platelet mean volume (Bld) [Entitic vol] 9.8 fL 6.2-12.0 [facility] Work Phone: [phone] Determination of erythrocyte mean corpuscular volume (MCV)on 04-23-2022 MCV (RBC) [Entitic vol] 83.2 fL 81-99 [facility] Work Phone: [phone] Direct bilirubinon Bilirubin.direct [Mass/Vol] 0.18 mg/dL 0.00-0.30 [facility] Work Phone: [phone] Hematocrit Auto (Bld) [Volum e fraction]on 04-23-2022 Hematocrit (Bld) [Volume fraction] 40.1 % 37-47 [facility] Work Phone: [phone] Laboratory - Chemistry and C hemistry - challengeon 04-23-2022 ALP [Catalytic activity/Vol] 89 U/L 45-117 [facility] Work Phone: [phone] ALT [Catalytic activity/Vol] 26 U/L 13-56 [facility] Work Phone: CO2 [Moles/Vol] 28.0 mmol/L 21.0-32.0 [facility] Work Phone: [phone] Globulin (S) [Mass/Vol] 4.5 g/dL 2.2-4.2 [facility] Work Phone: Lipase [Catalytic activity/Vol] 74 U/L 73-393 [facility] Work Phone: [phone] Urea nitrogen/Creatinine [Mass ratio] 14.3 mg/mg 10-20 [facility] Work Phone: [phone] Laboratory - Hematology and Cell countson 04-23-2022 Erythrocyte distribution width (RBC) [Entitic vol] 41.8 fL 35.1-43.9 [facility] Work Phone: [phone] Erythrocyte distribution width (RBC) [Ratio] 13.8 % 11.6-14.6 [facility] Work Phone: [phone] Immature granulocytes/100 WBC (Bld) 0.200 % 0.0-0.9 [facility] Work Phone: Comment on above: IG% - Immature Granu locytes (promyelocytes, myelocytes and metamyelocytes) > 1% indicates that a LEFT SHIFT is Present. MCH (RBC) [Entitic mass] 27.0 pg 27.0-32.0 [facility] Work Phone: Nucleated RBC/100 WBC (Bld) [Ratio] 0 % 0-5 [facility] Work Phone: MCHC Auto (RBC) [Mass/Vol]on 04-23-2022 MCHC (RBC) [Mass/Vol] 32.4 g/dL 32-36 [facility] Work Phone: No Panel Informationon 04-23 Estimated Creatinine Clearance Calc 77.76 ml/min [facility] Work Phone: Estimated GFR (MDRD) Amer 91 mL/min >60 [facility] Work Phone: Comment on above: GFR Calc Estimated GFR (MDRD) Non-Af Amer 75 mL/min >60 [facility] Work Phone: Comment on above: Non- GFR Calc Platelets bldon 04-23-2022 Platelets (Bld) [#/Vol] 278 10*3/uL 150-450 [facility] Work Phone: Serum or plasma albumin elgin urement (mass/volume)on 04-23-2022 Albumin [Mass/Vol] 3.7 g/dL 3.2-5.0 [facility] Work Phone: Serum or plasma calcium elgin urement (mass/volume)on 04-23-2022 Calcium [Mass/Vol] 9.5 mg/dL 8.5-10.1 [facility] Work Phone: Serum or plasma creatinine m easurement (mass/volume)on 04-23-2022 Creatinine [Mass/Vol] 0.98 mg/dL 0.55-1.02 [facility] Work Phone: Comment on above: The validity of the calculated GFR & GFRAA in patients over 70 years has not been determined. Clinical correlation is essential. Serum or plasma urea nitroge n measurement (mass/volume)on 04-23-2022 Urea nitrogen [Mass/Vol] 14 mg/dL 7-18 [facility] Work Phone: Thin prep Papanicolaou smear with manual screeningon 04-23-2022 Thin prep Papanicolaou smear with manual screening 18 U/L 15-37 [facility] Work Phone: Thin prep Papanicolaou smear with manual screening 5 5-15 [facility] Work Phone: Progress Noteon 10-24-2021 Virtualization Consultant Authentication Interface Message Text Patient ID: Brooke Wood is a 21 y.o. female. Her chief complaint(s) include: 21+ YEAR WELL CHILD Assessment 1. Routine general medical examination at a health care facility 2. Screening for condition 3. Need for vaccination Plan Brooke was seen today for 21+ year well child. Diagnoses and all orders for this visit: Routine general medical examination at a health care facility - PHQ9 Assessment With Score - Health Risk Assessment - CRAFFT Screening for condition - PPD - place [place] Need for vaccination - Varicella vaccine - Tdap vaccine >= 7y Return in about 1 year (around 10/24/2022) for well check, nurse visit in 48-72 hours for PPD reading. 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 Pt chose to receive varicella and Tdap today. Pt with gas and bloating, on nexium currently that helps with reflux sx. Pt previously referred to GI per Dr. Ayoub. Referral printed for patient today and provided with number to call and schedule with Dr. Ravi in [place]. Recommended continuing nexium and advised to avoid dairy x 2 weeks and monitor for improvement in sx. To continue to follow with cardio- f/u due this summer. Subjective HPI Comments: Pt feels bloated a lot and very gassy x a few months, taking nexium and it is helping a lot. Increased gas will give pt heart palpitations when she has it- has seen cardio for this. She is unaccompanied. 21+ YEAR WELL CHILD Home: Brooke eats meals with family, has an adult to turn to for help and is permitted and able to make independent decisions. (Lives with mom, step dad and step siblings). Education: ([employer] will be starting in December). Eating: Brooke eats regular meals including fruits and vegetables and eats breakfast. Activities & Sports: Brooke has friends and has a job (works at [employer] as [employer]). Drugs: Brooke does not use tobacco, does not use drugs, does not use alcohol and does not vape. Sex: The patient has never had a sexual partner. The patient is interested in males. The patient has never had sex. Suicidality: Brooke has ways to cope with stress and has anxiety (occasional). Brooke has no problems with sleep, has no depression and has no suicidal ideation. Menstruation Last Menstrual period: now Menstruation: regular periods (bleeds for 7 days, denies heavy bleeding) Output Urine and Stool Pattern: Urine and Stool Pattern: Normal stool pattern, constipation, normal urine pattern. (BM every day or every other day). Stool Consistency: hard/firm Sleep Sleeping Difficulty: no difficulty sleeping Hours sleep per time: 5-8. Teen Anticipatory Guidance The following anticipatory guidance was reviewed during the visit: Health: age appropriate dental care, age appropriate sleep habits and self breast exam. Screenings Previous Vaccine Reactions: No. Life events information was reviewed-no referral needed Hearing Vision Concerns: The caregiver has no concerns about the patient's hearing. Patient is being seen by film writer or headwaitress. Hyperlipidemia Concerns: Positive Hyperlipidemia Screen Concerns: parent or grandparent diagnosed with coronary atherosclerosis <55 years (dad at age 36) and parent with cholesterol >240mg/dl Negative Hyperlipidemia Screen Concerns: no parent or grandparent with MS angina peripheral or cerebrovascular disease <55 years and no parent or grandparent with sudden cardiac <55 years Primary Care Review of Systems Objective Vital Signs 10/24/21 0823 BP: 103/73 Pulse: 96 Resp: 20 Temp: 36.6 C (97.9 F) TempSrc: Temporal Weight: 62.4 kg Height: 161.3 cm Body mass index is 23.99 kg/m . Physical Exam Constitutional: She appears well. She is active. No distress. HENT: Head: Atraumatic. Ears: Right Ear: Tympanic membrane and external ear normal. Left Ear: Tympanic membrane and external ear normal. Nose: Nose normal. No nasal deformity or nasal discharge. Mouth/Throat: Mucous membranes are moist. Dentition is normal. No dental caries. No pharynx erythema. No tonsillar exudate. Oropharynx is clear. Eyes: Conjunctivae and EOM are normal. Red reflex is present bilaterally. Pupils are equal, round, and reactive to light. Neck: Neck supple. Cardiovascular: Normal rate, regular rhythm, S1 normal and S2 normal. Heart murmur not heard. No murmur lying down or standing. Pulses: Radial pulses are 2+ on the right side and 2+ on the left side. Pulmonary/Chest: Breath sounds normal. No respiratory distress. Exhibits no deformity. Abdominal: Soft. Bowel sounds are normal. She exhibits no distension and no mass. There is no hepatosplenomegaly. There is abdominal tenderness (mild periumbilical). Genitourinary: Did not examine. Musculoskeletal: No pain, swelling, or limited range of motion at any joint. Cervical back: Normal range of motion and (more content not included)... Normal [facility] Progress Noteon 09-05-2021 Virtualization Consultant Authentication Interface Message Text Patient ID: Brooke Wood is a 21 y.o. female. Her chief complaint(s) include: Palpitations ([place]/abdominal pain) Assessment 1. Gastroesophageal reflux disease with esophagitis without hemorrhage 2. Hypokalemia Plan Brooke was seen today for palpitations. Diagnoses and all orders for this visit: Gastroesophageal reflux disease with esophagitis without hemorrhage - esomeprazole (NEXIUM) 20 MG capsule; Take 1 Capsule (20 mg) by mouth daily Hypokalemia - Basic Metabolic Panel (Lab Collect); Future No follow-ups on file. Does have occasional premature beat (?PAC vs isolated PVC). Will check electrolytes. Review previous cardiology notes. Subjective HPI Comments: Ablation in December [address] Mojica. Has follow up with him in spring. She is noticing symptoms of heart palpitations and tingling in arms. Stomach aches/ bloating. Some heartburn. Had been on a lot of antacids like Mylanta. She thinks low potassium may be causing palpitations. Palpitations sometimes improve with belching. 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 Independent history obtained from mother. Palpitations Review of Systems Cardiovascular: Positive for palpitations. Objective Vital Signs 09/05/21 1453 Temp: 36.4 C (97.6 F) TempSrc: Temporal Weight: 63.8 kg Height: 159.5 cm Body mass index is 25.08 kg/m . Physical Exam Constitutional: She appears well. She is active. No distress. HENT: Head: Atraumatic. Ears: Right Ear: Tympanic membrane and external ear normal. Left Ear: Tympanic membrane and external ear normal. Nose: Nose normal. No nasal deformity or nasal discharge. Mouth/Throat: Mucous membranes are moist. Dentition is normal. Oropharynx is clear. Eyes: Conjunctivae are normal. Neck: Neck supple. Cardiovascular: Normal rate, S1 normal and S2 normal. Heart murmur not heard. Pulses: Femoral pulses are 2+ on the right side, and 2+ on the left side Irregular rhythm with likely PAC's Pulmonary/Chest: Breath sounds normal. No respiratory distress. Exhibits no deformity. Abdominal: Soft. Bowel sounds are normal. She exhibits no distension and no mass. There is no hepatosplenomegaly. There is no abdominal tenderness. Musculoskeletal: Cervical back: Normal range of motion and neck supple. Skin: Skin is warm. Skin is not pale. Findings: No rash. Normal [facility] Progress Noteon 02-07-2021 Virtualization Consultant Authentication Interface Message Text HEART CENTER NOTE - FOLLOW-UP OUTPATIENT Brooke Wood is 21 y.o. female seen on 02/07/2021 for follow-up of SVT. 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 This was ablated in 2013. 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 Because it was not a clinically recorded tachycardia, it was not ablated. She had done well since then until 06/06/2020. She awoke with palpitations. She went to [place] [facility] where her heart rate was noted to be 156. It remained there until a valsalva maneuver lowered it to 80. She underwent repeat EP study in December of 2020. 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 This was ablated. She states that she felt fine for several weeks after the procedure and then began having an irregular heart beat. She has not felt any racing of her heart like her SVT. She takes Atenolol, and is not sure if it helps her rhythm, or if it helps her anxiousness. History otherwise negative for chest pain, syncope, light headedness, seizure, palpitations, shortness of breath, cyanosis, exercise intolerance or edema. ROS She was diagnosed with reflux and started on an H2 juan a with good improvement. Negative for fever, chills, fatigue, blurry vision, double vision, cough, wheeze, rash, sore throat, congestion, joint pain or swelling, muscle pain, nausea, vomiting, depression or substance abuse. IMAGING STUDIES SINCE LAST VISIT: MEDICATIONS: Current Outpatient Medications Medication Sig Dispense Refill atenolol (TENORMIN) 25 MG tablet TAKE 1 TABLET BY MOUTH EVERY DAY alternating with ONE-HALF tablet. 30 Tablet 2 Cholecalciferol (VITAMIN D3) 50 MCG (2000 UT) CAPS Take 1 Cap by mouth daily 30 Cap 11 albuterol (VENTOLIN HFA) 108 (90 Base) MCG/ACT inhaler Inhale 2 Puffs into the lungs every 4 hours as needed for Wheezing, Shortness of Breath or Cough 1 Inhaler 2 pantoprazole (PROTONIX) 40 MG EC tablet DAILY (Patient not taking: Reported on 02/07/2021) OMEPRAZOLE MAGNESIUM PO Take by mouth (Patient not taking: Reported on 12/19/2020) No current facility-administered medications for this visit. ALLERGIES: Patient has no known allergies. 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 Facility age limit for growth percentiles is 20 years. Facility age limit for growth percentiles is 20 years. Facility age limit for growth percentiles is 20 years. CARDIAC EXAM: No cyanosis, clubbing or edema. Warm extremities; brisk capillary refill. No chest wall deformity; no chest wall tenderness. Normal left ventricular impulse; precordium not hyperdynamic; no thrill. No hepatomegaly or splenomegaly; no JVD. Upper and lower extremity pulses equal. No retractions, rales, wheezing, coughing, grunting; normal breath sounds bilaterally. Normal S1; normal S2, normal splitting; no S3 or S4; no clicks. No murmur. She has occasional PACs audible. GENERAL EXAM: Well developed. Alert; no distress. Moving all extremities. Normal tone. Moist mucous membranes. No rash. No petechia. Neck supple. Normal cry or speech. Abdomen soft and nontender. No masses. ECG: Sinus tachycardia. Normal. 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 I reassured her that it is a benign arrhythmia. It is a bit late for it to still be happening from the ablation. But if so, it should gradually resolve with time. I will see her back in one year. If her symptoms worsen, I will see her sooner. PLAN: Cardiac medication changes: No Bacterial Endocarditis prophylaxis: No Activity Restrictions: None Other: Follow-up Visit: 1 year Normal [facility] Vitamin B12on 12-21-2020 Cobalamin (Vitamin B12) [Mass/Vol] 381 pg/mL Normal 180 - 914 [facility] Comment on above: Order Comment: Sched uled for cath procedure by Dr. Mojica on 12/08/20. Is this a pre-procedure screening test?->Yes [id number]&Nasopharyngeal Result Comment: ADDITIONAL INFORMATION In patients being evaluated for vitamin B12 deficiency who have intrinsic factor blocking antibodies (IFBA), false elevations of B12 may occur due to IFBA interference thus potentially obscuring a physiological deficiency of B12. If observed B12 concentrations are discordant with clinical presentation, measurement of methylmalonic acid (MMA) should be considered. Test Performed by: [facility] [address], [place] [address] Spool Maker: Rosales Anne M.D. Ph.D.; CLIA# [id number] Performed By: #### E LRG2 #### [address] [id number] Ferritinon 12-20-2020 Ferritin [Mass/Vol] 73 ng/mL Normal 10-291 [facility] Comment on above: Order Comment: Sched uled for cath procedure by Dr. Mojica on 12/08/20. Is this a pre-procedure screening test?->Yes [id number]&Nasopharyngeal Performed By: #### E LRG2 #### [address] [address] Lead, Venouson 12-20-2020 Lead, Venous 1 ug/dL Normal 0-4 [facility] Comment on above: Order Comment: Sched uled for cath procedure by Dr. Mojica on 12/08/20. Is this a pre-procedure screening test?->Yes [id number]&Nasopharyngeal Performed By: #### E LRG2 #### [address] [address] TSH with reflex T4FRon 12-20 TSH with reflex T4FR 1.042 uIU/mL Normal 0.350-5 .50 0 [facility] Comment on above: Order Comment: Sched uled for cath procedure by Dr. Mojica on 12/08/20. Is this a pre-procedure screening test?->Yes [id number]&Nasopharyngeal Performed By: #### E LRG2 #### [address] [address] Vitamin D 25 OHon 12-20-2020 25 OH Vitamin D 38 ng/mL Normal 30-100 [facility] Comment on above: Order Comment: Sched uled for cath procedure by Dr. Mojica on 12/08/20. Is this a pre-procedure screening test?->Yes [id number]&Nasopharyngeal Result Comment: Nolviae zia ranges provided by [facility] are based on Endocrine Society Guidelines: Level Characterization <21 ng/mL Vitamin D deficiency 21-29 ng/mL Suboptimal Vitamin D status 30-100 ng/mL Optimal Vitamin D status >100 ng/mL Potentially toxic Vitamin D effects NOTE: New Reference Ranges effective 18 Performed By: #### E LRG2 #### [address] [address] C-Reactive Proteinon 021 C-Reactive Protein 0.8 mg/dL Normal 0.0-1.0 [facility] Comment on above: Order Comment: Relea se to patient->Automatic Is this specimen being sent to an external lab?->No [id number]&Blood^\S\^Vein&Vein Release to patient->Automatic Is this order Clinic Collect?->Yes Is this specimen being sent to an external lab?->No [id number]&Blood^\S\^Vein&Vein Please include TIBC. Release to patient->Automatic Is this order Clinic Collect?->Yes Is this specimen being sent to an external lab?->No [id number]&Blood^\S\^Vein&Vein With differential. Release to patient->Automatic Is this order Clinic Collect?->Yes Is this specimen being sent to an external lab?->No [id number]&Blood^\S\^Vein&Vein Result Comment: CRP determinations in neonates should be interpreted with caution. CRP may be elevated in circumstances not associated with inflammation (e.g. difficult delivery, pneumothorax). In premature neonates CRP levels may not rise to abnormal levels even if sepsis is present; some speculate that immature liver function decreases the ability to generate a CRP response. Performed By: #### C RP #### [address] [address] Comp Metabolic Panelon 12-19 Albumin [Mass/Vol] 4.4 g/dL Normal 3.5-5.0 [facility] Comment on above: Order Comment: Relea se to patient->Automatic Is this specimen being sent to an external lab?->No [id number]&Blood^\S\^Vein&Vein Release to patient->Automatic Is this order Clinic Collect?->Yes Is this specimen being sent to an external lab?->No [address]999&Blood^\S\^Vein&Vein Please include TIBC. Release to patient->Automatic Is this order Clinic Collect?->Yes Is this specimen being sent to an external lab?->No 09027&Blood^\S\^Vein&Vein With differential. Release to patient->Automatic Is this order Clinic Collect?->Yes Is this specimen being sent to an external lab?->No 34433&Blood^\S\^Vein&Vein Performed By: #### C MP #### [place] [address] ALP [Catalytic activity/Vol] 69 U/L Normal 35-104 [facility] Comment on above: Order Comment: Relea se to patient->Automatic Is this specimen being sent to an external lab?->No 75640&Blood^\S\^Vein&Vein Release to patient->Automatic Is this order Clinic Collect?->Yes Is this specimen being sent to an external lab?->No 00120&Blood^\S\^Vein&Vein Please include TIBC. Release to patient->Automatic Is this order Clinic Collect?->Yes Is this specimen being sent to an external lab?->No 61678&Blood^\S\^Vein&Vein With differential. Release to patient->Automatic Is this order Clinic Collect?->Yes Is this specimen being sent to an external lab?->No 09284&Blood^\S\^Vein&Vein Performed By: #### C MP #### [place] [address] ALT [Catalytic activity/Vol] 20 U/L Normal 0-31 [facility] Comment on above: Order Comment: Relea se to patient->Automatic Is this specimen being sent to an external lab?->No 45462&Blood^\S\^Vein&Vein Release to patient->Automatic Is this order Clinic Collect?->Yes Is this specimen being sent to an external lab?->No 62278&Blood^\S\^Vein&Vein Please include TIBC. Release to patient->Automatic Is this order Clinic Collect?->Yes Is this specimen being sent to an external lab?->No 86071&Blood^\S\^Vein&Vein With differential. Release to patient->Automatic Is this order Clinic Collect?->Yes Is this specimen being sent to an external lab?->No 53552&Blood^\S\^Vein&Vein Performed By: #### C MP #### [place] [address] AST [Catalytic activity/Vol] 23 U/L Normal 0-31 [facility] Comment on above: Order Comment: Relea se to patient->Automatic Is this specimen being sent to an external lab?->No 63280&Blood^\S\^Vein&Vein Release to patient->Automatic Is this order Clinic Collect?->Yes Is this specimen being sent to an external lab?->No 13340&Blood^\S\^Vein&Vein Please include TIBC. Release to patient->Automatic Is this order Clinic Collect?->Yes Is this specimen being sent to an external lab?->No 67149&Blood^\S\^Vein&Vein With differential. Release to patient->Automatic Is this order Clinic Collect?->Yes Is this specimen being sent to an external lab?->No 93178&Blood^\S\^Vein&Vein Performed By: #### C MP #### [place] [address] Bili,Total 0.8 mg/dl Normal 0.0-1.0 [facility] Comment on above: Order Comment: Relea se to patient->Automatic Is this specimen being sent to an external lab?->No 23268&Blood^\S\^Vein&Vein Release to patient->Automatic Is this order Clinic Collect?->Yes Is this specimen being sent to an external lab?->No 33947&Blood^\S\^Vein&Vein Please include TIBC. Release to patient->Automatic Is this order Clinic Collect?->Yes Is this specimen being sent to an external lab?->No 58833&Blood^\S\^Vein&Vein With differential. Release to patient->Automatic Is this order Clinic Collect?->Yes Is this specimen being sent to an external lab?->No 78298&Blood^\S\^Vein&Vein Performed By: #### C MP #### [place] [address] Calcium [Mass/Vol] 9.9 mg/dL Normal 7.6-11.0 [facility] Comment on above: Order Comment: Relea se to patient->Automatic Is this specimen being sent to an external lab?->No 07573&Blood^\S\^Vein&Vein Release to patient->Automatic Is this order Clinic Collect?->Yes Is this specimen being sent to an external lab?->No 77931&Blood^\S\^Vein&Vein Please include TIBC. Release to patient->Automatic Is this order Clinic Collect?->Yes Is this specimen being sent to an external lab?->No 28072&Blood^\S\^Vein&Vein With differential. Release to patient->Automatic Is this order Clinic Collect?->Yes Is this specimen being sent to an external lab?->No 12986&Blood^\S\^Vein&Vein Performed By: #### C MP #### [place] [address] Chloride [Moles/Vol] 101 mmol/L Normal 96-108 [facility] Comment on above: Order Comment: Relea se to patient->Automatic Is this specimen being sent to an external lab?->No 63082&Blood^\S\^Vein&Vein Release to patient->Automatic Is this order Clinic Collect?->Yes Is this specimen being sent to an external lab?->No 32447&Blood^\S\^Vein&Vein Please include TIBC. Release to patient->Automatic Is this order Clinic Collect?->Yes Is this specimen being sent to an external lab?->No 39265&Blood^\S\^Vein&Vein With differential. Release to patient->Automatic Is this order Clinic Collect?->Yes Is this specimen being sent to an external lab?->No 33443&Blood^\S\^Vein&Vein Performed By: #### C MP #### [place] [address] CO2 [Moles/Vol] 26.6 mmol/L Normal 22.0-29.0 [facility] Comment on above: Order Comment: Relea se to patient->Automatic Is this specimen being sent to an external lab?->No 87624&Blood^\S\^Vein&Vein Release to patient->Automatic Is this order Clinic Collect?->Yes Is this specimen being sent to an external lab?->No 84461&Blood^\S\^Vein&Vein Please include TIBC. Release to patient->Automatic Is this order Clinic Collect?->Yes Is this specimen being sent to an external lab?->No 30276&Blood^\S\^Vein&Vein With differential. Release to patient->Automatic Is this order Clinic Collect?->Yes Is this specimen being sent to an external lab?->No 62821&Blood^\S\^Vein&Vein Performed By: #### C MP #### [place] [id number] Creatinine [Mass/Vol] 0.94 mg/dL Normal 0.50-1.00 [facility] Comment on above: Order Comment: Relea se to patient->Automatic Is this specimen being sent to an external lab?->No 96483&Blood^\S\^Vein&Vein Release to patient->Automatic Is this order Clinic Collect?->Yes Is this specimen being sent to an external lab?->No 35261&Blood^\S\^Vein&Vein Please include TIBC. Release to patient->Automatic Is this order Clinic Collect?->Yes Is this specimen being sent to an external lab?->No 47252&Blood^\S\^Vein&Vein With differential. Release to patient->Automatic Is this order Clinic Collect?->Yes Is this specimen being sent to an external lab?->No 91861&Blood^\S\^Vein&Vein Result Comment: Premature 0.3-1.0 mg/dL Performed By: #### C MP #### [place] [id number] Glucose [Mass/Vol] 86 mg/dL Normal 70-99 [facility] Comment on above: Order Comment: Relea se to patient->Automatic Is this specimen being sent to an external lab?->No 58349&Blood^\S\^Vein&Vein Release to patient->Automatic Is this order Clinic Collect?->Yes Is this specimen being sent to an external lab?->No 31436&Blood^\S\^Vein&Vein Please include TIBC. Release to patient->Automatic Is this order Clinic Collect?->Yes Is this specimen being sent to an external lab?->No 51988&Blood^\S\^Vein&Vein With differential. Release to patient->Automatic Is this order Clinic Collect?->Yes Is this specimen being sent to an external lab?->No 49505&Blood^\S\^Vein&Vein Result Comment: Criteria for Diagnosis of Diabetes(Effective 01/08/11): Fasting specimen (no caloric intake for at least 8 hours). <100 mg/dl Normal 100-125 mg/dl Increased Risk for Diabetes >125 mg/dl Diagnostic for Diabetes Random Glucose (any time of day without regard to last meal). >=200 mg/dl plus Classic Symptoms of Diabetes Performed By: #### C MP #### [place] [address] Potassium [Moles/Vol] 4.8 mmol/L Normal 3.3-5.1 [facility] Comment on above: Order Comment: Relea se to patient->Automatic Is this specimen being sent to an external lab?->No 69880&Blood^\S\^Vein&Vein Release to patient->Automatic Is this order Clinic Collect?->Yes Is this specimen being sent to an external lab?->No 99014&Blood^\S\^Vein&Vein Please include TIBC. Release to patient->Automatic Is this order Clinic Collect?->Yes Is this specimen being sent to an external lab?->No 68210&Blood^\S\^Vein&Vein With differential. Release to patient->Automatic Is this order Clinic Collect?->Yes Is this specimen being sent to an external lab?->No 10532&Blood^\S\^Vein&Vein Performed By: #### C MP #### [place] [address] Protein [Mass/Vol] 7.8 g/dL Normal 5.9-8.4 [facility] Comment on above: Order Comment: Relea se to patient->Automatic Is this specimen being sent to an external lab?->No 66376&Blood^\S\^Vein&Vein Release to patient->Automatic Is this order Clinic Collect?->Yes Is this specimen being sent to an external lab?->No 77935&Blood^\S\^Vein&Vein Please include TIBC. Release to patient->Automatic Is this order Clinic Collect?->Yes Is this specimen being sent to an external lab?->No 69925&Blood^\S\^Vein&Vein With differential. Release to patient->Automatic Is this order Clinic Collect?->Yes Is this specimen being sent to an external lab?->No 77044&Blood^\S\^Vein&Vein Performed By: #### C MP #### [place] [address] Sodium [Moles/Vol] 137 mmol/L Normal 133-145 [facility] Comment on above: Order Comment: Relea se to patient->Automatic Is this specimen being sent to an external lab?->No 16761&Blood^\S\^Vein&Vein Release to patient->Automatic Is this order Clinic Collect?->Yes Is this specimen being sent to an external lab?->No 17115&Blood^\S\^Vein&Vein Please include TIBC. Release to patient->Automatic Is this order Clinic Collect?->Yes Is this specimen being sent to an external lab?->No 65991&Blood^\S\^Vein&Vein With differential. Release to patient->Automatic Is this order Clinic Collect?->Yes Is this specimen being sent to an external lab?->No 34534&Blood^\S\^Vein&Vein Performed By: #### C MP #### [place] [address] Urea nitrogen [Mass/Vol] 12 mg/dL Normal 4-19 [facility] Comment on above: Order Comment: Relea se to patient->Automatic Is this specimen being sent to an external lab?->No 70026&Blood^\S\^Vein&Vein Release to patient->Automatic Is this order Clinic Collect?->Yes Is this specimen being sent to an external lab?->No 22143&Blood^\S\^Vein&Vein Please include TIBC. Release to patient->Automatic Is this order Clinic Collect?->Yes Is this specimen being sent to an external lab?->No 17744&Blood^\S\^Vein&Vein With differential. Release to patient->Automatic Is this order Clinic Collect?->Yes Is this specimen being sent to an external lab?->No 48679&Blood^\S\^Vein&Vein Performed By: #### C MP #### [place] [address] Complete Blood Counton 12-19 Differential Complete Automated Normal [facility] Comment on above: Order Comment: Relea se to patient->Automatic Is this specimen being sent to an external lab?->No 72484&Blood^\S\^Vein&Vein Release to patient->Automatic Is this order Clinic Collect?->Yes Is this specimen being sent to an external lab?->No 13909&Blood^\S\^Vein&Vein Please include TIBC. Release to patient->Automatic Is this order Clinic Collect?->Yes Is this specimen being sent to an external lab?->No 10247&Blood^\S\^Vein&Vein With differential. Release to patient->Automatic Is this order Clinic Collect?->Yes Is this specimen being sent to an external lab?->No 26837&Blood^\S\^Vein&Vein Performed By: #### C BC #### [address] [address] Basophils/100 WBC (Bld) 0.40 % Normal 0.00-1.00 [facility] Comment on above: Order Comment: Relea se to patient->Automatic Is this specimen being sent to an external lab?->No 03313&Blood^\S\^Vein&Vein Release to patient->Automatic Is this order Clinic Collect?->Yes Is this specimen being sent to an external lab?->No 31486&Blood^\S\^Vein&Vein Please include TIBC. Release to patient->Automatic Is this order Clinic Collect?->Yes Is this specimen being sent to an external lab?->No 59242&Blood^\S\^Vein&Vein With differential. Release to patient->Automatic Is this order Clinic Collect?->Yes Is this specimen being sent to an external lab?->No 26711&Blood^\S\^Vein&Vein Performed By: #### C BC #### [place] [address] Eosinophils/100 WBC (Bld) 3.70 % High 0.00-3.00 [facility] Comment on above: Order Comment: Relea se to patient->Automatic Is this specimen being sent to an external lab?->No 03077&Blood^\S\^Vein&Vein Release to patient->Automatic Is this order Clinic Collect?->Yes Is this specimen being sent to an external lab?->No 41107&Blood^\S\^Vein&Vein Please include TIBC. Release to patient->Automatic Is this order Clinic Collect?->Yes Is this specimen being sent to an external lab?->No 72914&Blood^\S\^Vein&Vein With differential. Release to patient->Automatic Is this order Clinic Collect?->Yes Is this specimen being sent to an external lab?->No 15929&Blood^\S\^Vein&Vein Performed By: #### C BC #### [place] [address] Erythrocyte distribution width (RBC) [Ratio] 14.0 % Normal 0.0-14.4 [facility] Comment on above: Order Comment: Relea se to patient->Automatic Is this specimen being sent to an external lab?->No 53645&Blood^\S\^Vein&Vein Release to patient->Automatic Is this order Clinic Collect?->Yes Is this specimen being sent to an external lab?->No 46374&Blood^\S\^Vein&Vein Please include TIBC. Release to patient->Automatic Is this order Clinic Collect?->Yes Is this specimen being sent to an external lab?->No 91417&Blood^\S\^Vein&Vein With differential. Release to patient->Automatic Is this order Clinic Collect?->Yes Is this specimen being sent to an external lab?->No 92103&Blood^\S\^Vein&Vein Performed By: #### C BC #### [place] [address] Hematocrit (Bld) [Volume fraction] 40.4 % Normal 36.0-44.0 [facility] Comment on above: Order Comment: Relea se to patient->Automatic Is this specimen being sent to an external lab?->No 98311&Blood^\S\^Vein&Vein Release to patient->Automatic Is this order Clinic Collect?->Yes Is this specimen being sent to an external lab?->No 53184&Blood^\S\^Vein&Vein Please include TIBC. Release to patient->Automatic Is this order Clinic Collect?->Yes Is this specimen being sent to an external lab?->No 39337&Blood^\S\^Vein&Vein With differential. Release to patient->Automatic Is this order Clinic Collect?->Yes Is this specimen being sent to an external lab?->No 59453&Blood^\S\^Vein&Vein Performed By: #### C BC #### [place] [address] Hemoglobin (Bld) [Mass/Vol] 13.1 g/dL Normal 12.0-15.0 [facility] Comment on above: Order Comment: Relea se to patient->Automatic Is this specimen being sent to an external lab?->No 21028&Blood^\S\^Vein&Vein Release to patient->Automatic Is this order Clinic Collect?->Yes Is this specimen being sent to an external lab?->No 12791&Blood^\S\^Vein&Vein Please include TIBC. Release to patient->Automatic Is this order Clinic Collect?->Yes Is this specimen being sent to an external lab?->No 88582&Blood^\S\^Vein&Vein With differential. Release to patient->Automatic Is this order Clinic Collect?->Yes Is this specimen being sent to an external lab?->No 99554&Blood^\S\^Vein&Vein Performed By: #### C BC #### [facility] [address] [place], [place] [id number] Immature granulocytes/100 WBC (Bld) 0.20 % Normal [facility] Comment on above: Order Comment: Relea se to patient->Automatic Is this specimen being sent to an external lab?->No 06777&Blood^\S\^Vein&Vein Release to patient->Automatic Is this order Clinic Collect?->Yes Is this specimen being sent to an external lab?->No 66796&Blood^\S\^Vein&Vein Please include TIBC. Release to patient->Automatic Is this order Clinic Collect?->Yes Is this specimen being sent to an external lab?->No 30108&Blood^\S\^Vein&Vein With differential. Release to patient->Automatic Is this order Clinic Collect?->Yes Is this specimen being sent to an external lab?->No 39403&Blood^\S\^Vein&Vein Result Comment: Nanci ture Granulocyte Percent includes promyelocytes, myelocytes, and metamyelocytes. IG% > 1.0 indicates a left shift is present. With automated differentials, bands are included in the neutrophil count and not in the Immature Granulocyte Percent. Performed By: #### C BC #### [address] [id number] Lymphocytes/100 WBC (Bld) 31.3 % Normal 24.0-44.0 [facility] Comment on above: Order Comment: Relea se to patient->Automatic Is this specimen being sent to an external lab?->No 44125&Blood^\S\^Vein&Vein Release to patient->Automatic Is this order Clinic Collect?->Yes Is this specimen being sent to an external lab?->No 42734&Blood^\S\^Vein&Vein Please include TIBC. Release to patient->Automatic Is this order Clinic Collect?->Yes Is this specimen being sent to an external lab?->No 64674&Blood^\S\^Vein&Vein With differential. Release to patient->Automatic Is this order Clinic Collect?->Yes Is this specimen being sent to an external lab?->No 10666&Blood^\S\^Vein&Vein Performed By: #### C BC #### [place] [address] MCH (RBC) [Entitic mass] 26.0 pg Normal 26.0-34.0 [facility] Comment on above: Order Comment: Relea se to patient->Automatic Is this specimen being sent to an external lab?->No 12756&Blood^\S\^Vein&Vein Release to patient->Automatic Is this order Clinic Collect?->Yes Is this specimen being sent to an external lab?->No 36909&Blood^\S\^Vein&Vein Please include TIBC. Release to patient->Automatic Is this order Clinic Collect?->Yes Is this specimen being sent to an external lab?->No 04680&Blood^\S\^Vein&Vein With differential. Release to patient->Automatic Is this order Clinic Collect?->Yes Is this specimen being sent to an external lab?->No 46310&Blood^\S\^Vein&Vein Performed By: #### C BC #### [place] [address] MCHC 32.4 % Normal 31.0-37.0 [facility] Comment on above: Order Comment: Relea se to patient->Automatic Is this specimen being sent [place] an [place]?->[place] 99355&Blood^\S\^Vein&Vein Release to patient->Automatic Is this order Clinic Collect?->Yes Is this specimen being sent to an external lab?->No 34666&Blood^\S\^Vein&Vein Please include TIBC. Release to patient->Automatic Is this order Clinic Collect?->Yes Is this specimen being sent to an external lab?->No 10469&Blood^\S\^Vein&Vein With differential. Release to patient->Automatic Is this order Clinic Collect?->Yes Is this specimen being sent to an external lab?->No 52196&Blood^\S\^Vein&Vein Performed By: #### C BC #### [place] [address] MCV (RBC) [Entitic vol] 80.2 fL Normal 80.0-100.0 [facility] Comment on above: Order Comment: Relea se to patient->Automatic Is this specimen being sent to an external lab?->No 19856&Blood^\S\^Vein&Vein Release to patient->Automatic Is this order Clinic Collect?->Yes Is this specimen being sent to an external lab?->No 72989&Blood^\S\^Vein&Vein Please include TIBC. Release to patient->Automatic Is this order Clinic Collect?->Yes Is this specimen being sent to an external lab?->No 54060&Blood^\S\^Vein&Vein With differential. Release to patient->Automatic Is this order Clinic Collect?->Yes Is this specimen being sent to an external lab?->No 93192&Blood^\S\^Vein&Vein Performed By: #### C BC #### [place] [address] Monocytes/100 WBC (Bld) 9.90 % High 3.00-6.00 [facility] Comment on above: Order Comment: Relea se to patient->Automatic Is this specimen being sent to an external lab?->[place] 30231&Blood^\S\^Vein&Vein Release to patient->Automatic Is this order Clinic Collect?->Yes Is this specimen being sent to an external lab?->No 17439&Blood^\S\^Vein&Vein Please include TIBC. Release to patient->Automatic Is this order Clinic Collect?->Yes Is this specimen being sent to an external lab?->No 54507&Blood^\S\^Vein&Vein With differential. Release to patient->Automatic Is this order Clinic Collect?->Yes Is this specimen being sent to an external lab?->No 67021&Blood^\S\^Vein&Vein Performed By: #### C BC #### [place] [id number] Neutrophils (Bld) [#/Vol] 3.0 10*3/uL Normal 2.0-7.2 [facility] Comment on above: Order Comment: Relea se to patient->Automatic Is this specimen being sent to an external lab?->No 11828&Blood^\S\^Vein&Vein Release to patient->Automatic Is this order Clinic Collect?->Yes Is this specimen being sent to an external lab?->No 67661&Blood^\S\^Vein&Vein Please include TIBC. Release to patient->Automatic Is this order Clinic Collect?->Yes Is this specimen being sent to an external lab?->No 03666&Blood^\S\^Vein&Vein With differential. Release to patient->Automatic Is this order Clinic Collect?->Yes Is this specimen being sent to an external lab?->No 27566&Blood^\S\^Vein&Vein Performed By: #### C BC #### [place] [address] Neutrophils/100 WBC (Bld) 54.5 % Normal 35.0-66.0 [facility] Comment on above: Order Comment: Relea se to patient->Automatic Is this specimen being sent to an external lab?->No 54631&Blood^\S\^Vein&Vein Release to patient->Automatic Is this order Clinic Collect?->Yes Is this specimen being sent to an external lab?->No 33518&Blood^\S\^Vein&Vein Please include TIBC. Release to patient->Automatic Is this order Clinic Collect?->Yes Is this specimen being sent to an external lab?->No 90720&Blood^\S\^Vein&Vein With differential. Release to patient->Automatic Is this order Clinic Collect?->Yes Is this specimen being sent to an external lab?->No 89914&Blood^\S\^Vein&Vein Performed By: #### C BC #### [place] [address] Nucleated RBC/100 WBC (Bld) [Ratio] 0.0 % Normal -1.0-0.0 [facility] Comment on above: Order Comment: Relea se to patient->Automatic Is this specimen being sent to an external lab?->No 03334&Blood^\S\^Vein&Vein Release to patient->Automatic Is this order Clinic Collect?->Yes Is this specimen being sent [place] an [place]?->[place] 48130&Blood^\S\^Vein&Vein Please include TIBC. Release to patient->Automatic Is this order Clinic Collect?->Yes Is this specimen being sent to an external lab?->No 40837&Blood^\S\^Vein&Vein With differential. Release to patient->Automatic Is this order Clinic Collect?->Yes Is this specimen being sent to an external lab?->No 73466&Blood^\S\^Vein&Vein Performed By: #### C BC #### [place] [address] Platelet mean volume (Bld) [Entitic vol] 10.5 fL Normal [facility] Comment on above: Order Comment: Relea se to patient->Automatic Is this specimen being sent to an external lab?->No 10676&Blood^\S\^Vein&Vein Release to patient->Automatic Is this order Clinic Collect?->Yes Is this specimen being sent to an external lab?->No 42237&Blood^\S\^Vein&Vein Please include TIBC. Release to patient->Automatic Is this order Clinic Collect?->Yes Is this specimen being sent to an external lab?->No 14265&Blood^\S\^Vein&Vein With differential. Release to patient->Automatic Is this order Clinic Collect?->Yes Is this specimen being sent to an external lab?->No 44171&Blood^\S\^Vein&Vein Result Comment: MPV is platelet range and age dependent Performed By: #### C BC #### [place] [address] Platelets (Bld) [#/Vol] 313 10*3/uL Normal 150-450 [facility] Comment on above: Order Comment: Relea se to patient->Automatic Is this specimen being sent to an external lab?->No 86722&Blood^\S\^Vein&Vein Release to patient->Automatic Is this order Clinic Collect?->Yes Is this specimen being sent to an external lab?->No 45927&Blood^\S\^Vein&Vein Please include TIBC. Release to patient->Automatic Is this order Clinic Collect?->Yes Is this specimen being sent to an external lab?->No 57161&Blood^\S\^Vein&Vein With differential. Release to patient->Automatic Is this order Clinic Collect?->Yes Is this specimen being sent to an external lab?->No 95172&Blood^\S\^Vein&Vein Performed By: #### C BC #### [address] [id number] RBC 5.04 10E12/L High 4.00-4.90 [facility] Comment on above: Order Comment: Relea se to patient->Automatic Is this specimen being sent to an external [place]?->No 16127&Blood^\S\^Vein&Vein Release to patient->Automatic Is this order Clinic Collect?->Yes Is this specimen being sent to an external lab?->No 90487&Blood^\S\^Vein&Vein Please include TIBC. Release to patient->Automatic Is this order Clinic Collect?->Yes Is this specimen being sent to an external [place]?->[place] 88102&Blood^\S\^Vein&Vein With differential. Release to patient->Automatic Is this order Clinic Collect?->Yes Is this specimen being sent to an external lab?->No 75937&Blood^\S\^Vein&Vein Performed By: #### C BC #### [address] [id number] WBC (Bld) [#/Vol] 5.4 10*3/uL Normal 4.5-11.0 [facility] Comment on above: Order Comment: Relea se to patient->Automatic Is this specimen being sent to an external lab?->No [id number]&Blood^\S\^Vein&Vein Release to patient->Automatic Is this order Clinic Collect?->Yes Is this specimen being sent to an external lab?->No [id number]&Blood^\S\^Vein&Vein Please include TIBC. Release to patient->Automatic Is this order Clinic Collect?->Yes Is this specimen being sent to an external lab?->No 45805&Blood^\S\^Vein&Vein With differential. Release to patient->Automatic Is this order Clinic Collect?->Yes Is this specimen being sent to an external lab?->No 11024&Blood^\S\^Vein&Vein Performed By: #### C BC #### [address] [address] Creatine Kinaseon 12-19-2020 CK [Catalytic activity/Vol] 88 U/L Normal 24-195 [facility] Comment on above: Order Comment: Relea se to patient->Automatic Is this specimen being sent to an external lab?->No 05990&Blood^\S\^Vein&Vein Release to patient->Automatic Is this order Clinic Collect?->Yes Is this specimen being sent to an external lab?->No 59013&Blood^\S\^Vein&Vein Please include TIBC. Release to patient->Automatic Is this order Clinic Collect?->Yes Is this specimen being sent to an external lab?->No 83905&Blood^\S\^Vein&Vein With differential. Release to patient->Automatic Is this order Clinic Collect?->Yes Is this specimen being sent to an external lab?->No [id number]&Blood^\S\^Vein&Vein Performed By: #### C K #### [address] [address] ESRon 12-19-2020 ESR Sed Rate 24 mm Normal [facility] Comment on above: Order Comment: Relea se to patient->Automatic Is this specimen being sent to an external lab?->No 77403&Blood^\S\^Vein&Vein Release to patient->Automatic Is this order Clinic Collect?->Yes Is this specimen being sent to an external lab?->No 98009&Blood^\S\^Vein&Vein Please include TIBC. Release to patient->Automatic Is this order Clinic Collect?->Yes Is this specimen being sent to an external lab?->No 73524&Blood^\S\^Vein&Vein With differential. Release to patient->Automatic Is this order Clinic Collect?->Yes Is this specimen being sent to an external lab?->No 17769&Blood^\S\^Vein&Vein Performed By: #### S RATE #### [address] [address] Interpretation ----- Normal [facility] Comment on above: Order Comment: Relea se to patient->Automatic Is this specimen being sent to an external lab?->No 50319&Blood^\S\^Vein&Vein Release to patient->Automatic Is this order Clinic Collect?->Yes Is this specimen being sent to an external lab?->No 87955&Blood^\S\^Vein&Vein Please include TIBC. Release to patient->Automatic Is this order Clinic Collect?->Yes Is this specimen being sent to an external lab?->No 35739&Blood^\S\^Vein&Vein With differential. Release to patient->Automatic Is this order Clinic Collect?->Yes Is this specimen being sent to an external lab?->No 53486&Blood^\S\^Vein&Vein Result Comment: Male Female Child 0-13 Child 0-13 Adult 0- 9 Adult 0-20 Performed By: #### S RATE #### [place] [address] Ironon 12-19-2020 %Saturation 26 % Normal 13-59 [facility] Comment on above: Order Comment: Relea se to patient->Automatic Is this specimen being sent to an external lab?->No 55424&Blood^\S\^Vein&Vein Release to patient->Automatic Is this order Clinic Collect?->Yes Is this specimen being sent to an external lab?->No 28433&Blood^\S\^Vein&Vein Please include TIBC. Release to patient->Automatic Is this order Clinic Collect?->Yes Is this specimen being sent to an external lab?->No 73296&Blood^\S\^Vein&Vein With differential. Release to patient->Automatic Is this order Clinic Collect?->Yes Is this specimen being sent to an external lab?->No 43074&Blood^\S\^Vein&Vein Performed By: #### I KENDAL #### [address] [address] Iron [Mass/Vol] 94 ug/dL Normal 30-160 [facility] Comment on above: Order Comment: Relea se to patient->Automatic Is this specimen being sent to an external lab?->No 50005&Blood^\S\^Vein&Vein Release to patient->Automatic Is this order Clinic Collect?->Yes Is this specimen being sent to an external lab?->No 87312&Blood^\S\^Vein&Vein Please include TIBC. Release to patient->Automatic Is this order Clinic Collect?->Yes Is this specimen being sent to an external lab?->No 18567&Blood^\S\^Vein&Vein With differential. Release to patient->Automatic Is this order Clinic Collect?->Yes Is this specimen being sent to an external lab?->No 76815&Blood^\S\^Vein&Vein Performed By: #### I KENDAL #### [place] [id number] TIBC 363 ug/dl Normal 228-428 [facility] Comment on above: Order Comment: Relea se to patient->Automatic Is this specimen being sent to an external lab?->No 86335&Blood^\S\^Vein&Vein Release to patient->Automatic Is this order Clinic Collect?->Yes Is this specimen being sent to an external lab?->No 75894&Blood^\S\^Vein&Vein Please include TIBC. Release to patient->Automatic Is this order Clinic Collect?->Yes Is this specimen being sent to an external lab?->No 70113&Blood^\S\^Vein&Vein With differential. Release to patient->Automatic Is this order Clinic Collect?->Yes Is this specimen being sent to an external lab?->No 39232&Blood^\S\^Vein&Vein Performed By: #### I KENDAL #### [place] [address] Progress Noteon 12-19-2020 Virtualization Consultant Authentication Interface Message Text Patient ID: Brooke Wood is a 20 y.o. female. Her chief complaint(s) include: Other (follow-up lab results) Assessment 1. Tachycardia 2. Abdominal pain, epigastric 3. Gastroesophageal reflux disease without esophagitis 4. Muscle twitch 5. Tingling in extremities 6. Paroxysmal supraventricular tachycardia Plan Brooke was seen today for other. Diagnoses and all orders for this visit: Tachycardia - Venipuncture - TSH with Reflex to T4, Free (Clinic Collect) - ESR (Clinic Collect) - C-reactive protein (Clinic Collect) Abdominal pain, epigastric - AMB Referral To Gastroenterology; Future Gastroesophageal reflux disease without esophagitis - AMB Referral To Gastroenterology; Future Muscle twitch - Vitamin B12 - Lead, venous (Lab Collect) - Vitamin D 25 hydroxy (Lab Collect) - Iron & TIBC (Lab Collect) - Ferritin (Lab Collect) - Creatine Kinase - Complete Blood Count with Diff (Lab Collect) - Comprehensive metabolic panel (Lab Collect) Tingling in extremities - Vitamin B12 - Lead, venous (Lab Collect) - Vitamin D 25 hydroxy (Lab Collect) - Iron & TIBC (Lab Collect) - Ferritin (Lab Collect) - Creatine Kinase - Complete Blood Count with Diff (Lab Collect) - Comprehensive metabolic panel (Lab Collect) Paroxysmal supraventricular tachycardia - Holter Monitor Interpretation Will obtain some laboratory studies to evaluate for the tachycardia. Patient had been seen by another provider at prior visit. Will obtain laboratory studies that were ordered at that time as well. Cardiology has already evaluated patient for any cardiac causes of the tachycardia and has ruled them out. Instructed patient to get plenty of rest and to drink plenty of fluids. Return if symptoms worsen or fail to improve. Subjective She is unaccompanied. Other This problem is new. (Unsure how long but patient been noted to be tachycardic for last several appointments.). Onset: unsure sure how long. Patient with history of SVT and has had 2 separate cardiac ablation procedures. Additional cardiac studies ruled out cardiac cause of current issues of tachycardia. The course is unchanging. The patient's symptoms have included fatigue (at times) and abdominal pain (epigastric area: reflux symptoms that continue). The patient's symptoms have included no fever, no fussiness, no congestion, no rhinorrhea, no cough, no bilateral ear pain, no headaches, no difficulty breathing, no diarrhea and no vomiting. (Patient concerned about possible inflammatory process causing the symptoms. Wanting laboratory studies done to evaluate concerns). The location of symptoms have included the chest. The symptoms are described as mild. The symptoms are aggravated by nothing. (Cardiac exam). Primary Care Review of Systems Objective Vital Signs 12/19/20 1407 BP: 115/76 Pulse: (!) 111 Temp: 36.6 C (97.9 F) TempSrc: Temporal Weight: 74.1 kg Height: 162.6 cm Body mass index is 28.04 kg/m . Physical Exam Constitutional: She appears well. She is active. No distress. HENT: Head: Atraumatic. Ears: Right Ear: Tympanic membrane normal. Left Ear: Tympanic membrane normal. Nose: No nasal discharge. Mouth/Throat: Mucous membranes are moist. No pharynx erythema. Eyes: Conjunctivae are normal. Cardiovascular: Regular rhythm. Tachycardia present. Heart murmur not heard. Slightly tachycardic Pulmonary/Chest: Breath sounds normal. There is normal air entry. Abdominal: Soft. Bowel sounds are normal. There is no abdominal tenderness. Lymphadenopathy: No right anterior cervical adenopathy present. No left anterior cervical adenopathy present. Neurological: She is alert. Vitals reviewed: Blood pressure 115/76, pulse (!) 111, temperature 36.6 C (97.9 F), temperature source Temporal, height 162.6 cm, weight 74.1 kg. Normal [facility] Progress Noteon 12-08-2020 Virtualization Consultant Authentication Interface Message Text Dear Cally Ayoub MD, Brooke Pastrana Adrian underwent an electrophysiologic study and catheter ablation at [facility] on 12/08/2020. 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 She underwent successful RF ablation . She tolerated the procedure well, without complications. I recommend light activity for 3 days, and then no restrictions, 1 baby aspirin daily for 1 week, no dental work for 6 weeks, and SBE prophylaxis for 1 year. Follow up is scheduled for 2 months. Normal [facility] COSAR SARS-CoV-2 (COVID-19) RT-PCR, Qualitativeon 12-07-2020 SARS-CoV-2 (COVID-19) RT-PCR, Qualitative Not detected Normal [facility] Comment on above: Order Comment: Sched uled for cath procedure by Dr. Mojica on 12/08/20. Is this a pre-procedure screening test?->Yes [id number]&Nasopharyngeal Performed By: #### E LRG2 #### [address] [address] COSAR SARS-CoV-2 (COVID-19) RT-PCR, [facility] 12-05-2020 Employed in Healthcare setting? No [facility] Comment on above: Order Comment: Sched uled for cath procedure by Dr. Mojica on 12/08/20. Is this a pre-procedure screening test?->Yes [id number]&Nasopharyngeal Performed By: #### E LRG2 #### [address] [address] First COVID-19 test? No [facility] Comment on above: Order Comment: Sched uled for cath procedure by Dr. Mojica on 12/08/20. Is this a pre-procedure screening test?->Yes [id number]&Nasopharyngeal Performed By: #### E LRG2 #### [address] [address] Hospitalized? No [facility] Comment on above: Order Comment: Sched uled for cath procedure by Dr. Mojica on 12/08/20. Is this a pre-procedure screening test?->Yes [id number]&Nasopharyngeal Performed By: #### E LRG2 #### [address] [address] ICU? No [facility] Comment on above: Order Comment: Sched uled for cath procedure by Dr. Mojica on 12/08/20. Is this a pre-procedure screening test?->Yes [id number]&Nasopharyngeal Performed By: #### E LRG2 #### [address] [address] ? Unknown [facility] Comment on above: Order Comment: Sched uled for cath procedure by Dr. Mojica on 12/08/20. Is this a pre-procedure screening test?->Yes [id number]&Nasopharyngeal Performed By: #### E LRG2 #### [address] [place] [address] Resident in congrega care setting? No Normal [facility] Comment on above: Order Comment: Sched uled for cath procedure by Dr. Mojica on 12/08/20. Is this a pre-procedure screening test?->Yes [id number]&Nasopharyngeal Performed By: #### E LRG2 #### [address] [address] Symptomatic as defined by CDC? No Normal [facility] Comment on above: Order Comment: Sched uled for cath procedure by Dr. Mojica on 12/08/20. Is this a pre-procedure screening test?->Yes [id number]&Nasopharyngeal Performed By: #### E LRG2 #### [address] [address] Progress Noteon 11-18-2020 Virtualization Consultant Authentication Interface Message Text Patient ID: Brooke Wood is a 20 y.o. female. Her chief complaint(s) include: Other (potassium low/ twitching and cramps ) Assessment 1. Hypokalemia 2. Gastroesophageal reflux disease, unspecified whether esophagitis present 3. Muscle twitch 4. Tingling in extremities Plan Brooke was seen today for other. Diagnoses and all orders for this visit: Hypokalemia - AMB Referral To Nutritional Services; Future Gastroesophageal reflux disease, unspecified whether esophagitis present - AMB Referral To Gastroenterology; Future - AMB Referral To Nutritional Services; Future Muscle twitch - Comprehensive metabolic panel (Lab Collect); Future - Complete Blood Count with Diff (Lab Collect); Future - Ferritin (Lab Collect); Future - Iron & TIBC (Lab Collect); Future - Vitamin D 25 hydroxy (Lab Collect); Future - Lead, venous (Lab Collect); Future - Calcium; Future - Vitamin B12; Future - Creatine Kinase; Future Tingling in extremities - Comprehensive metabolic panel (Lab Collect); Future - Complete Blood Count with Diff (Lab Collect); Future - Ferritin (Lab Collect); Future - Iron & TIBC (Lab Collect); Future - Vitamin D 25 hydroxy (Lab Collect); Future - Lead, venous (Lab Collect); Future - Calcium; Future - Vitamin B12; Future - Creatine Kinase; Future Return if symptoms worsen or fail to improve. Will refer to an adult GI due to age for ongoing concerns about reflux. Will refer to a liquified natural gas technician due to on and off concerns about low potassium levels. Reviewed today's concerns and plan with Dr. Cortes. Due to symptoms will obtain some labs. Will determine follow up after results are available. Please continue with your escrow representative for SVT and heart concerns. Please call for any concerns. Subjective HPI Comments: Experiencing leg cramps frequently also feels tingling wherever she puts pressure on her skin. Here today due to issues with SVT- has not had problems in the past 6 years and she has been having trouble recently. States that she has had cramps and twitching. She is not sure if her potassium is low or not. She has not been taking her MVI as she used to. Typical breakfast: oatmeal with fruit blueberries or banana; will sometimes skip because she works third shift. Typical lunch: sandwich with chips Typical dinner: pasta with bread Snack: peppers or celery Drinks: 1/2 gallon of water each day; fruit juice: 2 cups some days Last saw cardiology a couple of weeks ago. She is scheduled for a ablation in December. States she has been to the ER 3 times in the past 6 months and told that she has a low potassium. Takes mylanta after each meal- takes if for heartburn. Started prilosec about a month ago. She is unaccompanied. Other This problem is recurrent. The duration has been 6 months. The onset has been acute. The course is unchanging. The patient's symptoms have included no fatigue, no fever, no decreased appetite, no decreased fluid intake, no rhinorrhea, no sneezing, no sore throat, no trouble swallowing, no shortness of breath, no abdominal pain, no diarrhea and no vomiting (nausea sometimes). (Acid reflux all day long). The previous interventions include medications. Primary Care Review of Systems Objective Vital Signs 11/18/20 1416 Temp: 36.9 C (98.5 F) TempSrc: Temporal Weight: 76.1 kg There is no height or weight on file to calculate BMI. Physical Exam Constitutional: She appears well. She is active. No distress. HENT: Head: Atraumatic. Ears: Right Ear: Tympanic membrane and external ear normal. Left Ear: Tympanic membrane and external ear normal. Nose: No nasal discharge. Mouth/Throat: Mucous membranes are moist. No pharynx erythema. Eyes: Conjunctivae are normal. Right eyelid exhibits no discharge. Left eyelid exhibits no discharge. Right conjunctiva is not injected. Left conjunctiva is not injected. Neck: Neck supple. Thyroid normal. Cardiovascular: Normal rate, regular rhythm, S1 normal and S2 normal. Pulses are palpable. Heart murmur not heard. Pulmonary/Chest: Effort normal and breath sounds normal. There is normal air entry. No respiratory distress. Air movement is not decreased. She has no wheezes. She has no rales. Genitourinary: Did not examine. Musculoskeletal: Cervical back: Neck supple. Lymphadenopathy: No right anterior and posterior cervical adenopathy present. No left anterior and posterior cervical adenopathy present. Neurological: She is alert. She has normal motor skills, normal sensation and intact cranial nerves. Gait normal. Oriented to person time and place Skin: Skin is warm. Findings: No rash. Vitals reviewed: Temperature 36.9 C (98.5 F), temperature source Temporal, weight 76.1 kg. Normal [facility] EP Panel Gastrointestinal pathogens panel DEZ+probe ([facility]) [facility] Work Phone: Stool gastrointestinal hemog lobin detection by immunologic method Lower GI hemoglobin IA Ql ([facility]) [facility] Work Phone: Vital Signs Date Time Vital Sign Value Performing Clinician Jayjay [place] 07-15-2023 10:40-0500 Diastolic blood pressure 71 mm[Hg] Dr. Tai Mccarty Work Phone: [facility] 07-15-2023 10:40-0500 Heart rate 94 /min Dr. Tai Mccarty Work Phone: [facility] 07-15-2023 10:40-0500 Respiratory rate 16 /min Dr. Tai Mccarty Work Phone: [facility] 07-15-2023 10:40-0500 SaO2% (BldA) [Mass fraction] 100 % Dr. Tai Mccarty Work Phone: [facility] 07-15-2023 10:40-0500 Systolic blood pressure 107 mm[Hg] Dr. Tai Mccarty Work Phone: [facility] 07-15-2023 10:31-0500 Body temperature 97.4 [degF] Dr. Tai Mccarty Work Phone: [facility] 07-15-2023 09:58-0500 Body height 162.[address] Tai Mccarty Work Phone: [facility] 07-15-2023 09:58-0500 Body mass index (BMI) [Ratio] 20.2 kg/m2 Dr. Tai Mccarty Work Phone: [facility] 07-15-2023 09:58-0500 Body weight 53.[address] Tai Mccarty Work Phone: [facility] 06-24-2023 14:33-0500 Body mass index (BMI) [Ratio] 20.9 kg/m2 Dr. Tai Mccarty Work Phone: [facility] 06-24-2023 14:33-0500 Body weight 55.[address] Tai Mccarty Work Phone: [facility] 06-24-2023 14:33-0500 Diastolic blood pressure 68 mm[Hg] Dr. Tai Mccarty Work Phone: [facility] 06-24-2023 14:33-0500 Heart rate 109 /min Dr. Tai Mccarty Work Phone: [facility] 06-24-2023 14:33-0500 Respiratory rate 16 /min Dr. Tai Mccarty Work Phone: [facility] 06-24-2023 14:33-0500 Systolic blood pressure 100 mm[Hg] Dr. Tai Mccarty Work Phone: [facility] 04-23-2023 11:00-0400 Body mass index (BMI) [Ratio] 21.9 kg/m2 Dr. Tai Mccarty Work Phone: [facility] 04-23-2023 11:00-0400 Body temperature 98.4 [degF] Dr. Tai Mccarty Work Phone: [facility] 04-23-2023 11:00-0400 Body weight 58.[address] Tai Mccarty Work Phone: [facility] 04-23-2023 11:00-0400 Diastolic blood pressure 73 mm[Hg] Dr. Tai Mccarty Work Phone: [facility] 04-23-2023 11:00-0400 Heart rate 98 /min Dr. Tai Mccarty Work Phone: [facility] 04-23-2023 11:00-0400 Respiratory rate 17 /min Dr. Tai Mccarty Work Phone: [facility] 04-23-2023 11:00-0400 SaO2% (BldA) [Mass fraction] 99 % Dr. Tai Mccarty Work Phone: [facility] 04-23-2023 11:00-0400 Systolic blood pressure 105 mm[Hg] Dr. Tai Mccarty Work Phone: [facility] 08-23-2022 09:30-0500 Body temperature 98.2 [degF] Dr. Cally Ayoub Work Phone: [facility] 08-23-2022 09:30-0500 Diastolic blood pressure 73 mm[Hg] Dr. Cally Ayoub Work Phone: [facility] 08-23-2022 09:30-0500 Heart rate 96 /min Dr. Cally Ayoub Work Phone: [facility] 08-23-2022 09:30-0500 Respiratory rate 14 /min Dr. Cally Ayoub Work Phone: 2(021)888-020676 [place] [address] 08-23-2022 09:30-0500 SaO2% (BldA) [Mass fraction] 100 % Dr. Cally Ayoub Work Phone: 0(147)916-423576 [place] [address] 08-23-2022 09:30-0500 Systolic blood pressure 104 mm[Hg] Dr. Cally Ayoub Work Phone: 1(223)230-574676 [place] [address] 08-23-2022 08:29-0500 Body height 162.[address] Cally Ayoub Work Phone: 5(483)550-774276 [place] [address] 08-23-2022 08:29-0500 Body mass index (BMI) [Ratio] 22.4 kg/m2 Dr. Cally Ayoub Work Phone: 6(580)433-125976 [place] [address] 08-23-2022 08:29-0500 Body weight 59.[address] Cally Ayoub Work Phone: 6(163)745-951076 [place] [address] 07-07-2022 17:20-0500 Body temperature 97.8 [degF] Dr. Cally Ayoub Work Phone: 6(334)464-763076 [place] [address] 07-07-2022 17:20-0500 Diastolic blood pressure 71 mm[Hg] Dr. Cally Ayoub Work Phone: 8(799)444-685976 [place] [address] 07-07-2022 17:20-0500 Heart rate 111 /min Dr. Cally Ayoub Work Phone: 7(133)205-679076 [place] [address] 07-07-2022 17:20-0500 Respiratory rate 16 /min Dr. Cally Ayoub Work Phone: 9(965)838-455776 [place] [address] 07-07-2022 17:20-0500 SaO2% (BldA) [Mass fraction] 100 % Dr. Cally Ayoub Work Phone: 8(063)590-900576 [place] [address] 07-07-2022 17:20-0500 Systolic blood pressure 97 mm[Hg] Dr. Cally Ayoub Work Phone: 4(703)465-528076 [place] [address] 07-07-2022 08:55-0500 Body height 162.[address] Cally Ayoub Work Phone: 5(124)794-301676 [place] [address] Work Phone: 07-07-2022 08:55-0500 Body mass index (BMI) [Ratio] 22.9 kg/m2 Dr. Cally Ayoub Work Phone: [facility] 07-07-2022 08:55-0500 Body weight 60.[address] Cally Ayoub Work Phone: [facility] 07-07-2022 08:00-0500 Body temperature 97.9 [degF] Dr. Cally Ayoub Work Phone: [facility] Work Phone: 07-07-2022 08:00-0500 Diastolic blood pressure 58 mm[Hg] Dr. Cally Ayoub Work Phone: [facility] Work Phone: 07-07-2022 08:00-0500 Heart rate 80 /min Dr. Cally Ayoub Work Phone: [facility] Work Phone: 07-07-2022 08:00-0500 SaO2% (BldA) [Mass fraction] 98 % Dr. Cally Ayoub Work Phone: [facility] Work Phone: 07-07-2022 08:00-0500 Systolic blood pressure 118 mm[Hg] Dr. Cally Ayoub Work Phone: [facility] Work Phone: 07-07-2022 00:34-0500 Body height 162.[address] Cally Ayoub Work Phone: [facility] Work Phone: 07-07-2022 00:34-0500 Body mass index (BMI) [Ratio] 23.3 kg/m2 Dr. Cally Ayoub Work Phone: [facility] Work Phone: 07-07-2022 00:34-0500 Body weight 61.[address] Cally Ayoub Work Phone: [facility] Work Phone: 06-06-2022 10:13-0400 Body height 162.[address] Cally Ayoub Work Phone: 6(175)277-400048 [place] [address] Work Phone: 06-06-2022 10:13-0400 Body mass index (BMI) [Ratio] 22.3 kg/m2 Dr. Cally Ayoub Work Phone: 3(906)616-599773 [address] 06-06-2022 10:13-0400 Body temperature 96.8 [degF] Dr. Cally Ayoub Work Phone: 4(964)980-267273 [address] 06-06-2022 10:13-0400 Body weight 58.[address] Cally Ayoub Work Phone: 7(771)957-607276 [place] [address] 06-06-2022 10:13-0400 Diastolic blood pressure 68 mm[Hg] Dr. Cally Ayoub Work Phone: 2(837)183-160976 [place] [address] 06-06-2022 10:13-0400 Heart rate 105 /min Dr. Cally Ayoub Work Phone: 5(700)612-165476 [place] [address] 06-06-2022 10:13-0400 Respiratory rate 16 /min Dr. Cally Ayoub Work Phone: 7(325)815-017076 [place] [address] 06-06-2022 10:13-0400 SaO2% (BldA) [Mass fraction] 99 % Dr. Cally Ayoub Work Phone: 7(798)850-930776 [place] [address] 06-06-2022 10:13-0400 Systolic blood pressure 104 mm[Hg] Dr. Cally Ayoub Work Phone: 6(952)982-299676 [place] [address] 05-15-2022 09:20-0400 Body mass index (BMI) [Ratio] 23.1 kg/m2 Dr. Cally Ayoub Work Phone: [phone] [address] 05-15-2022 09:20-0400 Body weight 61.[address] Cally Ayoub Work Phone: [phone] [place] [address] 05-13-2022 00:26-0400 Diastolic blood pressure 96 mm[Hg] Dr. Cally Ayoub Work Phone: [phone] [place] [address] 05-13-2022 00:26-0400 Heart rate 111 /min Dr. Cally Ayoub Work Phone: [phone] [place] [address] 05-13-2022 00:26-0400 Respiratory rate 16 /min Dr. Cally Ayoub Work Phone: [facility] 05-13-2022 00:26-0400 SaO2% (BldA) [Mass fraction] 100 % Dr. Cally Ayoub Work Phone: [facility] 05-13-2022 00:26-0400 Systolic blood pressure 137 mm[Hg] Dr. Cally Ayoub Work Phone: [facility] 05-12-2022 22:45-0400 Body mass index (BMI) [Ratio] 22.3 kg/m2 Dr. Cally Ayoub Work Phone: [facility] 05-12-2022 22:45-0400 Body temperature 97.5 [degF] Dr. Cally Ayoub Work Phone: [facility] 05-12-2022 22:45-0400 Body weight 58.[address] Cally Ayoub Work Phone: [facility] 05-09-2022 03:36-0400 Diastolic blood pressure 85 mm[Hg] [facility] 05-09-2022 03:36-0400 Heart rate 133 /min [facility] 05-09-2022 03:36-0400 Respiratory rate 16 /min [facility] 05-09-2022 03:36-0400 SaO2% (BldA) [Mass fraction] 98 % [facility] 05-09-2022 03:36-0400 Systolic blood pressure 120 mm[Hg] [facility] 05-08-2022 22:07-0400 Body height 162.56 cm [facility] Work Phone: 05-08-2022 22:07-0400 Body mass index (BMI) [Ratio] 24 kg/m2 [facility] 05-08-2022 22:07-0400 Body temperature 97.2 [degF] [facility] 05-08-2022 22:07-0400 Body weight 63.5 kg [facility] 04-23-2022 12:35-0400 Diastolic blood pressure 78 mm[Hg] [facility] Work Phone: 04-23-2022 12:35-0400 Heart rate 66 /min [facility] Work Phone: 04-23-2022 12:35-0400 Respiratory rate 14 /min [facility] Work Phone: 04-23-2022 12:35-0400 SaO2% (BldA) [Mass fraction] 98 % [facility] Work Phone: 04-23-2022 12:35-0400 Systolic blood pressure 124 mm[Hg] [facility] Work Phone: 04-23-2022 10:35-0400 Body height 162.56 cm [facility] Work Phone: 04-23-2022 10:35-0400 Body mass index (BMI) [Ratio] 24 kg/m2 [facility] Work Phone: 04-23-2022 10:35-0400 Body temperature 97.5 [degF] [facility] Work Phone: 04-23-2022 10:35-0400 Body weight 63.5 kg [facility] Work Phone: Encounters Encounter Date Encounter Type Care Provider Facility Start: 11-26-2024 ambulatory Jr Friend Facility :[facility] Start: 05-27-2024 End: 05-27-2024 ambulatory Jr Friend Facility:[facility] Start: 04-15-2024 End: 04-15-2024 ambulatory Efewongbe Oleghe Facility:[facility] Start: 01-22-2024 End: 01-22-2024 ambulatory Efewongbe Oleghe Facility:[facility] Start: 12-02-2023 End: 12-02-2023 ambulatory Jr Friend Facility:[facility] Start: 11-29-2023 ambulatory Efewongbe Oleghe Facili ty:[facility] Start: 07-15-2023 Non-patient / Non-visit Dr. Tai Mccarty Work Phone: [facility] Start: 07-15-2023 End: 07-15-2023 Admission to same day surgery center Dr. Tai Mccarty Work Phone: [facility] Work Phone: Start: 07-15-2023 End: 07-15-[address] Tai Mccarty Work Phone: [facility] Work Phone: Start: 07-08-2023 End: 07-08-[address] Tai Mccarty Work Phone: [facility] Work Phone: Start: 06-24-2023 End: 06-24-[address] Tai Mccarty Work Phone: [facility] Work Phone: Start: 06-05-2023 Telephone encounter Ken islas MD Work Phone: Allergy Start: 05-22-2023 End: 05-23-2023 ambulatory CALLY DONOHUE [place] Facility:[facility] Start: 05-22-2023 End: 05-22-2023 ambulatory KEN DU Facility:[facility] Start: 04-23-[address] Radha Mccarty Work Phone: [facility] Start: 04-23-2023 End: 04-23-[address] Tai Mccarty Work Phone: [facility] Work Phone: Start: 08-31-2022 End: 08-31-[address] Tai Mccarty Work Phone: [facility] Work Phone: Start: 08-31-2022 End: 08-31-[address] Tai Mccarty Work Phone[facility] Start: 08-23-2022 Non-patient / Non-visit Dr. Cally Ayoub Work Phone: [facility] Start: 08-23-2022 End: 08-23-2022 Admission to same day surgery center Dr. Cally Ayoub Work Phone: [facility] Start: 08-23-2022 End: 08-23-[address] Cally Ayoub Work Phone: [facility] Work Phone: Start: 07-13-2022 End: 07-13-[address] Cally Ayoub Work Phone: [facility] Work Phone: Start: 07-13-2022 End: 07-13-[address] Cally Ayoub Work Phone[facility] Start: 07-08-2022 Non-patient / Non-visit Dr. Cally Ayoub Work Phone: [facility] Start: 07-07-2022 Non-patient / Non-visit Dr. Cally Ayoub Work Phone: [facility] Start: 07-07-2022 End: 07-07-2022 Evaluation and management of inpatient Dr. Cally Ayoub Work Phone: [facility]Medical Surgical 3 Start: 07-07-2022 End: 07-07-[address] Cally Ayoub Work Phone: [facility] Work Phone: Start: 07-05-2022 Telephone encounter Tim boyd DO Work Phone: Hematology/Oncology Comment on above: New Patient (Hematol ogy Referral-Dr. Ravi) Start: 06-25-2022 End: 06-25-[address] Cally Ayoub Work Phone: [facility]Laboratory Start: 06-25-2022 End: 06-25-[address] Cally Ayoub Work Phone: [facility]astroenter[facility] Start: 06-06-2022 End: 06-06-[address] Cally Ayoub Work Phone: [facility] Work Phone: Start: 06-06-2022 End: 06-06-[address] Cally Ayoub Work Phone: [facility] Medicine Start: 05-31-2022 Non-patient / Non-visit Dr. Cally Ayoub Work Phone: [facility] Start: 05-31-2022 End: 05-31-[address] Cally Ayoub Work Phone: [facility] Work Phone: Start: 05-31-2022 End: 05-31-[address] Cally Ayoub Work Phone: [facility]-Pulmonary Services/Neurology Start: 05-15-2022 End: 05-15-[address] Cally Ayoub Work Phone: [facility] Start: 05-12-2022 End: 05-13-2022 Emergency department patient visit Dr. Cally Ayoub Work Phone: [facility]Emergency Department Start: 05-08-2022 End: 05-09-2022 Emergency department patient visit [facility] Start: 04-23-2022 End: 04-23-2022 Emergency department patient visit [facility] Procedures Date Procedure Procedure Detail Performing Clinician Start: 07-15-[address] Tai Mccarty Work Phone: Start: 08-23-[address] Cally julio Work Phone: Start: 07-13-2022 Radionuclide gastric emptying study Dr. Cally Ayoub Work Phone: Start: 07-07-2022 Computed tomography of abdomen and pelvis with intravenous contrast Dr. Cally Ayoub Work Phone: Start: 05-08-2022 Computed tomography of abdomen and pelvis with intravenous contrast Start: 05-08-2022 CT angiography of chest with contrast Start: 04-23-2022 Transvaginal echography Enteric Bacteriology Dr. Azul Ayoub Work Phone: Enteric Bacteriology Dr. Azul Ayoub Work Phone: Measurement of occul t blood in stool specimen using immunoassay Dr. Cally Ayoub Work Phone: Measurement of occul t blood in stool specimen using immunoassay Dr. Cally Ayoub Work Phone: Plan of Treatment Date Care Activity Detail Author Start: 10-25-2031 Urine microalbumin profile DTaP,Tdap,Td Vaccine (8 - Td or Tdap) [facility] Start: 07-15-2023 Patient discharge [facility] Start: 04-23-2023 Patient referral [facility] Work Phone: Start: 04-05-2023 Covid-19 Vaccine ( season) Covid-19 Vaccine () [facility] Start: 04-05-2023 Influenza vaccination Influenza Vaccine (#1) [facility] Start: 08-23-2022 Egd transoral biopsy single/multiple EGD BIOPSY SINGLE/MULTIPLE [facility] Start: 08-23-2022 Patient discharge [facility] Start: 08-05-2022 Depression Assessment Depression Assessment [facility] Start: 07-09-2022 [facility] Work Phone: Start: 07-08-2022 [facility] Work Phone: Start: 07-07-2022 Following clinical pathway protocol [facility] Start: 07-07-2022 Assessment of risk of venous thromboembolism [facility] Start: 07-07-2022 Insertion of catheter into peripheral vein [facility] Start: 07-07-2022 Providing care according to standard [facility] Start: 07-07-2022 Provision of activity privileges [facility] Start: 07-07-2022 Referral to gastroenterology service [facility] Start: 07-07-2022 Referral to occupational therapist [facility] Start: 07-07-2022 Referral to service [facility] Start: 07-07-2022 [facility] Start: 07-07-2022 Verification routine [facility] Work Phone: Start: 07-07-2022 Admission procedure [facility] Start: 07-07-2022 Enteric precautions [facility] Start: 07-07-2022 Patient discharge [facility] Start: 07-07-2022 [facility] Start: 06-06-2022 Cardiolipin IgG and IgM panel - Serum [facility] Work Phone: Start: 06-06-2022 Cytoplasmic ANCA Screen [facility] Work Phone: Start: 04-05-2022 Influenza vaccination INFLUENZA (#1) [facility] Start: 09-29-2021 COVID-19 VACCINE (4 - Booster for Pfizer series) COVID-19 VACCINE (4 - Booster for Pfizer series) [facility] Start: 08-05-2021 DEPRESSION ASSESSMENT DEPRESSION ASSESSMENT [facility] Start: 01-17-2021 PAP TESTING PAP TESTING [facility] Start: 01-17-2019 Urine microalbumin profile DTAP,TDAP,TD (1 - Tdap) [facility] Start: 01-17-2018 CHLAMYDIA SCREENING (18-24) CHLAMYDIA SCREENING (18-24) [facility] Start: 01-17-2018 GC (GONORRHEA) SCREENING (18-24) GC (GONORRHEA) SCREENING (18-24) [facility] Start: 01-17-2018 HEPATITIS C SCREENING HEPATITIS C SCREENING [facility] Start: 01-17-2018 HIV SCREENING HIV SCREENING [facility] Start: 2016 Meningococcal B Vaccine: Consider Based On Risk (1 of 2 - Patient Seeks Protection) Meningococcal B Vaccine: Consider Based On Risk (1 of 2 - Patient Seeks Protection) [facility] Start: 01-17-2014 PEDS TO ADULT TRANSITION ANNUAL ASSESSMENT PEDS TO ADULT TRANSITION ANNUAL ASSESSMENT [facility] Start: 2012 PEDS TO ADULT TRANSITION INITIAL DISCUSSION PEDS TO ADULT TRANSITION INITIAL DISCUSSION [facility] Start: 01-17-2011 HPV VACCINE (1 - 2-dose series) HPV VACCINE (1 - 2-dose series) [facility] Start: 2000 HEPATITIS B (1 of 3 - 3-dose series) HEPATITIS B (1 of 3 - 3-dose series) [facility] CBC W Auto Different ial panel - Blood [facility] Clostridioides diffi cile DNA [Presence] in Unspecified specimen by EDZ with probe detection [facility] Work Phone: D-dimer assay, quantitative [facility] Gastrointestinal pat hogens panel - Stool by DEZ with probe detection [facility] Work Phone: Lactate dehydrogenas e measurement [facility] Lactoferrin [Presenc e] in Stool by Immunoassay [facility] Work Phone: Ova and parasites identified in Unspecified specimen by Light microscopy [facility] Work Phone: Patient Education [facility] Work Phone: Patient referral [facility] Work Phone: Radionuclide gastric emptying study [facility] Work Phone: Radionuclide gastric emptying study [facility] Immunizations Immunization Date Immunization Notes Care Provider Rosa cha 10-30-2021 influenza virus vacc ine, unspecified formulation Ken Du MD Work Phone: [facility] Payers Date Payer Category Payer Unknown [id number] 2023 Private Health Insurance [employer] A ETNA POS [id number] 2023-Present [phone] [address] [place] [address] POS [id number] 2022 Private Health Insurance [id number] 2022 Self-pay [id number] 2022 Unknown [id number] 2018 Unknown [employer]LIS SANCHEZ SS PPO [id number] 2018-Present [phone] [address] [place] [address] PPO [id number] Unknown ARELIS [id number] Unknown [facility] [id number] Unknown [id number] Unknown [id number] Unknown [id number] Unknown [id number] Unknown [id number] Unknown [id number] Unknown [id number] Social History Date Type Detail Facility Start: 04-23-2022 End: 07-11-2023 Tobacco smoking status MSIS Unknown if ever smoked [facility] Start: 06-06-2020 None [facility] Start: 12-18-2020 Non-smoker [facility] Start: 2000 Sex Assigned At Female [facility] Start: 02-05-2019 Tobacco smoking status NHIS Never smoked tobacco [facility] Start: 02-05-2019 Tobacco use and exposure Smokeless tobacco non-user [facility] Start: 2000 Sex Assigned At Not on file [facility] Start: 02-05-2019 End: 05-22-2023 History of Social function [facility] Start: 02-05-2019 End: 05-22-2023 Tobacco use panel [facility] National Score (1-100), lower number is lower risk [address] [facility] NEGATED: Highlighted row [facility] Work Phone: NEGATED: Highlighted row [facility] Goals Date Patient Goal Desired Activity /State Functional Status Date Assessment Result Facility 07-07-2022 Functional status Activity Ability Indepe ndent [facility] Work Phone: Mental Status Date Assessment Result Facility 07-15-2023 Cognitive function Voice/Name [facility] Work Phone: 08-23-2022 Cognitive function Level Of Cons ciousness Appropriate;Drowsy [facility] Work Phone: 07-07-2022 Cognitive function Voice/Name [facility] Work Phone: 05-12-2022 Cognitive function Level Of Cons ciousness Awake;Alert;Appropriate;Follow s Commands [facility] Work Phone: Clinical Notes 12-07-2020 to 07-15-2023 Telephone Encounter - Nicolasa Montalvo RN - 06/05/2023 1:55 PM EDTTelephone Encounter - Jenifer Gustafson RN - 06/05/2023 9:02 AM EDTTelephone Encounter - Ken Du MD - 06/05/2023 8:48 AM EDT Note Date & Type Note Facility 07-15-2023 Procedure note [facility] 07-15-2023 Procedure note [facility] 06-05-2023 Miscellaneous Notes Received records. Release form faxed to [facility] Please request all reports for imaging of the chest (CT chest and CXR) completed [facility]. (She was hospitalized in 05/26 for a PE) Ken Du MD documented in this encounter [facility] 05-22-2023 Note HNO ID: [id number] Author: Ken Du MD Service: ? Author Type: Physician Type: Progress Notes Filed: 05/24/2023 3:46 PM Note Text: This is a consultation requested by Kris Knowles MD and Mario Ravi DO, MS for an allergy and immunology evaluation. My final recommendations will be communicated back to the requesting healthcare provider(s) by way of shared medical record or via [place]. mail. Brooke Wood is a 23 year old female with a history of rhinitis, pulmonary embolus, intermittent asthma and eosinophilic esophagitis who presents for further evaluation of elevated IgE level. IgE was 1,597 IU/ml June 25, 2022 and, then, 941 IU/ml on December 27, 2022 on evaluation completed at [facility]. P-ANCA was mildly positive at 1-20. IgG has also been mildly elevated. Per patient, hematology/oncology and rheumatology evaluations were unremarkable. She complains of nasal congestion, sneezing, rhinorrhea and itchy and watery eyes. Symptoms are perennial with exacerbation in the spring and summer. Exposure to cats, dogs, dust and pollens are triggers of her symptoms. She has previously taken Denise with relief. No prior allergy testing or allergy immunotherapy. She has a history of intermittent asthma. Symptoms include wheezing and chest tightness. Occasional shortness of breath. Uses albuterol a few times per year for acute symptoms. Denies recent nocturnal awakenings due to respiratory symptoms. Denies treatment with systemic steroids for respiratory symptoms. Last emergency room visit for asthma was in childhood. Asthma triggers include upper respiratory infection, and smoke exposure. Per patient, she has been diagnosed with eosinophilic esophagitis and is under the care of Dr. Ravi in gastroenterology. She complains of difficulty swallowing and a burning sensation in the epigastric region. Also complains of frequent belching, gagging and loose stools. Denies melena and hematochezia. Denies a history of foreign travel. She has lost 17 pounds. Symptoms have persisted despite taking Protonix 40 mg once daily. Denies prior treatment with swallowed corticosteroids or elimination diets. She complains of itching mouth and throat associated with ingestion of cantaloupe/melons. Complains of abdominal pain associated with ingestion of fresh banana. This resolves in 1 hour. She has never experienced a severe immediate reaction to food such as urticaria, angioedema, respiratory distress, lightheadedness or loss of consciousness. Denies a history of recurrent or chronic infections. Denies a history of recurrent or chronic rhinosinusitis. Denies a history of pneumonia. No history of significant eczema. Denies a history of endocrinopathy such as diabetes mellitus and hypothyroidism. No known history of eosinophilia. Denies a history of proteinuria and hematuria. Per patient, prior HIV test was negative. REVIEW OF SYSTEMS: SINUSITIS: The patient does not suffer from frequent sinopulmonary infections. ASTHMA: See [place] ECZEMA: The patient has no history of eczema. URTICARIA:The patient does not have a history of urticaria and/or angioedema. GERD: See [place] INSECT STING: The patient does not have a history of systemic reaction to insect sting. FOOD ALLERGY:See [place]. LATEX: The patient does not have a history of adverse reaction to latex. All other review of systems negative except for those listed above. No past medical history on file. MEDICATIONS: ELIQUIS 5 mg tab(s) Take 1 tablet by mouth every [address] (PROTONIX) 40 mg tablet Take 1 tablet by mouth once daily. atenolol (TENORMIN) 25 mg tablet Take 25 mg by mouth once daily. albuterol HFA (VENTOLIN HFA) 90 mcg/actuation inhaler Inhale 2 Puffs as instructed. ALLERGIES: Allergies As of Date: 05/22/2023 (No Known Allergies) Fully Assessed 05/22/2023 No past surgical history on file. FAMILY HISTORY: Allergic rhinitis:yes: mom and brother. Asthma: yes: mom, dad, and brother. Eczema: yes: mom, dad, and brother. Cystic fibrosis: no. Immunodeficiency: no. 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 Physical Exam: GENERAL APPEARANCE:Well appearing, alert, in no acute distress, well-hydrated, well nourished. HEENT: NCAT. EYES: conjunctiva and sclera normal. EARS: (more content not included)... [facility] 08-23-2022 History and physi ranulfo note Note Date/Time August 23, 2022 8:10am [facility] Medical Records Department [address] [place] [address] History & Physical Exam 08/23/22 0810 MR#: [id number] Acct: [id number] Name: BROOKE WOOD Rep #:[id number] : 2000 22 From: Jr Friend DO PCP: Dr. Tai Mccarty MD Status:R [facility] Location: [place] [address] History and Physical Date of Admission: 08/23/22 Assessment/Plan (1) Hepatitis: PLAN: Differential diagnosis for the periportal edema would be ischemic hepatitis secondary to nausea vomiting causing a low flow state.? This is typically recoverable.? I suggested her that she takes low-dose dicyclomine as needed if she feels the cramping to subsequently stop from having a mild intestinal angina episode.? Also recommended a recheck, LFTs in approximately 3 days after discharge. (2) Epigastric abdominal pain: PLAN: Epigastric pain possibly secondary to peptic ulcer disease in the setting of Eliquis therapy.? Also she should be checked for H. pylori.? She is scheduledto have an upper endoscopy in the near future. (3) GERD (gastroesophageal reflux disease): PLAN: Recommend to stop famotidine and to transition her to pantoprazole 40 mg p.o. twice daily.? Medicine was already sent to the pharmacy. HPI Consult Data Date of Consult: 07/07/22 HPI Narrative Reason for Consultation: Abdominal pain HPI Narrative: BROOKE WOOD, is a 22 F who presented to the clinic for initial evaluation ofabdominal discomfort on 06.25.22. She has been having issues with abdominal discomfort, bloating, belching, reflux and increased flatulence with intermittent nausea and tightness in her stomach with a rapid HR for several months.? She has been taking famotidine 40mg has been helpful with heartburn; Dexilant and protonix historically ineffective. Weight loss of approximately 10lbs r/t decreased appetite.? She had saw a farmer general as an outpatient and he recommended PPI therapy and she was diagnosed with gastritis.? Recently she was diagnosed with PE and was placed on Eliquis therapy.? As an outpatient she did have blood work that had shown a prolonged PTT prior to her being on anticoagulation along with a positive Mirza venom viper test possibly secondary to underlying antiphospholipid syndrome.? 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 I put consultations into hematology and rheumatology and those are pending.? She says that she developed worsening abdominal pain after eating.? She denied any sick contacts.? She did have episode of nausea and vomiting.? In the ED she got a CT scan abdomen pelvis that showed some mild periportal edema.? She did have mild elevation in her ALT at 68 and previously was 20.? Her lipase was 67, bilirubin is 0.8, alkaline phosphatase of 90, AST of 30.? Hemoglobin was mildly anemic at 11.1 w with normal indices.? White blood cell count was normal at 7.8 and platelet count was normal at 250. PMH paroxysmal supraventricular tachycardia s/p radiofrequency ablation ; polycystic ovary syndrome; history PE. [facility] Medical History?(Updated 07/07/22 @ 07:[address] Sarai Sinclair, DO) Abdominal discomfort Acid reflux Anxiety Asthma AVNRT (AV ty re-entry tachycardia) GERD (gastroesophageal reflux disease) Paroxysmal supraventricular tachycardia Polycystic ovarian syndrome Postprandial abdominal bloating Home Medications atenolol 25 mg tablet 25 mg PO DAILY 01/26/14 [History Last Taken 07/07/22] albuterol 90 mcg/actuation aerosol inhaler 90 mcg inhalation PRN PRN Shortness Of Breath 05/08/22 [History Last Taken Unknown] apixaban 5 mg tablet (Eliquis) 5 mg PO BID #60 tabs 05/22/22 [Rx Last Taken 07/07/22] famotidine 40 mg tablet 40 mg PO DAILY #60 tabs 06/06/22 [Rx Last Taken 07/06/22] pantoprazole 40 mg tablet,delayed release 40 mg PO DAILY #60 tabs 07/07/22 [Rx Last Taken Unknown] Allergy/AdvReac Type Severity Reaction Status Date / Time No Known Allergies Allergy ? ? Verified 06/06/22 10:13 Family History? Father?? ,? at 36 Enlarged heartMother AsthmaBrother AsthmaSister Asthma Surgical History? History of cardiac radiofrequency ablation (12/08/20) History of tonsillectomy Social History? household members:? family housing:? house current occupational status:? employed current occupation:? [employer] sexually active:? No Smoking Status:? Never smoker alcohol intake:? never substance use type:? does not use caffeine:? No what type of physical activity do you participate in:? walking frequency:? 1-2 times per week seatbelt use:? always do you feel safe at home:? Yes ROS Review of Systems ROS Unobtainable: Denies due to encephalopathy Constitutional Constitutional: Reports anorexia, fatigue and malaise; Denies change in weight, chills, fever(s) or weakness Eyes Eyes: Denies change in vision ENT HEENT: Denies dysphagia, headache(s) or hearing loss Cardiovascular Cardiovascular: Denies chest pain, dyspnea on exertion, edema, lightheadedness, orthopnea, palpitations, rapid heart rate or syncope Respiratory/Chest Respiratory/Chest: Denies cough, dyspnea, shortness of breath at rest or shortness of breath with exertion Gastrointestinal Gastrointestinal: Reports abdominal pain, diarrhea, nausea and vomiting; Denies constipation Genitourinary Genitourinary: Denies burning urination or dysuria Musculoskeletal Musculoskeletal: Denies joint pain or joint stiffness Neurologic Neurologic: Denies abnormal speech, confusion, dizziness, focal weakness, headache(s), seizures or syncope Psychiatric Psychiatric: Denies anxiety Hematologic/Lymphatic Hematologic/Lymphatic: Denies anemia Physical Exam Const alert, oriented x3 and no apparent distress General Appearance: cooperative HEENT normocephalic, head/scalp atraumatic, hearing grossly normal bilaterally and moist oral mucous membranes Mouth: oral and palatal mucosa normal Eyes PERRL, EOMs intact bilaterally and conjunctivae normal Neck no lymphadenopathy and supple Resp normal respiratory effort, no retractions, no use of accessory muscles and clearto auscultation bilaterally Cardio regular rate, regular rhythm, S1 normal heart sound, S2 normal heart sound and no murmurs GI normal to inspection, nondistended, normoactive bowel sounds, soft to palpation,non-tender and non-distended Extremity normal to inspection, full ROM and no clubbing, cyanosis or edema Neuro oriented x3, CN's II-XII intact bilaterally and moves all extremities Sensorium / Orientation: awake and alert Motor Exam: strength 5/5 throughout Psych affect normal Lab / Micro Data Result Diagrams: 07/07/22 01:35? 07/07/22 01:35? Labs: Laboratory Results - last 24 hr 07/07/22 01:35:?WBC 8.2, RBC 4.23,?Hgb 11.1 L,?Hct 34.6 L, MCV 81.8,?MCH 26.2 L, MCHC 32.1, RDW Std Deviation 40.2, RDW Coeff of Anabel 13.6, Plt Count 227, MPV 9.7, Immature Gran % (Auto) 0.200,?Neut % (Auto) 77.7 H,?Lymph % (Auto) 14.3 L, Winn % (Auto) 6.0, Eos % (Auto) 1.7, Baso % (Auto) 0.1, Absolute Neuts (auto) 6.4, Absolute Lymphs (auto) 1.17, Nucleated RBC % 0 07/07/22 01:35:?Sodium 139,?Potassium 3.4 L, Chloride 105, Carbon Dioxide 29.0, Anion Gap 5, BUN 15,?Creatinine 1.16 H, Estim Creat Clear Calc 65.69, Est GFR (MDRD) Af Amer 75, Est GFR (MDRD) Non-Af 62, BUN/Creatinine Ratio 12.9, Glucose 106, Calcium 9.0, Total Bilirubin 0.80, Direct Bilirubin 0.27,?AST 68 H, ALT 42,Alkaline Phosphatase 77, Total Protein 7.5, Albumin 3.5, Globulin 4.0,?Lipase 67L 07/07/22 01:35:?Lactic Acid 1.6 07/07/22 01:35:?ESR 23 12/03/22 01:35: C-React Prot Ext Range 5.99 H 07/07/22 03:00:?Urine Color Yellow, Urine Clarity Clear, Urine pH 8.0, Ur Specific [place] 1.015, Urine Protein Negative, Urine Glucose (UA) Normal, UrineKetones Negative, Urine Occult Blood Negative, Urine Nitrite Negative, Urine Bilirubin Negative, Urine Urobilinogen Normal,?Ur Leukocyte Esterase 100 H, Urine RBC 0 SEEN, Urine WBC 0-5 SEEN, Ur Squamous Epith Cells 0-5 SEEN, Urine Bacteria 1+, Urine Mucus 0 SEEN, Urine Test Negative 07/07/22 10:02:?Lactic Acid 0.7 Radiology Impression Abdomen/Pelvis CT? 07/07/22 03:21 IMPRESSION: 1.? Mild periportal edema likely secondary to hepatitis and/or overhydration. 2.? Technically limited study due to respiratory motion. ? Electronically Signed: Jo Ayoub MD at 5:28 EST Reading Location ID and State: [address] [place] [address] , Service support? , ? I have examined the patient and the H&P has been reviewed. There are no clinicalchanges since date of exam. 08/23/22 0810 <Electronically signed by Jr Ravi DO> Cosigner Signature (if applicable): CC: Dr. Tai Mccarty MD; Jr Ravi DO~ Signed [facility] Work Phone: 1(327) 804-814201-19-2023 Procedure [facility] 08-23-2022 Procedure [facility]12-06-2022 Miscellaneous Notes* Telephone Encounter - Bella Terrell - 07/10/2022 10:43 AM EST Received information. Given to nursing for Dr. Barakat to review. DX: Abnormal IGG * Telephone Encounter - Megan Shane LPN - 07/10/2022 10:12 AM EST Spoke with silas Kennedy informed they had referred pt. To [facility]. She will contact pt. To see whom pt. Wants to see. If she would like to see us they will send a proper referral with records. Megan Shane LPN * Telephone Encounter - Bella Melgoza Pss - 07/10/2022 9:54 AM EST Are we able to get records on this patient? Please advise. * Telephone Encounter - Radha Weller - 07/10/2022 9:40 AM EST Pt is having trouble reaching Dr. Ravi's office. She states that no on ever picks up and she tried to reach them. She wondered if our office could try contacting them. * Telephone Encounter - Radha Weller - 07/10/2022 9:21 AM EST Pt returned call. Given message below. She will contact Dr. Ravi's office. * Telephone Encounter - Joan Goldsmith - 07/09/2022 11:00 AM EST 2ND ATTEMPT: When pt returns call please assist as detailed below. Thank you! * Telephone Encounter - Joan Goldsmith - 07/05/2022 10:16 AM EST 1st attempt: No answer and unable to leave VM. When pt returns call please inform her to contact her referring Physicians office and have them faxthe referral to our office: [phone] * Telephone Encounter - Martha Kothari - 07/05/2022 9:12 AM EST Patient is being referred to Dr. Barakat by Dr. Ravi for pulmonary embolism. Please contact patientto schedule if accepted into the practice. [facility]* Diagnosis Onset Date Resolution Status AVNRT (AV ty re-entry tachycardia) chronic Bilateral pulmonary embolism May 08, 2022 chronic Paroxysmal supraventricular tachycardia chronic Abdominal discomfort chronic Bilateral pulmonary embolism May 08, 2022 chronic GERD (gastroesophageal reflux disease) chronic Paroxysmal supraventricular tachycardia [facility] Work Phone: 1([phone]) 356-718010-04-2022 Evaluation note* Diagnosis Onset Date Resolution Status AVNRT (AV ty re-entry tachycardia) chronic Bilateral pulmonary embolism May 08, 2022 chronic Paroxysmal supraventricular tachycardia chronic Abdominal discomfort chronic Bilateral pulmonary embolism May 08, 2022 chronic GERD (gastroesophageal reflux disease) chronic Paroxysmal supraventricular tachycardia chronic GERD (gastroesophageal reflux disease) chronic Epigastric abdominal pain ac [facility] Hepatitis acute GERD (gastroesophageal reflux disease) [facility] Work Phone: 1([phone]) 882-336010-04-2022 Evaluation note* Diagnosis Onset Date Resolution Status AVNRT (AV ty re-entry tachycardia) chronic Bilateral pulmonary embolism May 08, 2022 chronic Paroxysmal supraventricular tachycardia chronic Abdominal discomfort chronic Bilateral pulmonary embolism May 08, 2022 chronic Paroxysmal supraventricular tachycardia [facility] Work Phone: 1(334) 547-393510-04-2022 Evaluation note* Diagnosis Onset Date Resolution Status Abdominal discomfort chronic Bilateral pulmonary embolism May 08, 2022 chronic Paroxysmal supraventricular tachycardia [facility] Work Phone: 1(703) 820-924010-04-2022 Evaluation note* Diagnosis Onset Date Resolution Status High total IgG acute Pulmonary embolism acute Elevated IgE level 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 female with SVT. She had an ablation for sinus node reentry tachycardia in 2013. At that procedure, she also had inducible atypical AVNRT, which was not ablated. She had done well until the fall, when she had recurrence. She was seen in [facility]. EKG showed SVT @ 156 bpm. Difficult to assess P waves. Converted with a valsalva. Since then, she has had several more events that she has converted at home with vagal maneuvers. After discussing treatment options, she has elected ablation. REVIEW OF SYSTEMS: Constitutional: negative for recent fever or weight change Endocrine: negative for diabetes or thyroid problems EENT: negative for vision or hearing problems, recent episodes of OM, rhinorrhea or congestion, negative for recent sore throat Respiratory: negative for bronchitis, pneumonia or RSV in the past, negative for wheezing, apnea, or cyanosis Cardiac: GI: negative for FTT or any feeding issues/intolerance : negative for urinary tract problems or UTIs Musculoskeletal: negative for joint or muscle problems Skin: negative for rashes or birthmarks Hematologic/Lymphatic: negative for bleeding/clotting problems or anemia Allergy/Immunology: negative for any allergies Neurologic: negative for seizures, stroke or chronic headaches Psych: no issues ROS PAST MEDICAL HISTORY: Past Medical History: Diagnosis Date Acid reflux Allergic state seasonal Asthma SVT (supraventricular tachycardia) PAST SURGICAL HISTORY: Past Surgical History: Procedure Laterality Date ABLATION OF DYSRHYTHMIC FOCUS 04/08/14 SVT CARDIAC CATHERIZATION TONSILLECTOMY 7 y.o. HISTORY: Noncontributory FAMILY HISTORY: Family History Problem Relation Age of Onset Other Father arteriorsclerosis Marfan Syndrome Father Asthma Mother High Blood Pressure Mother PSYCHO/SOCIAL HISTORY: Brooke lives with mother No other issues DEVELOPMENTAL HISTORY: Milestones: All met as expected DIET HISTORY: Age appropriate / normal for age DRUG/FOOD ALLERGIES: No Known Allergies IMMUNIZATIONS: Immunization History Administered Date(s) Administered DTaP 2000, 2000, 2000, 04/25/2001, 03/07/2005 Dtap, Unspecified Formulation 2000, 2000, 2000, 2000, 04/25/2001, 03/07/2005 H1N1 2009 Influenza A Monovalent 0.25 mL 06/24/2009 HIB 2000, 2000, 2000, 04/25/2001 HPV 08/24/2011, 11/05/2011, 02/18/2013 Hep B/HIB (COMVAX) 2000, 2000 Hepatitis A (PED/ADOL) 08/24/2011, 02/18/2013 Hepatitis B Ped/Adol 2000, 2000, 01/31/2001 Hib, Unspecified Formulation 04/25/2001 INFLUENZA SPLIT 0.5 ML 06/24/2009, 06/22/2010, 04/23/2012 IPV 2000, 2000, 2000, 2000, 03/07/2005 Influenza Vaccine Intranasal 06/16/2007 Influenza, Seasonal, Injectable 04/23/2012 Influenza, Seasonal, Injectable, Preservative Free 06/24/2009, 06/22/2010 MMR 04/25/2001, 03/07/2005 Meningococcal Conjugate ACWY Vaccine (MENACTRA) 11/05/2011, 08/30/2017 PFIZER COVID-19, mRNA, LNP-S, PF, 30 mcg/0.3 mL dose 08/25/2020, 09/15/2020 PPD 5TU TEST 08/07/2017, 08/19/2018, 02/24/2019 Tdap 11/05/2011 Varicella 01/31/2001, 02/18/2013 Up to date and documented MEDICATIONS: No medications prior to admission. VITAL SIGNS: There were no vitals filed for this visit. PHYSICAL EXAM: Physical Exam General: Brooke appears healthy, well developed, well nourished, in no acute distress Head: atraumatic and normocephalic Eyes: pupils equal, round, and reactive to light Neck: supple, no cervical lymphadenopathy is present Chest: breath sounds are clear to auscultation bilaterally without rales, rhonchi, or wheezes Cardiac: regular rate and rhythm, normal S1 and S2, normal S1 and S2, peripheral pulses strong and equal Abdomen: abdomen is soft, nontender, and nondistended without hepatosplenomegaly or masses Back: negative : exam deferred Rectal: exam deferred Skin: pink, warm, well perfused Lymphadenopathy: no adenopathy noted Musculoskeletal: normal tone, moves all extremities equally with full range of motion Central Nervous System: neurologically appropriate for age ASSESSMENT: Brooke is a 20 y.o. female with SVT. The fact that it converts with valsalva suggests AVNRT, but could be recurrence of sinus node reentry. PLAN: EPS and ablation .[facility] noteNo assessment information availableWOhio Valley Hospital Work Phone: History and physical note Author Jr Ravi [facility] July 15, 2023 9:49am Note Date/Time July 15, 2023 9:41am [facility] Medical Records Department [address] [place] [address] History & Physical Exam 07/15/23 0939 MR#: [id number] Acct: [id number] Name: BROOKE WOOD Rep #:[id number] : 2000 23 From: Jr Ravi DO PCP: Dr. Tai Mccarty MD Status:R [facility] Location: [place] [address] History and Physical Date of Admission: 07/15/23 23 F who presents to the office today for PMH paroxysmal supraventricular tachycardia s/p radiofrequency ablation ; polycystic ovary syndrome; history PE. *BGI established 06.25.22. She has been having issues with abdominal discomfort,bloating, belching, reflux and increased flatulence with intermittent nausea andtightness in her stomach with a rapid HR for several months. Famotidine 40mg hasbeen helpful with heartburn; Dexilant and protonix historically ineffective. Weight loss of approximately 10lbs r/t decreased appetite. Biochemical workup CMP, OLAYINKA comp, ESR, ferritin, ANIL, celiac, IgME, Vit B12, T3, T4, TSH, LDH, Protein S, activated protein C resistance, antithrombin 3, KISHA, protein C antigen without pertinent abnormality. CRP H5.11, IgA H357, IgG H1844, c-ANCA H1:20.? Dilute lupus + but lupus -. Stool testing calprotectin, EP, occult, elastase WNL. Referred to [facility] hematology who feels she would be better served with rheumatology. Gastric emptying study 07.14.22 with no calculation as there was no discernable emptying noted. EGD 08.23.22 LA Grade A reflux esophagitis; EOE, eosin >20; large amount of food residue. Dr. Harrington established 08.31.22 with no clinical features of Lupus. ? Biochemical workup Avise APS, Avise SLE, Avise CTD, Avise vasculitis, APTT, Hex phas phos, PTT, thrombin, UA, CMP (T.Bili H2.10, LFT WNL),CBC (WBC L3.9) ? PT H15.5, Urine protein, urobilinogen, leukocyte esterase H OV 09.13.22 Feels she is doing approximately the same as last time and notes food trigger of fast foods and highly acid foods; otherwise symptoms are minimally present with PO intake and feels that high fiber foods are not being digested. She has not received results from Dr. Harrington?s bloodwork. Hematology OV .10.25 and 10.11.22 for 22 year old with elevated DDimer and bilateral PE history on Eliquis. Recommend continuing Eliquis until end novemberthen stopping. See allergy/immunology for elevated IgE. ? Biochemical 10.03.22 CBC (WBC 3.5, hgb 11.2) CMP, LFT without pertinent abnormality. ? PT H15.6, DDimer L<0.27 Biochemical 12.27.22 CBC (WBC 3.6, hgb 11.9), coag, fibrinogen, CMP, LFT, iron, TIBC, iron sat, OLAYINKA comp without pertinent abnormality. ? DDimer H0.68, IgG total H1684, IgG11 H1105, IgE H941, KISHA M- Sam+, pANCA H1:20 Hematology OV 6 noting no familiar disease to explain clotting; perform bloodwork with thrombotic risk profile. Proceed with allergy/immunology referral(Dr. Parr) OV 6.6.23 BM occur approximately Q3D with increased frequency, on days of no BM she has bloating. When she has reflux she then experiences nausea; reflux triggered by diet to include greasy/acidic foods and is working on changing her diet to avoid these. [facility] 1018. recommending use of nasal spray; EOE recommend elimination diet over swallowed corticosteroids. Ongoing workup regarding immunoglobulins levels. OV 12.4.23 continues to have postprandial bloating, belching and flatulence thatis not severe; she has been eating less foods and feels she has lost some weightbut is unsure of how much. ROS Const Constitutional: No body ache, chills, excessive sweating, fatigue, fever(s), frequent falls, headache(s), snoring, weakness, sleep problems or change in appetite Eyes Eyes: No blurry vision, change in vision, discharge, vision loss, floaters, eye pain or Light sensitivity ENT ENT: No abnormal hearing, ear or mastoid pain, tinnitus, nasal congestion, headache(s), neck pain or sore throat Resp Respiratory: No cough, excessive phlegm production, pain on inspiration, shortness of breath, snoring or wheezing Cardio Cardiology: No chest pain at rest, chest pain with exertion, excessive sweating,shortness of breath, dyspnea on exertion, lightheadedness, orthopnea or palpitations Gastro GI: Positive for nausea/dyspepsia; No abdominal pain, change in bowel habits, constipation, cramping, diarrhea, Vomiting blood/hematemesis or vomiting Genitourinary-Female: No burning urination, painful urination, urinary incontinence, blood in urine, suprapubic fullness or side pain Musc Musculoskeletal: No abnormal gait, joint pain, back pain, limited range of motion, neck pain, numbness or tingling Skin Skin: No dry skin, redness, excessive hair growth, yellowing of the eye, lesions, itchy eyes, rash or wounds Breast Breast: No change in breast shape, breast lump, breast pain, breast skin changes, breast swelling or nipple discharge Neuro Neurology: No abnormal gait, abnormal hearing, weakness, frequent falls, headache(s), numbness or tingling Psych Psychiatric: No anxiety, No change in appetite, No depression and No Thoughts ofharming yourself/Others Endo Endocrine: No excessive sweating, fatigue, flushing, heat intolerance, increasedthirst/drinking or increased hunger Aller/Imm Allergy/Immunologic: No itchy eyes, seasonal allergy symptoms, hives or wheezing Shilo/Lymp Hematologic/Lymphatic: No easy bleeding, easy bruising or enlarged lymph nodes Exam Const General: cooperative, comfortable and well groomed Orientation: alert, awake and oriented x3 HENMT Head: normal to inspection, normocephalic and atraumatic Ears: hearing grossly normal bilaterally Eyes General: appearance normal, both eyes and all related structures Neck Neck: normal visual inspection, full ROM, no lymphadenopathy and supple Neck mass: No Thyroid: thyroid normal Resp Effort & Inspection: normal respiratory effort and able to speak in complete sentences Auscultation: Bilateral: Clear to Auscultation Cardio Rate: regular rate Rhythm: regular rhythm Heart Sounds: S1 normal and S2 normal GI Palpation: soft (No palpable organomegaly) Neuro General: patient alert, patient awake, patient oriented x3, moves all extremities and CN's II-XI intact bilaterally Extrem General: no clubbing, cyanosis or edema Psych Appearance: grossly normal Mental Status: mental status grossly normal Mood: congruent mood Affect: normal affect Quality Reporting Tobacco Screening ([facility] 138) Smoking Status: Never smoker Assessment and Plan Assessment and Plan (1) Gastroparesis: Status: Chronic Plan: She will need an official 4-hour gastric emptying study for severe idiopathic gastroparesis from unknown cause at this time. I would like her to be seen by hematology and rheumatology prior to me offering her medical therapy, endoscopictherapy or surgical therapy. She is not lost any weight. She is able to eat certain foods. I did food allergy testing, OLAIYNKA comprehensive, IgG subclasses and she had a consultation with Immunology. I feel like the risk outweighed thebenefits for her and regarding medical therapy for gastroparesis at this time. (2) Eosinophilic esophagitis: Status: Chronic Plan: She has a very high IgE level with findings consistent with eosinophilic esophagitis on upper endoscopy. This in the setting of a patient that has a history of atopic conditions such as possible eosinophilic asthma, possible eosinophilic eczema and a strong family history of eosinophilic diseases in her mother and brother. We will perform a repeat egd with dilation because she is getting esophageal dysphagia at this time. (3) High total IgG: Status: Acute Plan: She needs to see rheumatology regarding her high IgG. Possibly secondary to underlying rheumatologic disorder. (4) Elevated IgE level: Status: Chronic Comment: Has history of Asthma Plan: With her history of asthma, atopy and elevated IgE levels. She could have eosinophilic gastroenteritis. She will see an [employer] supervisor and [facility] and follow-up after that initial consult. Orders: Orders EGD 07/15/23 K20.0 - Eosinophilic esophagitis Gastric Emptying Study Today K31.84 - Gastroparesis I have examined the patient and the H&P has been reviewed. There are no clinicalchanges since date of exam. 07/15/23 0949 <Electronically signed by Jr Ravi DO> Cosigner Signature (if applicable): CC: Dr. Tai Mccarty MD; Jr Ravi DO~ Signed [facility] Work Phone: Summary Purpose Family History No Family History Records Found Relationship Condition Age at Onset Recorded Date/T main father Cardiomegaly Unknown Relationship Condition Age at Onset Recorded Date/T main father Cardiomegaly Unknown mother Asthma Unknown brother Asthma Unknown sister Asthma Unknown Advance Directives No Advanced Directives Records Found Advance Directive Response Recorded Date/ Time Living Will No April 23, 2022 10:52am Power of Eligibility Counselor No April 10:52am Advance Directive Response Recorded Date/ Time Living Will No May 08 10:16pm Power of Eligibility Counselor No May 08 10:16pm Advance Directive Response Recorded Date/ Time Living Will No May 12 10:53pm Power of Eligibility Counselor No May 12 10:53pm Advance Directive Response Recorded Date/ Time Living Will No May 12 9:53pm Power of Eligibility Counselor No May 12 9:53pm Advance Directive Response Recorded Date/ Time Living Will No July 07 12:37am Power of Eligibility Counselor No July 07, 2022 12:37am Advance Directive Response Recorded Date/ Time Living Will No July 07 9:06am Power of Eligibility Counselor No July 07, 2022 9:06am Advance Directive Response Recorded Date/ Time Living Will No August 20 2:27pm Power of Eligibility Counselor No August 20, 2022 2:27pm Advance Directive Response Recorded Date/ Time Living Will No July 11 10:13am Power of Eligibility Counselor No July 11, 2023 10:13am Chief Complaint and Reason for Visit Chief Complaint ABD PAIN Chief Complaint ABD PAIN ABD PAIN/HEART PALPITATIONS Chief Complaint ABD PAIN ABD PAIN/HEART PALPITATIONS GENERAL ILLNESS TACHYCARDIA, MARJORIE. PULM. THROMBOEMBOLISM ([facility]) TACHYCARDIA EST. CARE, PPW SENT Reason for Visit AVNRT (AV ty re-e ntry tachycardia) Bilateral pulmonary embolism Paroxysmal supraventricular tachycardia Abdominal discomfort Bilateral pulmonary embolism GERD (gastroesophageal reflux disease) Paroxysmal supraventricular tachycardia Chief Complaint ABD PAIN ABD PAIN/HEART PALPITATIONS GENERAL ILLNESS TACHYCARDIA, MARJORIE. PULM. THROMBOEMBOLISM ([facility]) TACHYCARDIA EST. CARE, PPW SENT Gastroesophageal reflux disease (GERD) RECURRENT ABDOMINAL PAIN Reason for Visit AVNRT (AV ty re-e ntry tachycardia) Bilateral pulmonary embolism Paroxysmal supraventricular tachycardia Abdominal discomfort Bilateral pulmonary embolism GERD (gastroesophageal reflux disease) Paroxysmal supraventricular tachycardia GERD (gastroesophageal reflux disease) Epigastric abdominal pain Hepatitis GERD (gastroesophageal reflux disease) Chief Complaint ABD PAIN ABD PAIN/HEART PALPITATIONS GENERAL ILLNESS TACHYCARDIA, MARJORIE. PULM. THROMBOEMBOLISM ([facility]) TACHYCARDIA EST. CARE PPW SENT Gastroesophageal reflux disease (GERD) RECURRENT ABDOMINAL PAIN RECURRENT ABDOMINAL PAIN Reason for Visit AVNRT (AV ty re-e ntry tachycardia) Bilateral pulmonary embolism Paroxysmal supraventricular tachycardia Abdominal discomfort Bilateral pulmonary embolism GERD (gastroesophageal reflux disease) Paroxysmal supraventricular tachycardia GERD (gastroesophageal reflux disease) Epigastric abdominal pain Hepatitis GERD (gastroesophageal reflux disease) Chief Complaint ABD PAIN ABD PAIN/HEART PALPITATIONS GENERAL ILLNESS TACHYCARDIA, MARJORIE. PULM. THROMBOEMBOLISM ([facility]) TACHYCARDIA EST. CARE PPW SENT Gastroesophageal reflux disease (GERD) RECURRENT ABDOMINAL PAIN RECURRENT ABDOMINAL PAIN RECURRENT ABDOMINAL PAIN ABDOMINAL PAIN Reason for Visit AVNRT (AV ty re-e ntry tachycardia) Bilateral pulmonary embolism Paroxysmal supraventricular tachycardia Abdominal discomfort Bilateral pulmonary embolism Paroxysmal supraventricular tachycardia Chief Complaint ABD PAIN/HEART PALPI TATIONS GENERAL ILLNESS TACHYCARDIA, MARJORIE. PULM. THROMBOEMBOLISM ([facility]) TACHYCARDIA EST. CARE PPW SENT Gastroesophageal reflux disease (GERD) RECURRENT ABDOMINAL PAIN RECURRENT ABDOMINAL PAIN RECURRENT ABDOMINAL PAIN ABDOMINAL PAIN Reason for Visit AVNRT (AV ty re-e ntry tachycardia) Bilateral pulmonary embolism Paroxysmal supraventricular tachycardia Abdominal discomfort Bilateral pulmonary embolism Paroxysmal supraventricular tachycardia Chief Complaint TACHYCARDIA EST. CARE PPW SENT Gastroesophageal reflux disease (GERD) RECURRENT ABDOMINAL PAIN RECURRENT ABDOMINAL PAIN RECURRENT ABDOMINAL PAIN ABDOMINAL PAIN [place] BOX Reason for Visit Abdominal discomfort Bilateral pulmonary embolism Paroxysmal supraventricular tachycardia Chief Complaint [employer] SURE BACK MED ONC 1 y fu 6 MO FU Reason for Visit High total IgG Pulmonary embolism Elevated IgE level AVNRT (AV ty re-entry tachycardia) Bilateral pulmonary embolism Paroxysmal supraventricular tachycardia High total IgG Elevated IgE level Eosinophilic esophagitis Gastroparesis Additional Source Comments INFORMATION SOURCE (unrecogn ized section and content) DATE CREATED AUTHOR 11/10/2021 [facility] DATE CREATED AUTHOR AUTHOR'S ORGANIZ ATION 06/02/2023 [facility] DATE CREATED AUTHOR AUTHOR'S ORGANIZ ATION 06/22/2023 [facility] DATE CREATED AUTHOR AUTHOR'S ORGANIZ ATION 11/25/2024 [facility] Goals (unrecognized section and content) Goals may be documented in a n alternate sectionGoals may be documented in an alternate sectionGoals may be documented in an alternate sectionGoals may be documented in an alternate sectionGoals may be documented in an alternate sectionGoals may be documented in an alternate sectionGoals may be documented in an alternate sectionGoals may be documented in an alternate section Source Comments (unrecognize d section and content) In the event this informatio n is protected by the Federal Confidentiality of Alcohol and Drug Abuse Patient Records regulations: The Federal rules restrict any use of the information to criminally investigate or prosecute any alcohol or drug abuse patient.[facility] the event this information is protected by the Federal Confidentiality of Alcohol and Drug Abuse Patient Records regulations: The Federal rules restrict any use of the information to criminally investigate or prosecute any alcohol or drug abuse patient.[facility] Reason for Visit (unrecogniz ed section and content) Reason Comments New Patient Hematology Referral- Dr. Ravi Care Teams (unrecognized sec tion and content) Dual Rate Dealer Relationship Specialty Start Date End Date Cally [place] [address] PCP - General Pediatrics 02/05/19 Team Status: Active Member Role Status Dates Dr. Cally Ayoub MD Family Provider Active Dr. Tai Mccarty MD Primary Care Provider Active Team Status: Inactive Member Role Status Dates Dr. Cally Ayoub MD Referring Provider Active Dr. Jr Ravi DO Attending Provider Active Dr. Tai Mccarty MD Primary Care Provider Active Team Status: Inactive Member Role Status Dates Dr. Cally Ayoub MD Referring Provider Active Dr. Tai Mccarty MD Primary Care Provider, Atten ding Provider Active Team Status: Inactive Member Role Status Dates Dr. Cally Ayoub MD Primary Care Provider, Referrin g Provider Active Dr. Ilan Willoughby MD Attending Provider Active Team Status: Active Member Role Status Dates Dr. Tai Mccarty MD Primary Care Provider Active Dr. Ilan Willoughby MD Attending Provider, Referring Pro vider Active Team Status: Active Member Role Status Dates Dr. Tai Mccarty MD Primary Care Provider Active Dr. Sarai Sinclair DO Emergency Provider Active Dr. Bina Dai MD Admit Provider, Referring Provider, Other Provider Active Dr. Jr Ravi DO Attending Provider Active Team Status: Active Member Role Status Dates Dr. Tai Mccarty MD Primary Care Provider Active Dr. Sarai Sinclair DO Emergency Provider Active Dr. Bina Dai MD Admit Provider, Attending Provider, Other Provider Active Team Status: Active Member Role Status Dates Dr. Tai Mccarty MD Primary Care Provider, Refer ring Provider Active Dr. Jr Ravi DO Attending Provider, Other Prov ider Active Team Status: Inactive Member Role Status Dates Dr. Cally Ayoub MD Primary Care Provider Active Dr. Marvin Galeas MD Attending Provider, Emergency Provider Active Team Status: Inactive Member Role Status Dates Dr. Cally Ayoub MD Primary Care Provider Active Dr. Elmo Jenkins MD Attending Provider, Emergency Provider Active Team Status: Inactive Member Role Status Dates Dr. Ilan Willoughby MD Attending Provider, Referring Pro vider Active Dr. Tai Mccarty MD Primary Care Provider Active Team Status: Inactive Member Role Status Dates Dr. Tai Mccarty MD Primary Care P rovider, Attending Provider, Referring Provider Active Team Status: Inactive Member Role Status Dates Dr. Tai Mccarty MD Primary Care Provider Active Dr. Jr Ravi DO Attending Provider, Referring Provider Active Team Status: Inactive Member Role Status Dates Dr. Tai Mccarty MD Primary Care Provider Active Dr. Jr Ravi DO Attending Provider Active Team Status: Inactive Member Role Status Dates Dr. Tai Mccarty MD Primary Care Provider, Refer ring Provider Active Dr. Jr Ravi DO Attending Provider Active Team Status: Inactive Member Role Status Dates Dr. Tai Mccarty MD Primary Care Provider Active Dr. Sarai Sinclair DO Emergency Provider Active Dr. Bina Dai MD Admit Provider, Attending Prov ider Active Team Status: Inactive Member Role Status Dates Dr. Tai Mccarty MD Primary Care Provider Active Dr. Cecille Harrington MD Attending Provider, Referring Provider Active Dual Rate Dealer Relationship Specialty Start Date End Date Cally Ayoub [address] [place] [address] PCP - General Pediatrics 02/05/19 Team Status: Inactive Member Role Status Dates Dr. Tai Mccarty MD Primary Care Provider, Refer ring Provider Active Dr. Kris Knowles MD Attending Provider Active Team Status: Inactive Member Role Status Dates Dr. Tai Mccarty MD Primary Care Provider, Refer ring Provider Active Vj Zendejas RATTAN WORKER, RATTAN WORKER-C Attending Provider Active Team Status: Active Member Role Status Dates Dr. Tai Mccarty MD Primary Care Provider Active Dr. Kris Knowles MD Attending Provider, Referring Pro vider Active FOR RECORDS PERTAINING TO PATIENTS WHO ARE OR HAVE BEEN ENROLLED IN A CHEMICAL DEPENDENCY/SUBSTANCEABUSE PROGRAM, SOME INFORMATION MAY BE OMITTED. This clinical summary was aggregated from multiple sources. Caution should be exercised in using it in the provision of clinical care. This summary normalizes information from multiple sources, and as a consequence, information in this document may materially change the coding, format and clinical context of patient data. In addition, data may be omitted in some cases. CLINICAL DECISIONS SHOULD BE BASED ON THE PRIMARY CLINICAL RECORDS. [facility] [address] [facility]. provides no warranty or guarantee of the accuracy or completeness of information in this document.
[2025-02-01 15:08] LABS: Free Kappa Light Chains 31.8 mg/L (3.3-19.4); Immunoglobulin A 296 mg/dL (87-352); Immunoglobulin G 1706 mg/dL (586-1602); Immunoglobulin M 59 mg/dL (26-217)
[2025-02-02 15:08] LABS: Albumin 3.5 g/dL (2.9-4.4); Alpha-1-Globulins 0.3 g/dL (0.0-0.4); Alpha-2-Globulins 0.7 g/dL (0.4-1.0); Deamidated Gliadin IgA 5 units (0-19); Deamidated Gliadin IgG 2 units (0-19); Endomysial Antibody IgA Negative (Negative); Gamma Globulin 1.5 g/dL (0.4-1.8); IgG, Quant 1573 mg/dL (586-1602); Immunoglobulin A 285 mg/dL (87-352); Immunoglobulin E 1033 IU/mL (6-495); Immunoglobulin G, Subclass 1 958 mg/dL (248-810); Immunoglobulin G, Subclass 2 431 mg/dL (130-555); Immunoglobulin G, Subclass 3 86 mg/dL (15-102); Immunoglobulin G, Subclass 4 13 mg/dL (2-96); Immunoglobulin M 44 mg/dL (26-217); PROEL- TOTAL PROTEIN 6.9 g/dL (6.0-8.5); t-Transglutaminase IgA <2 U/mL (0-3)
== END | disposition home or self-care (01) ==
LOC: BWCLAB 10:25
PROVIDERS: Internal Medicine Medical Oncology; PCP Internal Medicine; Visit Provider Obstetrics & Gynecology
DX: I27.82 Chronic pulmonary embolism (principal); D50.9 Iron deficiency anemia, unspecified; R76.8 Other specified abnormal immunological findings in serum; N91.2 Amenorrhea, unspecified
CPT/HCPCS: 36415; 80053; 82728; 82784; 82785; 82787; 83516; 83540; 83550; 83615; 83883; 84165; 84702; 85025; 85045; 85652; 86255; 86334

== ENCOUNTER → 2025-01-31 | Outpatient (CLI) | payer BC, SELFPAY ==
--- OUTSIDE RECORDS SUMMARY | 2025-01-31 10:48 | XMS RPT_ITS | CCD ---
Author Organization [facility] Care Team Providers Care Civil Designer Name Role Phone Dr. Cally Ayoub Primary [...] Dr. Bina Meraz Attending Provider Cally Ayoub [facility] Primary Care Provider Dr. Bina Dai Referring Provider Dr. Tai Mccarty Referring Provider [phone] Friend, Dr. Norris Other Provider Dr. Ilan Willoughby Attending Provider Dr. Cally Ayoub Referring Provider CALLY AYOUB Primary Care Unavailable KEN DU Referring Unavailable KEN DU Attending Unavailable CALLY AYOUB Primary Care Unavailable Dr. Tai Mccarty Primary Care Provider Dr. Tai Mccarty Referring Provider Dr. Kris Knowles Attending Provider Roof TELEVISION PARTS TESTER, TELEVISION PARTS TESTERKel Gomez Attending Provider FriendDr. Norris Attending Provider [phone] Friend, Dr. Norris Other Provider [phone] Olekaz Efewongbe Referring Unavailable Jr Ravi Attending Unavailable Oleghe, Efewongbe Primary Care Unavailable Oleghchilango, Efewongbe Primary Care Unavailable Radha Sears Attending Unavailag Mccarty, Efewongbe Primary Care Unavailable Kris Knowles Attending Unavailable Kris Knowles Referring Unavailable Bibiana Efewongsheila Referring Unavailable Jr Ravi Attending Unavailable Olekaz, Efewongsheila Primary Care Unavailable Bibiana Efewongbe Referring Unavailable Kris Knowles Attending Unavailable Bibiana, Efewongbe Primary Care Unavailable Allergies Allergy Classification Reported Allergen(s) Allergy Type Date of Onset Reaction(s) Facility (1 source) Seasonal allergy Allergy to substance 3 Other: See Comments [facility] Medications Current Medications Medication Drug Class(es) Dates [...] Drug Class(es) Dates Sig (Normalized) Sig (Original) [id number] 200 actuat albuterol 0.09 mg/actuat metered dose [...] above: Take 1 tablet by jailyn th every 12 hours. dicyclomine hydrochloride 10 mg [...] Translations: [Mild intermittent asthma without complication] Onset: 3 Chronic Cardiac dysrhythmias (20 sources) Supraventricular tachycardia; Translations: [Supraventricular tachycardia] Chronic Cardiac dysrhythmias (20 sources) Palpitations; Translations: [Palpitations] 11-01-2020 Episodic Esophageal disorders (20 sources) Gastroesophageal reflux disease; Translations: [Gastro-esophageal reflux disease without esophagitis] Onset: 4 Chronic Fluid and electrolyte disorders (10 sources) Hypokalemia; Translations: [Hypokalemia] 06-07-2020 Episodic Genitourinary symptoms and ill-defined conditions (1 source) Proteinuria; Translations: [Proteinuria, unspecified] 09-17-2022 Episodic Headache; including migraine (10 sources) Headache; Translations: [Headache] 05-14-2022 Episodic Menstrual disorders (11 sources) Oligomenorrhea; Translations: [...] chemistry, unspecified] 07-04-2022 Episodic Pulmonary heart disease (1 source) Chronic pulmonary embolism; Translations: [Chronic pulmonary embolism] Onset: 5 Chronic Pulmonary heart disease (20 sources) Pulmonary embolism; Translations: [Other pulmonary embolism without acute cor pulmonale] Onset: 2 Episodic Residual codes; unclassified (8 sources) Feeling abnormal; Translations: [Unspecified symptoms and signs involving general sensations and perceptions] 05-21-2022 Episodic Past or Other Problems Problem Classification Problem Date Documented Date Episodic/Chronic Deficiency and other anemia (1 source) Iron deficiency anemia, unspecified; Translations: [Iron deficiency anemia, unspecified] Onset: 10-13-2024 Episodic Immunizations and screening for infectious disease (10 sources) Other specified abnormal immunological findings in serum; Translations: [Increased immunoglobulin] Onset: 05-22-2023 10-11-2022 Episodic Other disorders of stomach and duodenum (2 sources) Gastroparesis; Translations: [Gastroparesis] Onset: 06-29-2024 07-08-2023 Episodic Results Test Name Value Interpretation Reference Range Facility CBC W/Diff, Automatedon 06-2 Absolute Lymph 1.18 X10 3/uL Normal 0.83-4.51 [facility] Comment on above: Performed By: #### L 100.0100, L101.9900, L500.4050, L503.6550, L503.6030, L100.9950, L504.2610 ####[facility] [address] [place], [address] Absolute Neut 2.0 X10 3/uL Normal 2.0-7.7 [facility] Comment on above: Performed By: #### L 100.0100, L101.9900, L500.4050, L503.6550, L503.6030, L100.9950, L504.2610 ####[facility] [address] [place], [address] Basophils/100 WBC (Bld) 0.5 % Normal 0-1 [facility] Comment on above: Performed By: #### L 100.0100, L101.9900, L500.4050, L503.6550, L503.6030, L100.9950, L504.2610 ####[facility] [address] [place], [address] Eosinophils/100 WBC (Bld) 6.0 % High 0-5 [facility] Comment on above: Performed By: #### L 100.0100, L101.9900, L500.4050, L503.6550, L503.6030, L100.9950, L504.2610 ####[facility] [address] [place], [address] Erythrocyte distribution width (RBC) [Ratio] 13.0 % Normal 11.6-14.6 [facility] Comment on above: Performed By: #### L 100.0100, L101.9900, L500.4050, L503.6550, L503.6030, L100.9950, L504.2610 ####[facility] [address] [place], [address] Hematocrit (Bld) [Volume fraction] 36.1 % Low 37-47 [facility] Comment on above: Performed By: #### L 100.0100, L101.9900, L500.4050, L503.6550, L503.6030, L100.9950, L504.2610 ####[facility] [address] [place], [address] Hemoglobin (Bld) [Mass/Vol] 11.9 g/dL Low 12.0-15.0 [facility] Comment on above: Performed By: #### L 100.0100, L101.9900, L500.4050, L503.6550, L503.6030, L100.9950, L504.2610 ####[facility] [address] [place], [address] IG% 0.300 Normal 0.0-0.9 [facility] Comment on above: Result Comment: IG% - Immature Granulocytes (promyelocytes, myelocytes and metamyelocytes) > 1% indicates that a LEFT SHIFT is Present. Performed By: #### L 100.0100, L101.9900, L500.4050, L503.6550, L503.6030, L100.9950, L504.2610 ####[facility] [address] [place], [address] Lymphocytes/100 WBC (Bld) 31.0 % Normal 19-41 [facility] Comment on above: Performed By: #### L 100.0100, L101.9900, L500.4050, L503.6550, L503.6030, L100.9950, L504.2610 ####[facility] [address] [place], [address] MCH (RBC) [Entitic mass] 27.0 pg Normal 27.0-32.0 [facility] Comment on above: Performed By: #### L 100.0100, L101.9900, L500.4050, L503.6550, L503.6030, L100.9950, L504.2610 ####[facility] [address] [place], [address] MCHC (RBC) [Mass/Vol] 33.0 g/dL Normal 32-36 [facility] Comment on above: Performed By: #### L 100.0100, L101.9900, L500.4050, L503.6550, L503.6030, L100.9950, L504.2610 ####[facility] [address] [place], [address] MCV (RBC) [Entitic vol] 81.9 fL Normal 81-99 [facility] Comment on above: Performed By: #### L 100.0100, L101.9900, L500.4050, L503.6550, L503.6030, L100.9950, L504.2610 ####[facility] [address] [place], [address] Monocytes/100 WBC (Bld) 10.0 % Normal 0-10 [facility] Comment on above: Performed By: #### L 100.0100, L101.9900, L500.4050, L503.6550, L503.6030, L100.9950, L504.2610 ####[facility] [address] [place], [address] Neutrophils/100 WBC (Bld) 52.2 % Normal 47-70 [facility] Comment on above: Performed By: #### L 100.0100, L101.9900, L500.4050, L503.6550, L503.6030, L100.9950, L504.2610 ####[facility] [address] [place], [address] Nucleated RBC (Bld) [#/Vol] 0 10*3/uL Normal 0-5 [facility] Comment on above: Performed By: #### L 100.0100, L101.9900, L500.4050, L503.6550, L503.6030, L100.9950, L504.2610 ####[facility] [address] [place], [address] Platelet mean volume (Bld) [Entitic vol] 10.1 fL Normal 6.2-12.0 [facility] Comment on above: Performed By: #### L 100.0100, L101.9900, L500.4050, L503.6550, L503.6030, L100.9950, L504.2610 ####[facility] [address] [place], [address] Platelets (Bld) [#/Vol] 259 10*3/uL Normal 150-450 [facility] Comment on above: Performed By: #### L 100.0100, L101.9900, L500.4050, L503.6550, L503.6030, L100.9950, L504.2610 ####[facility] [address] [place], [address] RBC (Bld) [#/Vol] 4.41 10*6/uL Normal 4.2-5.4 [facility] Comment on above: Performed By: #### L 100.0100, L101.9900, L500.4050, L503.6550, L503.6030, L100.9950, L504.2610 ####[facility] [address] [place], [address] RDW SD 38.9 fl Normal 35.1-43.9 [facility] Comment on above: Performed By: #### L 100.0100, L101.9900, L500.4050, L503.6550, L503.6030, L100.9950, L504.2610 ####[facility] [address] [place], [address] WBC (Bld) [#/Vol] 3.8 10*3/uL Low 4.4-11.[address] [facility] Comment on above: Performed By: #### L 100.0100, L101.9900, L500.4050, L503.6550, L503.6030, L100.9950, L504.2610 ####[facility] [address] [place], [address] Comprehensive Metabolic Prof ilon 01-29-2025 Albumin [Mass/Vol] 4.1 g/dL Normal 3.5-5.[address] [facility] Comment on above: Performed By: #### L 100.0100, L101.9900, L500.4050, L503.6550, L503.6030, L100.9950, L504.2610 ####[facility] [address] [place], [address] Albumin/Globulin [Mass ratio] 1.2 {ratio} Normal 0.9-2.4 [facility] Comment on above: Performed By: #### L 100.0100, L101.9900, L500.4050, L503.6550, L503.6030, L100.9950, L504.2610 ####[facility] [address] [place], [address] ALK PHOS 74 U/L Normal 35-104 [facility] Comment on above: Performed By: #### L 100.0100, L101.9900, L500.4050, L503.6550, L503.6030, L100.9950, L504.2610 ####[facility] [address] [place], [address] ALT [Catalytic activity/Vol] 11 U/L Normal <=34 [facility] Comment on above: Performed By: #### L 100.0100, L101.9900, L500.4050, L503.6550, L503.6030, L100.9950, L504.2610 ####[facility] [address] [place], [address] AST [Catalytic activity/Vol] 21 U/L Normal <=31 [facility] Comment on above: Performed By: #### L 100.0100, L101.9900, L500.4050, L503.6550, L503.6030, L100.9950, L504.2610 ####[facility] [address] [place], [address] Bilirubin [Mass/Vol] 0.62 mg/dL Normal 0.00-1.30 [facility] Comment on above: Performed By: #### L 100.0100, L101.9900, L500.4050, L503.6550, L503.6030, L100.9950, L504.2610 ####[facility] [address] [place], [address] BUN/CRE 10.6 RATIO Normal 10-20 [facility] Comment on above: Performed By: #### L 100.0100, L101.9900, L500.4050, L503.6550, L503.6030, L100.9950, L504.2610 ####[facility] [address] [place], [address] Calcium [Mass/Vol] 9.3 mg/dL Normal 7.6-11.[address] [facility] Comment on above: Performed By: #### L 100.0100, L101.9900, L500.4050, L503.6550, L503.6030, L100.9950, L504.2610 ####[facility] [address] [place], [address] Chloride [Moles/Vol] 101 mmol/L Normal 98-108 [facility] Comment on above: Performed By: #### L 100.0100, L101.9900, L500.4050, L503.6550, L503.6030, L100.9950, L504.2610 ####[facility] [address] [place], [address] CO2 [Moles/Vol] 24.6 mmol/L Normal 21.0-32.0 [facility] Comment on above: Performed By: #### L 100.0100, L101.9900, L500.4050, L503.6550, L503.6030, L100.9950, L504.2610 ####[facility] [address] [place], [place], [phone]) Creatinine [Mass/Vol] 0.91 mg/dL Normal 0.70-1.20 [facility] Comment on above: Performed By: #### L 100.0100, L101.9900, L500.4050, L503.6550, L503.6030, L100.9950, L504.2610 ####[facility] [address] [place], [place], [phone](840) GAP 10 Normal 5-15 [facility] Comment on above: Performed By: #### L 100.0100, L101.9900, L500.4050, L503.6550, L503.6030, L100.9950, L504.2610 ####[facility] [address] [place], [place], [phone](988) GFR/1.73 sq M.predicted among non-blacks MDRD (S/P/Bld) [Vol rate/Area] 90 mL/min/{1.73_m2} Normal >[address] [facility] Comment on above: Result Comment: mL/m in/1.73m2 CKD-EPI Creatinine Equation (2020) Performed By: #### L 100.0100, L101.9900, L500.4050, L503.6550, L503.6030, L100.9950, L504.2610 ####[facility] [address] [place], [address] Globulin (S) [Mass/Vol] 3.3 g/dL Normal 2.2-4.2 [facility] Comment on above: Performed By: #### L 100.0100, L101.9900, L500.4050, L503.6550, L503.6030, L100.9950, L504.2610 ####[facility] [address] [place], [address] Glucose [Mass/Vol] 115 mg/dL High 70-[address] [facility] Comment on above: Performed By: #### L 100.0100, L101.9900, L500.4050, L503.6550, L503.6030, L100.9950, L504.2610 ####[facility] [address] [place], [address] Potassium [Moles/Vol] 4.0 mmol/L Normal 3.3-5.1 [facility] Comment on above: Performed By: #### L 100.0100, L101.9900, L500.4050, L503.6550, L503.6030, L100.9950, L504.2610 ####[facility] [address] [place], [address] Sodium [Moles/Vol] 135 mmol/L Normal 133-[address] [facility] Comment on above: Performed By: #### L 100.0100, L101.9900, L500.4050, L503.6550, L503.6030, L100.9950, L504.2610 ####[facility] [address] [place], [address] T PROT 7.4 g/dL Normal 5.9-8.4 [facility] Comment on above: Performed By: #### L 100.0100, L101.9900, L500.4050, L503.6550, L503.6030, L100.9950, L504.2610 ####[facility] [address] [place], [address] Urea nitrogen [Mass/Vol] 10 mg/dL Normal 4-19 [facility] Comment on above: Performed By: #### L 100.0100, L101.9900, L500.4050, L503.6550, L503.6030, L100.9950, L504.2610 ####[facility] [address] [place], [address] Erythrocyte Sed Rateon 01-29 SED RATE 18 mm/hr Normal 0-30 [facility] Comment on above: Performed By: #### L 100.0100, L101.9900, L500.4050, L503.6550, L503.6030, L100.9950, L504.2610 ####[facility] [address] [place], [address] Ferritinon 01-29-2025 Ferritin [Mass/Vol] 98 ng/mL Normal 22-378 [facility] Comment on above: Performed By: #### L 100.0100, L101.9900, L500.4050, L503.6550, L503.6030, L100.9950, L504.2610 ####[facility] [address] [place], [address] Iron+Iron Binding Capacityon 01-29-2025 Iron [Mass/Vol] 131 ug/dL Normal 50-170 [facility] Comment on above: Performed By: #### L 100.0100, L101.9900, L500.4050, L503.6550, L503.6030, L100.9950, L504.2610 ####[facility] [address] [place], [address] IRON SATURATION 50.0 Normal 13-59 [facility] Comment on above: Performed By: #### L 100.0100, L101.9900, L500.4050, L503.6550, L503.6030, L100.9950, L504.2610 ####[facility] [address] [place], [address] TIBC 260 ug/dL Normal 250-450 [facility] Comment on above: Performed By: #### L 100.0100, L101.9900, L500.4050, L503.6550, L503.6030, L100.9950, L504.2610 ####[facility] [address] [place], [address] UIBC 129 ug/dL Low 228-428 [facility] Comment on above: Performed By: #### L 100.0100, L101.9900, L500.4050, L503.6550, L503.6030, L100.9950, L504.2610 ####[facility] [address] [place], [address] LDHon 01-29-2025 LDH 162 U/L Normal 84-246 [facility] Comment on above: Order Comment: 1 Performed By: #### L 100.0100, L101.9900, L500.4050, L503.6550, L503.6030, L100.9950, L504.2610 ####[facility] [address] [place], [address] Retic Panelon 01-29-2025 IM RET FRACTION 7.40 Normal 3.00-15.90 [facility] Comment on above: Performed By: #### L 100.0100, L101.9900, L500.4050, L503.6550, L503.6030, L100.9950, L504.2610 ####[facility] [address] [place], [address] RET-HE 29.7 pg Low 30-35 [facility] Comment on above: Performed By: #### L 100.0100, L101.9900, L500.4050, L503.6550, L503.6030, L100.9950, L504.2610 ####[facility] [address] [place], [address] Retic Count 1.04 Normal 0.5-1.5 [facility] Comment on above: Performed By: #### L 100.0100, L101.9900, L500.4050, L503.6550, L503.6030, L100.9950, L504.2610 ####[facility] [address] [place], [address] hCG Titer Quant., Serumon HCG QUANT. 619 mIU/mL High <9 non-preg [facility] Comment on above: Result Comment: Gest ational Age 0.2-1 Week: 5-50 mIU/mL 1-2 Weeks: 50-500 mIU/mL 2-3 Weeks: 100-5000 mIU/mL 3-4 Weeks: 500-10,000 mIU/mL 4-5 Weeks:1000-50,000 mIU/mL 5-6 Weeks: 10,000-100,000 mIU/mL 6-8 Weeks: 15,000-200,000 mIU/mL 2-3 Months:10,000-100,000 mIU/mL Performed By: #### L 700.8000 ####[facility] [address] [place], [place], [id number] Gastroenterology Visit Repor ton 05-27-2024 Gastroenterology Visit Report [facility] [address] [place] [address] OFFICE VISIT Date of Service: 05/27/24 MR#: [id number] Acct: [id number] Name: BROOKE WOOD Rep #: [id number] : 2000 Provider: Jr Ravi DO Age/Sex: 24/F Location[place] [facility] [place] Status: Signed Intake Vital Signs 07/22/23 11:01 [...] house current occupational status: employed current occupation: [employer] sexually active: No Smoking Status: Never smoker alcohol intake: never substance use type: does not use caffeine: No what type of physical activity do you participate in: walking frequency: 1-2 times per week seatbelt use: always do you feel safe at home: Yes HPI HPI Details: BROOKE WOOD, is a 24 F who presents to the office today for follow up. paroxysmal supraventricular tachycardia s/p radiofrequency ablation ; [...] Urine protein, urobilinogen, leukocyte esterase H OV 2.9.23 Feels she is doing approximately the same as last time and notes food trigger of fast foods and highly acid foods; otherwise symptoms are minimally present with PO intake and feels that high fiber foods are not being digested. She has not received results from Dr. Harrington???s bloodwork. Hematology OV 3.3.23 and 3.9.23 for 22 year old with elevated DDimer and bilateral PE history on Eliquis. Recommend continuing Eliquis until end of November then stopping. See allergy/immunology for elevated IgE. ? Biochemical 3..23 (more content not included)... Normal [facility] Miscellaneous Lab Procedureo n 04-20-2024 [facility] LAB TEST Normal [facility] Comment on above: Order Comment: TOMMY Angel ADD TO BLOOD IN LAB. THANK YOU!!#[id number] IGG SUBCLASSES SERUM [facility]#[id number] IGG SUBCLASSES SERUM RF Result Comment: TEST RESULTS LIMITS IgG, Subclasses(1-4) Immunoglobulin G, Qn, Serum 1463 mg/dL 586-1602 IgG, Subclass 1 897 High mg/dL 248-810 IgG, Subclass 2 433 mg/dL 130-555 IgG, Subclass 3 96 mg/dL 15-102 IgG, Subclass 4 12 mg/dL 2-96 TESTING PERFORMED AT [facility]. ORIGINAL REPORT ON FILE IN LAB CONTAINS ADDITIONAL TEST SITE INFORMATION. Performed By: #### L 801.1541 ####[facility] [address] [place], [address] Immunoglobulin Pepito 4 IMMUNOGLOB E QN 1042 IU/mL High 6-495 [facility] Comment on above: Result Comment: Perf ormed at: [facility] [id number] Coordinator Of Evaluation: Rosey Pierce MD, Phone: [phone] Performed By: #### L 100.0100, L501.5200, L501.2300, L3200.1200, L503.6550, L503.6030, L500.4050, L300.8000, L504.2610 #### [facility] [address] [place], [address] Immunoglobulins G/A/Mon 04-05 IMMUNOGLOB A QN 264 mg/dL Normal 87-352 [facility] Comment on above: Order Comment: N Performed By: #### L 100.0100, L501.5200, L501.2300, L3200.1200, L503.6550, L503.6030, L500.4050, L300.8000, L504.2610 ####[facility] [address] [place], [address] IMMUNOGLOB G QN 1568 mg/dL Normal 586-1602 [facility] Comment on above: Order Comment: N Performed By: #### L 100.0100, L501.5200, L501.2300, L3200.1200, L503.6550, L503.6030, L500.4050, L300.8000, L504.2610 ####[facility] [address] [place], [address] IMMUNOGLOB M QN 48 mg/dL Normal 26-217 [facility] Comment on above: Order Comment: N Result Comment: Perf ormed at: [facility] [id number] Coordinator Of Evaluation: Rafat Molina PhD, Phone: [phone] Performed By: #### L 100.0100, L501.5200, L501.2300, L3200.1200, L503.6550, L503.6030, L500.4050, L300.8000, L504.2610 ####[facility] [address] [place], [place], [id number] CBC W/Diff, Automatedon 09- Absolute Lymph 1.31 X10 3/uL Normal 0.83-4.51 [facility] Comment on above: Performed By: #### L 100.0100, L501.5200, L501.2300, L3200.1200, L503.6550, L503.6030, L500.4050, L300.8000, L504.2610 #### [facility] [address] [place], [place], [phone] Absolute Neut 1.5 X10 3/uL Low 2.0-7.7 [facility] Comment on above: Performed By: #### L 100.0100, L501.5200, L501.2300, L3200.1200, L503.6550, L503.6030, L500.4050, L300.8000, L504.2610 #### [facility] [address] [place], [place], [phone] ([phone]) Basophils/100 WBC (Bld) 0.6 % Normal 0-1 [facility] Comment on above: Performed By: #### L 100.0100, L501.5200, L501.2300, L3200.1200, L503.6550, L503.6030, L500.4050, L300.8000, L504.2610 #### [facility] [address] [place], [address] Eosinophils/100 WBC (Bld) 8.8 % High 0-5 [facility] Comment on above: Performed By: #### L 100.0100, L501.5200, L501.2300, L3200.1200, L503.6550, L503.6030, L500.4050, L300.8000, L504.2610 #### [facility] [address] [place], [address] Erythrocyte distribution width (RBC) [Ratio] 13.2 % Normal 11.6-14.6 [facility] Comment on above: Performed By: #### L 100.0100, L501.5200, L501.2300, L3200.1200, L503.6550, L503.6030, L500.4050, L300.8000, L504.2610 #### [facility] [address] [place], [address] Hematocrit (Bld) [Volume fraction] 35.0 % Low 37-47 [facility] Comment on above: Performed By: #### L 100.0100, L501.5200, L501.2300, L3200.1200, L503.6550, L503.6030, L500.4050, L300.8000, L504.2610 #### [facility] [address] [place], [address] Hemoglobin (Bld) [Mass/Vol] 11.1 g/dL Low 12.0-15.0 [facility] Comment on above: Performed By: #### L 100.0100, L501.5200, L501.2300, L3200.1200, L503.6550, L503.6030, L500.4050, L300.8000, L504.2610 #### [facility] [address] [place], [address] IG% 0.000 Normal 0.0-0.9 [facility] Comment on above: Result Comment: IG% - Immature Granulocytes (promyelocytes, myelocytes and metamyelocytes) > 1% indicates that a LEFT SHIFT is Present. Performed By: #### L 100.0100, L501.5200, L501.2300, L3200.1200, L503.6550, L503.6030, L500.4050, L300.8000, L504.2610 #### [facility] [address] [place], [address] Lymphocytes/100 WBC (Bld) 37.3 % Normal 19-41 [facility] Comment on above: Performed By: #### L 100.0100, L501.5200, L501.2300, L3200.1200, L503.6550, L503.6030, L500.4050, L300.8000, L504.2610 #### [facility] [address] [place], [address] MCH (RBC) [Entitic mass] 26.4 pg Low 27.0-32.0 [facility] Comment on above: Performed By: #### L 100.0100, L501.5200, L501.2300, L3200.1200, L503.6550, L503.6030, L500.4050, L300.8000, L504.2610 #### [facility] [address] [place], [address] MCHC (RBC) [Mass/Vol] 31.7 g/dL Low 32-36 [facility] Comment on above: Performed By: #### L 100.0100, L501.5200, L501.2300, L3200.1200, L503.6550, L503.6030, L500.4050, L300.8000, L504.2610 #### [facility] [address] [place], [address] MCV (RBC) [Entitic vol] 83.3 fL Normal 81-99 [facility] Comment on above: Performed By: #### L 100.0100, L501.5200, L501.2300, L3200.1200, L503.6550, L503.6030, L500.4050, L300.8000, L504.2610 #### [facility] [address] [place], [address] Monocytes/100 WBC (Bld) 11.1 % High 0-10 [facility] Comment on above: Performed By: #### L 100.0100, L501.5200, L501.2300, L3200.1200, L503.6550, L503.6030, L500.4050, L300.8000, L504.2610 #### [facility] [address] [place], [address] Neutrophils/100 WBC (Bld) 42.2 % Low 47-70 [facility] Comment on above: Performed By: #### L 100.0100, L501.5200, L501.2300, L3200.1200, L503.6550, L503.6030, L500.4050, L300.8000, L504.2610 #### [facility] [address] [place], [address] Nucleated RBC (Bld) [#/Vol] 0 10*3/uL Normal 0-5 [facility] Comment on above: Performed By: #### L 100.0100, L501.5200, L501.2300, L3200.1200, L503.6550, L503.6030, L500.4050, L300.8000, L504.2610 #### [facility] [address] [place], [address] Platelet mean volume (Bld) [Entitic vol] 10.3 fL Normal 6.2-12.0 [facility] Comment on above: Performed By: #### L 100.0100, L501.5200, L501.2300, L3200.1200, L503.6550, L503.6030, L500.4050, L300.8000, L504.2610 #### [facility] [address] [place], [address] Platelets (Bld) [#/Vol] 221 10*3/uL Normal 150-450 [facility] Comment on above: Performed By: #### L 100.0100, L501.5200, L501.2300, L3200.1200, L503.6550, L503.6030, L500.4050, L300.8000, L504.2610 #### [facility] [address] [facility] [place], [address] RBC (Bld) [#/Vol] 4.20 10*6/uL Normal 4.2-5.4 [facility] Comment on above: Performed By: #### L 100.0100, L501.5200, L501.2300, L3200.1200, L503.6550, L503.6030, L500.4050, L300.8000, L504.2610 #### [facility] [address] [facility] [place], [address] RDW SD 39.8 fl Normal 35.1-43.9 [facility] Comment on above: Performed By: #### L 100.0100, L501.5200, L501.2300, L3200.1200, L503.6550, L503.6030, L500.4050, L300.8000, L504.2610 #### [facility] [address] [facility] [place], [address] WBC (Bld) [#/Vol] 3.5 10*3/uL Low 4.4-11.[address] [facility] Comment on above: Performed By: #### L 100.0100, L501.5200, L501.2300, L3200.1200, L503.6550, L503.6030, L500.4050, L300.8000, L504.2610 #### [facility] [address] [place], [address] Comprehensive Metabolic Prof ilon 04-15-2024 Albumin [Mass/Vol] 3.2 g/dL Normal 3.2-5.[address] [facility] Comment on above: Order Comment: 1 Performed By: #### L 100.0100, L501.5200, L501.2300, L3200.1200, L503.6550, L503.6030, L500.4050, L300.8000, L504.2610 #### [facility] [address] [place], [place], [address] Albumin/Globulin [Mass ratio] 0.8 {ratio} Low 0.9-2.4 [facility] Comment on above: Order Comment: 1 Performed By: #### L 100.0100, L501.5200, L501.2300, L3200.1200, L503.6550, L503.6030, L500.4050, L300.8000, L504.2610 #### [facility] [address] [place], [address] ALK P 120 U/L High 45-117 [facility] Comment on above: Order Comment: 1 Performed By: #### L 100.0100, L501.5200, L501.2300, L3200.1200, L503.6550, L503.6030, L500.4050, L300.8000, L504.2610 #### [facility] [address] [place], [address] ALT [Catalytic activity/Vol] 18 U/L Normal 13-56 [facility] Comment on above: Order Comment: 1 Performed By: #### L 100.0100, L501.5200, L501.2300, L3200.1200, L503.6550, L503.6030, L500.4050, L300.8000, L504.2610 #### [facility] [address] [place], [address] AST [Catalytic activity/Vol] 18 U/L Normal 15-37 [facility] Comment on above: Order Comment: 1 Performed By: #### L 100.0100, L501.5200, L501.2300, L3200.1200, L503.6550, L503.6030, L500.4050, L300.8000, L504.2610 #### [facility] [address] [place], [address] Bilirubin [Mass/Vol] 0.50 mg/dL Normal 0.20-1.00 [facility] Comment on above: Order Comment: 1 Result Comment: For patients on eltrombopag therapy, use of Dimension [place] TBIL is not recommended. Performed By: #### L 100.0100, L501.5200, L501.2300, L3200.1200, L503.6550, L503.6030, L500.4050, L300.8000, L504.2610 #### [facility] [address] [place], [address] BUN/CRE 13.7 RATIO Normal 10-20 [facility] Comment on above: Order Comment: 1 Performed By: #### L 100.0100, L501.5200, L501.2300, L3200.1200, L503.6550, L503.6030, L500.4050, L300.8000, L504.2610 #### [facility] [address] [place], [address] CA,Total 8.8 mg/dL Normal 8.5-10.1 [facility] Comment on above: Order Comment: 1 Performed By: #### L 100.0100, L501.5200, L501.2300, L3200.1200, L503.6550, L503.6030, L500.4050, L300.8000, L504.2610 #### [facility] [address] [place], [address] Chloride [Moles/Vol] 107 mmol/L Normal 98-107 [facility] Comment on above: Order Comment: 1 Performed By: #### L 100.0100, L501.5200, L501.2300, L3200.1200, L503.6550, L503.6030, L500.4050, L300.8000, L504.2610 #### [facility] [address] [place], [address] CO2 [Moles/Vol] 30.0 mmol/L Normal 21.0-32.0 [facility] Comment on above: Order Comment: 1 Performed By: #### L 100.0100, L501.5200, L501.2300, L3200.1200, L503.6550, L503.6030, L500.4050, L300.8000, L504.2610 #### [facility] [address] [place], [address] Creatinine [Mass/Vol] 0.87 mg/dL Normal 0.55-1.02 [facility] Comment on above: Order Comment: 1 Result Comment: The validity of the calculated GFR GFRAA in patients over 70 years has not been determined. Clinical correlation is essential. Performed By: #### L 100.0100, L501.5200, L501.2300, L3200.1200, L503.6550, L503.6030, L500.4050, L300.8000, L504.2610 #### [facility] [address] [place], [address] ECRCL 84.52 ml/min Normal [facility] Comment on above: Order Comment: 1 Performed By: #### L 100.0100, L501.5200, L501.2300, L3200.1200, L503.6550, L503.6030, L500.4050, L300.8000, L504.2610 #### [facility] [address] [place], [address] EST GFR - AA 102 mL/min Normal >60 [facility] Comment on above: Order Comment: 1 Result Comment: Afri can Maldivian GFR Calc Performed By: #### L 100.0100, L501.5200, L501.2300, L3200.1200, L503.6550, L503.6030, L500.4050, L300.8000, L504.2610 #### [facility] [address] [place], [address] GAP 2 Low 5-15 [facility] Comment on above: Order Comment: 1 Performed By: #### L 100.0100, L501.5200, L501.2300, L3200.1200, L503.6550, L503.6030, L500.4050, L300.8000, L504.2610 #### [facility] [address] [place], [place], [id number] GFR/1.73 sq M.predicted among non-blacks MDRD (S/P/Bld) [Vol rate/Area] 84 mL/min/{1.73_m2} Normal >[address] [facility] Comment on above: Order Comment: 1 Result Comment: Non- GFR Calc Performed By: #### L 100.0100, L501.5200, L501.2300, L3200.1200, L503.6550, L503.6030, L500.4050, L300.8000, L504.2610 #### [facility] [address] [place], [place], [id number] (557) Globulin (S) [Mass/Vol] 3.9 g/dL Normal 2.2-4.2 [facility] Comment on above: Order Comment: 1 Performed By: #### L 100.0100, L501.5200, L501.2300, L3200.1200, L503.6550, L503.6030, L500.4050, L300.8000, L504.2610 #### [facility] [address] [place], [address] Glucose [Mass/Vol] 93 mg/dL Normal 74-[address] [facility] Comment on above: Order Comment: 1 Performed By: #### L 100.0100, L501.5200, L501.2300, L3200.1200, L503.6550, L503.6030, L500.4050, L300.8000, L504.2610 #### [facility] [address] [place], [address] Potassium [Moles/Vol] 3.9 mmol/L Normal 3.5-5.1 [facility] Comment on above: Order Comment: 1 Performed By: #### L 100.0100, L501.5200, L501.2300, L3200.1200, L503.6550, L503.6030, L500.4050, L300.8000, L504.2610 #### [facility] [address] [place], [address] Sodium [Moles/Vol] 139 mmol/L Normal 136-[address] [facility] Comment on above: Order Comment: 1 Performed By: #### L 100.0100, L501.5200, L501.2300, L3200.1200, L503.6550, L503.6030, L500.4050, L300.8000, L504.2610 #### [facility] [address] [place], [address] T PROT 7.1 g/dL Normal 6.4-8.2 [facility] Comment on above: Order Comment: 1 Performed By: #### L 100.0100, L501.5200, L501.2300, L3200.1200, L503.6550, L503.6030, L500.4050, L300.8000, L504.2610 #### [facility] [address] [place], [address] Urea nitrogen [Mass/Vol] 12 mg/dL Normal 7-18 [facility] Comment on above: Order Comment: 1 Performed By: #### L 100.0100, L501.5200, L501.2300, L3200.1200, L503.6550, L503.6030, L500.4050, L300.8000, L504.2610 #### [facility] [address] [place], [address] D-Dimer Quantitative (DVT/PE )on 04-15-2024 D-DIMER QUANT 0.40 FEU/ug/m Normal 0.27-0.49 [facility] Comment on above: Result Comment: NORM AL D-Dimer level (<0.50) indicates no DVT or PE. Performed By: #### L 100.0100, L501.5200, L501.2300, L3200.1200, L503.6550, L503.6030, L500.4050, L300.8000, L504.2610 #### [facility] [address] [place], [address] Ferritinon 04-15-2024 Ferritin [Mass/Vol] 25 ng/mL Normal 8-252 [facility] Comment on above: Order Comment: 1 Performed By: #### L 100.0100, L501.5200, L501.2300, L3200.1200, L503.6550, L503.6030, L500.4050, L300.8000, L504.2610 #### [facility] [address] [place], [address] Iron+Iron Binding Capacityon 04-15-2024 Iron [Mass/Vol] 40 ug/dL Low 50-170 [facility] Comment on above: Order Comment: 1 Performed By: #### L 100.0100, L501.5200, L501.2300, L3200.1200, L503.6550, L503.6030, L500.4050, L300.8000, L504.2610 #### [facility] [address] [place], [address] IRON SATURATION 14.1 Low 15.0-55.0 [facility] Comment on above: Order Comment: 1 Performed By: #### L 100.0100, L501.5200, L501.2300, L3200.1200, L503.6550, L503.6030, L500.4050, L300.8000, L504.2610 #### [facility] [address] [place], [address] TIBC 284 ug/dL Normal 250-450 [facility] Comment on above: Order Comment: 1 Performed By: #### L 100.0100, L501.5200, L501.2300, L3200.1200, L503.6550, L503.6030, L500.4050, L300.8000, L504.2610 #### [facility] [address] [place], [address] LDHon 04-15-2024 LDH 162 U/L Normal 84-246 [facility] Comment on above: Order Comment: 1 Performed By: #### L 100.0100, L501.5200, L501.2300, L3200.1200, L503.6550, L503.6030, L500.4050, L300.8000, L504.2610 #### [facility] [address] [place], [address] Magnesiumon 04-15-2024 Magnesium [Mass/Vol] 1.8 mg/dL Normal 1.6-2.6 [facility] Comment on above: Order Comment: 1 Performed By: #### L 100.0100, L501.5200, L501.2300, L3200.1200, L503.6550, L503.6030, L500.4050, L300.8000, L504.2610 #### [facility] [address] [place], [address] Oncology Visit Reporton 04-05 Oncology Visit Report [facility] [address] [place] [address] OFFICE VISIT Date of Service: 04/15/24 1107 MR#: [id number] Acct: [id number] Name: BROOKE WOOD Rep #: [id number] : 2000 From: Kris Knowles MD Age/Sex: 24/F [place] [facility] [place] [place]: Signed HPI Subjective Date of Service [...] Remains on Eliquis. comes for follow up. [facility] Medical History Difficulty swallowing Screening for [...] house current occupational status: employed current occupation: [employer] sexually active: No Smoking Status: Never [...] Has h (more content not included)... Normal [facility] Phosphoruson 04-15-2024 Phosphate [Mass/Vol] 3.0 mg/dL Normal 2.5-4.9 [facility] Comment on above: Order Comment: 1 Performed By: #### L 100.0100, L501.5200, L501.2300, L3200.1200, L503.6550, L503.6030, L500.4050, L300.8000, L504.2610 #### [facility] [address] 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 If is still suspected, a first morning urinespecimen should be collected 48 hours later and tested. Leonard 06-05-2023 ALBA Telephone ([employer]) ----- BROOKE WOOD ([id number]) 1 F Date Time Provider Department 06/05/23 KEN DU During your visit today, we recorded the following information about you: Ken Du MD 06/05/2023 8:50 AM Signed Please request all reports for imaging of the chest (CT chest and CXR) completed [facility]. (She was hospitalized in 05/26 for a PE) MD Wojciech Gutierrez Candice RN 06/05/2023 9:02 AM Signed Release form faxed to [facility] Nicolasa Montalvo RN 06/05/2023 1:55 PM [...] Status:Closed by NICOLASA MONTALVO RN on 06/05/23 [facility] CNCOon 05-28-2023 CNCO Letter Text [facility] CNPNon 05-23-2023 CNPN Telephone ([facility]) ----- BROOKE WOOD ([id number]) 1 F Date Time Provider Department 05/23/23 [...] when call is returned. Will forward to [place] allergy nurses as a FYI See message [...] from Dr. Shawn vaughn and results from [facility], absolute eosinophil count has been mildly elevated from 148-250. Reviewed prior absolute eosinophil counts counts varied from 148-250. I do not see any documentation of an absolute eosinophil count greater than 500. MD Sandra Gutierrez Alisia RN 06/20/2023 10:20 AM Signed Patient returning call. Please call patient at [phone]. Ken Du MD 06/20/2023 12:55 PM Signed Discussed results with patient. Recommend that she follow-up with her primary care physician or her explosive specialist regarding the mild anemia. She does [...] by JENIFER GUSTAFSON RN on 06/20/23 Normal [facility] BRONCHOPUL ASPERGILLon 05-22 A. FUMIGATUS IGE CLASS 3 Normal [facility] Comment on above: Order Comment: Speci men Type: BLOOD SPECIMEN Ordering Facility: [facility] Address: [address] [place] [address] Result Comment: The test method is the FeedHenry ImmunoCAP allergen-specific IgE system. CLASS INTERPRETATION <0.10 kU/L= 0, Negative; 0.10 - 0.34 kU/L= 0/1, Equivocal/Borderline; 0.35 - 0.69 kU/L=1, Low Positive; 0.70 - 3.49 kU/L=2, Moderate Positive; 3.50 - 17.49 kU/L=3, High Positive; 17.50 - 49.99 kU/L= 4, Very High Positive; 50.00 - 99.99 kU/L= 5, Very High Positive; >99.99 kU/L=6, Very High Positive Performed By: #### A BPA #### [facility] CLIA [id number] [address] [address] A. FUMIGATUS IGE CONC 8.74 kU/L High <0.35 [facility] Comment on above: Order Comment: Spected camilo Type: BLOOD SPECIMEN Ordering Facility: [facility] Address: [address] [place] [address] Performed By: #### A BPA #### [facility] CLIA [id number] [address] [place] [address] A. FUMIGATUS MIX GEL DIFF Negative Normal Negative [facility] Comment on above: Order Comment: Aracelis page Type: BLOOD SPECIMEN Ordering Facility: [facility] Address: [address] [place] [address] Result Comment: The gel diffusion method was [...] developed and its performance characteristics determined by [facility]. It has not been cleared or approved by the U.S. Food and Drug Administration. Testing Performed At: [facility] [address] [place] [address], [address] [place] [address] Coordinator Of Evaluation: Evaristo Canada, PhD BCLD (ABB) CLIA # [id number] FLAG Interpretation: A = Abnormal, H = High, L = Low Performed By: #### A BPA #### [facility] CLIA [id number] [address] [facility] [address] A. FUMIGATUS, IGG 69.7 mcg/mL High <46.0 [facility] Comment on above: Order Comment: Aracelis page Type: BLOOD SPECIMEN Ordering Facility: [facility] Address: [address] [place] [address] Result Comment: Anti body levels greater than the reference range indicate that the patient has been immunologically sensitized to the antigen. The significance of elevated IgG depends on the nature of the antigen and the patient's clinical history. The test method was the FeedHenry ImmunoCAP. Performed By: #### A BPA #### [facility] CLIA [id number] [address] [address] TOTAL IGE 1053 IU/mL High 4-59 [facility] Comment on above: Order Comment: Aracelis page Type: BLOOD SPECIMEN Ordering Facility: [facility] Address: [address] [place] [address] Performed By: #### A BPA #### [facility] CLIA [id number] [address] [place] [address] CBC W Auto Differential pane l (Bld)on 05-22-2023 Basophils (Bld) [#/Vol] 10*3/uL Normal <0.11 [facility] Comment on above: Order Comment: Aracelis apge Type: BLOOD SPECIMEN Ordering Facility: [facility] Address: [address] [place] [address] Performed By: #### 5 7021-8 #### [facility] CLIA [id number] [address] [place] [address] [place] [address] [facility] Basophils/100 WBC (Bld) 0.5 % Normal [facility] Comment on above: Order Comment: Aracelis [facility] Type: BLOOD SPECIMEN Ordering Facility: [facility] Address: [address] [place] [address] Performed By: #### 5 7021-8 #### [facility] CLIA [id number] [address] [place] [address] [place] Differential cell count method Nom (Bld) Auto Normal [facility] Comment on above: Order Comment: Speci men Type: BLOOD SPECIMEN Ordering Facility: [facility] Address: [address] [place] [address] Performed By: #### 5 7021-8 #### [facility] CLIA [id number] [address] [place] [address] [place] Eosinophils (Bld) [#/Vol] 0.25 10*3/uL Normal <0.46 [facility] Comment on above: Order Comment: Speci men Type: BLOOD SPECIMEN Ordering Facility: [facility] Address: [address] [place] [address] Performed By: #### 5 7021-8 #### [facility] CLIA [id number] [address] STATES [place] Eosinophils/100 WBC (Bld) 6.7 % Normal [facility] Comment on above: Order Comment: Speci men Type: BLOOD SPECIMEN Ordering Facility: [facility] Address: [address] [place] [address] Performed By: #### 5 7021-8 #### [facility] CLIA [id number] [address] [place] Erythrocyte distribution width (RBC) [Ratio] 13.2 % Normal 11.5-15.0 [facility] Comment on above: Order Comment: Speci men Type: BLOOD SPECIMEN Ordering Facility: [facility] Address: [address] [place] [address] Performed By: #### 5 7021-8 #### [facility] CLIA [id number] [address] [place] [address] [place] Hematocrit (Bld) [Volume fraction] 35.0 % Low 36.0-46.0 [facility] Comment on above: Order Comment: Speci men Type: BLOOD SPECIMEN Ordering Facility: [facility] Address: [address] [place] [address] Performed By: #### 5 7021-8 #### [facility] CLIA [id number] [address] [place] Hemoglobin (Bld) [Mass/Vol] 11.3 g/dL Low 11.5-15.5 [facility] Comment on above: Order Comment: Speci men Type: BLOOD SPECIMEN Ordering Facility: [facility] Address: [address] [place] [address] Performed By: #### 5 7021-8 #### [facility] CLIA [id number] [address] [place] [address] [place] Immature granulocytes (Bld) [#/Vol] 10*3/uL Normal <0.10 [facility] Comment on above: Order Comment: Speci men Type: BLOOD SPECIMEN Ordering Facility: [facility] Address: [address] [place] [address] Performed By: #### 5 7021-8 #### [facility] CLIA [id number] [address] Immature granulocytes/100 WBC (Bld) 0.3 % Normal [facility] Comment on above: Order Comment: Speci men Type: BLOOD SPECIMEN Ordering Facility: [facility] Address: [address] [place] [address] Performed By: #### 5 7021-8 #### [facility] CLIA [id number] [address] STATES OF [facility] Lymphocytes (Bld) [#/Vol] 1.41 10*3/uL Normal 1.00-4.0 0 [facility] Comment on above: Order Comment: Speci men Type: BLOOD SPECIMEN Ordering Facility: [facility] Address: [address] [place] [address] Performed By: #### 5 7021-8 #### [facility] CLIA [id number] [address] Lymphocytes/100 WBC (Bld) 37.9 % Normal [facility] Comment on above: Order Comment: Speci men Type: BLOOD SPECIMEN Ordering Facility: [facility] Address: [address] [place] [address] Performed By: #### 5 7021-8 #### [facility] CLIA [id number] [address] [place] MCH (RBC) [Entitic mass] 26.4 pg Normal 26.0-34.0 [facility] Comment on above: Order Comment: Speci men Type: BLOOD SPECIMEN Ordering Facility: [facility] Address: [address] [place] [address] Performed By: #### 5 7021-8 #### [facility] CLIA [id number] [address] MCHC (RBC) [Mass/Vol] 32.3 g/dL Normal 30.5-36.0 [facility] Comment on above: Order Comment: Speci men Type: BLOOD SPECIMEN Ordering Facility: [facility] Address: [address] [place] [address] Performed By: #### 5 7021-8 #### [facility] CLIA [id number] [address] MCV (RBC) [Entitic vol] 81.8 fL Normal 80.0-100.0 [facility] Comment on above: Order Comment: Speci men Type: BLOOD SPECIMEN Ordering Facility: [facility] Address: [address] [place] [address] Performed By: #### 5 7021-8 #### [facility] CLIA [id number] [address] Monocytes (Bld) [#/Vol] 0.38 10*3/uL Normal <0.87 [facility] Comment on above: Order Comment: Speci men Type: BLOOD SPECIMEN Ordering Facility: [facility] Address: [address] [place] [address] Performed By: #### 5 7021-8 #### [facility] CLIA [id number] [address] Monocytes/100 WBC (Bld) 10.2 % Normal [facility] Comment on above: Order Comment: Speci men Type: BLOOD SPECIMEN Ordering Facility: [facility] Address: [address] [place] [address] Performed By: #### 5 7021-8 #### [facility] CLIA [id number] [address] [place] [address] [place] Neutrophils (Bld) [#/Vol] 1.65 10*3/uL Normal 1.45-7.5 0 [facility] Comment on above: Order Comment: Speci men Type: BLOOD SPECIMEN Ordering Facility: [facility] Address: [address] [place] [address] Performed By: #### 5 7021-8 #### [facility] CLIA [id number] [address] [place] Neutrophils/100 WBC (Bld) 44.4 % Normal [facility] Comment on above: Order Comment: Speci men Type: BLOOD SPECIMEN Ordering Facility: [facility] Address: [address] [place] [address] Performed By: #### 5 7021-8 #### [facility] CLIA [id number] [address] Nucleated RBC (Bld) [#/Vol] 10*3/uL Normal <0.01 [facility] Comment on above: Order Comment: Speci men Type: BLOOD SPECIMEN Ordering Facility: [facility] Address: [address] [place] [address] Performed By: #### 5 7021-8 #### [facility] CLIA [id number] [address] Nucleated RBC/100 WBC (Bld) [Ratio] 0.0 /100 WBC Normal [facility] Comment on above: Order Comment: Speci men Type: BLOOD SPECIMEN Ordering Facility: [facility] Address: [address] [place] [address] Performed By: #### 5 7021-8 #### [facility] CLIA [id number] [address] [place] Platelet mean volume (Bld) [Entitic vol] 10.5 fL Normal 9.0-12.7 [facility] Comment on above: Order Comment: Speci men Type: BLOOD SPECIMEN Ordering Facility: [facility] Address: [address] [place] [address] Performed By: #### 5 7021-8 #### [facility] CLIA [id number] [address] [place] Platelets (Bld) [#/Vol] 241 10*3/uL Normal 150-400 [facility] Comment on above: Order Comment: Aracelis page Type: BLOOD SPECIMEN Ordering Facility: [facility] Address: [address] [place] [address] Performed By: #### 5 7021-8 #### [facility] CLIA [id number] [address] RBC (Bld) [#/Vol] 4.28 10*6/uL Normal 3.90-5.20 [facility] Comment on above: Order Comment: Donisi men Type: BLOOD SPECIMEN Ordering Facility: [facility] Address: [address] [place] [address] Performed By: #### 5 7021-8 #### [facility] CLIA [id number] [address] WBC (Bld) [#/Vol] 3.72 10*3/uL Normal 3.70-11.00 [facility] Comment on above: Order Comment: Donisi men Type: BLOOD SPECIMEN Ordering Facility: [facility] Address: [address] [place] [address] Performed By: #### 5 7021-8 #### [facility] CLIA [id number] [address] CNOVon 05-22-2023 CNOV Office Visit (ALLMED ) ----- BROOKE WOOD ([id number]) 1 F Date Time Provider Department 05/22/23 1:15 PM KEN DU During your visit today, we recorded the [...] December 27, 2022 on evaluation completed at [facility]. P-ANCA was mildly positive at 1-20. IgG [...] suffer from frequent sinopulmonary infections. ASTHMA: See LOWER BRULE ECZEMA: The patient has no history of eczema. URTICARIA:The patient does not have a history of urticaria and/or angioedema. GERD: See LOWER BRULE INSECT STING: The patient does not have a history of systemic reaction to insect sting. FOOD ALLERGY:See LOWER BRULE. 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 Normal [facility] Urinalysis complete panel (U )on 05-22-2023 Bacteria LM.HPF (Urine sed) [#/Area] Moderate Abnormal None Seen [facility] Comment on above: Order Comment: Speci men Type: URINE SPECIMEN Ordering Facility: [facility] Address: [address] [place] [address] Performed By: #### 2 4356-8 #### [facility] CLIA [id number] [address] Bilirubin Ql (U) 1+ Abnormal Negative [facility] Comment on above: Order Comment: Speci men Type: URINE SPECIMEN Ordering Facility: [facility] Address: [address] [place] [address] Result Comment: Sugg est correlation with clinical findings and serum bilirubin if clinically indicated. Performed By: #### 2 4356-8 #### [facility] CLIA [id number] [address] Clarity (Unsp spec) Slightly Cloudy Abnormal Clear [facility] Comment on above: Order Comment: Speci men Type: URINE SPECIMEN Ordering Facility: [facility] Address: [address] [place] [address] Performed By: #### 2 4356-8 #### [facility] CLIA [id number] [address] Color (U) Yellow Normal Yellow [facility] Comment on above: Order Comment: Speci men Type: URINE SPECIMEN Ordering Facility: [facility] Address: [address] [place] [address] Performed By: #### 2 4356-8 #### [facility] CLIA [id number] [address] Epithelial cells LM.HPF (Urine sed) [#/Area] Few Normal [facility] Comment on above: Order Comment: Speci men Type: URINE SPECIMEN Ordering Facility: [facility] Address: [address] [place] [address] Performed By: #### 2 4356-8 #### [facility] CLIA [id number] [address] Glucose Test strip (U) [Mass/Vol] Negative Normal Negative [facility] Comment on above: Order Comment: Speci men Type: URINE SPECIMEN Ordering Facility: [facility] Address: [address] [place] [address] Performed By: #### 2 4356-8 #### [facility] CLIA [id number] [address] Hemoglobin Ql (U) Negative Normal Negative [facility] Comment on above: Order Comment: Speci men Type: URINE SPECIMEN Ordering Facility: [facility] Address: [address] [place] [address] Performed By: #### 2 4356-8 #### [facility] CLIA [id number] [address] Ketones Ql (U) 1+ Abnormal Negative [facility] Comment on above: Order Comment: Speci men Type: URINE SPECIMEN Ordering Facility: [facility] Address: [address] [place] [address] Performed By: #### 2 4356-8 #### [facility] CLIA [id number] [address] Leukocyte esterase Test strip Ql (U) Negative Normal Negative [facility] Comment on above: Order Comment: Speci men Type: URINE SPECIMEN Ordering Facility: [facility] Address: [address] [place] [address] Performed By: #### 2 4356-8 #### [facility] CLIA [id number] [address] Nitrite Ql (U) Negative Normal Negative [facility] Comment on above: Order Comment: Speci men Type: URINE SPECIMEN Ordering Facility: [facility] Address: [address] [place] [address] Performed By: #### 2 4356-8 #### [facility] CLIA [id number] [address] [place] pH (U) 7.0 [pH] Normal 5.0-8.0 [facility] Comment on above: Order Comment: Speci men Type: URINE SPECIMEN Ordering Facility: [facility] Address: [address] [place] [address] Performed By: #### 2 4356-8 #### [facility] CLIA [id number] [address] [place] Protein (U) [Mass/Vol] Negative Normal Negative [facility] Comment on above: Order Comment: Speci men Type: URINE SPECIMEN Ordering Facility: [facility] Address: [address] [place] [address] Performed By: #### 2 4356-8 #### [facility] CLIA [id number] [address] RBC LM.HPF (Urine sed) [#/Area] 0-3 /HPF Normal 0-3 /HPF [facility] Comment on above: Order Comment: Speci men Type: URINE SPECIMEN Ordering Facility: [facility] Address: [address] [place] [address] Performed By: #### 2 4356-8 #### [facility] CLIA [id number] [address] Specific gravity (U) [Rel density] 1.020 Normal 1.005-1.03 0 [facility] Comment on above: Order Comment: Speci men Type: URINE SPECIMEN Ordering Facility: [facility] Address: [address] [place] [address] Performed By: #### 2 4356-8 #### [facility] CLIA [id number] [address] Urobilinogen Ql (U) 0.2 EU/dL Normal 0.2-1.0 EU/dL [facility] Comment on above: Order Comment: Speci men Type: URINE SPECIMEN Ordering Facility: [facility] Address: [address] [place] [address] Performed By: #### 2 4356-8 #### [facility] CLIA [id number] [address] WBC LM.HPF (Urine sed) [#/Area] 0-5 /HPF Normal 0-5 /HPF [facility] Comment on above: Order Comment: Speci men Type: URINE SPECIMEN Ordering Facility: [facility] Address: [address] [place] [address] Performed By: #### 2 4356-8 #### [facility] CLIA [id number] [address] No Panel InformationOrdered By: Kris Knowles on 04-23-2023 D-Dimer Quantitative (PE/DVT) < 0.27 FEU/ug/m 0.27-0.49 [facility] Comment on above: NORMAL D-Dimer level (<0.50) indicates no DVT or PE. Absolute lymphocyte countOrd ered By: Kris Knowles on 04-05-2023 Lymphocytes Auto (Unsp spec) [#/Vol] 1.18 10*3/uL 0.83-4.51 [facility] Basophil percentageOrdered B y: Kris Knowles on 04-05-2023 Basophils/100 WBC (Bld) 0.7 % 0-1 [facility] Bilirubin [Mass/Vol] 1.10 mg/dL 0.20-1.00 [facility] Comment on above: For patients on eltr ombopag therapy, use of Dimension [place] TBIL is not recommended. Chloride [Moles/Vol] 103 mmol/L 98-107 [facility] Eosinophils/100 WBC (Bld) 5.9 % 0-5 [facility] Glucose [Mass/Vol] 89 mg/dL 74-[address] [facility] LDH [Catalytic activity/Vol] 178 U/L 84-246 [facility] Neutrophils (Bld) [#/Vol] 1.2 10*3/uL 2.0-7.7 [facility] Neutrophils/100 WBC (Bld) 40.5 % 47-70 [facility] Potassium [Moles/Vol] 3.8 mmol/L 3.5-5.1 [facility] Protein [Mass/Vol] 7.3 g/dL 6.4-8.[address] [facility] Sodium [Moles/Vol] 137 mmol/L 136-[address] [facility] WBC (Bld) [#/Vol] 2.9 10*3/uL 4.4-11.[address] [facility] Blood erythrocytes count (nu mber/volume)Ordered By: Kris Knowles on 04-05-2023 RBC (Bld) [#/Vol] 4.06 10*6/uL 4.2-5.4 [facility] Blood hemoglobin measurement (mass/volume)Ordered By: Kris Knowles on 04-05-2023 Hemoglobin (Bld) [Mass/Vol] 10.9 g/dL 12.0-15.0 [facility] Blood lymphocytes/100 leukoc ytesOrdered By: Kris Knowles on 04-05-2023 Lymphocytes/100 WBC (Bld) 40.8 % 19-41 [facility] Blood monocytes/100 leukocyt esOrdered By: Kris Knowles on 04-05-2023 Monocytes/100 WBC (Bld) 12.1 % 0-10 [facility] Blood platelet mean volumeOr dered By: Kris Knowles on 04-05-2023 Platelet mean volume (Bld) [Entitic vol] 10.1 fL 6.2-12.0 [facility] Determination of erythrocyte mean corpuscular volume (MCV)Ordered By: Kris Knowles on 04-05-2023 MCV (RBC) [Entitic vol] 82.8 fL 81-99 [facility] Hematocrit Auto (Bld) [Volum e fraction]Ordered By: Kris Knowles on 04-05-2023 Hematocrit (Bld) [Volume fraction] 33.6 % 37-47 [facility] INR in Blood by Coagulation assayOrdered By: Kris Knowles on 04-05-2023 INR Coag (Bld) [Relative time] 1.5 {INR} [facility] - Chemistry and C hemistry - challengeOrdered By: Kris Knowles on 04-05-2023 ALP [Catalytic activity/Vol] 61 U/L 45-117 [facility] ALT [Catalytic activity/Vol] 18 U/L 13-56 [facility] CO2 [Moles/Vol] 28.0 mmol/L 21.0-32.0 [facility] Globulin (S) [Mass/Vol] 3.8 g/dL 2.2-4.2 [facility] Urea nitrogen/Creatinine [Mass ratio] 13.9 mg/mg 10-20 [facility] - CoagulationOrde red By: Kris Knowles on 04-05-2023 aPTT Coag (Bld) [Time] 37.0 s 24.1-36.[address] [facility] PT Coag (PPP) [Time] 18.1 s 11.7-14.9 [facility] - Hematology and Cell countsOrdered By: Kris Knowles on 04-05-2023 Erythrocyte distribution width (RBC) [Entitic vol] 40.6 fL 35.1-43.[address] [facility] Erythrocyte distribution width (RBC) [Ratio] 13.3 % 11.6-14.6 [facility] Immature granulocytes/100 WBC (Bld) 0.000 % 0.0-0.9 [facility] Comment on above: IG% - Immature Granu locytes (promyelocytes, myelocytes and metamyelocytes) > 1% indicates that a LEFT SHIFT is Present. MCH (RBC) [Entitic mass] 26.8 pg 27.0-32.0 [facility] Nucleated RBC/100 WBC (Bld) [Ratio] 0 % 0-5 [facility] MCHC Auto (RBC) [Mass/Vol]Or dered By: Kris Knowles on 04-05-2023 MCHC (RBC) [Mass/Vol] 32.4 g/dL 32-36 [facility] No Panel InformationOrdered By: Kris Knowles on 04-05-2023 Estimated GFR (MDRD) Amer 87 mL/min >60 [facility] Comment on above: GFR Calc Estimated GFR (MDRD) Non-Af Amer 72 mL/min >60 [facility] Comment on above: Non- GFR Calc Fibrinogen 317 mg/dl 203-444 [facility] Miscellaneous Test See comment [facility] Comment on above: TEST RESULTS LIMITST hrombotic [...] 16 Units 0-30 _ TESTING PERFORMED AT [facility]. ORIGINAL REPORT ON FILE IN LAB CONTAINS ADDITIONAL TEST SITE INFORMATION. Platelets bldOrdered By: Chuy Knowles on 04-05-2023 Platelets (Bld) [#/Vol] 247 10*3/uL 150-450 [facility] Serum or plasma albumin [place] urement (mass/volume)Ordered By: Kris Knowles on 04-05-2023 Albumin [Mass/Vol] 3.5 g/dL 3.2-5.[address] [facility] Serum or plasma albumin/glob ulin mass ratioOrdered By: Kris Knowles on 04-05-2023 Albumin/Globulin [Mass ratio] 0.9 {ratio} 0.9-2.4 [facility] Serum or plasma calcium [place]gin urement (mass/volume)Ordered By: Kris Knowles on 04-05-2023 Calcium [Mass/Vol] 8.9 mg/dL 8.5-10.[address] [facility] Serum or plasma creatinine m easurement (mass/volume)Ordered By: Kris Knowles on 04-05-2023 Creatinine [Mass/Vol] 1.01 mg/dL 0.55-1.02 [facility] Comment on above: The validity of the calculated GFR & GFRAA in patients over 70 years has not been determined. Clinical correlation is essential. Serum or plasma urea nitroge n measurement (mass/volume)Ordered By: Kris Knowles on 04-05-2023 Urea nitrogen [Mass/Vol] 14 mg/dL 7-18 [facility] Thin prep Papanicolaou smear with manual screeningOrdered By: Kris Knowles on 04-05-2023 Thin prep Papanicolaou smear with manual screening 19 U/L 15-37 [facility] Thin prep Papanicolaou smear with manual screening 6 5-15 [facility] Albumin Elph [Mass/Vol]Order ed By: Kris Knowles on 12-27-2022 Albumin [Mass/Vol] 3.8 g/dL 2.9-4.[address] [facility] Atypical perinuclear antineu trophil cytoplasmic antibodies measurementOrdered By: Kris Knowles on 12-27-2022 Neutrophil cytoplasmic Ab.perinuclear.atypical IF (S) [Titer] <1:20 titer Neg:<1:20 [facility] Comment on above: The atypical pANCA p attern has been observed in asignificant percentage of patients with ulcerative colitis,primary sclerosing cholangitis and autoimmune hepatitis. Basophil percentageOrdered B y: Jr Friend on 12-27-2022 Basophil percentage < 0.2 AI 0.0-0.9 [facility] Interpretation of serum or p lasma protein pattern by immunofixation (narrative resultOrdered By: Kris Knowles on 12-27-2022 Protein Fractions Immunofixation Erick [Interp] See comment [facility] Comment on above: RESULT:OBSERVED Iron measurement (mass/mass) Ordered By: Kris Knowles on 12-27-2022 Iron (Unsp spec) [Mass/Mass] 109 ug/dL 50-170 [facility] No Panel InformationOrdered By: Kris Knowles on 12-27-2022 Addendum Document Comment . [facility] Comment on above: Protein electrophore sis scan will follow via computer,mail, or jig grinder delivery.Performed at: - [facility] [id number] [place], [place] [id number] Director: Rafat Molina PhD, Phone: [phone] Immunoglobulin E 941 IU/mL 6-495 [facility] Comment on above: Performed at: [facility] [id number] [place], [place] [id number] Director: Rafat Molina PhD, Phone: [phone] at: [facility] [id number] Director: Rosey Pierce MD, Phone: [phone] Total Iron Binding Capacity 331 ug/dL 250-450 [facility] No Panel InformationOrdered By: Jr Ravi on 12-27-2022 Centromere B Antibody <0.2 AI 0.0-0.9 [facility] Immunoglobulin G4 14 mg/dL 2-96 [facility] Comment on above: Performed at: [facility] [id number] [place], [place] [id number] Director: Rafat Molina PhD, Phone: [phone] TECHNICIAN ASSISTANT Antibody <0.2 AI 0.0-0.9 [facility] Serum DNA double strand anti body assay (units/volume)Ordered By: Jr Ravi on 12-27-2022 DNA double strand Ab Qn (S) [IU]/mL 0-9 [facility] Comment on above: Negative <5 Equivoca l 5 - 9 Positive >9 Serum IgG subclass 1 measure ment (mass/volume)Ordered By: Jr Ravi on 12-27-2022 IgG subclass 1 (S) [Mass/Vol] 1105 mg/dL 248-810 [facility] Serum IgG subclass 2 measure ment (mass/volume)Ordered By: Jr Ravi on 12-27-2022 IgG subclass 2 (S) [Mass/Vol] 484 mg/dL 130-555 [facility] Serum IgG subclass 3 measure ment (mass/volume)Ordered By: Jr Ravi on 12-27-2022 IgG subclass 3 (S) [Mass/Vol] 100 mg/dL 15-102 [facility] Serum Sara-1 antibody assay (u nits/volume)Ordered By: Jr Ravi on 12-27-2022 Sara-1 extractable nuclear Ab Qn (S) <0.2 AI 0.0-0.9 [facility] Serum Scl-70 extractable nuc lear antibody assay (units/volume)Ordered By: Jr Ravi on 12-27-2022 SCL-70 extractable nuclear Ab Qn (S) <0.2 AI 0.0-0.9 [facility] Serum Snell extractable nucl ear antibody detectionOrdered By: Jr Ravi on 12-27-2022 Snell extractable nuclear Ab Ql (S) <0.2 AI 0.0-0.9 [facility] Serum [id number]-[id number] measu rement by electrophoresisOrdered By: Kris Knowles on 12-27-2022 Alpha 1 globulin Elph [Mass/Vol] 0.2 g/dL 0.0-0.4 [facility] Alpha 1 globulin Elph [Mass/Vol] 0.6 g/dL 0.4-1.0 [facility] Serum classic neutrophil cyt oplasmic antibody assay (units/volume)Ordered By: Kris Knowles on 12-27-2022 Neutrophil cytoplasmic Ab.classic Qn (S) <1:20 titer Neg:<1:20 [facility] Serum or plasma IgA measurem ent (mass/volume)Ordered By: Kris Knowles on 12-27-2022 IgA [Mass/Vol] 288 mg/dL 87-352 [facility] Serum or plasma IgG measurem ent (mass/volume)Ordered By: Jr Ravi on 12-27-2022 IgG [Mass/Vol] 1684 mg/dL 586-1602 [facility] Serum or plasma IgG measurem ent (mass/volume)Ordered By: Kris Knowles on 12-27-2022 IgG [Mass/Vol] 1530 mg/dL 586-1602 [facility] Serum or plasma IgM measurem ent (mass/volume)Ordered By: Kris Knowles on 12-27-2022 IgM [Mass/Vol] 59 mg/dL 26-217 [facility] Serum or plasma beta globuli n measurement by electrophoresis (mass/volume)Ordered By: Kris Knowles on 12-27-2022 Beta globulin Elph [Mass/Vol] 0.9 g/dL 0.7-1.3 [facility] Serum or plasma gamma globul in measurement by electrophoresis (mass/volume)Ordered By: Kris Knowles on 12-27-2022 Gamma globulin Elph [Mass/Vol] 1.4 g/dL 0.4-1.8 [facility] Serum or plasma immunoelectr ophoresis interpretation (nominal result)Ordered By: Kris [facility] on 12-27-2022 Interpretation IEP [Interp] Comment . [facility] Comment on above: No monoclonality det ected. Serum or plasma iron saturat ion measurement (mass fraction)Ordered By: Kris Knowles on 12-27-2022 Iron saturation [Mass fraction] 32.9 % 15.0-55.0 [facility] Serum perinuclear neutrophil cytoplasmic antibody titer by immunofluorescenceOrdered By: Kris [facility]2022 Neutrophil cytoplasmic Ab.perinuclear IF (S) [Titer] 1:20 titer Neg:<1:20 [facility] Comment on above: The presence of posi tive fluorescence exhibiting P-ANCA orC-ANCA patterns alone is not specific for the diagnosis ofWegener's Granulomatosis (WG) or microscopic polyangiitis.Decisions about treatment should not be based solely onANCA IFA results. The International ANCA Group Consensusrecommends follow up testing of positive sera with both ND-3 and MPO-ANCA enzyme immunoassays. As many as 5% serumsamples are positive only by EIA. Ref. AM J Clin [id number];111:507-513. Thin prep Papanicolaou smear with manual screeningOrdered By: Kris Knowles on 12-27-2022 Thin prep Papanicolaou smear with manual screening 1.3 0.7-1.7 [facility] Total protein bloodOrdered B y: Kris Knowles on 12-27-2022 Protein [Mass/Vol] 6.9 g/dL 6.0-8.[address] [facility] Absolute lymphocyte countOrd ered By: Dr. Harrington on 08-31-2022 Lymphocytes Auto (Unsp spec) [#/Vol] 1.10 10*3/uL 0.83-4.51 [facility] Basophil percentageOrdered B y: Dr. Harrington on 08-31-2022 Basophils/100 WBC (Bld) 0.8 % 0-1 [facility] Bilirubin [Mass/Vol] 2.10 mg/dL 0.20-1.00 [facility] Comment on above: For patients on eltr ombopag therapy, use of Dimension [place] TBIL is not recommended. Chloride [Moles/Vol] 101 mmol/L 98-107 [facility] Eosinophils/100 WBC (Bld) 4.1 % 0-5 [facility] Glucose [Mass/Vol] 81 mg/dL 74-[address] [facility] Neutrophils (Bld) [#/Vol] 2.3 10*3/uL 2.0-7.7 [facility] Neutrophils/100 WBC (Bld) 58.6 % 47-70 [facility] Potassium [Moles/Vol] 4.0 mmol/L 3.5-5.1 [facility] Protein [Mass/Vol] 8.2 g/dL 6.4-8.[address] [facility] Sodium [Moles/Vol] 136 mmol/L 136-[address] [facility] WBC (Bld) [#/Vol] 3.9 10*3/uL 4.4-11.[address] [facility] Bilirubin Test strip Ql (U)O rdered By: Dr. Harrington on 08-31-2022 Bilirubin Ql (U) Negative Negative [facility] Blood erythrocytes count (nu mber/volume)Ordered By: Dr. Harrington on 08-31-2022 RBC (Bld) [#/Vol] 4.68 10*6/uL 4.2-5.4 [facility] Blood hemoglobin measurement (mass/volume)Ordered By: Dr. Harrington on 08-31-2022 Hemoglobin (Bld) [Mass/Vol] 12.3 g/dL 12.0-15.0 [facility] Blood lymphocytes/100 leukoc ytesOrdered By: Dr. Harrington on 08-31-2022 Lymphocytes/100 WBC (Bld) 27.9 % 19-41 [facility] Blood monocytes/100 leukocyt esOrdered By: Dr. Harrington on 08-31-2022 Monocytes/100 WBC (Bld) 8.6 % 0-10 [facility] Blood platelet mean volumeOr dered By: Dr. Harrington on 08-31-2022 Platelet mean volume (Bld) [Entitic vol] 10.7 fL 6.2-12.0 [facility] Determination of erythrocyte mean corpuscular volume (MCV)Ordered By: Dr. Harrington on 08-31-2022 MCV (RBC) [Entitic vol] 83.1 fL 81-99 [facility] Dilute Mirza's viper venom timeOrdered By: Dr. Harrington on 08-31-2022 dRVVT Coag (PPP) [Time] 43.7 s 0.0-47.0 [facility] Hematocrit Auto (Bld) [Volum e fraction]Ordered By: Dr. Harrington on 08-31-2022 Hematocrit (Bld) [Volume fraction] 38.9 % 37-47 [facility] INR in Blood by Coagulation assayOrdered By: Dr. Harrington on 08-31-2022 INR Coag (Bld) [Relative time] 1.3 {INR} [facility] Ketones Test strip Ql (U)Ord ered By: Dr. Harrington on 08-31-2022 Ketones Ql (U) Negative Negative [facility] - Chemistry and C hemistry - challengeOrdered By: Dr. Harrington on 08-31-2022 ALP [Catalytic activity/Vol] 63 U/L 45-117 [facility] ALT [Catalytic activity/Vol] 19 U/L 13-56 [facility] CO2 [Moles/Vol] 28.0 mmol/L 21.0-32.0 [facility] Globulin (S) [Mass/Vol] 4.3 g/dL 2.2-4.2 [facility] Urea nitrogen/Creatinine [Mass ratio] 15.2 mg/mg 10-20 [facility] - CoagulationOrde red By: Dr. Harrington on 08-31-2022 aPTT Coag (Bld) [Time] 34.5 s 24.1-36.[address] [facility] PT Coag (PPP) [Time] 15.5 s 11.7-14.9 [facility] - Hematology and Cell countsOrdered By: Dr. Harrington on 08-31-2022 Erythrocyte distribution width (RBC) [Entitic vol] 40.8 fL 35.1-43.[address] [facility] Erythrocyte distribution width (RBC) [Ratio] 13.4 % 11.6-14.6 [facility] Immature granulocytes/100 WBC (Bld) 0.000 % 0.0-0.9 [facility] Comment on above: IG% - Immature Granu locytes (promyelocytes, myelocytes and metamyelocytes) > 1% indicates that a LEFT SHIFT is Present. MCH (RBC) [Entitic mass] 26.3 pg 27.0-32.0 [facility] Nucleated RBC/100 WBC (Bld) [Ratio] 0 % 0-5 [facility] - Miscellaneous t estsOrdered By: Dr. Harrington on 08-31-2022 Service comment (Unsp spec) [Interp] Comment . [facility] Comment on above: Results do not indic ate the presence of a LupusAnticoagulant: abnormal high screening results (PTT-LA,dRVVT, mixing studies), may be due to medication (heparin,warfarin, aspirin), Factor inhibitors, anticardiolipinantibodies, or poor specimen integrity.Performed at: [facility] [id number] Director: Rosey Pierce MD, Phone: [phone] MCHC Auto (RBC) [Mass/Vol]Or dered By: Dr. Harrington on 08-31-2022 MCHC (RBC) [Mass/Vol] 31.6 g/dL 32-36 [facility] Nitrite Test strip Ql (U)Ord ered By: Dr. Harrington on 08-31-2022 Nitrite Ql (U) Negative Negative [facility] No Panel InformationOrdered By: Dr. Harrington on 08-31-2022 Estimated GFR (MDRD) Amer 84 mL/min >60 [facility] Comment on above: GFR Calc Estimated GFR (MDRD) Non-Af Amer 69 mL/min >60 [facility] Comment on above: Non- GFR Calc Miscellaneous Test Comment MAILED SPECIMEN [facility] Platelets bldOrdered By: Dr. Harrington on 08-31-2022 Platelets (Bld) [#/Vol] 300 10*3/uL 150-450 [facility] Protein Test strip Ql (U)Ord ered By: Dr. Harrington on 08-31-2022 Protein Ql (U) 15 mg/dl Negative [facility] Serum or plasma albumin elgin urement (mass/volume)Ordered By: Dr. Harrington on 08-31-2022 Albumin [Mass/Vol] 3.9 g/dL 3.2-5.[address] [facility] Serum or plasma albumin/glob ulin mass ratioOrdered By: Dr. Harrington on 08-31-2022 Albumin/Globulin [Mass ratio] 0.9 {ratio} 0.9-2.4 [facility] Serum or plasma calcium elgin urement (mass/volume)Ordered By: Dr. Harrington on 08-31-2022 Calcium [Mass/Vol] 9.5 mg/dL 8.5-10.[address] [facility] Serum or plasma creatinine m easurement (mass/volume)Ordered By: Dr. Harrington on 08-31-2022 Creatinine [Mass/Vol] 1.05 mg/dL 0.55-1.02 [facility] Comment on above: The validity of the calculated GFR & GFRAA in patients over 70 years has not been determined. Clinical correlation is essential. Serum or plasma urea nitroge n measurement (mass/volume)Ordered By: Dr. Harrington on 08-31-2022 Urea nitrogen [Mass/Vol] 16 mg/dL 7-18 [facility] Thin prep Papanicolaou smear with manual screeningOrdered By: Dr. Harrington on 08-31-2022 Thin prep Papanicolaou smear with manual screening 19 U/L 15-37 [facility] Thin prep Papanicolaou smear with manual screening 7 5-15 [facility] Thin prep Papanicolaou smear with manual screening 39.8 sec 0.0-47.6 [facility] Thin prep Papanicolaou smear with manual screening 0.90 Ratio 0.00-1.34 [facility] Thin prep Papanicolaou smear with manual screening 39.1 sec 0.0-51.9 [facility] Comment on above: Effective September 10, 2022 PTT-LA reference interval will be changing to: 0.0 - 43.5 sec Thin prep Papanicolaou smear with manual screening Comment: . [facility] Comment on above: No lupus anticoagula nt was detected. Thrombin time in platelet po or plasmaOrdered By: Dr. Harrington on 08-31-2022 Thrombin time Coag (PPP) [Time] 16.8 sec 0.0-23.0 [facility] Urine blood detectionOrdered By: Dr. Harrington on 08-31-2022 RBC Ql (U) Negative Negative [facility] Urine clarityOrdered By: Dr. Harrington on 08-31-2022 Clarity (U) Clear Clear [facility] Urine color determinationOrd ered By: Dr. Harrington on 08-31-2022 Color (U) Yellow Yellow [facility] Urine creatinine measurement (mass/volume)Ordered By: Dr. Harrington on 08-31-2022 Creatinine (U) [Mass/Vol] 272.00 mg/dL NO RANGE EST. [facility] Urine glucose detectionOrder ed By: Dr. Harrington on 08-31-2022 Glucose Ql (U) Normal mg/dl Normal [facility] Urine leukocyte esterase det ection by dipstickOrdered By: Dr. Harrington on 08-31-2022 Leukocyte esterase Test strip Ql (U) 25 /ul Negative [facility] Urine pHOrdered By: Dr. Jay driver on 08-31-2022 pH (U) 6.5 [pH] 5.0 - 8.0 [facility] Urine protein measurement (m ass/volume)Ordered By: Dr. Harrington on 08-31-2022 Protein (U) [Mass/Vol] 16.3 mg/dL 0.0-11.[address] [facility] Urine protein/creatinine mas s ratioOrdered By: Dr. Harrington on 08-31-2022 Protein/Creatinine (U) [Mass ratio] 60 mg/g CRE 0-200 [facility] Urine specific gravity measu rementOrdered By: Dr. Harrington on 08-31-2022 Specific gravity (U) [Rel density] 1.015 1.002-1.03 0 [facility] Urobilinogen Auto test strip Ql (U)Ordered By: Dr. Harrington on 08-31-2022 Urobilinogen Ql (U) 1 mg/dl Normal [facility] - Chemistry and C hemistry - challengeOrdered By: Dr. Galvan on 08-23-2022 HCG ( test) Ql (U) Negative [facility] Comment on above: Very dilute urine sp ecimens, as indicated by a low specificgravity, may not contain sales representative leather goods levels of hCG. If is still suspected, a first morning urinespecimen should be collected 48 hours later and tested. Absolute lymphocyte countOrd ered By: Dr. Sinclair on 07-07-2022 Lymphocytes Auto (Unsp spec) [#/Vol] 1.17 10*3/uL 0.83-4.51 [facility] Basophil percentageOrdered B y: Jr Ravi on 07-07-2022 Lactate [Moles/Vol] 0.7 mmol/L 0.4-2.0 [facility] Basophil percentageOrdered B y: Dr. Sinclair on 07-07-2022 Basophil percentage 0-5 SEEN /hpf 0-[address] [facility] Basophils/100 WBC (Bld) 0.1 % 0-1 [facility] Bilirubin [Mass/Vol] 0.80 mg/dL 0.20-1.00 [facility] Comment on above: For patients on eltr ombopag therapy, use of Dimension [place] TBIL is not recommended. Chloride [Moles/Vol] 105 mmol/L 98-107 [facility] Eosinophils/100 WBC (Bld) 1.7 % 0-5 [facility] Glucose [Mass/Vol] 106 mg/dL 74-[address] [facility] Comment on above: Fasting Glucose resu lt from 100 to 125 mg/dL suggests IMPAIRED HOMEOSTASIS per A.D.A. criteria. Neutrophils (Bld) [#/Vol] 6.4 10*3/uL 2.0-7.7 [facility] Neutrophils/100 WBC (Bld) 77.7 % 47-70 [facility] Potassium [Moles/Vol] 3.4 mmol/L 3.5-5.1 [facility] Protein [Mass/Vol] 7.5 g/dL 6.4-8.[address] [facility] Sodium [Moles/Vol] 139 mmol/L 136-[address] [facility] WBC (Bld) [#/Vol] 8.2 10*3/uL 4.4-11.[address] [facility] Basophil percentageon 2021 Lactate [Moles/Vol] 1.6 mmol/L 0.4-2.0 [facility] Work Phone: Bilirubin Test strip Ql (U)O rdered By: Dr. Sinclair on 07-07-2022 Bilirubin Ql (U) Negative Negative [facility] Blood erythrocytes count (nu mber/volume)Ordered By: Dr. Sinclair on 07-07-2022 RBC (Bld) [#/Vol] 4.23 10*6/uL 4.2-5.4 [facility] Blood hemoglobin measurement (mass/volume)Ordered By: Dr. Sinclair on 07-07-2022 Hemoglobin (Bld) [Mass/Vol] 11.1 g/dL 12.0-15.0 [facility] Blood lymphocytes/100 leukoc ytesOrdered By: Dr. Sinclair on 07-07-2022 Lymphocytes/100 WBC (Bld) 14.3 % 19-41 [facility] Blood monocytes/100 leukocyt esOrdered By: Dr. Sinclair on 07-07-2022 Monocytes/100 WBC (Bld) 6.0 % 0-10 [facility] Blood platelet mean volumeOr dered By: Dr. Sinclair on 07-07-2022 Platelet mean volume (Bld) [Entitic vol] 9.7 fL 6.2-12.0 [facility] Determination of erythrocyte mean corpuscular volume (MCV)Ordered By: Dr. Sinclair on 07-07-2022 MCV (RBC) [Entitic vol] 81.8 fL 81-99 [facility] Direct bilirubinOrdered By: Dr. Sinclair on 07-07-2022 Bilirubin.direct [Mass/Vol] 0.27 mg/dL 0.00-0.30 [facility] Erythrocyte sedimentation ra teOrdered By: Jr Ravi on 07-07-2022 ESR (Bld) [Velocity] 23 mm/h 0-30 [facility] Hematocrit Auto (Bld) [Volum e fraction]Ordered By: Dr. Sinclair on 12-03-2022 Hematocrit (Bld) [Volume fraction] 34.6 % 37-47 [facility] Ketones Test strip Ql (U)Ord ered By: Dr. Sinclair on 07-07-2022 Ketones Ql (U) Negative Negative [facility] Laboratory - Chemistry and C hemistry - challengeOrdered By: Dr. Sinclair on 07-07-2022 HCG ( test) Ql (U) Negative [facility] Comment on above: Very dilute urine sp ecimens, as indicated by a low specificgravity, may not contain sales representative leather goods levels of hCG. If is still suspected, a first morning urinespecimen should be collected 48 hours later and tested. ALP [Catalytic activity/Vol] 77 U/L 45-117 [facility] ALT [Catalytic activity/Vol] 42 U/L 13-56 [facility] CO2 [Moles/Vol] 29.0 mmol/L 21.0-32.0 [facility] Globulin (S) [Mass/Vol] 4.0 g/dL 2.2-4.2 [facility] Lipase [Catalytic activity/Vol] 67 U/L 73-393 [facility] Urea nitrogen/Creatinine [Mass ratio] 12.9 mg/mg 10-20 [facility] Laboratory - Hematology and Cell countsOrdered By: Dr. Sinclair on 07-07-2022 Erythrocyte distribution width (RBC) [Entitic vol] 40.2 fL 35.1-43.[address] [facility] Erythrocyte distribution width (RBC) [Ratio] 13.6 % 11.6-14.6 [facility] Immature granulocytes/100 WBC (Bld) 0.200 % 0.0-0.9 [facility] Comment on above: IG% - Immature Granu locytes (promyelocytes, myelocytes and metamyelocytes) > 1% indicates that a LEFT SHIFT is Present. MCH (RBC) [Entitic mass] 26.2 pg 27.0-32.0 [facility] Nucleated RBC/100 WBC (Bld) [Ratio] 0 % 0-5 [facility] MCHC Auto (RBC) [Mass/Vol]Or dered By: Dr. Sinclair on 07-07-2022 MCHC (RBC) [Mass/Vol] 32.1 g/dL 32-36 [facility] Mucus LM Ql (Urine sed)Order ed By: Dr. Sinclair on 07-07-2022 Mucus Ql (Urine sed) 0 SEEN /hpf [facility] Nitrite Test strip Ql (U)Ord ered By: Dr. Sinclair on 07-07-2022 Nitrite Ql (U) Negative Negative [facility] No Panel InformationOrdered By: Dr. Sinclair on 07-07-2022 Estimated Creatinine Clearance Calc 65.69 ml/min [facility] Estimated GFR (MDRD) Amer 75 mL/min >60 [facility] Comment on above: GFR Calc Estimated GFR (MDRD) Non-Af Amer 62 mL/min >60 [facility] Comment on above: Non- GFR Calc Platelets bldOrdered By: Dr. Sinclair on 07-07-2022 Platelets (Bld) [#/Vol] 227 10*3/uL 150-450 [facility] Protein Test strip Ql (U)Ord ered By: Dr. Sinclair on 07-07-2022 Protein Ql (U) Negative Negative [facility] Serum or plasma C reactive p rotein measurement (mass/volume)Ordered By: Jr Ravi on 07-07-2022 CRP [Mass/Vol] 5.99 mg/L 0.0-3.0 [facility] Comment on above: C-Reactive Protein ( CRP) provides useful information for thediagnosis, therapy and monitoring of inflammatory processesand associated diseases. For the evaluation of Relative Riskfor Cardiovascular Disease, a High Sensitivity CRP (HSCRP)should be ordered. Serum or plasma albumin elgin urement (mass/volume)Ordered By: Dr. Sinclair on 07-07-2022 Albumin [Mass/Vol] 3.5 g/dL 3.2-5.[address] [facility] Serum or plasma calcium elgin urement (mass/volume)Ordered By: Dr. Sinclair on 07-07-2022 Calcium [Mass/Vol] 9.0 mg/dL 8.5-10.[address] [facility] Serum or plasma creatinine m easurement (mass/volume)Ordered By: Dr. Sinclair on 07-07-2022 Creatinine [Mass/Vol] 1.16 mg/dL 0.55-1.02 [facility] Comment on above: The validity of the calculated GFR & GFRAA in patients over 70 years has not been determined. Clinical correlation is essential. Serum or plasma urea nitroge n measurement (mass/volume)Ordered By: Dr. Sinclair on 07-07-2022 Urea nitrogen [Mass/Vol] 15 mg/dL 7-18 [facility] Squamous epithelial cells de tection in urine sediment by light microscopyOrdered By: Dr. Sinclair on 07-07-2022 Epithelial cells.squamous LM Ql (Urine sed) 0-5 SEEN /hpf 5-10 [facility] Thin prep Papanicolaou smear with manual screeningOrdered By: Dr. Sinclair on 07-07-2022 Thin prep Papanicolaou smear with manual screening 68 U/L 15-37 [facility] Thin prep Papanicolaou smear with manual screening 5 5-15 [facility] Urine blood detectionOrdered By: Dr. Sinclair on 07-07-2022 RBC Ql (U) Negative Negative [facility] RBC Ql (U) 0 SEEN /hpf 0-5 [facility] Urine clarityOrdered By: Dr. Sinclair on 07-07-2022 Clarity (U) Clear Clear [facility] Urine color determinationOrd ered By: Dr. Sinclair on 07-07-2022 Color (U) Yellow Yellow [facility] Urine glucose detectionOrder ed By: Dr. Sinclair on 07-07-2022 Glucose Ql (U) Normal mg/dl Normal [facility] Urine leukocyte esterase det ection by dipstickOrdered By: Dr. Sinclair on 07-07-2022 Leukocyte esterase Test strip Ql (U) 100 /ul Negative [facility] Urine pHOrdered By: Dr. Jose Manuel shabazz on 07-07-2022 pH (U) 8.0 [pH] 5.0 - 8.0 [facility] Urine sediment bacteria coun t by microscopy (number/high power field)Ordered By: Dr. Sinclair on 07-07-2022 Bacteria LM.HPF (Urine sed) [#/Area] 1 /[HPF] None Seen [facility] Urine specific gravity measu rementOrdered By: Dr. Sinclair on 07-07-2022 Specific gravity (U) [Rel density] 1.015 1.002-1.03 0 [facility] Urobilinogen Auto test strip Ql (U)Ordered By: Dr. Sinclair on 07-07-2022 Urobilinogen Ql (U) Normal mg/dl Normal [facility] CNPElly 07-05-2022 CNPN Telephone (HEMEM[place]) ----- BROOKE WOOD ([id number]) 1 F Date Time Provider Department 07/05/22 TIM BARAKAT During your visit today, we recorded the following information about you: Martha Kothari 07/05/2022 9:14 AM Signed Patient is being [...] them fax the referral to our office: [phone] Joan Goldsmith 07/09/2022 11:01 AM Signed 2ND ATTEMPT: When pt returns call please assist as detailed below. Thank you! Radha Janee 07/10/2022 9:21 AM Signed Pt returned call. [...] on this patient? Please advise. Megan Shane LPN 07/10/2022 10:15 AM Signed Spoke with Dr. Ravi office, silas informed they had referred pt. To [place] [facility]. She will contact pt. To see whom pt. Wants to see. If she would like to see us they will send a proper referral with records. ALBANIA Yarbrough Pss 07/10/2022 10:43 AM Signed Received information. Given to nursing for Dr. Barakat to review. DX: Abnormal IGG Allergies As of Date: 07/05/2022 (No Known Allergies) Date Reviewed: 02/05/2019 Reviewed by: Patricia Sanches (Box Car Checker) Michaela - Fully Assessed Reason for Visit: New Patient [172] Cmt: Hematology Referral-Dr. Ravi Prescriptions as of 07/27/2022 - atenolol (TENORMIN) 25 mg tablet - albuterol HFA (VENTOLIN HFA) 90 mcg/actuation inhaler Inhale 2 Puffs as instructed. Problem List As Of Date: 07/05/2022 (None) Encounter Status:Closed by MARTHA KOTHARI on 07/27/22 Normal [facility] EP PanelOrdered By: Jr Ravi on 06-27-2022 Gastrointestinal pathogens panel DEZ+probe (Stl) [facility] No Panel InformationOrdered By: Jr Ravi on 06-26-2022 Stool Calprotectin 66 ug/g 0-[address] [facility] Comment on above: Concentration Interp retation Follow-Up<16 - 50 ug/g Normal None>50 -120 ug/g Borderline Re-evaluate in 4-6 weeks >120 ug/g Abnormal Repeat as clinically indicatedPerformed at: [facility] [address] [id number] Director: Rosey Pierce MD, Phone: [phone] Stool Pancreatic Elastase 363 >200 [facility] Comment on above: Result Units: ug Yari st./g Severe Pancreatic Insufficiency: <100 Moderate Pancreatic Insufficiency: 100 - 200 Normal: >200Performed at: [facility] [address] [id number] Director: Rosey Pierce MD, Phone: [phone] Stool gastrointestinal hemog lobin detection by immunologic methodOrdered By: Jr Ravi on 06-26-2022 Lower GI hemoglobin IA Ql (Stl) [facility] Albumin Elph [Mass/Vol]Order ed By: Jr Ravi on 06-25-2022 Albumin [Mass/Vol] 4.2 g/dL 2.9-4.[address] [facility] Atypical perinuclear antineu trophil cytoplasmic antibodies measurementOrdered By: Jr Ravi on 06-25-2022 Neutrophil cytoplasmic Ab.perinuclear.atypical IF (S) [Titer] <1:20 titer Neg:<1:20 [facility] Comment on above: The atypical pANCA p attern has been observed in asignificant percentage of patients with ulcerative colitis,primary sclerosing cholangitis and autoimmune hepatitis. Basophil percentageOrdered B y: Jr Ravi on 06-25-2022 Basophil percentage < 0.2 AI 0.0-0.9 [facility] Bilirubin [Mass/Vol] 0.40 mg/dL 0.20-1.00 [facility] Comment on above: For patients on eltr ombopag therapy, use of Dimension [place] TBIL is not recommended. Chloride [Moles/Vol] 104 mmol/L 98-107 [facility] Glucose [Mass/Vol] 99 mg/dL 74-[address] [facility] Potassium [Moles/Vol] 4.4 mmol/L 3.5-5.1 [facility] Protein [Mass/Vol] 8.0 g/dL 6.4-8.[address] [facility] Sodium [Moles/Vol] 137 mmol/L 136-[address] [facility] Dilute Mirza's viper venom timeOrdered By: Jr Ravi on 06-25-2022 dRVVT Coag (PPP) [Time] 48.8 s 0.0-47.0 [facility] Erythrocyte sedimentation ra teOrdered By: Jr Ravi on 06-25-2022 ESR (Bld) [Velocity] 30 mm/h 0-30 [facility] Interpretation of serum or p lasma protein pattern by immunofixation (narrative resultOrdered By: Jr Ravi on 06-25-2022 Protein Fractions Immunofixation Erick [Interp] See comment [facility] Comment on above: Result: Not Observed Laboratory - Chemistry and C hemistry - challengeOrdered By: Jr Ravi on 06-25-2022 ALP [Catalytic activity/Vol] 89 U/L 45-117 [facility] ALT [Catalytic activity/Vol] 18 U/L 13-56 [facility] CO2 [Moles/Vol] 29.0 mmol/L 21.0-32.0 [facility] Cobalamin (Vitamin B12) [Mass/Vol] 774 pg/mL 211-911 [facility] Free T4 [Mass/Vol] 1.19 ng/dL 0.76-1.[address] [facility] Urea nitrogen/Creatinine [Mass ratio] 22.4 mg/mg 10-20 [facility] No Panel InformationOrdered By: Jr Ravi on 06-25-2022 Activated Protein C Resistance 2.8 ratio 2.2-3.5 [facility] Comment on above: The APCR result may be falsely increased (masking anabnormal, low APCR result) in patients on direct Xainhibitor (e.g., rivaroxaban, apixaban, edoxaban) or adirect thrombin inhibitor (e.g., dabigatran) anticoagulanttherapy due to assay interference by these drugs. Addendum Document Comment . [facility] Comment on above: Protein electrophore sis scan will follow via computer,mail, or jig grinder delivery. Centromere B Antibody <0.2 AI 0.0-0.9 [facility] Endomysial IgA Antibody Negative Negative [facility] Estimated GFR (MDRD) Amer 82 mL/min >60 [facility] Comment on above: GFR Calc Estimated GFR (MDRD) Non-Af Amer 68 mL/min >60 [facility] Comment on above: Non- GFR Calc Free Triiodothyronine (T3) pg/dL 2.4 pg/mL 2.18-3.98 [facility] Immunoglobulin E 1597 IU/mL 6-495 [facility] TECHNICIAN ASSISTANT Antibody <0.2 AI 0.0-0.9 [facility] Thyroid Stimulating Hormone (TSH) 0.73 uIU/mL 0.358-3.74 [facility] Platelet poor plasma antithr ombin actual/normal ratio by chromogenic method (relativeOrdered By: Jr Ravi on 06-25-2022 Antithrombin actual/normal Chromogenic method (PPP) [Rel catalytic activity/Vol] 122 % 75-135 [facility] Comment on above: Direct Xa inhibitor anticoagulants such as rivaroxaban,apixaban and edoxaban will lead to spuriously elevatedantithrombin activity levels possibly masking a deficiency. Protein C antigen assayOrder ed By: Jr Ravi on 06-25-2022 Protein C Ag actual/normal IA (PPP) [Relative mass conc] 81 % 60-150 [facility] Comment on above: Performed at: - [address] [id number] Director: Rosey Pierce MD, Phone: [phone] at: [address] [id number] Director: Rafat Molina PhD, Phone: [phone] Protein S measurement in francois telet poor plasma by coagulation assay (units/volume)Ordered By: Jr Ravi on 06-25-2022 Protein S Coag Qn (PPP) 120 % 60-150 [facility] Comment on above: This test was develo ped and its performance characteristicsdetermined by [employer]. It has not been cleared orapproved by the Food and Drug Administration. Protein S, freeOrdered By: [place] Ravi on 06-25-2022 Protein S Free Ag IA Qn (PPP) 101 % 61-136 [facility] Serum DNA double strand anti body assay (units/volume)Ordered By: Jr Ravi on 06-25-2022 DNA double strand Ab Qn (S) 1 [IU]/mL 0-9 [facility] Comment on above: Negative <5 Equivoca l 5 - 9 Positive >9 Serum Sara-1 antibody assay (u nits/volume)Ordered By: Jr Ravi on 06-25-2022 Sara-1 extractable nuclear Ab Qn (S) <0.2 AI 0.0-0.9 [facility] Serum Scl-70 extractable nuc lear antibody assay (units/volume)Ordered By: Jr Ravi on 06-25-2022 SCL-70 extractable nuclear Ab Qn (S) <0.2 AI 0.0-0.9 [facility] Serum Snell extractable nucl ear antibody detectionOrdered By: Jr Ravi on 06-25-2022 Snell extractable nuclear Ab Ql (S) <0.2 AI 0.0-0.9 [facility] Serum [id number] measu rement by electrophoresisOrdered By: Jr Ravi on 06-25-2022 Alpha 1 globulin Elph [Mass/Vol] 0.2 g/dL 0.0-0.4 [facility] Alpha 1 globulin Elph [Mass/Vol] 0.6 g/dL 0.4-1.0 [facility] Serum classic neutrophil cyt oplasmic antibody assay (units/volume)Ordered By: Jr Ravi on 06-25-2022 Neutrophil cytoplasmic Ab.classic Qn (S) 1:20 titer Neg:<1:20 [facility] Serum globulin measurement ( mass/volume)Ordered By: Jr Ravi on 06-25-2022 Globulin (S) [Mass/Vol] 3.4 g/dL 2.2-3.9 [facility] Serum or plasma C reactive p rotein measurement (mass/volume)Ordered By: Jr Ravi on 06-25-2022 CRP [Mass/Vol] 5.11 mg/L 0.0-3.0 [facility] Comment on above: C-Reactive Protein ( CRP) provides useful information for thediagnosis, therapy and monitoring of inflammatory processesand associated diseases. For the evaluation of Relative Riskfor Cardiovascular Disease, a High Sensitivity CRP (HSCRP)should be ordered. Serum or plasma IgA measurem ent (mass/volume)Ordered By: Jr Ravi on 06-25-2022 IgA [Mass/Vol] 349 mg/dL 87-352 [facility] Serum or plasma IgG measurem ent (mass/volume)Ordered By: Jr Ravi on 06-25-2022 IgG [Mass/Vol] 1844 mg/dL 586-1602 [facility] Serum or plasma IgM measurem ent (mass/volume)Ordered By: Jr Ravi on 06-25-2022 IgM [Mass/Vol] 67 mg/dL 26-217 [facility] Serum or plasma albumin elgin urement (mass/volume)Ordered By: Jr Ravi on 06-25-2022 Albumin [Mass/Vol] 3.7 g/dL 3.2-5.[address] [facility] Serum or plasma albumin/glob ulin mass ratioOrdered By: Jr Ravi on 06-25-2022 Albumin/Globulin [Mass ratio] 0.9 {ratio} 0.9-2.4 [facility] Serum or plasma angiotensin converting enzyme measurement (enzymatic activity/volume)Ordered By: Jr Ravi on 06-25-2022 Angiotensin converting enzyme [Catalytic activity/Vol] 47 U/L 14-82 [facility] Serum or plasma beta globuli n measurement by electrophoresis (mass/volume)Ordered By: Jr Ravi on 06-25-2022 Beta globulin Elph [Mass/Vol] 1.0 g/dL 0.7-1.3 [facility] Serum or plasma calcium elgin urement (mass/volume)Ordered By: Jr Ravi on 06-25-2022 Calcium [Mass/Vol] 9.2 mg/dL 8.5-10.[address] [facility] Serum or plasma creatinine m easurement (mass/volume)Ordered By: Jr Ravi on 06-25-2022 Creatinine [Mass/Vol] 1.07 mg/dL 0.55-1.02 [facility] Comment on above: The validity of the calculated GFR & GFRAA in patients over 70 years has not been determined. Clinical correlation is essential. Serum or plasma ferritin sanjeev surement (mass/volume)Ordered By: Jr Ravi on 06-25-2022 Ferritin [Mass/Vol] 38 ng/mL 8-252 [facility] Serum or plasma gamma globul in measurement by electrophoresis (mass/volume)Ordered By: Jr Ravi on 06-25-2022 Gamma globulin Elph [Mass/Vol] 1.6 g/dL 0.4-1.8 [facility] Serum or plasma immunoelectr ophoresis interpretation (nominal result)Ordered By: Jr Ravi on 06-25-2022 Interpretation IEP [Interp] Comment . [facility] Comment on above: No monoclonality det ected. Serum or plasma urea nitroge n measurement (mass/volume)Ordered By: Jr Ravi on 06-25-2022 Urea nitrogen [Mass/Vol] 24 mg/dL 7-18 [facility] Serum perinuclear neutrophil cytoplasmic antibody titer by immunofluorescenceOrdered By: Jr Ravi on 06-25-2022 Neutrophil cytoplasmic Ab.perinuclear IF (S) [Titer] <1:20 titer Neg:<1:20 [facility] Comment on above: The presence of posi tive fluorescence exhibiting P-ANCA orC-ANCA patterns alone is not specific for the diagnosis ofWegener's Granulomatosis (WG) or microscopic polyangiitis.Decisions about treatment should not be based solely onANCA IFA results. The International ANCA Group Consensusrecommends follow up testing of positive sera with both ND-3 and MPO-ANCA enzyme immunoassays. As many as 5% serumsamples are positive only by EIA. Ref. AM J Clin Awnuvm1260;111:507-513. Serum tissue transglutaminas e IgA antibody assay (units/volume)Ordered By: Jr Ravi on 06-25-2022 tTG IgA Qn (S) <2 U/mL 0-3 [facility] Comment on above: Negative 0 - 3 Weak Positive 4 - 10 Positive >10 Tissue Transglutaminase (tTG) has been identified as the endomysial antigen. Studies have demonstr- ated that endomysial IgA antibodies have over 99% specificity for gluten sensitive enteropathy. Thin prep Papanicolaou smear with manual screeningOrdered By: Jr Ravi on 06-25-2022 Thin prep Papanicolaou smear with manual screening 15 U/L 15-37 [facility] Thin prep Papanicolaou smear with manual screening 4 5-15 [facility] Thin prep Papanicolaou smear with manual screening 152 U/L 84-246 [facility] Thin prep Papanicolaou smear with manual screening 1.3 0.7-1.7 [facility] Thin prep Papanicolaou smear with manual screening 48.5 sec 0.0-47.6 [facility] Thin prep Papanicolaou smear with manual screening 1.02 Ratio 0.00-1.34 [facility] Thin prep Papanicolaou smear with manual screening 40.6 sec 0.0-51.9 [facility] Thin prep Papanicolaou smear with manual screening Comment: . [facility] Comment on above: No lupus anticoagula nt [...] time Coag (PPP) [Time] 21.2 sec 0.0-23.0 [facility] Total protein bloodOrdered B y: Jr Ravi on 06-25-2022 Protein [Mass/Vol] 7.6 g/dL 6.0-8.[address] [facility] Basophil percentageOrdered B y: Dr. Mccarty on 06-06-2022 Basophil percentage Not Reportable [facility] Erythrocyte sedimentation ra teOrdered By: Dr. Mccarty on 06-06-2022 ESR (Bld) [Velocity] 36 mm/h 0-30 [facility] - Chemistry and C hemistry - challengeOrdered By: Dr. Mccarty on 06-06-2022 Free T4 [Mass/Vol] 1.42 ng/dL 0.76-1.[address] [facility] No Panel InformationOrdered By: Dr. Mccarty on 06-06-2022 Anti-Cardiolipin IgM Antibody < 9 MPL U/mL 0-12 [facility] Comment on above: Negative: <13 Indete rminate: 13 - 20 Low-Med Positive: >20 - 80 High Positive: >80Performed at: [facility] - [facility] [address] [id number] Director: Rafat Molina PhD, Phone: [phone] Anti-Nuclear Antibody Screen Negative Negative [facility] Comment on above: Performed at: [facility] - [facility] [address] [id number] Director: Rafat Molina PhD, Phone: [phone] [employer] B Antibody Not Reportable [facility] TECHNICIAN ASSISTANT Antibody Not Reportable [facility] Thyroid Stimulating Hormone (TSH) 0.71 uIU/mL 0.358-3.74 [facility] Serum DNA double strand anti body assay (units/volume)Ordered By: Dr. Mccarty on 06-06-2022 DNA double strand Ab Qn (S) Not Reportable [facility] Serum Sara-1 antibody assay (u nits/volume)Ordered By: Dr. Mccarty on 06-06-2022 Sara-1 extractable nuclear Ab Qn (S) Not Reportable [facility] Serum Scl-70 extractable nuc lear antibody assay (units/volume)Ordered By: Dr. Mccarty on 06-06-2022 SCL-70 extractable nuclear Ab Qn (S) Not Reportable [facility] Serum Snell extractable nucl ear antibody detectionOrdered By: Dr. Mccarty on 06-06-2022 Snell extractable nuclear Ab Ql (S) Not Reportable [facility] Serum cardiolipin IgG antibo dy assay by immunoassay (units/volume)Ordered By: Dr. Mccarty on 06-06-2022 Cardiolipin IgG IA Qn (S) < 9 GPL U/mL 0-14 [facility] Comment on above: Negative: <15 Indete rminate: 15 - 20 Low-Med Positive: >20 - 80 High Positive: >80 Serum rheumatoid factor dete ctionOrdered By: Dr. Mccarty on 06-06-2022 Rheumatoid factor Ql (S) < 10.0 IU/mL <15 [facility] Absolute lymphocyte countOrd ered By: Dr. Jenkins on 05-12-2022 Lymphocytes Auto (Unsp spec) [#/Vol] 1.76 10*3/uL 0.83-4.51 [facility] Basophil percentageOrdered B y: Dr. Jenkins on 05-12-2022 Basophils/100 WBC (Bld) 0.2 % 0-1 [facility] Chloride [Moles/Vol] 105 mmol/L 98-107 [facility] Eosinophils/100 WBC (Bld) 3.1 % 0-5 [facility] Glucose [Mass/Vol] 98 mg/dL 74-[address] [facility] Neutrophils (Bld) [#/Vol] 2.3 10*3/uL 2.0-7.7 [facility] Neutrophils/100 WBC (Bld) 49.1 % 47-70 [facility] Potassium [Moles/Vol] 3.7 mmol/L 3.5-5.1 [facility] Sodium [Moles/Vol] 141 mmol/L 136-[address] [facility] WBC (Bld) [#/Vol] 4.8 10*3/uL 4.4-11.[address] [facility] Blood erythrocytes count (nu mber/volume)Ordered By: Dr. Jenkins on 05-12-2022 RBC (Bld) [#/Vol] 4.42 10*6/uL 4.2-5.4 [facility] Blood hemoglobin measurement (mass/volume)Ordered By: Dr. Jenkins on 05-12-2022 Hemoglobin (Bld) [Mass/Vol] 12.1 g/dL 12.0-15.0 [facility] Blood lymphocytes/100 leukoc ytesOrdered By: Dr. Jenkins on 05-12-2022 Lymphocytes/100 WBC (Bld) 36.9 % 19-41 [facility] Blood monocytes/100 leukocyt esOrdered By: Dr. Jenkins on 05-12-2022 Monocytes/100 WBC (Bld) 10.5 % 0-10 [facility] Blood platelet mean volumeOr dered By: Dr. Jenkins on 05-12-2022 Platelet mean volume (Bld) [Entitic vol] 10.0 fL 6.2-12.0 [facility] Determination of erythrocyte mean corpuscular volume (MCV)Ordered By: Dr. Jenkins on 05-12-2022 MCV (RBC) [Entitic vol] 82.6 fL 81-99 [facility] Hematocrit Auto (Bld) [Volum e fraction]Ordered By: Dr. Jenkins on 05-12-2022 Hematocrit (Bld) [Volume fraction] 36.5 % 37-47 [facility] Laboratory - Chemistry and C hemistry - challengeOrdered By: Dr. Jenkins on 05-12-2022 CO2 [Moles/Vol] 29.0 mmol/L 21.0-32.0 [facility] Magnesium [Mass/Vol] 2.0 mg/dL 1.6-2.6 [facility] Urea nitrogen/Creatinine [Mass ratio] 8.0 mg/mg 10-20 [facility] - Hematology and Cell countsOrdered By: Dr. Jenkins on 05-12-2022 Erythrocyte distribution width (RBC) [Entitic vol] 39.7 fL 35.1-43.[address] [facility] Erythrocyte distribution width (RBC) [Ratio] 13.2 % 11.6-14.6 [facility] Immature granulocytes/100 WBC (Bld) 0.200 % 0.0-0.9 [facility] Comment on above: IG% - Immature Granu locytes (promyelocytes, myelocytes and metamyelocytes) > 1% indicates that a LEFT SHIFT is Present. MCH (RBC) [Entitic mass] 27.4 pg 27.0-32.0 [facility] Nucleated RBC/100 WBC (Bld) [Ratio] 0 % 0-5 [facility] MCHC Auto (RBC) [Mass/Vol]Or dered By: Dr. Jenkins on 05-12-2022 MCHC (RBC) [Mass/Vol] 33.2 g/dL 32-36 [facility] No Panel InformationOrdered By: Dr. Jenkins on 05-12-2022 Estimated Creatinine Clearance Calc 76.20 ml/min [facility] Estimated GFR (MDRD) Amer 89 mL/min >60 [facility] Comment on above: GFR Calc Estimated GFR (MDRD) Non-Af Amer 74 mL/min >60 [facility] Comment on above: Non- GFR Calc Platelets bldOrdered By: Dr. Jenkins on 05-12-2022 Platelets (Bld) [#/Vol] 267 10*3/uL 150-450 [facility] Serum or plasma calcium elgin urement (mass/volume)Ordered By: Dr. Jenkins on 05-12-2022 Calcium [Mass/Vol] 9.7 mg/dL 8.5-10.[address] [facility] Serum or plasma creatinine m easurement (mass/volume)Ordered By: Dr. Jenkins on 05-12-2022 Creatinine [Mass/Vol] 1.00 mg/dL 0.55-1.02 [facility] Comment on above: The validity of the calculated GFR & GFRAA in patients over 70 years has not been determined. Clinical correlation is essential. Serum or plasma urea nitroge n measurement (mass/volume)Ordered By: Dr. Jenkins on 05-12-2022 Urea nitrogen [Mass/Vol] 8 mg/dL 7-18 [facility] Thin prep Papanicolaou smear with manual screeningOrdered By: Dr. Jenkins on 10-08-2022 Thin prep Papanicolaou smear with manual screening 7 5-15 [facility] No Panel InformationOrdered By: Dr. Galeas on 05-09-2022 Troponin I High Sensitivity 5 pg/mL 3.0-54.0 [facility] Comment on above: Please Note: New Nimo t Units and Gender Specific Reference Ranges. For more information see Policy Stat Procedure [place] High Sensitivity Troponin (TNIH) and attachments. Beta hCG serum qualOrdered B y: Dr. Galeas on 05-08-2022 Beta HCG ( test) Ql Negative [facility] No Panel InformationOrdered By: Dr. Galeas on 05-08-2022 D-Dimer Quantitative (PE/DVT) 1.20 FEU/ug/m 0.27-0.49 [facility] Comment on above: CRITICAL VALUE VERIF IED. CALLED TO JEANNE DUNCAN RN ED05/08/22 [phone] [address] Jorge.RESULTS READ BACK BY SAME . D-Dimer ELEVATED (>0.49): Additional studies and clinicalassessments are indicated to conclude diagnosis of:Deep Vein Thrombosis (DVT) or Pulmonary Embolism (PE) Absolute lymphocyte counton 04-23-2022 Lymphocytes Auto (Unsp spec) [#/Vol] 1.45 10*3/uL 0.83-4.51 [facility] Work Phone: Basophil percentageon 2021 Basophils/100 WBC (Bld) 0.2 % 0-1 [facility] Work Phone: Bilirubin [Mass/Vol] 0.60 mg/dL 0.20-1.00 [facility] Work Phone: Comment on above: For patients on eltr ombopag therapy, use of Dimension [place] TBIL is not recommended. Chloride [Moles/Vol] 106 mmol/L 98-107 [facility] Work Phone: [phone] Eosinophils/100 WBC (Bld) 4.1 % 0-5 [facility] Work Phone: Glucose [Mass/Vol] 96 mg/dL 74-[address] [facility] Work Phone: [phone] Neutrophils (Bld) [#/Vol] 2.3 10*3/uL 2.0-7.7 [facility] Work Phone: Neutrophils/100 WBC (Bld) 52.6 % 47-70 [facility] Work Phone: Potassium [Moles/Vol] 4.1 mmol/L 3.5-5.1 [facility] Work Phone: Protein [Mass/Vol] 8.2 g/dL 6.4-8.[address] [facility] Work Phone: Sodium [Moles/Vol] 139 mmol/L 136-[address] [facility] Work Phone: WBC (Bld) [#/Vol] 4.4 10*3/uL 4.4-11.[address] [facility] Work Phone: Blood erythrocytes count (nu mber/volume)on 04-23-2022 RBC (Bld) [#/Vol] 4.82 10*6/uL 4.2-5.4 [facility]: Blood hemoglobin measurement (mass/volume)on 04-23-2022 Hemoglobin (Bld) [Mass/Vol] 13.0 g/dL 12.0-15.0 [facility] Work Phone: Blood lymphocytes/100 leukoc yteson 04-23-2022 Lymphocytes/100 WBC (Bld) 32.9 % 19-41 [facility] Work Phone: Blood monocytes/100 leukocyt eson 04-23-2022 Monocytes/100 WBC (Bld) 10.0 % 0-10 [facility] Work Phone: Blood platelet mean volumeon 04-23-2022 Platelet mean volume (Bld) [Entitic vol] 9.8 fL 6.2-12.0 [facility] Work Phone: Determination of erythrocyte mean corpuscular volume (MCV)on 04-23-2022 MCV (RBC) [Entitic vol] 83.2 fL 81-99 [facility] Work Phone: Direct bilirubinon 09-19-202 2 Bilirubin.direct [Mass/Vol] 0.18 mg/dL 0.00-0.30 [facility] Work Phone: [phone] Hematocrit Auto (Bld) [Volum e fraction]on 04-23-2022 Hematocrit (Bld) [Volume fraction] 40.1 % 37-47 [facility] Work Phone: [phone] Laboratory - Chemistry and C hemistry - challengeon 04-23-2022 ALP [Catalytic activity/Vol] 89 U/L 45-117 [facility] Work Phone: [phone] ALT [Catalytic activity/Vol] 26 U/L 13-56 [facility] Work Phone: CO2 [Moles/Vol] 28.0 mmol/L 21.0-32.0 [facility] Work Phone: [phone] Globulin (S) [Mass/Vol] 4.5 g/dL 2.2-4.2 [facility] Work Phone: [phone] Lipase [Catalytic activity/Vol] 74 U/L 73-393 [facility] Work Phone: [phone] Urea nitrogen/Creatinine [Mass ratio] 14.3 mg/mg 10-20 [facility] Work Phone: [phone] Laboratory - Hematology and Cell countson 04-23-2022 Erythrocyte distribution width (RBC) [Entitic vol] 41.8 fL 35.1-43.[address] [facility] Work Phone: [phone] Erythrocyte distribution width (RBC) [Ratio] 13.8 % 11.6-14.6 [facility] Work Phone: [phone] Immature granulocytes/100 WBC (Bld) 0.200 % 0.0-0.9 [facility] Work Phone: [phone] Comment on above: IG% - Immature Granu locytes (promyelocytes, myelocytes and metamyelocytes) > 1% indicates that a LEFT SHIFT is Present. MCH (RBC) [Entitic mass] 27.0 pg 27.0-32.0 [facility] Work Phone: [phone] Nucleated RBC/100 WBC (Bld) [Ratio] 0 % 0-5 [facility] Work Phone: MCHC Auto (RBC) [Mass/Vol]on 04-23-2022 MCHC (RBC) [Mass/Vol] 32.4 g/dL 32-36 [facility] Work Phone: No Panel Informationon 04-23 Estimated Creatinine Clearance Calc 77.76 ml/min [facility] Work Phone: Estimated GFR (MDRD) Amer 91 mL/min >60 [facility] Work Phone: Comment on above: GFR Calc Estimated GFR (MDRD) Non-Af Amer 75 mL/min >60 [facility] Work Phone: Comment on above: Non- GFR Calc Platelets bldon 04-23-2022 Platelets (Bld) [#/Vol] 278 10*3/uL 150-450 [facility] Work Phone: Serum or plasma albumin elgin urement (mass/volume)on 04-23-2022 Albumin [Mass/Vol] 3.7 g/dL 3.2-5.[address] [facility] Work Phone: Serum or plasma calcium elgin urement (mass/volume)on 04-23-2022 Calcium [Mass/Vol] 9.5 mg/dL 8.5-10.[address] [facility] Work Phone: Serum or plasma creatinine m easurement (mass/volume)on 04-23-2022 Creatinine [Mass/Vol] 0.98 mg/dL 0.55-1.02 [facility] Work Phone: Comment on above: The validity of the calculated GFR & GFRAA in patients over 70 years has not been determined. Clinical correlation is essential. Serum or plasma urea nitroge n measurement (mass/volume)on 04-23-2022 Urea nitrogen [Mass/Vol] 14 mg/dL 7-18 [facility] Work Phone: Thin prep Papanicolaou smear with manual screeningon 04-23-2022 Thin prep Papanicolaou smear with manual screening 18 U/L 15-37 [facility] Work Phone: Thin prep Papanicolaou smear with manual screening 5 5-15 [facility] Work Phone: Progress Noteon 10-24-2021 [employer] Authentication Interface Message Text Patient ID: Brooke [...] call and schedule with Dr. Ravi in [place]. Recommended continuing nexium and advised to avoid [...] mom, step dad and step siblings). Education: ([employer] will be starting in December). Eating: Brooke eats regular meals including fruits and vegetables and eats breakfast. 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 Drugs: Brooke does not use tobacco, does [...] patient's hearing. Patient is being seen by pharmacist apprentice or wind commissioning technician. Hyperlipidemia Concerns: Positive Hyperlipidemia Screen Concerns: parent or grandparent diagnosed with coronary atherosclerosis <55 years (dad at age 36) and parent with cholesterol >240mg/dl Negative Hyperlipidemia Screen Concerns: no parent or grandparent with [place] angina peripheral or cerebrovascular disease <55 years [...] motion and (more content not included)... Normal [facility] Progress Noteon 09-05-2021 [employer] Authentication Interface Message Text Patient ID: Brooke [...] causing palpitations. Palpitations sometimes improve with belching. Crosby Held syndrome. She is accompanied by her [...] is not pale. Findings: No rash. Normal [facility] Progress Noteon 02-07-2021 [employer] Authentication Interface Message Text HEART CENTER NOTE [...] She awoke with palpitations. She went to [place] ER where her heart rate was noted [...] None Other: Follow-up Visit: 1 year Normal [facility] Vitamin B12on 12-21-2020 Cobalamin (Vitamin B12) [Mass/Vol] 381 pg/mL Normal 180 - 914 [facility] Comment on above: Order Comment: Sched uled for cath procedure by Dr. Mojica on 12/08/20. Is this a pre-procedure screening test?->Yes [id number]&Nasopharyngeal Result Comment: ADDITIONAL INFORMATION In patients being evaluated for vitamin B12 deficiency who have intrinsic factor blocking antibodies (IFBA), false elevations of B12 may occur due to IFBA interference thus potentially obscuring a physiological deficiency of B12. If observed B12 concentrations are discordant with clinical presentation, measurement of methylmalonic acid (MMA) should be considered. Test Performed by: [facility] - [facility] [address] [place] [address] Coordinator Of Evaluation: Rosales Anne M.D. Ph.D.; CLIA# [id number] Performed By: #### E LR #### [address] [place] [id number] Ferritinon 12-20-2020 Ferritin [Mass/Vol] 73 ng/mL Normal 10-291 [facility] Comment on above: Order Comment: Sched uled for cath procedure by Dr. Mojica on 12/08/20. Is this a pre-procedure screening test?->Yes [id number]&Nasopharyngeal Performed By: #### E LRG2 #### [address] [address] Lead, Venouson 12-20-2020 Lead, Venous 1 ug/dL Normal 0-4 [facility] Comment on above: Order Comment: Sched uled for cath procedure by Dr. Mojica on 12/08/20. Is this a pre-procedure screening test?->Yes [id number]&Nasopharyngeal Performed By: #### E LRG2 #### [address] [address] TSH with reflex T4FRon 12-20 TSH with reflex T4FR 1.042 uIU/mL Normal 0.350-5 .50 0 [facility] Comment on above: Order Comment: Sched uled for cath procedure by Dr. Mojica on 12/08/20. Is this a pre-procedure screening test?->Yes [id number]&Nasopharyngeal Performed By: #### E LRG2 #### [address] [address] Vitamin D 25 OHon 12-20-2020 25 [place] Vitamin D 38 ng/mL Normal 30-100 [facility] Comment on above: Order Comment: Sched uled for cath procedure by Dr. Mojica on 12/08/20. Is this a pre-procedure screening test?->Yes [id number]&Nasopharyngeal Result Comment: Refe rence ranges provided by [facility] are based on Endocrine Society Guidelines: Level Characterization <21 ng/mL Vitamin D deficiency 21-29 ng/mL Suboptimal Vitamin D status 30-100 ng/mL Optimal Vitamin D status >100 ng/mL Potentially toxic Vitamin D effects NOTE: New Reference Ranges effective 18 Performed By: #### E LRG2 #### [address] [address] C-Reactive Proteinon 021 C-Reactive Protein 0.8 mg/dL Normal 0.0-1.0 [facility] Comment on above: Order Comment: Relea se to patient->Automatic Is this specimen being sent to an external lab?->No [id number]&Blood^\S\^Vein&Vein Release to patient->Automatic Is this order Clinic Collect?->Yes Is this specimen being sent to an external lab?->No 07126&Blood^\S\^Vein&Vein Please include TIBC. Release to patient->Automatic Is this order Clinic Collect?->Yes Is this specimen being sent to an external lab?->No 65776&Blood^\S\^Vein&Vein With differential. Release to patient->Automatic Is this order Clinic Collect?->Yes Is this specimen being sent to an external lab?->No 51356&Blood^\S\^Vein&Vein Result Comment: CRP determinations in neonates should be interpreted with caution. CRP may be elevated in circumstances not associated with inflammation (e.g. difficult delivery, pneumothorax). In premature neonates CRP levels may not rise to abnormal levels even if sepsis is present; some speculate that immature liver function decreases the ability to generate a CRP response. Performed By: #### C RP #### [address] [address] Comp Metabolic Panelon 12-19 Albumin [Mass/Vol] 4.4 g/dL Normal 3.5-5.0 [facility] Comment on above: Order Comment: Relea se to patient->Automatic Is this specimen being sent to an external lab?->No 13113&Blood^\S\^Vein&Vein Release to patient->Automatic Is this order Clinic Collect?->Yes Is this specimen being sent to an external lab?->No 58367&Blood^\S\^Vein&Vein Please include TIBC. Release to patient->Automatic Is this order Clinic Collect?->Yes Is this specimen being sent to an external lab?->No 42475&Blood^\S\^Vein&Vein With differential. Release to patient->Automatic Is this order Clinic Collect?->Yes Is this specimen being sent to an external lab?->No 46198&Blood^\S\^Vein&Vein Performed By: #### C MP #### [place] [address] ALP [Catalytic activity/Vol] 69 U/L Normal 35-104 [facility] Comment on above: Order Comment: Relea se to patient->Automatic Is this specimen being sent to an external lab?->No 20757&Blood^\S\^Vein&Vein Release to patient->Automatic Is this order Clinic Collect?->Yes Is this specimen being sent to an external lab?->No 38887&Blood^\S\^Vein&Vein Please include TIBC. Release to patient->Automatic Is this order Clinic Collect?->Yes Is this specimen being sent to an external lab?->No 56016&Blood^\S\^Vein&Vein With differential. Release to patient->Automatic Is this order Clinic Collect?->Yes Is this specimen being sent to an external lab?->No 53662&Blood^\S\^Vein&Vein Performed By: #### C MP #### [place] [address] ALT [Catalytic activity/Vol] 20 U/L Normal 0-31 [facility] Comment on above: Order Comment: Relea se to patient->Automatic Is this specimen being sent to an external lab?->No 19871&Blood^\S\^Vein&Vein Release to patient->Automatic Is this order Clinic Collect?->Yes Is this specimen being sent to an external lab?->No 18982&Blood^\S\^Vein&Vein Please include TIBC. Release to patient->Automatic Is this order Clinic Collect?->Yes Is this specimen being sent to an external lab?->No 65533&Blood^\S\^Vein&Vein With differential. Release to patient->Automatic Is this order Clinic Collect?->Yes Is this specimen being sent to an external lab?->No 10662&Blood^\S\^Vein&Vein Performed By: #### C MP #### [place] [address] AST [Catalytic activity/Vol] 23 U/L Normal 0-31 [facility] Comment on above: Order Comment: Relea se to patient->Automatic Is this specimen being sent to an external lab?->No 28273&Blood^\S\^Vein&Vein Release to patient->Automatic Is this order Clinic Collect?->Yes Is this specimen being [place] [address]365&Blood^\S\^Vein&Vein Please include TIBC. Release to patient->Automatic Is this order Clinic Collect?->Yes Is this specimen being sent to an external lab?->No 79011&Blood^\S\^Vein&Vein With differential. Release to patient->Automatic Is this order Clinic Collect?->Yes Is this specimen being sent to an external lab?->No 56352&Blood^\S\^Vein&Vein Performed By: #### C MP #### [place] [address] Bili,Total 0.8 mg/dl Normal 0.0-1.0 [facility] Comment on above: Order Comment: Relea se to patient->Automatic Is this specimen being sent to an external lab?->No 19879&Blood^\S\^Vein&Vein Release to patient->Automatic Is this order Clinic Collect?->Yes Is this specimen being sent [place] an [place] [address]27&Blood^\S\^Vein&Vein Please include TIBC. Release to patient->Automatic Is this order Clinic Collect?->Yes Is this specimen being sent to an external lab?->No 96601&Blood^\S\^Vein&Vein With differential. Release to patient->Automatic Is this order Clinic Collect?->Yes Is this specimen being sent to an external lab?->No 28726&Blood^\S\^Vein&Vein Performed By: #### C MP #### [place] [address] Calcium [Mass/Vol] 9.9 mg/dL Normal 7.6-11.0 [facility] Comment on above: Order Comment: Relea se to patient->Automatic Is this specimen being sent to an external [place]?->[place] 78201&Blood^\S\^Vein&Vein Release to patient->Automatic Is this order Clinic Collect?->Yes Is this specimen being sent to an [place] 95157&Blood^\S\^Vein&Vein Please include TIBC. Release to patient->Automatic Is this order Clinic Collect?->Yes Is this specimen being sent to an external [place]?->[place] 33500&Blood^\S\^Vein&Vein With differential. Release to patient->Automatic Is this order Clinic Collect?->Yes Is this specimen being sent to an external lab?->No 46388&Blood^\S\^Vein&Vein Performed By: #### C MP #### [place] [id number] Chloride [Moles/Vol] 101 mmol/L Normal 96-108 [facility] Comment on above: Order Comment: Relea se to patient->Automatic Is this specimen being sent to an external [place]?->[place] 39459&Blood^\S\^Vein&Vein Release to patient->Automatic Is this order Clinic Collect?->Yes Is this specimen being sent to an [place]?->[place] 69057&Blood^\S\^Vein&Vein Please include TIBC. Release to patient->Automatic Is this order Clinic Collect?->Yes Is this specimen being sent [place] an [place]?->[place] 60786&Blood^\S\^Vein&Vein With differential. Release to patient->Automatic Is this order Clinic Collect?->Yes Is this specimen being sent to an external lab?->No 76985&Blood^\S\^Vein&Vein Performed By: #### C MP #### [address] [address] CO2 [Moles/Vol] 26.6 mmol/L Normal 22.0-29.0 [facility] Comment on above: Order Comment: Relea se to patient->Automatic Is this specimen being sent to an external lab?->No 33514&Blood^\S\^Vein&Vein Release to patient->Automatic Is this order Clinic Collect?->Yes Is this specimen being sent to an [place]?->[place] 18117&Blood^\S\^Vein&Vein Please include TIBC. Release to patient->Automatic Is this order Clinic Collect?->Yes Is this specimen being sent to an external lab?->No 37353&Blood^\S\^Vein&Vein With differential. Release to patient->Automatic Is this order Clinic Collect?->Yes Is this specimen being sent to an external lab?->[place] 08257&Blood^\S\^Vein&Vein Performed By: #### C MP #### [place] [id number] Creatinine [Mass/Vol] 0.94 mg/dL Normal 0.50-1.00 [facility] Comment on above: Order Comment: Relea se to patient->Automatic Is this specimen being sent to an external [place]?->[place] 99118&Blood^\S\^Vein&Vein Release to patient->Automatic Is this order Clinic Collect?->Yes Is this specimen being sent to an external [place]?->[place] [address]48&Blood^\S\^Vein&Vein Please include TIBC. Release to patient->Automatic Is this order Clinic Collect?->Yes Is this specimen being sent to an external lab?->No [address]9742&Blood^\S\^Vein&Vein With differential. Release to patient->Automatic Is this order Clinic Collect?->Yes Is this specimen being sent to an external lab?->No 31275&Blood^\S\^Vein&Vein Result Comment: Premature 0.3-1.0 mg/dL Performed By: #### C MP #### [place] [id number] Glucose [Mass/Vol] 86 mg/dL Normal 70-99 [facility] Comment on above: Order Comment: Relea se to patient->Automatic Is this specimen being sent to an external lab?->No 38019&Blood^\S\^Vein&Vein Release to patient->Automatic Is this order Clinic Collect?->Yes Is this specimen being sent to an external lab?->No 59964&Blood^\S\^Vein&Vein Please include TIBC. Release to patient->Automatic Is this order Clinic Collect?->Yes Is this specimen being sent to an external lab?->No 79842&Blood^\S\^Vein&Vein With differential. Release to patient->Automatic Is this order Clinic Collect?->Yes Is this specimen being sent to an external lab?->No 07429&Blood^\S\^Vein&Vein Result Comment: Criteria for Diagnosis of Diabetes(Effective 01/08/11): Fasting specimen (no caloric intake for at least 8 hours). <100 mg/dl Normal 100-125 mg/dl Increased Risk for Diabetes >125 mg/dl Diagnostic for Diabetes Random Glucose (any time of day without regard to last meal). >=200 mg/dl plus Classic Symptoms of Diabetes Performed By: #### C MP #### [place] [address] Potassium [Moles/Vol] 4.8 mmol/L Normal 3.3-5.1 [facility] Comment on above: Order Comment: Relea se to patient->Automatic Is this specimen being sent to an external lab?->No 81049&Blood^\S\^Vein&Vein Release to patient->Automatic Is this order Clinic Collect?->Yes Is this specimen being sent to an external [place]?->[place] [address]882&Blood^\S\^Vein&Vein Please include TIBC. Release to patient->Automatic Is this order Clinic Collect?->Yes Is this specimen being sent to an external lab?->No 60236&Blood^\S\^Vein&Vein With differential. Release to patient->Automatic Is this order Clinic Collect?->Yes Is this specimen being sent to an external lab?->No 76859&Blood^\S\^Vein&Vein Performed By: #### C MP #### [place] [address] Protein [Mass/Vol] 7.8 g/dL Normal 5.9-8.4 [facility] Comment on above: Order Comment: Relea se to patient->Automatic Is this specimen being sent to an external lab?->No 82025&Blood^\S\^Vein&Vein Release to patient->Automatic Is this order Clinic Collect?->Yes Is this specimen being sent to an external lab?->No 02027&Blood^\S\^Vein&Vein Please include TIBC. Release to patient->Automatic Is this order Clinic Collect?->Yes Is this specimen being sent to an external lab?->No 55666&Blood^\S\^Vein&Vein With differential. Release to patient->Automatic Is this order Clinic Collect?->Yes Is this specimen being sent to an external lab?->No 68010&Blood^\S\^Vein&Vein Performed By: #### C MP #### [place] [address] Sodium [Moles/Vol] 137 mmol/L Normal 133-145 [facility] Comment on above: Order Comment: Relea se to patient->Automatic Is this specimen being sent to an external lab?->No 53897&Blood^\S\^Vein&Vein Release to patient->Automatic Is this order Clinic Collect?->Yes Is this specimen being sent to an external lab?->No 81691&Blood^\S\^Vein&Vein Please include TIBC. Release to patient->Automatic Is this order Clinic Collect?->Yes Is this specimen being sent to an external lab?->No 73686&Blood^\S\^Vein&Vein With differential. Release to patient->Automatic Is this order Clinic Collect?->Yes Is this specimen being sent to an external lab?->No 92739&Blood^\S\^Vein&Vein Performed By: #### C MP #### [place] [address] Urea nitrogen [Mass/Vol] 12 mg/dL Normal 4-19 [facility] Comment on above: Order Comment: Relea se to patient->Automatic Is this specimen being sent to an external lab?->[place] 48519&Blood^\S\^Vein&Vein Release to patient->Automatic Is this order Clinic Collect?->Yes Is this specimen being sent to an [place]?->[place] [address]126&Blood^\S\^Vein&Vein Please include TIBC. Release to patient->Automatic Is this order Clinic Collect?->Yes Is this specimen being sent to an external lab?->No 43447&Blood^\S\^Vein&Vein With differential. Release to patient->Automatic Is this order Clinic Collect?->Yes Is this specimen being sent to an external [place]?->[place] 38150&Blood^\S\^Vein&Vein Performed By: #### C MP #### [place] [address] Complete Blood Counton 12-19 Differential Complete Automated Normal [facility] Comment on above: Order Comment: Relea se to patient->Automatic Is this specimen being [place] an [place]?->[place] [address]&Blood^\S\^Vein&Vein Release to patient->Automatic Is this order Clinic Collect?->Yes Is this specimen being sent to an external lab?->No 86492&Blood^\S\^Vein&Vein Please include TIBC. Release to patient->Automatic Is this order Clinic Collect?->Yes Is this specimen being sent to an external lab?->No 82933&Blood^\S\^Vein&Vein With differential. Release to patient->Automatic Is this order Clinic Collect?->Yes Is this specimen being [place] an [place]?->[place] [address]461&Blood^\S\^Vein&Vein Performed By: #### C BC #### [place] [address] Basophils/100 WBC (Bld) 0.40 % Normal 0.00-1.00 [facility] Comment on above: Order Comment: Relea se to patient->Automatic Is this specimen being sent to an external lab?->No 04723&Blood^\S\^Vein&Vein Release to patient->Automatic Is this order Clinic Collect?->Yes Is this specimen being sent to an external [place]?->[place] 27641&Blood^\S\^Vein&Vein Please include TIBC. Release to patient->Automatic Is this order Clinic Collect?->Yes Is this specimen being sent to an external [place]?->[place] 62148&Blood^\S\^Vein&Vein With differential. Release to patient->Automatic Is this order Clinic Collect?->Yes Is this specimen being sent to an external lab?->No 45277&Blood^\S\^Vein&Vein Performed By: #### C BC #### [place] [address] Eosinophils/100 WBC (Bld) 3.70 % High 0.00-3.00 [facility] Comment on above: Order Comment: Relea se to patient->Automatic Is this specimen being sent to an external lab?->No [address]2119&Blood^\S\^Vein&Vein Release to patient->Automatic Is this order Clinic Collect?->Yes Is this specimen being sent to an external [place]?->[place] 66603&Blood^\S\^Vein&Vein Please include TIBC. Release to patient->Automatic Is this order Clinic Collect?->Yes Is this specimen being sent to an external lab?->No 01799&Blood^\S\^Vein&Vein With differential. Release to patient->Automatic Is this order Clinic Collect?->Yes Is this specimen being sent to an external [place]?->No 37384&Blood^\S\^Vein&Vein Performed By: #### C BC #### [place] [address] Erythrocyte distribution width (RBC) [Ratio] 14.0 % Normal 0.0-14.4 [facility] Comment on above: Order Comment: Relea se to patient->Automatic Is this specimen being sent to an external lab?->No 10832&Blood^\S\^Vein&Vein Release to patient->Automatic Is this order Clinic Collect?->Yes Is this specimen being [place] an [place]?->[place] 74133&Blood^\S\^Vein&Vein Please include TIBC. Release to patient->Automatic Is this order Clinic Collect?->Yes Is this specimen being sent to an external lab?->[place] 20742&Blood^\S\^Vein&Vein With differential. Release to patient->Automatic Is this order Clinic Collect?->Yes Is this specimen being sent to an external lab?->No 79359&Blood^\S\^Vein&Vein Performed By: #### C BC #### [place] [address] Hematocrit (Bld) [Volume fraction] 40.4 % Normal 36.0-44.0 [facility] Comment on above: Order Comment: Relea se to patient->Automatic Is this specimen being sent to an external lab?->No 48427&Blood^\S\^Vein&Vein Release to patient->Automatic Is this order Clinic Collect?->Yes Is this specimen being sent to an [place]?->[place] [address]63&Blood^\S\^Vein&Vein Please include TIBC. Release to patient->Automatic Is this order Clinic Collect?->Yes Is this specimen being sent to an external lab?->No 80547&Blood^\S\^Vein&Vein With differential. Release to patient->Automatic Is this order Clinic Collect?->Yes Is this specimen being sent to an external lab?->[place] 70198&Blood^\S\^Vein&Vein Performed By: #### C BC #### [place] [address] Hemoglobin (Bld) [Mass/Vol] 13.1 g/dL Normal 12.0-15.0 [facility] Comment on above: Order Comment: Relea se to patient->Automatic Is this specimen being sent to an external lab?->No 08070&Blood^\S\^Vein&Vein Release to patient->Automatic Is this order Clinic Collect?->Yes Is this specimen being sent to an external lab?->No 08421&Blood^\S\^Vein&Vein Please include TIBC. Release to patient->Automatic Is this order Clinic Collect?->Yes Is this specimen being sent to an external lab?->No 16705&Blood^\S\^Vein&Vein With differential. Release to patient->Automatic Is this order Clinic Collect?->Yes Is this specimen being [place]?->[place] [address]303&Blood^\S\^Vein&Vein Performed By: #### C BC #### [place] [id number] Immature granulocytes/100 WBC (Bld) 0.20 % Normal [facility] Comment on above: Order Comment: Relea se to patient->Automatic Is this specimen being [place] an [place]?->[place] [address]&Blood^\S\^Vein&Vein Release to patient->Automatic Is this order Clinic Collect?->Yes Is this specimen being sent to an external lab?->No 91560&Blood^\S\^Vein&Vein Please include TIBC. Release to patient->Automatic Is this order Clinic Collect?->Yes Is this specimen being sent to an external lab?->[place] [address]60&Blood^\S\^Vein&Vein With differential. Release to patient->Automatic Is this order Clinic Collect?->Yes Is this specimen being sent to an external [place]?->No 88254&Blood^\S\^Vein&Vein Result Comment: Nanci ture Granulocyte Percent includes promyelocytes, myelocytes, and metamyelocytes. IG% > 1.0 indicates a left shift is present. With automated differentials, bands are included in the neutrophil count and not in the Immature Granulocyte Percent. Performed By: #### C BC #### [place] [id number] Lymphocytes/100 WBC (Bld) 31.3 % Normal 24.0-44.0 [facility] Comment on above: Order Comment: Relea se to patient->Automatic Is this specimen being sent to an external lab?->No 04872&Blood^\S\^Vein&Vein Release to patient->Automatic Is this order Clinic Collect?->Yes Is this specimen being sent to an external lab?->No 68559&Blood^\S\^Vein&Vein Please include TIBC. Release to patient->Automatic Is this order Clinic Collect?->Yes Is this specimen being [place] to an [place]?->[place] [address]003&Blood^\S\^Vein&Vein With differential. Release to patient->Automatic Is this order Clinic Collect?->Yes Is this specimen being sent to an external [place]?->[place] [address]98&Blood^\S\^Vein&Vein Performed By: #### C BC #### [address] [id number] MCH (RBC) [Entitic mass] 26.0 pg Normal 26.0-34.0 [facility] Comment on above: Order Comment: Relea se to patient->Automatic Is this specimen being [place] an [place]?->[place] [address]281&Blood^\S\^Vein&Vein Release to patient->Automatic Is this order Clinic Collect?->Yes Is this specimen being sent to an external [place]?->[place] 75995&Blood^\S\^Vein&Vein Please include TIBC. Release to patient->Automatic Is this order Clinic Collect?->Yes Is this specimen being sent to an external lab?->No 43989&Blood^\S\^Vein&Vein With differential. Release to patient->Automatic Is this order Clinic Collect?->Yes Is this specimen being sent to an external lab?->No 72284&Blood^\S\^Vein&Vein Performed By: #### C BC #### [place] [id number] MCHC 32.4 % Normal 31.0-37.0 [facility] Comment on above: Order Comment: Relea se to patient->Automatic Is this specimen being sent to an external [place]?->[place] 11282&Blood^\S\^Vein&Vein Release to patient->Automatic Is this order Clinic Collect?->Yes Is this specimen being sent to an external lab?->No 69077&Blood^\S\^Vein&Vein Please include TIBC. Release to patient->Automatic Is this order Clinic Collect?->Yes Is this specimen being sent to an external [place]?->[place] 07148&Blood^\S\^Vein&Vein With differential. Release to patient->Automatic Is this order Clinic Collect?->Yes Is this specimen being sent to an external [place]?->[place] 45940&Blood^\S\^Vein&Vein Performed By: #### C BC #### [place] [address] MCV (RBC) [Entitic vol] 80.2 fL Normal 80.0-100.0 [facility] Comment on above: Order Comment: Relea se to patient->Automatic Is this specimen being sent to an external lab?->No 73009&Blood^\S\^Vein&Vein Release to patient->Automatic Is this order Clinic Collect?->Yes Is this specimen being sent to an external lab?->[place] 56418&Blood^\S\^Vein&Vein Please include TIBC. Release to patient->Automatic Is this order Clinic Collect?->Yes Is this specimen being sent to an external lab?->No 40295&Blood^\S\^Vein&Vein With differential. Release to patient->Automatic Is this order Clinic Collect?->Yes Is this specimen being sent to an external lab?->No 25270&Blood^\S\^Vein&Vein Performed By: #### C BC #### [place] [address] Monocytes/100 WBC (Bld) 9.90 % High 3.00-6.00 A [facility] Comment on above: Order Comment: Relea se to patient->Automatic Is this specimen being [place] an [place]?->[place] [address]991&Blood^\S\^Vein&Vein Release to patient->Automatic Is this order Clinic Collect?->Yes Is this specimen being sent to an external lab?->No 69925&Blood^\S\^Vein&Vein Please include TIBC. Release to patient->Automatic Is this order Clinic Collect?->Yes Is this specimen being sent to an external lab?->No 94865&Blood^\S\^Vein&Vein With differential. Release to patient->Automatic Is this order Clinic Collect?->Yes Is this specimen being sent to an external lab?->No 55731&Blood^\S\^Vein&Vein Performed By: #### C BC #### [place] [address] Neutrophils (Bld) [#/Vol] 3.0 10*3/uL Normal 2.0-7.2 [facility] Comment on above: Order Comment: Relea se to patient->Automatic Is this specimen being sent to an [place]?->[place] [address]98&Blood^\S\^Vein&Vein Release to patient->Automatic Is this order Clinic Collect?->Yes Is this specimen being sent to an external lab?->[place] 21171&Blood^\S\^Vein&Vein Please include TIBC. Release to patient->Automatic Is this order Clinic Collect?->Yes Is this specimen being sent to an external lab?->No 67544&Blood^\S\^Vein&Vein With differential. Release to patient->Automatic Is this order Clinic Collect?->Yes Is this specimen being sent to an external lab?->No 69527&Blood^\S\^Vein&Vein Performed By: #### C BC #### [place] [address] Neutrophils/100 WBC (Bld) 54.5 % Normal 35.0-66.0 [facility] Comment on above: Order Comment: Relea se to patient->Automatic Is this specimen being sent to an external lab?->No 75262&Blood^\S\^Vein&Vein Release to patient->Automatic Is this order Clinic Collect?->Yes Is this specimen being sent to an external lab?->No 15103&Blood^\S\^Vein&Vein Please include TIBC. Release to patient->Automatic Is this order Clinic Collect?->Yes Is this specimen being sent to an external lab?->No 62594&Blood^\S\^Vein&Vein With differential. Release to patient->Automatic Is this order Clinic Collect?->Yes Is this specimen being sent to an external [place]?->[place] 66006&Blood^\S\^Vein&Vein Performed By: #### C BC #### [place] [address] Nucleated RBC/100 WBC (Bld) [Ratio] 0.0 % Normal -1.0-0.0 [facility] Comment on above: Order Comment: Relea se to patient->Automatic Is this specimen being sent to an external lab?->No 55285&Blood^\S\^Vein&Vein Release to patient->Automatic Is this order Clinic Collect?->Yes Is this specimen being sent to an external lab?->No 54997&Blood^\S\^Vein&Vein Please include TIBC. Release to patient->Automatic Is this order Clinic Collect?->Yes Is this specimen being sent to an external lab?->[place] 07012&Blood^\S\^Vein&Vein With differential. Release to patient->Automatic Is this order Clinic Collect?->Yes Is this specimen being sent to an external lab?->No 27798&Blood^\S\^Vein&Vein Performed By: #### C BC #### [place] [id number] Platelet mean volume (Bld) [Entitic vol] 10.5 fL Normal [facility] Comment on above: Order Comment: Relea se to patient->Automatic Is this specimen being sent to an external lab?->No 66989&Blood^\S\^Vein&Vein Release to patient->Automatic Is this order Clinic Collect?->Yes Is this specimen being sent to an external [place]?->[place] 46227&Blood^\S\^Vein&Vein Please include TIBC. Release to patient->Automatic Is this order Clinic Collect?->Yes Is this specimen being sent to an external lab?->[place] 46618&Blood^\S\^Vein&Vein With differential. Release to patient->Automatic Is this order Clinic Collect?->Yes Is this specimen being sent to an external lab?->No 73112&Blood^\S\^Vein&Vein Result Comment: MPV is platelet range and age dependent Performed By: #### C BC #### [place] [address] Platelets (Bld) [#/Vol] 313 10*3/uL Normal 150-450 [facility] Comment on above: Order Comment: Relea se to patient->Automatic Is this specimen being sent to an external lab?->[place] 46315&Blood^\S\^Vein&Vein Release to patient->Automatic Is this order Clinic Collect?->Yes Is this specimen being sent to an external [place]?->[place] 04323&Blood^\S\^Vein&Vein Please include TIBC. Release to patient->Automatic Is this order Clinic Collect?->Yes Is this specimen being sent to an external lab?->No 61940&Blood^\S\^Vein&Vein With differential. Release to patient->Automatic Is this order Clinic Collect?->Yes Is this specimen being sent to an external lab?->No 15888&Blood^\S\^Vein&Vein Performed By: #### C BC #### [place] [address] RBC 5.04 10E12/L High 4.00-4.90 [facility] Comment on above: Order Comment: Relea se to patient->Automatic Is this specimen being sent to an external lab?->No 27987&Blood^\S\^Vein&Vein Release to patient->Automatic Is this order Clinic Collect?->Yes Is this specimen being sent to an external lab?->No 87024&Blood^\S\^Vein&Vein Please include TIBC. Release to patient->Automatic Is this order Clinic Collect?->Yes Is this specimen being sent to an external lab?->No 29821&Blood^\S\^Vein&Vein With differential. Release to patient->Automatic Is this order Clinic Collect?->Yes Is this specimen being sent to an external lab?->No 92831&Blood^\S\^Vein&Vein Performed By: #### C BC #### [place] [address] WBC (Bld) [#/Vol] 5.4 10*3/uL Normal 4.5-11.0 [facility] Comment on above: Order Comment: Relea se to patient->Automatic Is this specimen being sent to an external lab?->No 71987&Blood^\S\^Vein&Vein Release to patient->Automatic Is this order Clinic Collect?->Yes Is this specimen being sent to an external lab?->No 83447&Blood^\S\^Vein&Vein Please include TIBC. Release to patient->Automatic Is this order Clinic Collect?->Yes Is this specimen being sent to an external lab?->No 83889&Blood^\S\^Vein&Vein With differential. Release to patient->Automatic Is this order Clinic Collect?->Yes Is this specimen being sent to an external lab?->No 47852&Blood^\S\^Vein&Vein Performed By: #### C BC #### [place] [address] Creatine Kinaseon 12-19-2020 CK [Catalytic activity/Vol] 88 U/L Normal 24-195 [facility] Comment on above: Order Comment: Relea se to patient->Automatic Is this specimen being sent to an external lab?->[place] 84001&Blood^\S\^Vein&Vein Release to patient->Automatic Is this order Clinic Collect?->Yes Is this specimen being sent to an external lab?->No 21544&Blood^\S\^Vein&Vein Please include TIBC. Release to patient->Automatic Is this order Clinic Collect?->Yes Is this specimen being sent to an external lab?->No 16022&Blood^\S\^Vein&Vein With differential. Release to patient->Automatic Is this order Clinic Collect?->Yes Is this specimen being sent to an external lab?->No 82380&Blood^\S\^Vein&Vein Performed By: #### C K #### [place] [address] ESRon 12-19-2020 ESR Sed Rate 24 mm Normal [facility] Comment on above: Order Comment: Relea se to patient->Automatic Is this specimen being sent to an external lab?->No 94432&Blood^\S\^Vein&Vein Release to patient->Automatic Is this order Clinic Collect?->Yes Is this specimen being sent to an external lab?->No 71156&Blood^\S\^Vein&Vein Please include TIBC. Release to patient->Automatic Is this order Clinic Collect?->Yes Is this specimen being sent to an external lab?->No 39829&Blood^\S\^Vein&Vein With differential. Release to patient->Automatic Is this order Clinic Collect?->Yes Is this specimen being sent to an external [place]?->[place] 28950&Blood^\S\^Vein&Vein Performed By: #### S RATE #### [place] [address] Interpretation ----- Normal [facility] Comment on above: Order Comment: Relea se to patient->Automatic Is this specimen being sent to an external lab?->No 37674&Blood^\S\^Vein&Vein Release to patient->Automatic Is this order Clinic Collect?->Yes Is this specimen being sent to an external lab?->No 52997&Blood^\S\^Vein&Vein Please include TIBC. Release to patient->Automatic Is this order Clinic Collect?->Yes Is this specimen being sent to an external [place]?->[place] 69706&Blood^\S\^Vein&Vein With differential. Release to patient->Automatic Is this order Clinic Collect?->Yes Is this specimen being sent to an external lab?->No 44008&Blood^\S\^Vein&Vein Result Comment: Male Female Child 0-13 Child 0-13 Adult 0- 9 Adult 0-20 Performed By: #### S RATE #### [place] [address] Ironon 12-19-2020 %Saturation 26 % Normal 13-59 [facility] Comment on above: Order Comment: Relea se to patient->Automatic Is this specimen being sent to an external lab?->No 93284&Blood^\S\^Vein&Vein Release to patient->Automatic Is this order Clinic Collect?->Yes Is this specimen being sent to an external lab?->No 20301&Blood^\S\^Vein&Vein Please include TIBC. Release to patient->Automatic Is this order Clinic Collect?->Yes Is this specimen being sent to an external lab?->No 56862&Blood^\S\^Vein&Vein With differential. Release to patient->Automatic Is this order Clinic Collect?->Yes Is this specimen being sent to an external lab?->No 88065&Blood^\S\^Vein&Vein Performed By: #### I KENDAL #### [place] [address] Iron [Mass/Vol] 94 ug/dL Normal 30-160 [facility] Comment on above: Order Comment: Relea se to patient->Automatic Is this specimen being sent to an external lab?->No 95649&Blood^\S\^Vein&Vein Release to patient->Automatic Is this order Clinic Collect?->Yes Is this specimen being sent to an external lab?->No 73690&Blood^\S\^Vein&Vein Please include TIBC. Release to patient->Automatic Is this order Clinic Collect?->Yes Is this specimen being sent to an external lab?->No 94915&Blood^\S\^Vein&Vein With differential. Release to patient->Automatic Is this order Clinic Collect?->Yes Is this specimen being sent to an external lab?->No 76806&Blood^\S\^Vein&Vein Performed By: #### I KENDAL #### [facility] [address] [place] [id number] TIBC 363 ug/dl Normal 228-428 [facility] Comment on above: Order Comment: Relea se to patient->Automatic Is this specimen being sent [place] an [place]?->[place] [address]133&Blood^\S\^Vein&Vein Release to patient->Automatic Is this order Clinic Collect?->Yes Is this specimen being [place]?->[place] [address]169&Blood^\S\^Vein&Vein Please include TIBC. Release to patient->Automatic Is this order Clinic Collect?->Yes Is this specimen being sent [place] an [place]?->[place] [address]609&Blood^\S\^Vein&Vein With differential. Release to patient->Automatic Is this order Clinic Collect?->Yes Is this specimen being sent to an external lab?->No 28078&Blood^\S\^Vein&Vein Performed By: #### I KENDAL #### [place] [address] Progress Noteon 12-19-2020 [employer] Authentication Interface Message Text Patient ID: Brooke [...] height 162.6 cm, weight 74.1 kg. Normal [facility] Progress Noteon 12-08-2020 [employer] Authentication Interface Message Text Dear Cally Ayoub MD, Brooke Pastrana Adrian underwent an electrophysiologic study and catheter ablation at [facility] on 12/08/2020. Her EP study demonstrated intra-atrial [...] [facility] is scheduled for 2 months. [facility] [facility] COSAR SARS-CoV-2 (COVID-19) RT-PCR, Qualitativeon 12-07-2020 SARS-CoV-2 (COVID-19) RT-PCR, Qualitative Not detected Normal [facility] Comment on above: Order Comment: Sched uled for cath procedure by Dr. Mojica on 12/08/20. Is this a pre-procedure screening test?->Yes [id number]&Nasopharyngeal Performed By: #### E LRG2 #### [address] [address] COSAR SARS-CoV-2 (COVID-19) RT-PCR, Qualitativeon 12-05-2020 Employed in Healthcare setting? No Normal [facility] Comment on above: Order Comment: Sched uled for cath procedure by Dr. Mojica on 12/08/20. Is this a pre-procedure screening test?->Yes [id number]&Nasopharyngeal Performed By: #### E LRG2 #### [address] [address] First COVID-19 test? No Normal [facility] Comment on above: Order Comment: Sched uled for cath procedure by Dr. Mojica on 12/08/20. Is this a pre-procedure screening test?->Yes [id number]&Nasopharyngeal Performed By: #### E LRG2 #### [address] [address] Hospitalized? No Normal [facility] Comment on above: Order Comment: Sched uled for cath procedure by Dr. Mojica on 12/08/20. Is this a pre-procedure screening test?->Yes [id number]&Nasopharyngeal Performed By: #### E LRG2 #### [address] [address] ICU? No Normal [facility] Comment on above: Order Comment: Sched uled for cath procedure by Dr. Mojica on 12/08/20. Is this a pre-procedure screening test?->Yes [id number]&Nasopharyngeal Performed By: #### E LRG2 #### [address] [address] ? Unknown Normal [facility] Comment on above: Order Comment: Sched uled for cath procedure by Dr. Mojica on 12/08/20. Is this a pre-procedure screening test?->Yes [id number]&Nasopharyngeal Performed By: #### E LRG2 #### [address] [address] Resident in congrega care setting? No Normal [facility] Comment on above: Order Comment: Sched uled for cath procedure by Dr. Mojica on 12/08/20. Is this a pre-procedure screening test?->Yes [id number]&Nasopharyngeal Performed By: #### E LRG2 #### [facility] [address] [place] [address] Symptomatic as defined by CDC? No Normal [facility] Comment on above: Order Comment: Sched uled for cath procedure by Dr. Mojica on 12/08/20. Is this a pre-procedure screening test?->Yes [id number]&Nasopharyngeal Performed By: #### E LRG2 #### [facility] [address] [place] [address] Progress Noteon 11-18-2020 [employer] Authentication Interface Message Text Patient ID: Brooke [...] concerns about reflux. Will refer to a paperhanger due to on and off concerns about low potassium levels. Reviewed today's concerns and plan with Dr. Cortes. Due to symptoms will obtain some labs. Will determine follow up after results are available. 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 Please call [...] temperature source Temporal, weight 76.1 kg. Normal [facility] EP Panel Gastrointestinal pathogens panel DEZ+probe ([facility]) [facility] Work Phone: Stool gastrointestinal hemog lobin detection by immunologic method Lower GI hemoglobin IA Ql ([facility]) [facility] Work Phone: Vital Signs Date Time Vital Sign Value Performing Clinician Faci lity 07-15-2023 10:40-0500 Diastolic blood pressure 71 mm[Hg] Dr. Tai Mccarty Work Phone: [facility] 07-15-2023 10:40-0500 Heart rate 94 /min Dr. Tai Mccarty Work Phone: [facility] 07-15-2023 10:40-0500 Respiratory rate 16 /min Dr. Tai Mccarty Work Phone: [facility] 07-15-2023 10:40-0500 SaO2% (BldA) [Mass fraction] 100 % Dr. Tai Mccarty Work Phone: [facility] 07-15-2023 10:40-0500 Systolic blood pressure 107 mm[Hg] Dr. Tai Mccarty Work Phone: [facility] 07-15-2023 10:31-0500 Body temperature 97.4 [degF] Dr. Tai Mccarty Work Phone: [facility] 07-15-2023 09:58-0500 Body height 162.[address] Tai Mccarty Work Phone: [facility] 07-15-2023 09:58-0500 Body mass index (BMI) [Ratio] 20.2 kg/m2 Dr. Tai Mccarty Work Phone: [facility] 07-15-2023 09:58-0500 Body weight 53.[address] Tai Mccarty Work Phone: [facility] 06-24-2023 14:33-0500 Body mass index (BMI) [Ratio] 20.9 kg/m2 Dr. Tai Mccarty Work Phone: [facility] 06-24-2023 14:33-0500 Body weight 55.[address] Tai Mccarty Work Phone: [facility] 06-24-2023 14:33-0500 Diastolic blood pressure 68 mm[Hg] Dr. Tai Mccarty Work Phone: [facility] 06-24-2023 14:33-0500 Heart rate 109 /min Dr. Tai Mccarty Work Phone: [facility] 06-24-2023 14:33-0500 Respiratory rate 16 /min Dr. Tai Mccarty Work Phone: [facility] 06-24-2023 14:33-0500 Systolic blood pressure 100 mm[Hg] Dr. Tai Mccarty Work Phone: [facility] 04-23-2023 11:00-0400 Body mass index (BMI) [Ratio] 21.9 kg/m2 Dr. Tai Mccarty Work Phone: [facility] 04-23-2023 11:00-0400 Body temperature 98.4 [degF] Dr. Tai Mccarty Work Phone: [facility] 04-23-2023 11:00-0400 Body weight 58.[address] Tai Mccarty Work Phone: [facility] 04-23-2023 11:00-0400 Diastolic blood pressure 73 mm[Hg] Dr. Tai Mccarty Work Phone: [facility] 04-23-2023 11:00-0400 Heart rate 98 /min Dr. Tai Mccarty Work Phone: [facility] 04-23-2023 11:00-0400 Respiratory rate 17 /min Dr. Tai Mccarty Work Phone: [facility] 04-23-2023 11:00-0400 SaO2% (BldA) [Mass fraction] 99 % Dr. Tai Mccarty Work Phone: [facility] 04-23-2023 11:00-0400 Systolic blood pressure 105 mm[Hg] Dr. Tai Mccarty Work Phone: [facility] 08-23-2022 09:30-0500 Body temperature 98.2 [degF] Dr. Cally Ayoub Work Phone: [facility] 08-23-2022 09:30-0500 Diastolic blood pressure 73 mm[Hg] Dr. Cally Ayoub Work Phone: [facility] 08-23-2022 09:30-0500 Heart rate 96 /min Dr. Cally Ayoub Work Phone: [facility] 08-23-2022 09:30-0500 Respiratory rate 14 /min Dr. Cally Ayoub Work Phone: [facility] 08-23-2022 09:30-0500 SaO2% (BldA) [Mass fraction] 100 % Dr. Cally Aoyub Work Phone: [facility] 08-23-2022 09:30-0500 Systolic blood pressure 104 mm[Hg] Dr. Cally Ayoub Work Phone: 7(325)666-083937 [address] 08-23-2022 08:29-0500 Body height 162.[address] Cally Ayoub Work Phone: 3(963)207-997404 [place] [address] 08-23-2022 08:29-0500 Body mass index (BMI) [Ratio] 22.4 kg/m2 Dr. Cally Ayoub Work Phone: 4(422)440-960937 [address] 08-23-2022 08:29-0500 Body weight 59.[address] Cally Ayoub Work Phone: 5(476)901-841937 [address] 07-07-2022 17:20-0500 Body temperature 97.8 [degF] Dr. Cally Ayoub Work Phone: 9(249)451-193404 [place] [address] 07-07-2022 17:20-0500 Diastolic blood pressure 71 mm[Hg] Dr. Cally Ayoub Work Phone: 9(951)730-287037 [address] 07-07-2022 17:20-0500 Heart rate 111 /min Dr. Cally Ayoub Work Phone: 0(349)819-348037 [address] 07-07-2022 17:20-0500 Respiratory rate 16 /min Dr. Cally Ayoub Work Phone: 3(604)775-192804 [place] [address] 07-07-2022 17:20-0500 SaO2% (BldA) [Mass fraction] 100 % Dr. Cally Ayoub Work Phone: 0(187)021-593537 [address] 07-07-2022 17:20-0500 Systolic blood pressure 97 mm[Hg] Dr. Cally Ayoub Work Phone: 2(038)850-557937 [address] 07-07-2022 08:55-0500 Body height 162.[address] Cally Ayoub Work Phone: 6(444)242-852937 [address] Work Phone: 07-07-2022 08:55-0500 Body mass index (BMI) [Ratio] 22.9 kg/m2 Dr. Cally Ayoub Work Phone: 9(386)759-003937 [address] 07-07-2022 08:55-0500 Body weight 60.[address] Cally Ayoub Work Phone: 0(693)254-199837 [address] 07-07-2022 08:00-0500 Body temperature 97.9 [degF] Dr. Cally Ayoub Work Phone: [facility] Work Phone: 07-07-2022 08:00-0500 Diastolic blood pressure 58 mm[Hg] Dr. Cally Ayoub Work Phone: [facility] Work Phone: 07-07-2022 08:00-0500 Heart rate 80 /min Dr. Cally Ayoub Work Phone: [facility] Work Phone: 07-07-2022 08:00-0500 SaO2% (BldA) [Mass fraction] 98 % Dr. Cally Ayoub Work Phone: [facility] Work Phone: 07-07-2022 08:00-0500 Systolic blood pressure 118 mm[Hg] Dr. Cally Ayoub Work Phone: [facility] Work Phone: 07-07-2022 00:34-0500 Body height 162.[address] Cally Ayoub Work Phone: [facility] Work Phone: 07-07-2022 00:34-0500 Body mass index (BMI) [Ratio] 23.3 kg/m2 Dr. Cally Ayoub Work Phone: [facility] Work Phone: 07-07-2022 00:34-0500 Body weight 61.[address] Cally Ayoub Work Phone: [facility] Work Phone: 06-06-2022 10:13-0400 Body height 162.[address] Cally Ayoub Work Phone: [facility] Work Phone: 06-06-2022 10:13-0400 Body mass index (BMI) [Ratio] 22.3 kg/m2 Dr. Cally Ayoub Work Phone: [facility] 06-06-2022 10:13-0400 Body temperature 96.8 [degF] Dr. Cally Ayoub Work Phone: 7(600)362-782504 [place] [address] 06-06-2022 10:13-0400 Body weight 58.[address] Cally Ayoub Work Phone: 0(156)429-981304 [place] [address] 06-06-2022 10:13-0400 Diastolic blood pressure 68 mm[Hg] Dr. Cally Ayoub Work Phone: 5(114)463-826004 [place] [address] 06-06-2022 10:13-0400 Heart rate 105 /min Dr. Cally Ayoub Work Phone: 9(436)537-674004 [place] [address] 06-06-2022 10:13-0400 Respiratory rate 16 /min Dr. Cally Ayoub Work Phone: 5(505)365-828204 [place] [address] 06-06-2022 10:13-0400 SaO2% (BldA) [Mass fraction] 99 % Dr. Cally Ayoub Work Phone: 0(646)153-439604 [place] [address] 06-06-2022 10:13-0400 Systolic blood pressure 104 mm[Hg] Dr. Cally Ayoub Work Phone: 9(931)765-567204 [place] [address] 05-15-2022 09:20-0400 Body mass index (BMI) [Ratio] 23.1 kg/m2 Dr. Cally Ayoub Work Phone: 9(692)560-784404 [place] [address] 05-15-2022 09:20-0400 Body weight 61.[address] Cally Ayoub Work Phone: 4(020)104-643904 [place] [address] 05-13-2022 00:26-0400 Diastolic blood pressure 96 mm[Hg] Dr. Cally Ayoub Work Phone: 1(417)365-482504 [place] [address] 05-13-2022 00:26-0400 Heart rate 111 /min Dr. Cally Ayoub Work Phone: 1(763)165-285404 [place] [address] 05-13-2022 00:26-0400 Respiratory rate 16 /min Dr. Cally Ayoub Work Phone: 5(077)397-640204 [place] [address] 05-13-2022 00:26-0400 SaO2% (BldA) [Mass fraction] 100 % Dr. Cally Ayoub Work Phone: 5(133)645-617304 [place] [address] 05-13-2022 00:26-0400 Systolic blood pressure 137 mm[Hg] Dr. Cally Ayoub Work Phone: [facility] 05-12-2022 22:45-0400 Body mass index (BMI) [Ratio] 22.3 kg/m2 Dr. Cally Ayoub Work Phone: [facility] 05-12-2022 22:45-0400 Body temperature 97.5 [degF] Dr. Cally Ayoub Work Phone: [facility] 05-12-2022 22:45-0400 Body weight 58.[address] Cally Ayoub Work Phone: [facility] 05-09-2022 03:36-0400 Diastolic blood pressure 85 mm[Hg] [facility] 05-09-2022 03:36-0400 Heart rate 133 /min [facility] 05-09-2022 03:36-0400 Respiratory rate 16 /min [facility] 05-09-2022 03:36-0400 SaO2% (BldA) [Mass fraction] 98 % [facility] 05-09-2022 03:36-0400 Systolic blood pressure 120 mm[Hg] [facility] 05-08-2022 22:07-0400 Body height 162.56 cm [facility] Work Phone: 05-08-2022 22:07-0400 Body mass index (BMI) [Ratio] 24 kg/m2 [facility] 05-08-2022 22:07-0400 Body temperature 97.2 [degF] [facility] 05-08-2022 22:07-0400 Body weight 63.5 kg [facility] 04-23-2022 12:35-0400 Diastolic blood pressure 78 mm[Hg] [facility] Work Phone: 04-23-2022 12:35-0400 Heart rate 66 /min [facility] Work Phone: 04-23-2022 12:35-0400 Respiratory rate 14 /min [facility] Work Phone: 04-23-2022 12:35-0400 SaO2% (BldA) [Mass fraction] 98 % [facility] Work Phone: 04-23-2022 12:35-0400 Systolic blood pressure 124 mm[Hg] [facility] Work Phone: 04-23-2022 10:35-0400 Body height 162.56 cm [facility] Work Phone: 04-23-2022 10:35-0400 Body mass index (BMI) [Ratio] 24 kg/m2 [facility] Work Phone: 04-23-2022 10:35-0400 Body temperature 97.5 [degF] [facility] Work Phone: 04-23-2022 10:35-0400 Body weight 63.5 kg [facility] Work Phone: Encounters Encounter Date Encounter Type Care Provider Facility Start: 01-29-2025 ambulatory Efnicoleinolasheila Mccarty Facili ty:[facility] Start: 11-26-2024 ambulatory Tai Mccarty Facili ty:[facility] Start: 05-27-2024 End: 05-27-2024 [facility] Start: 04-15-2024 End: 04-15-2024 ambulatory Efeweliazarbe Madihae Facility:[facility] Start: 07-15-2023 Non-patient / Non-visit Dr. Tai Mccarty Work Phone: [facility] Start: 07-15-2023 End: 07-15-2023 Admission to same day surgery center Dr. Tai Mccarty Work Phone: [facility] Work Phone: Start: 07-15-2023 End: 07-15-[address] Tai Mccarty Work Phone: [facility] Work Phone: Start: 07-08-2023 End: 07-08-[address] Tai Mccarty Work Phone: [facility] Work Phone: Start: 06-24-2023 End: 06-24-[address] Tai Mccarty Work Phone: [facility] Work Phone: Start: 06-05-2023 Telephone encounter Ken islas MD Work Phone: Allergy Start: 05-22-2023 End: 05-23-2023 ambulatory CALLY AYOUB Facility:[facility] Start: 05-22-2023 End: 05-22-2023 ambulatory KEN DU Facility:[facility] Start: 04-23-[address] Radha Mccarty Work Phone: [facility] Oncology Start: 04-23-2023 End: 04-23-[address] Tai Mccarty Work Phone: [facility] Work Phone: Start: 08-31-2022 End: 08-31-[address] Tai Mccarty Work Phone: [facility] Work Phone: Start: 08-31-2022 End: 08-31-[address] Tai Mccarty Work Phone: [facility] Start: 08-23-2022 Non-patient / Non-visit Dr. Cally Ayoub Work Phone: [facility] Start: 08-23-2022 End: 08-23-2022 Admission to same day surgery center Dr. Cally Ayoub Work Phone: [facility] Start: 08-23-2022 End: 08-23-[address] Cally Ayuob Work Phone: [facility] Work Phone: Start: 07-13-2022 End: 07-13-[address] Cally Ayoub Work Phone: [facility] Work Phone: Start: 07-13-2022 End: 07-13-[address] Cally Ayoub Work Phone: [facility]Nuclear Medicine, [facility] Start: 07-08-2022 Non-patient / Non-visit Dr. Cally Ayoub Work Phone: [facility] [facility] Start: 07-07-2022 Non-patient / Non-visit Dr. Cally Ayoub Work Phone: [facility] Start: 07-07-2022 End: 07-07-2022 Evaluation and management of inpatient Dr. Cally Ayoub Work Phone: [facility] 3 Start: 07-07-2022 End: 07-07-[address] Cally Ayoub Work Phone: [facility] Work Phone: Start: 07-05-2022 Telephone encounter Tim boyd DO Work Phone: Hematology/Oncology Comment on above: New Patient (Hematol ogy Referral-Dr. Ravi) Start: 06-25-2022 End: 06-25-[address] Cally Ayoub Work Phone: [facility]-Laboratory Start: 06-25-2022 End: 06-25-[address] Cally Ayoub Work Phone: [facility] Start: 06-06-2022 End: 06-06-[address] Cally Ayoub Work Phone: [facility] Work Phone: Start: 06-06-2022 End: 06-06-[address] Cally Ayoub Work Phone: [facility] Start: 05-31-2022 Non-patient / Non-visit Dr. Cally Ayoub Work Phone: [facility] Start: 05-31-2022 End: 05-31-[address] Cally Ayoub Work Phone: [facility] Work Phone: Start: 05-31-2022 End: 05-31-[address] Cally Ayoub Work Phone: [facility]-Pulmonary Services/Neurology Start: 05-15-2022 End: 05-15-[address] Cally Ayoub Work Phone: [facility] Start: 05-12-2022 End: 05-13-2022 Emergency department patient visit Dr. Cally Ayoub Work Phone: [facility]Emergency Department Start: 05-08-2022 End: 05-09-2022 Emergency department patient visit [facility] Start: 04-23-2022 End: 04-23-2022 Emergency department patient visit [facility] Procedures Date Procedure Procedure Detail Performing [...] DTaP,Tdap,Td Vaccine (8 - Td or Tdap) [facility] Start: 07-15-2023 Patient discharge [facility] Start: 04-23-2023 Patient referral [facility] Work Phone: Start: 04-05-2023 Covid-19 Vaccine () Covid-19 Vaccine () [facility] Start: 04-05-2023 Influenza vaccination Influenza Vaccine (#1) [facility] Start: 08-23-2022 Egd transoral biopsy single/multiple EGD BIOPSY SINGLE/MULTIPLE [facility] Start: 08-23-2022 Patient discharge [facility] Start: 08-05-2022 Depression Assessment Depression Assessment [facility] Start: 07-09-2022 [facility] Work Phone: Start: 07-08-2022 [facility] Work Phone: Start: 07-07-2022 Following clinical pathway protocol [facility] Start: 07-07-2022 Assessment of risk of venous thromboembolism [facility] Start: 07-07-2022 Insertion of catheter into peripheral vein [facility] Start: 07-07-2022 Providing care according to standard [facility] Start: 07-07-2022 Provision of activity privileges [facility] Start: 07-07-2022 Referral to gastroenterology service [facility] Start: 07-07-2022 Referral to occupational therapist [facility] Start: 07-07-2022 Referral to service [facility] Start: 07-07-2022 [facility] Start: 07-07-2022 Verification routine [facility] Work Phone: Start: 07-07-2022 Admission procedure [facility] Start: 07-07-2022 Enteric precautions [facility] Start: 07-07-2022 Patient discharge [facility] Start: 07-07-2022 [facility] Start: 06-06-2022 Cardiolipin IgG and IgM panel - Serum [facility] Work Phone: Start: 06-06-2022 Cytoplasmic ANCA Screen [facility] Work Phone: Start: 04-05-2022 Influenza vaccination INFLUENZA (#1) [facility] Start: 09-29-2021 COVID-19 VACCINE (4 - Booster for Pfizer series) COVID-19 VACCINE (4 - Booster for Pfizer series) [facility] Start: 08-05-2021 DEPRESSION ASSESSMENT DEPRESSION ASSESSMENT [facility] Start: 01-17-2021 PAP TESTING PAP TESTING [facility] Start: 01-17-2019 Urine microalbumin profile DTAP,TDAP,TD (1 - Tdap) [facility] Start: 01-17-2018 CHLAMYDIA SCREENING (18-24) CHLAMYDIA SCREENING (18-24) [facility] Start: 01-17-2018 GC (GONORRHEA) SCREENING (18-24) GC (GONORRHEA) SCREENING (18-24) [facility] Start: 01-17-2018 HEPATITIS C SCREENING HEPATITIS C SCREENING [facility] Start: 01-17-2018 HIV SCREENING HIV SCREENING [facility] Start: 2016 Meningococcal B Vaccine: Consider Based On Risk (1 of 2 - Patient Seeks Protection) Meningococcal B Vaccine: Consider Based On Risk (1 of 2 - Patient Seeks Protection) [facility] Start: 01-17-2014 PEDS TO ADULT TRANSITION ANNUAL ASSESSMENT PEDS TO ADULT TRANSITION ANNUAL ASSESSMENT [facility] Start: 2012 PEDS TO ADULT TRANSITION INITIAL DISCUSSION PEDS TO ADULT TRANSITION INITIAL DISCUSSION [facility] Start: 01-17-2011 HPV VACCINE (1 - 2-dose series) HPV VACCINE (1 - 2-dose series) [facility] Start: 2000 HEPATITIS B (1 of 3 - 3-dose series) HEPATITIS B (1 of 3 - 3-dose series) [facility] CBC W Auto Different ial panel - Blood [facility] Clostridioides diffi cile DNA [Presence] in Unspecified specimen by DEZ with probe detection [facility] Work Phone: D-dimer assay, quantitative [facility] Gastrointestinal pat hogens panel - Stool by DEZ with probe detection [facility] Work Phone: Lactate dehydrogenas e measurement [facility] Lactoferrin [Presenc e] in Stool by Immunoassay [facility] Work Phone: Ova and parasites identified in Unspecified specimen by Light microscopy [facility] Work Phone: Patient Education [facility] Work Phone: Patient referral [facility] Work Phone: Radionuclide gastric emptying study [facility] Work Phone: Radionuclide gastric emptying study [facility] Immunizations Immunization Date Immunization Notes Care Provider Fa starla 10-30-2021 influenza virus vacc ine, unspecified formulation Ken Du MD Work Phone: [facility] Payers Date Payer Category Payer Unknown [id number] 2023 Private Health Insurance [employer] A ETNA POS [id number] 2023-Present [phone] [address] [place] [address] POS [id number] 2022 Private Health Insurance [id number] 2022 Self-pay [id number] 2022 Unknown [id number] 2018 Unknown ARELIS SANCHEZ SS PPO [id number] 2018-Present [phone] [address] [place] [address] PPO [id number] Unknown ARELIS [id number] Unknown [employer] [id number] Unknown [id number] Unknown [id number] Unknown [id number] Unknown [id number] Unknown [id number] Social History Date Type Detail Facility Start: 04-23-2022 End: 07-11-2023 Tobacco smoking status MOIS Unknown if ever smoked [facility] Start: 06-06-2020 None [facility] Start: 12-18-2020 Non-smoker [facility] Start: 2000 Sex Assigned At Female [facility] Start: 02-05-2019 Tobacco smoking status NHIS Never smoked tobacco [facility] Start: 02-05-2019 Tobacco use and exposure Smokeless tobacco non-user [facility] Start: 2000 Sex Assigned At Not on file [facility] Start: 02-05-2019 End: 05-22-2023 History of Social function [facility] Start: 02-05-2019 End: 05-22-2023 Tobacco use panel [facility] National Score (1-100), lower number is lower risk 70 [facility] NEGATED: Highlighted row [facility] Work Phone: NEGATED: Highlighted row [facility] Goals Date Patient Goal Desired Activity /State Functional Status Date Assessment Result Facility 07-07-2022 Functional status Activity Ability Indepe ndent [facility] Work Phone: Mental Status Date Assessment Result Facility 07-15-2023 Cognitive function Voice/Name [facility] Work Phone: 08-23-2022 Cognitive function Level Of Cons ciousness Appropriate;Drowsy [facility] Work Phone: 07-07-2022 Cognitive function Voice/Name [facility] Work Phone: 05-12-2022 Cognitive function Level Of Cons ciousness Awake;Alert;Appropriate;Follow s Commands [facility] Work Phone: Clinical Notes 12-07-2020 to 07-15-2023 Telephone Encounter - Nicolasa Montalvo RN - 06/05/2023 1:55 PM EDTTelephone Encounter - Jenifer Gustafson RN - 06/05/2023 9:02 AM EDTTelephone Encounter - Ken Du MD - 06/05/2023 8:48 AM EDT Note Date & Type Note Facility 07-15-[address] [facility] 07-15-[address] [facility] 06-05-2023 Miscellaneous Notes Received records. Release form faxed to [facility] Please request all reports for imaging of the chest (CT chest and CXR) completed [facility]. (She was hospitalized in 05/26 for a PE) Ken Du MD documented in this encounter [facility] 05-22-2023 Note HNO ID: [id number] Author: Ken Du MD Service: ? Author Type: Physician Type: Progress Notes Filed: 05/24/2023 3:46 PM Note Text: This is a consultation requested by Kris Knowles MD and Mario Ravi DO MS for an allergy and immunology evaluation. [...] December 27, 2022 on evaluation completed at [facility]. P-ANCA was mildly positive at 1-20. IgG [...] suffer from frequent sinopulmonary infections. ASTHMA: See LOWER BRULE ECZEMA: The patient has no history of eczema. URTICARIA:The patient does not have a history of urticaria and/or angioedema. GERD: See LOWER BRULE INSECT STING: The patient does not have a history of systemic reaction to insect sting. FOOD ALLERGY:See LOWER BRULE. 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 Physical Exam: GENERAL APPEARANCE:Well appearing, alert, in no acute distress, well-hydrated, well nourished. HEENT: NCAT. EYES: conjunctiva and sclera normal. EARS: (more content not included)... [facility] 08-23-2022 History and physi ranulfo note Note Date/Time August 23, 2022 8:10am [facility] Medical Records Department [address] [place] [address] History & Physical Exam 08/23/22 0810 MR#: [id number] Acct: [id number] Name: BROOKE WOOD Rep #:[id number] : 2000 22 From: Jr Friend DO PCP: Dr. Tai Mccarty MD Status:R EG [facility] [place]: [place] [address] History and Physical Date of Admission: 08/23/22 [...] r/t decreased appetite.? She had saw a spray cementer as an outpatient and he recommended PPI [...] ablation ; polycystic ovary syndrome; history PE. PFSH Medical History?(Updated 07/07/22 @ 07:[address] [...] (Auto) 77.7 H,?Lymph % (Auto) 14.3 L, [place] % (Auto) 6.0, Eos % (Auto) 1.7, [...] 07/07/22 01:35:?Lactic Acid 1.6 07/07/22 01:35:?ESR 23 07/07/22 01:35: C-React Prot Ext Range 5.99 H 07/07/22 03:00:?Urine Color Yellow, Urine Clarity Clear, Urine pH 8.0, Ur Specific [place] 1.015, Urine Protein Negative, Urine Glucose (UA) [...] Signed: Jo Ayoub MD at 5:28 EST , ? I have examined the patient and the H&P has been reviewed. There are no clinicalchanges since date of exam. 08/23/22 0810 <Electronically signed by Jr Ravi DO> Cosigner Signature (if applicable): CC: Dr. Tai Mccarty MD; Jr Ravi DO~ Signed [facility] Work Phone: 1(222) 929-530701-19-2023 Procedure [facility] 08-23-2022 Procedure [facility]12-06-2022 Miscellaneous Notes* Telephone Encounter - Bella Terrell - 07/10/2022 10:43 AM EST Received information. Given to nursing for Dr. Barakat to review. DX: Abnormal IGG * Telephone Encounter - Megan Shane LPN - 07/10/2022 10:12 AM EST Spoke with Dr. Ravi office, silas informed they had referred pt. To [place] [facility]. She will contact pt. To see whom pt. Wants to see. If she would like to see us they will send a proper referral with records. Megan Shane LPN * Telephone Encounter - Bella Terrell - 07/10/2022 9:54 AM EST Are we [...] have them faxthe referral to our office: [phone] * Telephone Encounter - Martha Kothari - 07/05/2022 9:12 AM EST Patient is being referred to Dr. Barakat by Dr. Ravi for pulmonary embolism. Please contact patientto schedule if accepted into the practice. 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 08, 2022 chronic Paroxysmal supraventricular tachycardia chronic Abdominal discomfort chronic Bilateral pulmonary embolism May 08, 2022 chronic GERD (gastroesophageal reflux disease) chronic Paroxysmal supraventricular tachycardia chronic [facility] Work Phone: 1(300) 505-971310-04-2022 Evaluation note* Diagnosis Onset Date Resolution Status AVNRT (AV ty re-entry tachycardia) chronic Bilateral pulmonary embolism May 08, 2022 chronic Paroxysmal supraventricular tachycardia chronic Abdominal discomfort chronic Bilateral pulmonary embolism May 08, 2022 chronic GERD (gastroesophageal reflux disease) chronic Paroxysmal supraventricular tachycardia chronic GERD (gastroesophageal reflux disease) chronic Epigastric abdominal pain ac gabriel Hepatitis acute GERD (gastroesophageal reflux disease) chronic [facility] Work Phone: 1(427) 812-296110-04-2022 Evaluation note* Diagnosis Onset Date Resolution Status AVNRT (AV ty re-entry tachycardia) chronic Bilateral pulmonary embolism May 08, 2022 chronic Paroxysmal supraventricular tachycardia chronic Abdominal discomfort chronic Bilateral pulmonary embolism May 08, 2022 chronic Paroxysmal supraventricular tachycardia chronic [facility] Work Phone: 1(689) 781-243810-04-2022 Evaluation note* Diagnosis Onset Date Resolution Status Abdominal discomfort chronic Bilateral pulmonary embolism May 08, 2022 chronic [address]ox[address]mal supraventricular tachycardia 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 She was seen in [place] [facility]. EKG showed SVT @ 156 bpm. [...] sinus node reentry. PLAN: EPS and ablation .[facility] noteNo assessment information availableWLouis Stokes [facility] Work Phone: History and physical note Author Jr Friend [facility] July 15, 2023 9:49am Note Date/Time July 15, 2023 9:41am [facility] Medical Records Department [facility] [address] [address] History & Physical Exam 07/15/23 0939 MR#: [id number] Acct: [id number] Name: BROOKE WOOD Rep #:[id number] : 2000 23 From: Jr Friend DO PCP: Dr. Tai Mccarty MD Status:R EG [facility] Location: [place] [address] History and Physical Date of Admission: 07/15/23 [...] Urine protein, urobilinogen, leukocyte esterase H OV 2.. Feels she is doing approximately the same as last time and notes food trigger of fast foods and highly acid foods; otherwise symptoms are minimally present with PO intake and feels that high fiber foods are not being digested. She has not received results from Dr. Harrington?s bloodwork. Hematology OV 3.. and 3.. for 22 year old with elevated DDimer and bilateral PE history on Eliquis. Recommend continuing Eliquis until end of Novemberthen stopping. See allergy/immunology for elevated IgE. ? Biochemical 3.08.27 CBC (WBC 3.5, hgb 11.2) CMP, LFT without pertinent abnormality. ? PT H15.6, DDimer L<0.27 Biochemical 5 CBC (WBC 3.6, hgb 11.9), coag, fibrinogen, CMP, LFT, iron, TIBC, iron sat, OLAYINKA comp without pertinent abnormality. ? DDimer H0.68, IgG total H1684, IgG11 H1105, IgE H941, KISHA M- Sam+, pANCA H1:20 Hematology OV 6.08.27 noting no familiar disease to explain clotting; perform bloodwork with thrombotic risk profile. Proceed with allergy/immunology referral(Dr. Parr) OV 6.. BM occur approximately Q3D with increased frequency, on days of no BM she has bloating. When she has reflux she then experiences nausea; reflux triggered by diet to include greasy/acidic foods and is working on changing her diet to avoid these. [facility] 05.22.23 recommending use of nasal spray; EOE recommend elimination diet over swallowed corticosteroids. Ongoing workup regarding immunoglobulins levels. OV 12..23 continues to have postprandial bloating, belching and [...] Affect: normal affect Quality Reporting Tobacco Screening ([facility] 138) Smoking Status: Never smoker Assessment [...] certain foods. I did food allergy testing, OLAYINKA comprehensive, IgG subclasses and she had a [...] have eosinophilic gastroenteritis. She will see an bean sprout laborer and nurse quality and follow-up after that initial consult. Orders: Orders EGD 07/15/23 K20.0 - Eosinophilic esophagitis Gastric Emptying Study Today K31.84 - Gastroparesis I have examined the patient and the H&P has been reviewed. There are no clinicalchanges since date of exam. 07/15/23 0945 <Electronically signed by Jr Ravi DO> Cosigner Signature (if applicable): CC: Dr. Tai Mccarty MD; Jr aRvi DO~ Signed [facility] Work Phone: Summary Purpose Family History No [...] No April 23, 2022 10:52am Power of Fur Remodeler No April 10:52am Advance Directive Response Recorded Date/ Time Living Will No May 08 10:16pm Power of Fur Remodeler No May 08 10:16pm Advance Directive Response Recorded Date/ Time Living Will No May 12 10:53pm Power of Fur Remodeler No May 12 10:53pm Advance Directive Response Recorded Date/ Time Living Will No May 12 9:53pm Power of Fur Remodeler No May 12 9:53pm Advance Directive Response Recorded Date/ Time Living Will No July 07 12:37am Power of Fur Remodeler No July 07, 2022 12:37am Advance Directive Response Recorded Date/ Time Living Will No July 07 9:06am Power of Fur Remodeler No July 07, 2022 9:06am Advance Directive Response Recorded Date/ Time Living Will No August 20 2:27pm Power of Fur Remodeler No August 20, 2022 2:27pm Advance Directive Response Recorded Date/ Time Living Will No July 11 10:13am Power of Fur Remodeler No July 11, 2023 10:13am Chief Complaint and Reason for Visit Chief Complaint ABD PAIN Chief Complaint ABD PAIN ABD PAIN/HEART PALPITATIONS Chief Complaint ABD PAIN ABD PAIN/HEART PALPITATIONS GENERAL ILLNESS TACHYCARDIA, MARJORIE. PULM. THROMBOEMBOLISM ([facility]) TACHYCARDIA EST. CARE, PPW SENT Reason for Visit AVNRT (AV ty re-e ntry tachycardia) Bilateral pulmonary embolism Paroxysmal supraventricular tachycardia Abdominal discomfort Bilateral pulmonary embolism GERD (gastroesophageal reflux disease) Paroxysmal supraventricular tachycardia Chief Complaint ABD PAIN ABD PAIN/HEART PALPITATIONS GENERAL ILLNESS TACHYCARDIA, MARJORIE. PULM. THROMBOEMBOLISM ([facility]) TACHYCARDIA EST. CARE, PPW SENT [...] PALPITATIONS GENERAL ILLNESS TACHYCARDIA, MARJORIE. PULM. THROMBOEMBOLISM ([facility]) TACHYCARDIA EST. CARE, PPW SENT [...] PALPITATIONS GENERAL ILLNESS TACHYCARDIA, MARJORIE. PULM. THROMBOEMBOLISM ([facility]) TACHYCARDIA EST. CARE, PPW SENT Gastroesophageal reflux disease (GERD) RECURRENT ABDOMINAL PAIN RECURRENT ABDOMINAL PAIN RECURRENT ABDOMINAL PAIN ABDOMINAL PAIN Reason for Visit AVNRT (AV ty re-e ntry tachycardia) Bilateral pulmonary embolism Paroxysmal supraventricular tachycardia Abdominal discomfort Bilateral pulmonary embolism Paroxysmal supraventricular tachycardia Chief Complaint ABD PAIN/HEART PALPI TATIONS GENERAL ILLNESS TACHYCARDIA, MARJORIE. PULM. THROMBOEMBOLISM ([facility]) TACHYCARDIA EST. CARE, PPW SENT Gastroesophageal reflux disease (GERD) RECURRENT ABDOMINAL PAIN RECURRENT ABDOMINAL PAIN RECURRENT ABDOMINAL PAIN ABDOMINAL PAIN Reason for Visit AVNRT (AV ty re-e ntry tachycardia) Bilateral pulmonary embolism Paroxysmal supraventricular tachycardia Abdominal discomfort Bilateral pulmonary embolism Paroxysmal supraventricular tachycardia Chief Complaint TACHYCARDIA EST. CARE, PPW SENT Gastroesophageal reflux [...] section and content) DATE CREATED AUTHOR 11/10/2021 [facility] DATE CREATED AUTHOR AUTHOR'S ORGANIZ ATION 06/02/2023 [facility] DATE CREATED AUTHOR AUTHOR'S ORGANIZ ATION 06/22/2023 [facility] DATE CREATED AUTHOR AUTHOR'S ORGANIZ ATION 01/30/2025 [facility] Goals (unrecognized section and content) Goals [...] or prosecute any alcohol or drug abuse patient.[facility] CampusIn the event this information is protected by the Federal Confidentiality of Alcohol and Drug Abuse Patient Records regulations: The Federal rules restrict any use of the information to criminally investigate or prosecute any alcohol or drug abuse patient.[facility] Reason for Visit (unrecogniz ed section and content) Reason Comments New Patient Hematology Referral- Dr. Ravi Care Teams (unrecognized sec tion and content) Civil Designer Relationship Specialty Start Date [place] [address] PCP - General Pediatrics 02/05/19 Team Status: Active Member Role Status Dates Dr. Cally Ayuob MD Family Provider Active Dr. Tai Mccarty [...] Attending Provider, Referring Pro vider Active Dr. aTi Mccarty MD Primary Care Provider Active Team [...] Harrington MD Attending Provider, Referring Provider Active Civil Designer Relationship Specialty Start Date End Date Cally Ayoub [address] [place] [address] PCP - General Pediatrics 02/05/19 Team Status: Inactive Member Role Status Dates Dr. Tai Mccarty MD Primary Care Provider, Refer ring Provider Active Dr. Kris Knowles MD Attending Provider Active Team Status: Inactive Member Role Status Dates Dr. Tai Mccarty MD Primary Care Provider, Refer ring Provider Active Vj Zendejas TELEVISION PARTS TESTER, TELEVISION PARTS TESTER-C Attending Provider Active Team Status: Active Member [...] BE BASED ON THE PRIMARY CLINICAL RECORDS. [facility] [employer] provides no warranty or guarantee of the accuracy or completeness of information in this document.
[2025-01-31 11:59] LABS: hCG Titer Quant., Serum 1159 mIU/mL (<9 non-preg)
== END | disposition home or self-care (01) ==
LOC: LAB 10:46
PROVIDERS: Obstetrics & Gynecology; PCP Internal Medicine; Referring Provider Obstetrics & Gynecology; Visit Provider Obstetrics & Gynecology
DX: Z34.90 Encounter for supervision of normal pregnancy, unspecified, unspecified trimester (principal)
CPT/HCPCS: 36415; 84702

== ENCOUNTER → 2025-02-02 | Outpatient (CLI) | payer BC, MEDICAID, SELFPAY ==
[2025-02-02 13:25] LABS: hCG Titer Quant., Serum 1721 mIU/mL (<9 non-preg)
== END | disposition home or self-care (01) ==
PROVIDERS: Nurse Practitioner Women's Health; PCP Internal Medicine; Referring Provider Obstetrics & Gynecology; Visit Provider Obstetrics & Gynecology
DX: N91.1 Secondary amenorrhea (principal)
CPT/HCPCS: 36415; 84702

== ENCOUNTER → 2025-02-03 | Outpatient (CLI) | payer BC, MEDICAID, SELFPAY ==
--- NOTE | 2025-02-03 09:20 | POC_PTH ---
PATIENT: MADELYN WODO LOC: [facility] U#:[id number] AGE/SX: 25/F ROOM: RE02/03/[address]: Dr. Lizeth uQreshi MD : 2000 BED: DIS: 02/03/2025 SPEC #: [id number] RECD: 02/03/25 09:40 STATUS: CIRILO GIBSONDudley #: [id number] JESSICA: 02/03/25 09:[address]: Lizeth Qureshi DEPT: SURGICAL PATHOLOGY RECD BY: Israel Pierre ENTERED: 02/03/25 09:58 SP TYPE: PROD CONC OTHR DR: Dr. Tai Mccarty MD Tissues: A - Product of conception, NOS Procedures: Surgery Specimen Level IV HEADER OPERATION: Complete PRE-OP DIAGNOSIS: Miscarriage TISSUE SUBMITTED: A- Products of conception MICROSCOPIC DIAGNOSIS A. Uterine contents per vagina, miscarriage, spontaneous : * Necrotic decidua and focal scant trophoblast consistent with products of conception. MICROSCOPIC DESCRIPTION Slides are reviewed. GROSS DESCRIPTION A. Received in formalin labeled with the patient's name and date of is a 1.5 g, 4.8 x 1.8 x 0.6 cm portion of pink-purple rubbery tissue with one shaggy surface. Definitive chorionic villi or parts are not present. Sectioning reveals focally congested cut surfaces. Entirely submitted in 2 cassettes CO 02/03/2025 CPT:48782
[2025-02-03 10:21] LABS: hCG Titer Quant., Serum 894 mIU/mL (<9 non-preg)
== END | disposition home or self-care (01) ==
LOC: BWCLAB 09:28
PROVIDERS: PCP Internal Medicine; Visit Provider Obstetrics & Gynecology
DX: O03.4 Incomplete spontaneous abortion without complication (principal)
CPT/HCPCS: 36415; 84702; 88305